=== PATIENT | male | born 1940 | race African-American/Black ===

== ENCOUNTER 2017-09-04 01:43 | Emergency (ER) | payer MEDICARE, MEDICAID ==
[~2017-09-04] VITALS: Ht 180.3 cm; Wt 72.6 kg
[2017-09-04] MEDS ORDERED: LEVETIRACETAM500 MG ORAL (01:53)
[2017-09-04] MEDS ORDERED: MULTIVITAMINS1 EAC8 ORAL (01:54)
[2017-09-04] MEDS ORDERED: NORVASC5 MG ORAL (01:54)
[2017-09-04] MEDS ORDERED: VITAMIN B-12500 MCG ORAL (01:55)
[2017-09-04] MEDS ORDERED: COUMADIN10 MG ORAL (01:55)
[2017-09-04] MEDS ORDERED: LOVENOX10 M1 SUBQ (01:56)
[2017-09-04] MEDS ORDERED: ACIDOPHILUS1 EAC6 PO (01:56)
[2017-09-04] MEDS ORDERED: HYDRALAZINE HCL50 MG ORAL (01:57)
[2017-09-04] MEDS ORDERED: DUONEB 0.5-3(2.53 ML HHN (01:58)
[2017-09-04] MEDS ORDERED: Surgicel 4in x 8in TOPIC ONE (02:02)
--- NOTE | 2017-09-04 02:12 | Emergency Room Report ---
History of Present Illness General Chief Complaint: Lower Extremity Injury Source: Patient, Medical Record, EMS Present Illness HPI Patient presents for complaints of bleeding from recent surgery It appears the patient had a toenail removal Unclear exactly the time frame for this patient however does appear to be on Coumadin And paramedics reported that the nursing facility mention the bleeding has continued since the procedure Patient himself denies any pain denies any chest pain shortness of breath denies any weakness Allergies: Coded Allergies: No Known Allergies (Unverified , 09/04/17) Patient History Past Medical History: see triage record Pertinent Family History: none Reviewed Nursing Documentation: PMH: Agreed, PSxH: Agreed Nursing Documentation-PMH Past Medical History: No History, Except For Hx Cardiac Problems: Yes Hx Hypertension: Yes Hx COPD: Yes History Of Psychiatric Problem: Yes Hx Neurological Problems: Yes Hx Seizures: Yes Review of Systems All Other Systems: negative except mentioned in HPI Physical Exam Vital Signs Date Time Temp Pulse Resp B/P (MAP) Pulse Ox O2 Delivery O2 Flow Rate FiO2 09/04/17 01:47 98.2 80 16 110/78 99 Room Air Sp02 EP Interpretation: reviewed, normal General Appearance: well appearing, no apparent distress Head: normocephalic, atraumatic Eyes: bilateral eye PERRL, bilateral eye EOMI ENT: hearing grossly normal, normal pharynx, TMs + canals normal, uvula midline Neck: full range of motion, supple, no meningismus, no bony tend Respiratory: lungs clear, normal breath sounds, no rhonchi, no respiratory distress, no retraction, no accessory muscle use Cardiovascular #1: normal peripheral pulses, regular rate, rhythm, no edema, no gallop, no JVD, no murmur Gastrointestinal: normal bowel sounds, non tender, soft, no mass, no organomegaly, non-distended, no guarding, no hernia, no pulsatile mass, no rebound Genitourinary: no CVA tenderness Musculoskeletal: normal inspection Neurologic: oriented x3, responsive, coding manager III-XII nml as tested, motor strength/ tone normal, sensory intact Psychiatric: mood/affect normal Skin: palpation normal, other - Appearance of left large toe toenail removal, oozing of blood is noted after removal of the dressing Lymphatic: normal inspection, no adenopathy Medical Decision Making Diagnostic Impression: Primary Impression: Post-op bleeding ER Course Given the patient's presentation the initial dressing was removed patient appears to have had a nail removal and there is continued oozing from the area After placing Steri-Strip Both the dressing with pressure was applied to the dorsal toe patient had the procedure well Patient's INR is appropriate At this time given the resolution patient is stable for close followup Labs Test 09/04/17 02:12 White Blood Count 4.7 K/UL (4.8-10.8) Red Blood Count 3.85 M/UL (4.70-6.10) Hemoglobin 11.7 G/DL (14.2-18.0) Hematocrit 34.4 % (42.0-52.0) Mean Corpuscular Volume 89 FL (80-99) Mean Corpuscular Hemoglobin 30.5 PG (27.0-31.0) Mean Corpuscular Hemoglobin Concent 34.1 G/DL (32.0-36.0) Red Cell Distribution Width 10.9 % (11.6-14.8) Platelet Count 269 K/UL (150-450) Mean Platelet Volume 6.3 FL (6.5-10.1) Neutrophils (%) (Auto) 44.4 % (45.0-75.0) Lymphocytes (%) (Auto) 37.8 % (20.0-45.0) Monocytes (%) (Auto) 12.7 % (1.0-10.0) Eosinophils (%) (Auto) 4.1 % (0.0-3.0) Basophils (%) (Auto) 1.1 % (0.0-2.0) Prothrombin Time 10.3 SEC (9.30-11.50) Prothromb Time International Ratio 1.0 (0.9-1.1) Activated Partial Thromboplast Time 35 SEC (23-33) Sodium Level 139 MMOL/L (136-145) Potassium Level 4.2 MMOL/L (3.5-5.1) Chloride Level 104 MMOL/L (98-107) Carbon Dioxide Level 29 MMOL/L (21-32) Anion Gap 6 mmol/L (5-15) Blood Urea Nitrogen 19 mg/dL (7-18) Creatinine 1.5 MG/DL (0.55-1.30) Estimat Glomerular Filtration Rate mL/min (>60) Glucose Level 96 MG/DL (74-106) Calcium Level 8.9 MG/DL (8.5-10.1) Last Vital Signs Date Time Temp Pulse Resp B/P (MAP) Pulse Ox O2 Delivery O2 Flow Rate FiO2 09/04/17 01:47 98.2 80 16 110/78 99 Room Air Status: improved Disposition: XFER [facility] Condition: Improved Additional Instructions: Patient is provided with the discharge instructions notified to follow up with primary doctor in the next 2-3 days otherwise return to the er with any worsening symptoms. Please note that this report is being documented using [employer]press technology. This can lead to erroneous entry secondary to incorrect interpretation by the dictating instrument. RIK BURGER D.O. Sep 04, 2017 02:12
[2017-09-04 02:26] LABS: BASOPHILS % (AUTO) 1.1 % (0.0-2.0); EOSINOPHILS % (AUTO) 4.1 % (0.0-3.0); LYMPHOCYTES % (AUTO) 37.8 % (20.0-45.0); MEAN CORPUSCULAR HEMOGLOBIN 30.5 PG (27.0-31.0); MEAN CORPUSCULAR HGB CONC 34.1 G/DL (32.0-36.0); MEAN CORPUSCULAR VOLUME 89 FL (80-99); MEAN PLATELET VOLUME 6.3 FL (6.5-10.1); MONOCYTES % (AUTO) 12.7 % (1.0-10.0); NEUTROPHILS % (AUTO) 44.4 % (45.0-75.0); PLATELET COUNT 269 K/UL (150-450); RED BLOOD COUNT 3.85 M/UL (4.70-6.10); RED CELL DISTRIBUTION WIDTH 10.9 % (11.6-14.8); WHITE BLOOD COUNT 4.7 K/UL (4.8-10.8)
[2017-09-04 02:32] VITALS: BP 117/71
[2017-09-04 02:47] LABS: ANION GAP 6 mmol/L (5-15); CALCIUM 8.9 MG/DL (8.5-10.1); CARBON DIOXIDE 29 MMOL/L (21-32); CHLORIDE 104 MMOL/L (98-107); CREATININE 1.5 MG/DL (0.55-1.30); POTASSIUM 4.2 MMOL/L (3.5-5.1); SODIUM 139 MMOL/L (136-145)
[2017-09-04 02:53] LABS: PROTHROMBIN TIME 10.3 SEC (9.30-11.50)
[2017-09-04 05:21] VITALS: BP 140/71
== END 2017-09-04 05:23 ==
LOC: EDBD 01:43 → EMR 02:02
DX: L76.22 Postprocedural hemorrhage of skin and subcutaneous tissue following other procedure (principal); Y83.9 Surgical procedure, unspecified as the cause of abnormal reaction of the patient, or of later complication, without mention of misadventure at the time of the procedure; I10 Essential (primary) hypertension; J44.9 Chronic obstructive pulmonary disease, unspecified
CPT/HCPCS: 36415; 80048; 85025; 85610; 85730; 99283

== ENCOUNTER 2018-06-14 12:53 | Inpatient (IN) | payer MEDICARE, MEDICAID ==
[~2018-06-14] VITALS: Ht 165.1 cm; Wt 59.0 kg
[~2018-06-14 12:53] MED LIST: ACIDOPHILUS1 EAC6 PO; COUMADIN10 MG ORAL; DUONEB 0.5-3(2.53 ML HHN; HYDRALAZINE HCL50 MG ORAL; LEVETIRACETAM500 MG ORAL; LOVENOX10 M1 SUBQ; MULTIVITAMINS1 EAC8 ORAL; NORVASC5 MG ORAL; VITAMIN B-12500 MCG ORAL
[2018-06-14] MEDS ORDERED: Miralax 17gm pkt ORAL PRN (13:15)
[2018-06-14] MEDS ORDERED: Promethazine/Codeine 5ml UD ORAL PRN (13:15)
[2018-06-14] MEDS ORDERED: Mylanta II UD 30ml ORAL PRN (13:15)
[2018-06-14] MEDS ORDERED: Nitroglycerin Subl 0.4mg tab SL PRN (13:15)
[2018-06-14] MEDS ORDERED: Albuterol/Ipratropium 3ml neb HHN PRN (13:15)
[2018-06-14 13:25] VITALS: BP 125/83
--- NOTE | 2018-06-14 13:28 | Emergency Room Report ---
History of Present Illness General Chief Complaint: Generalized Weakness Source: Patient, Medical Record, EMS Present Illness HPI Patient is a 78-year-old male brought in by EMS after from long term increased productive cough and the difficulty tolerating oral fluids. Patient recently been noted to have increased difficulty breathing.Patient had been not taking his medication for several days. Patient was noted to be previously on medications for psychosis. I reportedly patient had been refusing medications as well as food for several days.The patient had been noted to have developed a productive cough. Allergies: Coded Allergies: No Known Allergies (Unverified , 09/04/17) Patient History Past Medical History: see triage record Reviewed Nursing Documentation: PMH: Agreed; PSxH: Agreed Nursing Documentation-PMH Past Medical History: No History, Except For Hx Cardiac Problems: Yes - anemia, CHF Hx Hypertension: Yes Hx COPD: Yes Hx Cerebrovascular Accident: Yes Review of Systems All Other Systems: limited - by mental status Physical Exam Vital Signs Date Time Temp Pulse Resp B/P (MAP) Pulse Ox O2 Delivery O2 Flow Rate FiO2 06/14/18 12:48 97.8 105 32 112/78 94 Nasal Cannula 3.0 97.9 Sp02 EP Interpretation: reviewed, normal General Appearance: alert, cachetic, Chronically Ill Head: atraumatic ENT: normal voice, dry mucus membranes Neck: normal inspection, supple, no bony tend, limited range of motion Respiratory: no respiratory distress, no retraction, no wheezing, crackles Cardiovascular #1: regular rate, rhythm, no edema Gastrointestinal: normal inspection, normal bowel sounds, non tender, soft, no guarding, no hernia Genitourinary: no CVA tenderness Musculoskeletal: normal inspection, back normal, normal range of motion Neurologic: normal inspection, alert, oriented x3, responsive, demo event specialist III-XII nml as tested, speech normal Psychiatric: normal inspection, judgement/insight normal, mood/affect normal Skin: normal inspection, normal color, no rash Medical Decision Making Diagnostic Impression: Primary Impression: Acute hypernatremia Additional Impressions: Pneumonia Dehydration Failure to thrive ER Course Patient presented for shortness of breath and generalized weakness.. Differential included but was not limited to anemia, pneumonia, pneumothorax, myocardial infarction, pericardial effusion, congestive heart failure, acidosis. Because of complexity of patient's case laboratory testing and imaging studies were ordered. The patient presented grossly dehydrated. Chest x-ray one view interpreted by me showed normal cardiac size with right lower lobe infiltrate. There is no evident effusion. The patient was started on IV fluids as well as IV antibiotics. Lactic acid level was noted to be markedly elevated the patient's sodium was also noted to be elevated consistent with dehydration. Dr. Jacques Heaton was contacted for inpatient management. Labs Test 06/14/18 13:20 06/14/18 14:00 White Blood Count 8.4 K/UL (4.8-10.8) Red Blood Count 4.65 M/UL (4.70-6.10) Hemoglobin 12.9 G/DL (14.2-18.0) Hematocrit 41.9 % (42.0-52.0) Mean Corpuscular Volume 90 FL (80-99) Mean Corpuscular Hemoglobin 27.7 PG (27.0-31.0) Mean Corpuscular Hemoglobin Concent 30.7 G/DL (32.0-36.0) Red Cell Distribution Width 13.6 % (11.6-14.8) Platelet Count 309 K/UL (150-450) Mean Platelet Volume 7.5 FL (6.5-10.1) Neutrophils (%) (Auto) 75.1 % (45.0-75.0) Lymphocytes (%) (Auto) 18.9 % (20.0-45.0) Monocytes (%) (Auto) 5.5 % (1.0-10.0) Eosinophils (%) (Auto) 0.2 % (0.0-3.0) Basophils (%) (Auto) 0.3 % (0.0-2.0) Sodium Level 163 MMOL/L (136-145) Potassium Level 4.5 MMOL/L (3.5-5.1) Chloride Level 127 MMOL/L (98-107) Carbon Dioxide Level 24 MMOL/L (21-32) Anion Gap 12 mmol/L (5-15) Blood Urea Nitrogen 46 mg/dL (7-18) Creatinine 1.7 MG/DL (0.55-1.30) Estimat Glomerular Filtration Rate mL/min (>60) Glucose Level 89 MG/DL (74-106) Lactic Acid Level 3.80 mmol/L (0.4-2.0) Calcium Level 8.9 MG/DL (8.5-10.1) Total Bilirubin 0.8 MG/DL (0.2-1.0) Aspartate Amino Transf (AST/SGOT) 111 U/L (15-37) Alanine Aminotransferase (ALT/SGPT) 84 U/L (12-78) Alkaline Phosphatase 588 U/L (46-116) Total Creatine Kinase 101 U/L (26-308) Creatine Kinase MB 1.8 NG/ML (0.0-3.6) Creatine Kinase MB Relative Index 1.7 Troponin I 0.196 ng/mL (0.000-0.056) Pro-B-Type Natriuretic Peptide 616 pg/mL (0-125) Total Protein 8.1 G/DL (6.4-8.2) Albumin 2.6 G/DL (3.4-5.0) Globulin 5.5 g/dL Albumin/Globulin Ratio 0.5 (1.0-2.7) Last Vital Signs Date Time Temp Pulse Resp B/P (MAP) Pulse Ox O2 Delivery O2 Flow Rate FiO2 06/14/18 13:25 110 22 125/83 93 Nasal Cannula 3.0 06/14/18 12:48 97.8 97.9 Status: unchanged Disposition: ADMITTED INPATIENT Condition: Serious Referrals: Jacques Heaton DO (PCP) Anmol Solomon MD Jun 14, 2018 13:28
[2018-06-14 13:44] LABS: BASOPHILS % (AUTO) 0.3 % (0.0-2.0); EOSINOPHILS % (AUTO) 0.2 % (0.0-3.0); HEMATOCRIT 41.9 % (42.0-52.0); HEMOGLOBIN 12.9 G/DL (14.2-18.0); LYMPHOCYTES % (AUTO) 18.9 % (20.0-45.0); MEAN CORPUSCULAR VOLUME 90 FL (80-99); MONOCYTES % (AUTO) 5.5 % (1.0-10.0); NEUTROPHILS % (AUTO) 75.1 % (45.0-75.0); PLATELET COUNT 309 K/UL (150-450); RED BLOOD COUNT 4.65 M/UL (4.70-6.10); RED CELL DISTRIBUTION WIDTH 13.6 % (11.6-14.8); WHITE BLOOD COUNT 8.4 K/UL (4.8-10.8)
[2018-06-14] MEDS ORDERED: HydrALAZINE 50mg tab ORAL SCH (14:00)
[2018-06-14 14:08] LABS: ALANINE AMINOTRANSFERASE 84 U/L (12-78); ALBUMIN 2.6 G/DL (3.4-5.0); ALBUMIN/GLOBULIN RATIO 0.5 (1.0-2.7); ALKALINE PHOSPHATASE 588 U/L (46-116); ANION GAP 12 mmol/L (5-15); ASPARTATE AMINO TRANSFERASE 111 U/L (15-37); BILIRUBIN,TOTAL 0.8 MG/DL (0.2-1.0); BLOOD UREA NITROGEN 46 mg/dL (7-18); CALCIUM 8.9 MG/DL (8.5-10.1); CARBON DIOXIDE 24 MMOL/L (21-32); CHLORIDE 127 MMOL/L (98-107); CKMB 1.8 NG/ML (0.0-3.6); CREATINE KINASE 101 U/L (26-308); CREATININE 1.7 MG/DL (0.55-1.30); POTASSIUM 4.5 MMOL/L (3.5-5.1)
[2018-06-14] MEDS ORDERED: Ampicillin/Sulbactam Sod 3 GM in NS 110 ML IVPB ONE (14:15)
[2018-06-14 14:20] LABS: SODIUM 163 MMOL/L (136-145)
[2018-06-14 14:33] VITALS: BP 125/78
[2018-06-14 15:00] LABS: APPEARANCE,URINE SLIGHTLY CLOUDY; BILIRUBIN, URINE 2+ (NEGATIVE); COLOR,URINE BROWN; GLUCOSE, URINE (UA) NEGATIVE (NEGATIVE); KETONES,URINE 2+ (NEGATIVE); LEUKOCYTE ESTERASE ,URINE 2+ (NEGATIVE); NITRITE,URINE NEGATIVE (NEGATIVE); PH,URINE 5 (4.5-8.0); PROTEIN,URINE 2+ (NEGATIVE); UROBILINOGEN,URINE 12 MG/DL (0.0-1.0)
[2018-06-14] MEDS ORDERED: Acetaminophen 650 MG SUPP RECTAL ONE (15:00)
--- NOTE | 2018-06-14 15:33 | GI Initial Consult Note ---
History of Present Illness General Date patient seen: Jun 14, 2018 Time patient seen: 15:29 Reason for Hospitalization: Generalized Weakness Referring physician: MARK ALVAREZ Reason for Consultation: FTT Present Illness HPI Patient is a 78-year-old male brought in by EMS [facility] increased productive cough and the difficulty tolerating oral fluids. Patient recently been noted to have increased difficulty breathing.Patient had been not taking his medication for several days. Patient was noted to be previously on medications for psychosis. I reportedly patient had been refusing medications as well as food for several days.The patient had been noted to have developed a productive cough. GI consulted for FTT. [facility] limited, pt seen awake NAD with no active s/sx of N/V /D. Has constant mumble. No other history can be obtained from patient. Labs reviewed show mild anemia, hypernatremia, renal insufficiency, elevated lactic acid and elevated troponin levels and abnormal LFTs. Unknown history of endoscopy / colonoscopy. Home Meds Reported Medications Ipratropium/Albuterol Sulfate (DuoNeb 0.5-3(2.5)mg/3ml) 3 Ml Ampul.neb, 3 ML HHN , EA 09/04/17 Hydralazine Hcl* (HYDRALAZINE HCL*) 50 Mg Tablet, 50 MG ORAL EVERY 8 HOURS, TAB 09/04/17 Enoxaparin* (LOVENOX*) 60 Mg/0.6 Ml Inj, 60 MG SUBQ EVERY 12 HOURS, #60 EA 0 Refills 09/04/17 Lactobacillus Acidophilus (ACIDOPHILUS) 1 Each Capsule, 1 EACH PO, CAP 09/04/17 Cyanocobalamin (Vitamin B-12)* (VITAMIN B-12*) 500 Mcg Tablet, 500 MCG ORAL DAILY, #30 TAB 0 Refills 09/04/17 Warfarin Sod* (COUMADIN*) 10 Mg Tablet, 12 MG ORAL DAILY, TAB 09/04/17 Amlodipine Besylate (Norvasc) 5 Mg Tablet, 5 MG ORAL DAILY, TAB 09/04/17 Multivitamin With Minerals (MULTIVITAMINS WITH MINERALS*) 1 Each Tablet, 1 TAB ORAL DAILY, TAB 09/04/17 Levetiracetam* (LEVETIRACETAM*) 500 Mg Tablet, 500 MG ORAL TWICE A DAY, #60 TAB 0 Refills 09/04/17 Med list reviewed/reconciled: Yes Allergies: Coded Allergies: No Known Allergies (Unverified , 09/04/17) Patient History Limited by: medical condition History Provided By: Medical Record PMH Narrative Past Medical History: see triage record Reviewed Nursing Documentation: PMH: Agreed; PSxH: Agreed Nursing Documentation-PM Past Medical History: No History, Except For Hx Cardiac Problems: Yes - anemia, CHF Hx Hypertension: Yes Hx COPD: Yes Hx Cerebrovascular Accident: Yes Review of Systems All Other Systems: limited Physical Exam Vital Signs Date Time Temp Pulse Resp B/P (MAP) Pulse Ox O2 Delivery O2 Flow Rate FiO2 06/14/18 12:48 97.8 105 32 112/78 94 Nasal Cannula 3.0 97.9 Sp02 EP Interpretation: reviewed, normal Labs Laboratory Tests Test 06/14/18 13:20 06/14/18 14:00 06/14/18 14:30 White Blood Count 8.4 K/UL (4.8-10.8) Red Blood Count 4.65 M/UL (4.70-6.10) L Hemoglobin 12.9 G/DL (14.2-18.0) L Hematocrit 41.9 % (42.0-52.0) L Mean Corpuscular Volume 90 FL (80-99) Mean Corpuscular Hemoglobin 27.7 PG (27.0-31.0) Mean Corpuscular Hemoglobin Concent 30.7 G/DL (32.0-36.0) L Red Cell Distribution Width 13.6 % (11.6-14.8) Platelet Count 309 K/UL (150-450) Mean Platelet Volume 7.5 FL (6.5-10.1) Neutrophils (%) (Auto) 75.1 % (45.0-75.0) H Lymphocytes (%) (Auto) 18.9 % (20.0-45.0) L Monocytes (%) (Auto) 5.5 % (1.0-10.0) Eosinophils (%) (Auto) 0.2 % (0.0-3.0) Basophils (%) (Auto) 0.3 % (0.0-2.0) Sodium Level 163 MMOL/L (136-145) *H Potassium Level 4.5 MMOL/L (3.5-5.1) Chloride Level 127 MMOL/L (98-107) H Carbon Dioxide Level 24 MMOL/L (21-32) Anion Gap 12 mmol/L (5-15) Blood Urea Nitrogen 46 mg/dL (7-18) H Creatinine 1.7 MG/DL (0.55-1.30) H Estimat Glomerular Filtration Rate mL/min (>60) Glucose Level 89 MG/DL (74-106) Lactic Acid Level 3.80 mmol/L (0.4-2.0) H 4.40 mmol/L (0.66-2.22) H Calcium Level 8.9 MG/DL (8.5-10.1) Total Bilirubin 0.8 MG/DL (0.2-1.0) Aspartate Amino Transf (AST/SGOT) 111 U/L (15-37) H Alanine Aminotransferase (ALT/SGPT) 84 U/L (12-78) H Alkaline Phosphatase 588 U/L (46-116) H Total Creatine Kinase 101 U/L (26-308) Creatine Kinase MB 1.8 NG/ML (0.0-3.6) Creatine Kinase MB Relative Index 1.7 Troponin I 0.196 ng/mL (0.000-0.056) Pro-B-Type Natriuretic Peptide 616 pg/mL (0-125) H Total Protein 8.1 G/DL (6.4-8.2) Albumin 2.6 G/DL (3.4-5.0) L Globulin 5.5 g/dL Albumin/Globulin Ratio 0.5 (1.0-2.7) L Arterial Blood pH 7.508 (7.350-7.450) Arterial Blood Partial Pressure CO2 22.2 mmHg (35.0-45.0) *L Arterial Blood Partial Pressure O2 53.5 mmHg (75.0-100.0) L Arterial Blood HCO3 17.2 mmol/L (22.0-26.0) L Arterial Blood Oxygen Saturation 87.5 % (92.0-98.0) L Arterial Blood Base Excess -3.9 Amado Test Positive Urine Color Brown Urine Appearance Slightly cloudy Urine pH 5 (4.5-8.0) Urine Specific [place] 1.020 (1.005-1.035) Urine Protein 2+ (NEGATIVE) H Urine Glucose (UA) Negative (NEGATIVE) Urine Ketones 2+ (NEGATIVE) H Urine Blood 1+ (NEGATIVE) H Urine Nitrite Negative (NEGATIVE) Urine Bilirubin 2+ (NEGATIVE) H Urine Ictotest Negative (NEGATIVE) Urine Urobilinogen 12 MG/DL (0.0-1.0) H Urine Leukocyte Esterase 2+ (NEGATIVE) H Urine RBC 2-4 /HPF (0 - 0) H Urine WBC 2-4 /HPF (0 - 0) Urine Squamous Epithelial Cells Occasional /LPF Urine Amorphous Sediment Moderate /LPF (NONE) H Urine Bacteria Few /HPF (NONE) Urine Mucus Few /LPF (NONE/OCC) H General Appearance: well appearing, no apparent distress, alert Head: normocephalic EENT: PERRL/EOMI, normal ENT inspection Neck: supple Respiratory: normal breath sounds, no respiratory distress Cardiovascular: normal rate Gastrointestinal: normal inspection, non tender, soft, normal bowel sounds, non -distended Rectal: deferred Genitourinary: deferred Musculoskeletal: normal inspection, back normal Neurologic: alert Skin: normal inspection, normal color, no rash, warm/dry, palpation normal, well hydrated Lymphatic: normal inspection, no adenopathy Current Medications Current Medications Medications (Trade) Dose Ordered Sig/Manav Route PRN Reason Start Time Stop Time Status Last Admin Dose Admin Acetaminophen (Tylenol) 650 mg Q4H PRN ORAL fever (temp>100.5F) 06/14/18 13:15 07/14/18 13:14 Al Hydroxide/Mg Hydroxide (Mylanta II) 30 ml Q6H PRN ORAL dyspepsia 06/14/18 13:15 07/14/18 13:14 Albuterol/ Ipratropium (Albuterol/ Ipratropium) 3 ml Q4H PRN HHN Shortness of Breath 06/14/18 13:15 06/19/18 13:14 Amlodipine Besylate (Norvasc) 5 mg DAILY ORAL 06/15/18 09:00 07/15/18 08:59 Cefepime HCl 1 gm/ Dextrose 55 ml @ 110 mls/hr EVERY 12 HOURS IV 06/14/18 21:00 06/21/18 20:59 UNV Heparin Sodium (Porcine) (Heparin 5000 units/ml) 5,000 units EVERY 12 HOURS SUBQ 06/14/18 21:00 07/14/18 20:59 Hydralazine HCl (Apresoline) 50 mg EVERY 8 HOURS ORAL 06/14/18 14:00 07/14/18 13:59 Levetiracetam (Keppra) 500 mg Q12HR ORAL 06/14/18 21:00 07/14/18 20:59 Nitroglycerin (Ntg) 0.4 mg Q5M PRN SL Prn Chest Pain 06/14/18 13:15 07/14/18 13:14 Ondansetron HCl (Zofran) 4 mg Q6H PRN IVP Nausea & Vomiting 06/14/18 13:15 07/14/18 13:14 Polyethylene Glycol (Miralax) 17 gm DAILYPRN PRN ORAL Constipation 06/14/18 13:15 07/14/18 13:14 Promethazine HCl/ Codeine (Phenergan with Codeine) 5 ml Q4H PRN ORAL For Cough 06/14/18 13:15 07/14/18 13:14 Sodium Chloride 1,000 ml @ 999 mls/hr Q1H1M ONCE IV 06/14/18 14:30 06/14/18 15:30 06/14/18 15:03 Temazepam (Restoril) 15 mg HSPRN PRN ORAL Insomnia 06/14/18 13:15 06/21/18 13:14 Vancomycin HCl (Vanco rx to dose) 1 ea DAILY PRN MISC Per rx protocol 06/14/18 13:15 07/14/18 13:14 UNV GI: Plan Problems: (1) Electrolyte imbalance (2) Severe malnutrition (3) Renal insufficiency (4) Acute hypernatremia (5) Dehydration (6) Pneumonia (7) Generalized weakness (8) Failure to thrive Plan hold GI procedures at this time given elevated troponin levels, needs cardiac work up PEG if necessary maintain NPO + IVFs electrolyte correction ST evaluation calorie count anemia work up OB stool r/o GI bleed monitor H&H, prn transfusions bowel regime ppi trend LFTs fu labs, hepatitis panel Discussed with Dr. Pineda. Thank you for this patient referral, we will follow. The patient was seen and examined at bedside and all new and available data was reviewed in the patients chart. I agree with the above findings, impression and plan. (Patient seen earlier today. Signature stamp does not reflect patient encounter time.). - MD Inez FallHonorhealth John C. Lincoln Medical CenterEtelvina DIAGNOSTIC TECHNICIAN Jun 14, 2018 15:33
[2018-06-14 16:00] VITALS: BP 129/87
--- NOTE | 2018-06-14 16:38 | Diagnostic Imaging Report ---
Indication: Shortness of breath Technique: XRAY Chest 1v Comparison: None Findings: Heart size and mediastinal contours within normal limits for AP technique. There are atherosclerotic calcifications in the aortic arch. There is asymmetric hazy opacification in the right lung base concerning for pneumonia. Additionally there are multiple bilateral nodular opacities. Malignancy not excluded. There is degenerative change of the spine. No acute osseous abnormality identified. IMPRESSION: * Asymmetric hazy opacity in the right lower lung concerning for pneumonia. Correlate clinically. * Multiple bilateral nodular densities. Malignancy is not excluded. Recommend further evaluation with CT of the chest. Study obtained via the emergency department however patient admitted to the hospital at time of dictation of the final report. . Findings of the final report and imaging follow-up recommendations discussed with the treating nurse on 2E. via telephone conversation. RN to convey imaging recommendations to the treating MD.
[2018-06-14] MEDS ORDERED: MILK OF MA400 MG/51 ORAL (16:45)
[2018-06-14] MEDS ORDERED: ACETAMINOPHEN325 M1 ORAL (16:45)
[2018-06-14] MEDS ORDERED: PROZAC10 MG ORAL (16:45)
[2018-06-14] MEDS ORDERED: TYLENOL EXTRA500 MG ORAL (16:45)
[2018-06-14] MEDS ORDERED: COLACE100 MG ORAL (16:45)
--- NOTE | 2018-06-14 16:45 | History and Physical Report ---
DATE OF ADMISSION: 06/14/2018 APPROXIMATE TIME: 1 p.m. CONSULTANTS: 1. Malia Saba M.D. 2. Shey Gutierrez M.D. 3. Vin Pineda M.D. 4. Ousmane Denis M.D. CHIEF COMPLAINT: Failure to thrive, confusion, and shortness of breath. BRIEF HISTORY: This is a 78-year-old male from [facility], he presented with the above-mentioned diagnosis. Currently, calm, O2 NC, slight short of breath, in the ER gurney, refusing to answer questions. REVIEW OF SYSTEMS: Unavailable. PAST MEDICAL HISTORY: Include high blood pressure, confusion, and weakness. PAST SURGICAL HISTORY: Unknown. MEDICATIONS: Include amlodipine, hydralazine, Tylenol, , nitroglycerin, albuterol, Zofran, temazepam, and vancomycin. ALLERGIES: Denies. SOCIAL HISTORY: Unable to obtain secondary to the patient's condition. PHYSICAL EXAMINATION: GENERAL: Calm in bed, O2 NC in place, slight short of breath, refusing to answer questions. VITAL SIGNS: Temperature is 98, pulse 105, respirations 32, and blood pressure 112/78. CARDIOVASCULAR: No murmurs. LUNGS: Poor air exchange. ABDOMEN: Bowel sounds distant. EXTREMITIES: No cyanosis, clubbing, or edema. NEUROLOGIC: The patient moves all extremities, but slightly weak. LABORATORY DATA: Laboratories are pending. ASSESSMENT: 1. Failure to thrive. 2. Confusion. 3. Short of breath. 4. Weakness. 5. Hypertension. PLAN: 1. Continue premeds. 2. O2 and pulmonary treatment. 3. OT, PT, and dietary evaluation. 4. CBC and BMP in the morning. 5. Antibiotics per Infectious Disease. 6. Dr. Saba, Dr. Gutierrez, Dr. Pineda, and Dr. Denis to consult. 7. We will continue to follow the patient. We will check laboratories if become available. Jacques Heaton D.O. DR: SARAH JOB#: [id number] CC:
[2018-06-14] MEDS: Cefepime HCl 1 GM in D5W 55 ML IV SCH (17:58)
[2018-06-14] MEDS ORDERED: Vancomycin 1gm/D5W 275ml IVPB ONE ×2 (18:30)
[2018-06-14 20:00] VITALS: BP 118/85
--- NOTE | 2018-06-14 20:43 | Consultation ---
History of Present Illness General Date patient seen: Jun 14, 2018 Chief Complaint: Generalized Weakness Referring physician: MARK ALVAREZ Reason for Consultation: lung nodules Present Illness HPI 78-year-old male with hx of seizures, CVA, dementia brought in by EMS with cc of productive cough and the difficulty tolerating oral fluids. Patient had been refusing medications as well as food for several days.The patient had been noted to have developed a productive cough. He was diagnosed to have RLL infiltrate and multiple masses. He is admitted to telemetry for further work up. Allergies: Coded Allergies: No Known Allergies (Unverified , 09/04/17) Medication History Scheduled Amlodipine Besylate (Norvasc), 5 MG ORAL DAILY, (Reported) Cyanocobalamin (Vitamin B-12)* (Vitamin B-12*), 500 MCG ORAL DAILY, (Reported) Docusate Sodium* (Colace*), 100 MG ORAL DAILY, (Reported) Enoxaparin* (Lovenox*), 60 MG SUBQ EVERY 12 HOURS, (Reported) Fluoxetine Hcl* (Prozac*), 10 MG ORAL DAILY, (Reported) Hydralazine Hcl* (Hydralazine Hcl*), 50 MG ORAL EVERY 8 HOURS, (Reported) Levetiracetam* (Levetiracetam*), 500 MG ORAL TWICE A DAY, (Reported) Magnesium Hydroxide* (Milk Of Magnesia*), 30 ML ORAL DAILY, (Reported) Multivitamin With Minerals (Multivitamins With Minerals*), 1 TAB ORAL DAILY, ( Reported) Warfarin Sod* (Coumadin*), 12 MG ORAL DAILY, (Reported) Scheduled PRN Acetaminophen* (Tylenol Extra Strength*), 500 MG ORAL Q6H PRN for Mild Pain/ Temp > 100.5, (Reported) Acetaminophen* (Acetaminophen 325MG Tablet*), 325 MG ORAL Q6H PRN for Pain Scale (6-10), (Reported) Miscellaneous Medications Ipratropium/Albuterol Sulfate (DuoNeb 0.5-3(2.5)mg/3ml), 3 ML HHN, (Reported) Lactobacillus Acidophilus (Acidophilus), 1 EACH PO, (Reported) Patient History Healthcare decision maker Resuscitation status Advanced Directive on File Past Medical/Surgical History Past Medical/Surgical History: (1) Cerebrovascular accident (CVA) (2) Seizure disorder (3) Advanced dementia (4) Severe malnutrition (5) Failure to thrive Review of Systems All Other Systems: negative except mentioned in HPI Physical Exam General Appearance: cachetic Lines, tubes and drains: peripheral HEENT: normocephalic, atraumatic Neck: non-tender, normal alignment Respiratory/Chest: chest wall non-tender, rhonchi - left Cardiovascular/Chest: normal peripheral pulses, normal rate Abdomen: normal bowel sounds, non tender Genitourinary/Rectal: normal genital exam Extremities: normal range of motion 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 grossly normal Last 24 Hour Vital Signs Date Time Temp Pulse Resp B/P (MAP) Pulse Ox O2 Delivery O2 Flow Rate FiO2 06/14/18 20:08 Nasal Cannula 1.0 24 06/14/18 20:07 99 Nasal Cannula 1.0 24 06/14/18 20:00 97.3 99 20 118/85 (96) 94 97.3 06/14/18 19:03 96 06/14/18 16:52 Nasal Cannula 3.0 06/14/18 16:00 98.6 101 20 129/87 (101) 98 98.6 06/14/18 15:30 100.6 116 22 125/78 96 Nasal Cannula 3.0 213.1 06/14/18 15:03 100.6 06/14/18 14:33 100.6 116 22 125/78 96 Nasal Cannula 3.0 100.6 06/14/18 13:25 110 22 125/83 93 Nasal Cannula 3.0 06/14/18 12:48 97.8 105 32 112/78 94 Nasal Cannula 3.0 97.9 Laboratory Tests Test 06/14/18 13:20 06/14/18 14:00 06/14/18 14:30 06/14/18 18:20 White Blood Count 8.4 K/UL (4.8-10.8) Red Blood Count 4.65 M/UL (4.70-6.10) L Hemoglobin 12.9 G/DL (14.2-18.0) L Hematocrit 41.9 % (42.0-52.0) L Mean Corpuscular Volume 90 FL (80-99) Mean Corpuscular Hemoglobin 27.7 PG (27.0-31.0) Mean Corpuscular Hemoglobin Concent 30.7 G/DL (32.0-36.0) L Red Cell Distribution Width 13.6 % (11.6-14.8) Platelet Count 309 K/UL (150-450) Mean Platelet Volume 7.5 FL (6.5-10.1) Neutrophils (%) (Auto) 75.1 % (45.0-75.0) H Lymphocytes (%) (Auto) 18.9 % (20.0-45.0) L Monocytes (%) (Auto) 5.5 % (1.0-10.0) Eosinophils (%) (Auto) 0.2 % (0.0-3.0) Basophils (%) (Auto) 0.3 % (0.0-2.0) Sodium Level 163 MMOL/L (136-145) *H Potassium Level 4.5 MMOL/L (3.5-5.1) Chloride Level 127 MMOL/L (98-107) H Carbon Dioxide Level 24 MMOL/L (21-32) Anion Gap 12 mmol/L (5-15) Blood Urea Nitrogen 46 mg/dL (7-18) H Creatinine 1.7 MG/DL (0.55-1.30) H Estimat Glomerular Filtration Rate mL/min (>60) Glucose Level 89 MG/DL (74-106) Lactic Acid Level 3.80 mmol/L (0.4-2.0) H 4.40 mmol/L (0.66-2.22) H Calcium Level 8.9 MG/DL (8.5-10.1) Total Bilirubin 0.8 MG/DL (0.2-1.0) Aspartate Amino Transf (AST/SGOT) 111 U/L (15-37) H Alanine Aminotransferase (ALT/SGPT) 84 U/L (12-78) H Alkaline Phosphatase 588 U/L (46-116) H Total Creatine Kinase 101 U/L (26-308) Creatine Kinase MB 1.8 NG/ML (0.0-3.6) Creatine Kinase MB Relative Index 1.7 Troponin I 0.196 ng/mL (0.000-0.056) Pro-B-Type Natriuretic Peptide 616 pg/mL (0-125) H Total Protein 8.1 G/DL (6.4-8.2) Albumin 2.6 G/DL (3.4-5.0) L Globulin 5.5 g/dL Albumin/Globulin Ratio 0.5 (1.0-2.7) L Arterial Blood pH 7.508 (7.350-7.450) Arterial Blood Partial Pressure CO2 22.2 mmHg (35.0-45.0) *L Arterial Blood Partial Pressure O2 53.5 mmHg (75.0-100.0) L Arterial Blood HCO3 17.2 mmol/L (22.0-26.0) L Arterial Blood Oxygen Saturation 87.5 % (92.0-98.0) L Arterial Blood Base Excess -3.9 Amado Test Positive Urine Color Brown Urine Appearance Slightly cloudy Urine pH 5 (4.5-8.0) Urine Specific Stanley 1.020 (1.005-1.035) Urine Protein 2+ (NEGATIVE) H Urine Glucose (UA) Negative (NEGATIVE) Urine Ketones 2+ (NEGATIVE) H Urine Blood 1+ (NEGATIVE) H Urine Nitrite Negative (NEGATIVE) Urine Bilirubin 2+ (NEGATIVE) H Urine Ictotest Negative (NEGATIVE) Urine Urobilinogen 12 MG/DL (0.0-1.0) H Urine Leukocyte Esterase 2+ (NEGATIVE) H Urine RBC 2-4 /HPF (0 - 0) H Urine WBC 2-4 /HPF (0 - 0) Urine Squamous Epithelial Cells Occasional /LPF Urine Amorphous Sediment Moderate /LPF (NONE) H Urine Bacteria Few /HPF (NONE) Urine Mucus Few /LPF (NONE/OCC) H Stool Occult Blood Pending Height (Feet): 5 Height (Inches): 7.00 Weight (Pounds): 119 Medications Current Medications Medications (Trade) Dose Ordered Sig/Manav Route PRN Reason Start Time Stop Time Status Last Admin Dose Admin Acetaminophen (Tylenol) 650 mg Q4H PRN ORAL fever (temp>100.5F) 06/14/18 13:15 07/14/18 13:14 Al Hydroxide/Mg Hydroxide (Mylanta II) 30 ml Q6H PRN ORAL dyspepsia 06/14/18 13:15 07/14/18 13:14 Albuterol/ Ipratropium (Albuterol/ Ipratropium) 3 ml Q4H PRN HHN Shortness of Breath 06/14/18 13:15 06/19/18 13:14 Amlodipine Besylate (Norvasc) 5 mg DAILY ORAL 06/15/18 09:00 07/15/18 08:59 Cefepime HCl 1 gm/ Dextrose 55 ml @ 110 mls/hr DAILY IV 06/14/18 18:00 06/21/18 17:59 06/14/18 17:58 Dextrose 1,000 ml @ 150 mls/hr Q6H40M IV 06/14/18 17:30 07/14/18 17:29 06/14/18 17:55 Heparin Sodium (Porcine) (Heparin 5000 units/ml) 5,000 units EVERY 12 HOURS SUBQ 06/14/18 21:00 07/14/18 20:59 Hydralazine HCl (Apresoline) 50 mg EVERY 8 HOURS ORAL 06/14/18 14:00 07/14/18 13:59 Levetiracetam (Keppra) 500 mg Q12HR ORAL 06/14/18 21:00 07/14/18 20:59 Nitroglycerin (Ntg) 0.4 mg Q5M PRN SL Prn Chest Pain 06/14/18 13:15 07/14/18 13:14 Ondansetron HCl (Zofran) 4 mg Q6H PRN IVP Nausea & Vomiting 06/14/18 13:15 07/14/18 13:14 Pantoprazole (Protonix) 40 mg DAILY IVP 06/15/18 09:00 07/15/18 08:59 Polyethylene Glycol (Miralax) 17 gm DAILYPRN PRN ORAL Constipation 06/14/18 13:15 07/14/18 13:14 Promethazine HCl/ Codeine (Phenergan with Codeine) 5 ml Q4H PRN ORAL For Cough 06/14/18 13:15 07/14/18 13:14 Temazepam (Restoril) 15 mg HSPRN PRN ORAL Insomnia 06/14/18 13:15 06/21/18 13:14 Vancomycin HCl (Vanco rx to dose) 1 ea DAILY PRN MISC Per rx protocol 06/14/18 13:15 07/14/18 13:14 Assessment/Plan Problem List: (1) Aspiration pneumonia ICD Codes: J69.0 - Pneumonitis due to inhalation of food and vomit SNOMED: 248052473 (2) ATN (acute tubular necrosis) ICD Codes: N17.0 - Acute kidney failure with tubular necrosis SNOMED: 47201129 (3) Lung nodule, multiple ICD Codes: R91.8 - Other nonspecific abnormal finding of lung field SNOMED: 579307849 (4) Seizure disorder ICD Codes: G40.909 - Epilepsy, unspecified, not intractable, without status epilepticus SNOMED: 433720169 (5) Severe malnutrition ICD Codes: E43 - Unspecified severe protein-calorie malnutrition SNOMED: 14028173 (6) Cerebrovascular accident (CVA) ICD Codes: I63.9 - Cerebral infarction, unspecified SNOMED: 262268372 (7) Advanced dementia ICD Codes: F03.90 - Unspecified dementia without behavioral disturbance SNOMED: 77891458 Assessment/Plan NPO iv fluids iv abx CT of chest check sputum check electrolytes swallow evaluation Malia Saba MD Jun 14, 2018 20:43
[2018-06-14] MEDS: Heparin 5000 units/ml inj SUBQ SCH (21:19)
--- NOTE | 2018-06-14 23:32 | Consultation ---
History of Present Illness General Date patient seen: Jun 15, 2018 Chief Complaint: Generalized Weakness Referring physician: MARK ALVAREZ Reason for Consultation: FTT Present Illness HPI 78-year-old male from [facility], he presented with the above- mentioned diagnosis. The pt pw waxing and waning of consciousness, memory impairment. the pt is confused and has not been eating . he lacks capacity Allergies: Coded Allergies: No Known Allergies (Unverified , 09/04/17) Medication History Scheduled Amlodipine Besylate (Norvasc), 5 MG ORAL DAILY, (Reported) Cyanocobalamin (Vitamin B-12)* (Vitamin B-12*), 500 MCG ORAL DAILY, (Reported) Docusate Sodium* (Colace*), 100 MG ORAL DAILY, (Reported) Enoxaparin* (Lovenox*), 60 MG SUBQ EVERY 12 HOURS, (Reported) Fluoxetine Hcl* (Prozac*), 10 MG ORAL DAILY, (Reported) Hydralazine Hcl* (Hydralazine Hcl*), 50 MG ORAL EVERY 8 HOURS, (Reported) Levetiracetam* (Levetiracetam*), 500 MG ORAL TWICE A DAY, (Reported) Magnesium Hydroxide* (Milk Of Magnesia*), 30 ML ORAL DAILY, (Reported) Multivitamin With Minerals (Multivitamins With Minerals*), 1 TAB ORAL DAILY, ( Reported) Warfarin Sod* (Coumadin*), 12 MG ORAL DAILY, (Reported) Scheduled PRN Acetaminophen* (Tylenol Extra Strength*), 500 MG ORAL Q6H PRN for Mild Pain/ Temp > 100.5, (Reported) Acetaminophen* (Acetaminophen 325MG Tablet*), 325 MG ORAL Q6H PRN for Pain Scale (6-10), (Reported) Miscellaneous Medications Ipratropium/Albuterol Sulfate (DuoNeb 0.5-3(2.5)mg/3ml), 3 ML HHN, (Reported) Lactobacillus Acidophilus (Acidophilus), 1 EACH PO, (Reported) Patient History Healthcare decision maker Resuscitation status Advanced Directive on File Past Medical/Surgical History Past Medical/Surgical History: (1) Acute hypernatremia (2) Dehydration (3) Pneumonia (4) Generalized weakness (5) Failure to thrive (6) Renal insufficiency (7) Electrolyte imbalance (8) Severe malnutrition (9) Seizure disorder (10) Advanced dementia (11) Cerebrovascular accident (CVA) (12) Aspiration pneumonia (13) ATN (acute tubular necrosis) (14) Lung nodule, multiple (15) Post-op bleeding (16) Metastatic cancer Review of Systems Psychiatric: Reports: prior hx, anxiety, depressed feelings, emotional problems Physical Exam General Appearance: no apparent distress, alert, confused Last 24 Hour Vital Signs Date Time Temp Pulse Resp B/P (MAP) Pulse Ox O2 Delivery O2 Flow Rate FiO2 06/14/18 20:08 Nasal Cannula 1.0 24 06/14/18 20:07 99 Nasal Cannula 1.0 24 06/14/18 20:00 97.3 99 20 118/85 (96) 94 97.3 06/14/18 19:03 96 06/14/18 16:52 Nasal Cannula 3.0 06/14/18 16:00 98.6 101 20 129/87 (101) 98 98.6 06/14/18 15:30 100.6 116 22 125/78 96 Nasal Cannula 3.0 213.1 06/14/18 15:03 100.6 06/14/18 14:33 100.6 116 22 125/78 96 Nasal Cannula 3.0 100.6 06/14/18 13:25 110 22 125/83 93 Nasal Cannula 3.0 06/14/18 12:48 97.8 105 32 112/78 94 Nasal Cannula 3.0 97.9 Laboratory Tests Test 06/14/18 13:20 06/14/18 14:00 06/14/18 14:30 06/14/18 18:20 White Blood Count 8.4 K/UL (4.8-10.8) Red Blood Count 4.65 M/UL (4.70-6.10) L Hemoglobin 12.9 G/DL (14.2-18.0) L Hematocrit 41.9 % (42.0-52.0) L Mean Corpuscular Volume 90 FL (80-99) Mean Corpuscular Hemoglobin 27.7 PG (27.0-31.0) Mean Corpuscular Hemoglobin Concent 30.7 G/DL (32.0-36.0) L Red Cell Distribution Width 13.6 % (11.6-14.8) Platelet Count 309 K/UL (150-450) Mean Platelet Volume 7.5 FL (6.5-10.1) Neutrophils (%) (Auto) 75.1 % (45.0-75.0) H Lymphocytes (%) (Auto) 18.9 % (20.0-45.0) L Monocytes (%) (Auto) 5.5 % (1.0-10.0) Eosinophils (%) (Auto) 0.2 % (0.0-3.0) Basophils (%) (Auto) 0.3 % (0.0-2.0) Sodium Level 163 MMOL/L (136-145) *H Potassium Level 4.5 MMOL/L (3.5-5.1) Chloride Level 127 MMOL/L (98-107) H Carbon Dioxide Level 24 MMOL/L (21-32) Anion Gap 12 mmol/L (5-15) Blood Urea Nitrogen 46 mg/dL (7-18) H Creatinine 1.7 MG/DL (0.55-1.30) H Estimat Glomerular Filtration Rate mL/min (>60) Glucose Level 89 MG/DL (74-106) Lactic Acid Level 3.80 mmol/L (0.4-2.0) H 4.40 mmol/L (0.66-2.22) H Calcium Level 8.9 MG/DL (8.5-10.1) Total Bilirubin 0.8 MG/DL (0.2-1.0) Aspartate Amino Transf (AST/SGOT) 111 U/L (15-37) H Alanine Aminotransferase (ALT/SGPT) 84 U/L (12-78) H Alkaline Phosphatase 588 U/L (46-116) H Total Creatine Kinase 101 U/L (26-308) Creatine Kinase MB 1.8 NG/ML (0.0-3.6) Creatine Kinase MB Relative Index 1.7 Troponin I 0.196 ng/mL (0.000-0.056) Pro-B-Type Natriuretic Peptide 616 pg/mL (0-125) H Total Protein 8.1 G/DL (6.4-8.2) Albumin 2.6 G/DL (3.4-5.0) L Globulin 5.5 g/dL Albumin/Globulin Ratio 0.5 (1.0-2.7) L Arterial Blood pH 7.508 (7.350-7.450) Arterial Blood Partial Pressure CO2 22.2 mmHg (35.0-45.0) *L Arterial Blood Partial Pressure O2 53.5 mmHg (75.0-100.0) L Arterial Blood HCO3 17.2 mmol/L (22.0-26.0) L Arterial Blood Oxygen Saturation 87.5 % (92.0-98.0) L Arterial Blood Base Excess -3.9 Amado Test Positive Urine Color Brown Urine Appearance Slightly cloudy Urine pH 5 (4.5-8.0) Urine Specific Howell 1.020 (1.005-1.035) Urine Protein 2+ (NEGATIVE) H Urine Glucose (UA) Negative (NEGATIVE) Urine Ketones 2+ (NEGATIVE) H Urine Blood 1+ (NEGATIVE) H Urine Nitrite Negative (NEGATIVE) Urine Bilirubin 2+ (NEGATIVE) H Urine Ictotest Negative (NEGATIVE) Urine Urobilinogen 12 MG/DL (0.0-1.0) H Urine Leukocyte Esterase 2+ (NEGATIVE) H Urine RBC 2-4 /HPF (0 - 0) H Urine WBC 2-4 /HPF (0 - 0) Urine Squamous Epithelial Cells Occasional /LPF Urine Amorphous Sediment Moderate /LPF (NONE) H Urine Bacteria Few /HPF (NONE) Urine Mucus Few /LPF (NONE/OCC) H Stool Occult Blood Pending Height (Feet): 5 Height (Inches): 7.00 Weight (Pounds): 119 Medications Current Medications Medications (Trade) Dose Ordered Sig/Manav Route PRN Reason Start Time Stop Time Status Last Admin Dose Admin Acetaminophen (Tylenol) 650 mg Q4H PRN ORAL fever (temp>100.5F) 06/14/18 13:15 07/14/18 13:14 Al Hydroxide/Mg Hydroxide (Mylanta II) 30 ml Q6H PRN ORAL dyspepsia 06/14/18 13:15 07/14/18 13:14 Albuterol/ Ipratropium (Albuterol/ Ipratropium) 3 ml Q4H PRN HHN Shortness of Breath 06/14/18 13:15 06/19/18 13:14 Amlodipine Besylate (Norvasc) 5 mg DAILY ORAL 06/15/18 09:00 07/15/18 08:59 Cefepime HCl 1 gm/ Dextrose 55 ml @ 110 mls/hr DAILY IV 06/14/18 18:00 06/21/18 17:59 06/14/18 17:58 Dextrose 1,000 ml @ 150 mls/hr Q6H40M IV 06/14/18 17:30 07/14/18 17:29 06/14/18 17:55 Heparin Sodium (Porcine) (Heparin 5000 units/ml) 5,000 units EVERY 12 HOURS SUBQ 06/14/18 21:00 07/14/18 20:59 06/14/18 21:19 Hydralazine HCl (Apresoline) 50 mg EVERY 8 HOURS ORAL 06/14/18 14:00 07/14/18 13:59 Levetiracetam (Keppra) 500 mg Q12HR ORAL 06/14/18 21:00 07/14/18 20:59 Nitroglycerin (Ntg) 0.4 mg Q5M PRN SL Prn Chest Pain 06/14/18 13:15 07/14/18 13:14 Ondansetron HCl (Zofran) 4 mg Q6H PRN IVP Nausea & Vomiting 06/14/18 13:15 07/14/18 13:14 Pantoprazole (Protonix) 40 mg DAILY IVP 06/15/18 09:00 07/15/18 08:59 Polyethylene Glycol (Miralax) 17 gm DAILYPRN PRN ORAL Constipation 06/14/18 13:15 07/14/18 13:14 Promethazine HCl/ Codeine (Phenergan with Codeine) 5 ml Q4H PRN ORAL For Cough 06/14/18 13:15 07/14/18 13:14 Temazepam (Restoril) 15 mg HSPRN PRN ORAL Insomnia 06/14/18 13:15 06/21/18 13:14 Vancomycin HCl (Vanco rx to dose) 1 ea DAILY PRN MISC Per rx protocol 06/14/18 13:15 07/14/18 13:14 Assessment/Plan Problem List: (1) Encephalopathy due to metabolic factor or toxin SNOMED: 785004708 (2) Advanced dementia ICD Codes: F03.90 - Unspecified dementia without behavioral disturbance SNOMED: 84984288 Assessment/Plan the pt lacks capacity to make decisions prozac 20mg Shey Carbajal MD Jun 14, 2018 23:32
[2018-06-15] VITALS (7 sets, daily range): BP systolic 115–130; BP diastolic 74–126
[2018-06-15] MEDS: HydrALAZINE 50mg tab ORAL SCH ×2 (05:54)
[2018-06-15 07:14] LABS: HEMATOCRIT 34.2 % (42.0-52.0); HEMOGLOBIN 10.8 G/DL (14.2-18.0); MEAN CORPUSCULAR VOLUME 88 FL (80-99); PLATELET COUNT 238 K/UL (150-450); RED BLOOD COUNT 3.89 M/UL (4.70-6.10); RED CELL DISTRIBUTION WIDTH 12.9 % (11.6-14.8); WHITE BLOOD COUNT 12.8 K/UL (4.8-10.8)
[2018-06-15 07:43] LABS: CHLORIDE 121 MMOL/L (98-107); POTASSIUM 3.5 MMOL/L (3.5-5.1); SODIUM 156 MMOL/L (136-145)
[2018-06-15 07:45] LABS: INR 2.1 (0.9-1.1)
--- NOTE | 2018-06-15 08:12 | Consultation ---
History of Present Illness General Date patient seen: Jun 15, 2018 Chief Complaint: Generalized Weakness Referring physician: MARK ALVAREZ Reason for Consultation: PNA Present Illness HPI Mr. Fernández is a 78 yo male [facility] after refusing med and food for a week per report. He was not alert or oriented at the time. He seemed generally comfortable but had some sob and cough. His is unable to give a history. Per the notes he has a history of HTN. In the ED his Temp was 100.6. He had elevated Tropeonins, LFTS, Anemia and hypernatremia. His UA was negative and his CXR showed possible RLL PNA and multiple B/L nodular densities. ID was consulted for PNA Currently he only mumbling but responds to his name PMHx HTN COPD Epilepsy Depression Schizophrenia Dementia CVA VT Anema PSHx Unable to obtain due to AMS SocHx Unable to obtain due to AMS FamHx Unable to obtain due to AMS Allergies: Coded Allergies: No Known Allergies (Unverified , 09/04/17) Medication History Scheduled Amlodipine Besylate (Norvasc), 5 MG ORAL DAILY, (Reported) Cyanocobalamin (Vitamin B-12)* (Vitamin B-12*), 500 MCG ORAL DAILY, (Reported) Docusate Sodium* (Colace*), 100 MG ORAL DAILY, (Reported) Enoxaparin* (Lovenox*), 60 MG SUBQ EVERY 12 HOURS, (Reported) Fluoxetine Hcl* (Prozac*), 10 MG ORAL DAILY, (Reported) Hydralazine Hcl* (Hydralazine Hcl*), 50 MG ORAL EVERY 8 HOURS, (Reported) Levetiracetam* (Levetiracetam*), 500 MG ORAL TWICE A DAY, (Reported) Magnesium Hydroxide* (Milk Of Magnesia*), 30 ML ORAL DAILY, (Reported) Multivitamin With Minerals (Multivitamins With Minerals*), 1 TAB ORAL DAILY, ( Reported) Warfarin Sod* (Coumadin*), 12 MG ORAL DAILY, (Reported) Scheduled PRN Acetaminophen* (Tylenol Extra Strength*), 500 MG ORAL Q6H PRN for Mild Pain/ Temp > 100.5, (Reported) Acetaminophen* (Acetaminophen 325MG Tablet*), 325 MG ORAL Q6H PRN for Pain Scale (6-10), (Reported) Miscellaneous Medications Ipratropium/Albuterol Sulfate (DuoNeb 0.5-3(2.5)mg/3ml), 3 ML HHN, (Reported) Lactobacillus Acidophilus (Acidophilus), 1 EACH PO, (Reported) Patient History Healthcare decision maker Resuscitation status Advanced Directive on File Review of Systems ROS Narrative Unable to obtain due to AMS Physical Exam Last 24 Hour Vital Signs Date Time Temp Pulse Resp B/P (MAP) Pulse Ox O2 Delivery O2 Flow Rate FiO2 06/15/18 05:54 123/84 06/15/18 04:09 84 06/15/18 04:00 97.5 95 20 123/84 (97) 97 97.5 06/15/18 00:13 87 06/15/18 00:00 126/81 06/15/18 00:00 97.6 92 20 126/81 (96) 98 97.6 06/14/18 21:00 Nasal Cannula 1.0 06/14/18 20:08 Nasal Cannula 1.0 24 06/14/18 20:07 99 Nasal Cannula 1.0 24 06/14/18 20:00 97.3 99 20 118/85 (96) 94 97.3 06/14/18 19:03 96 06/14/18 16:52 Nasal Cannula 3.0 06/14/18 16:00 98.6 101 20 129/87 (101) 98 98.6 06/14/18 15:30 100.6 116 22 125/78 96 Nasal Cannula 3.0 213.1 06/14/18 15:03 100.6 06/14/18 14:33 100.6 116 22 125/78 96 Nasal Cannula 3.0 100.6 06/14/18 13:25 110 22 125/83 93 Nasal Cannula 3.0 06/14/18 12:48 97.8 105 32 112/78 94 Nasal Cannula 3.0 97.9 Intake and Output 06/14/18 06/15/18 19:00 07:00 Intake Total 150 ml 1315 ml Output Total 300 ml Balance 150 ml 1015 ml Intake Oral 0 ml IV Total 150 ml 1315 ml Output Urine Total 300 ml # Voids 2 # Bowel Movements 2 Laboratory Tests Test 06/14/18 13:20 06/14/18 14:00 06/14/18 14:30 06/14/18 18:20 White Blood Count 8.4 K/UL (4.8-10.8) Red Blood Count 4.65 M/UL (4.70-6.10) L Hemoglobin 12.9 G/DL (14.2-18.0) L Hematocrit 41.9 % (42.0-52.0) L Mean Corpuscular Volume 90 FL (80-99) Mean Corpuscular Hemoglobin 27.7 PG (27.0-31.0) Mean Corpuscular Hemoglobin Concent 30.7 G/DL (32.0-36.0) L Red Cell Distribution Width 13.6 % (11.6-14.8) Platelet Count 309 K/UL (150-450) Mean Platelet Volume 7.5 FL (6.5-10.1) Neutrophils (%) (Auto) 75.1 % (45.0-75.0) H Lymphocytes (%) (Auto) 18.9 % (20.0-45.0) L Monocytes (%) (Auto) 5.5 % (1.0-10.0) Eosinophils (%) (Auto) 0.2 % (0.0-3.0) Basophils (%) (Auto) 0.3 % (0.0-2.0) Sodium Level 163 MMOL/L (136-145) *H Potassium Level 4.5 MMOL/L (3.5-5.1) Chloride Level 127 MMOL/L (98-107) H Carbon Dioxide Level 24 MMOL/L (21-32) Anion Gap 12 mmol/L (5-15) Blood Urea Nitrogen 46 mg/dL (7-18) H Creatinine 1.7 MG/DL (0.55-1.30) H Estimat Glomerular Filtration Rate mL/min (>60) Glucose Level 89 MG/DL (74-106) Lactic Acid Level 3.80 mmol/L (0.4-2.0) H 4.40 mmol/L (0.66-2.22) H Calcium Level 8.9 MG/DL (8.5-10.1) Total Bilirubin 0.8 MG/DL (0.2-1.0) Aspartate Amino Transf (AST/SGOT) 111 U/L (15-37) H Alanine Aminotransferase (ALT/SGPT) 84 U/L (12-78) H Alkaline Phosphatase 588 U/L (46-116) H Total Creatine Kinase 101 U/L (26-308) Creatine Kinase MB 1.8 NG/ML (0.0-3.6) Creatine Kinase MB Relative Index 1.7 Troponin I 0.196 ng/mL (0.000-0.056) Pro-B-Type Natriuretic Peptide 616 pg/mL (0-125) H Total Protein 8.1 G/DL (6.4-8.2) Albumin 2.6 G/DL (3.4-5.0) L Globulin 5.5 g/dL Albumin/Globulin Ratio 0.5 (1.0-2.7) L Arterial Blood pH 7.508 (7.350-7.450) Arterial Blood Partial Pressure CO2 22.2 mmHg (35.0-45.0) *L Arterial Blood Partial Pressure O2 53.5 mmHg (75.0-100.0) L Arterial Blood HCO3 17.2 mmol/L (22.0-26.0) L Arterial Blood Oxygen Saturation 87.5 % (92.0-98.0) L Arterial Blood Base Excess -3.9 Amado Test Positive Urine Color Brown Urine Appearance Slightly cloudy Urine pH 5 (4.5-8.0) Urine Specific [place] 1.020 (1.005-1.035) Urine Protein 2+ (NEGATIVE) H Urine Glucose (UA) Negative (NEGATIVE) Urine Ketones 2+ (NEGATIVE) H Urine Blood 1+ (NEGATIVE) H Urine Nitrite Negative (NEGATIVE) Urine Bilirubin 2+ (NEGATIVE) H Urine Ictotest Negative (NEGATIVE) Urine Urobilinogen 12 MG/DL (0.0-1.0) H Urine Leukocyte Esterase 2+ (NEGATIVE) H Urine RBC 2-4 /HPF (0 - 0) H Urine WBC 2-4 /HPF (0 - 0) Urine Squamous Epithelial Cells Occasional /LPF Urine Amorphous Sediment Moderate /LPF (NONE) H Urine Bacteria Few /HPF (NONE) Urine Mucus Few /LPF (NONE/OCC) H Stool Occult Blood Pending Test 06/15/18 05:40 White Blood Count 12.8 K/UL (4.8-10.8) #H Red Blood Count 3.89 M/UL (4.70-6.10) L Hemoglobin 10.8 G/DL (14.2-18.0) L Hematocrit 34.2 % (42.0-52.0) L Mean Corpuscular Volume 88 FL (80-99) Mean Corpuscular Hemoglobin 27.7 PG (27.0-31.0) Mean Corpuscular Hemoglobin Concent 31.5 G/DL (32.0-36.0) L Red Cell Distribution Width 12.9 % (11.6-14.8) Platelet Count 238 K/UL (150-450) Mean Platelet Volume 7.8 FL (6.5-10.1) Neutrophils (%) (Auto) % (45.0-75.0) Lymphocytes (%) (Auto) % (20.0-45.0) Monocytes (%) (Auto) % (1.0-10.0) Eosinophils (%) (Auto) % (0.0-3.0) Basophils (%) (Auto) % (0.0-2.0) Neutrophils % (Manual) Pending Lymphocytes % (Manual) Pending Platelet Estimate Pending Platelet Morphology Pending Reticulocyte Count Pending Prothrombin Time 21.7 SEC (9.30-11.50) H Prothromb Time International Ratio 2.1 (0.9-1.1) H Activated Partial Thromboplast Time 42 SEC (23-33) H Sodium Level Pending Potassium Level Pending Chloride Level Pending Carbon Dioxide Level Pending Blood Urea Nitrogen Pending Creatinine Pending Estimat Glomerular Filtration Rate Pending Glucose Level Pending Calcium Level Pending Phosphorus Level Pending Iron Level Pending Unsaturated Iron Binding Pending Ferritin Pending Total Bilirubin Pending Aspartate Amino Transf (AST/SGOT) Pending Alanine Aminotransferase (ALT/SGPT) Pending Alkaline Phosphatase Pending Total Protein Pending Albumin Pending Globulin Pending Carcinoembryonic Antigen Pending Vitamin B12 Level Pending Folate Pending Thyroid Stimulating Hormone (TSH) Pending Free Thyroxine Pending Hepatitis A IgM Antibody Pending Hepatitis B Surface Antigen Pending Hepatitis B Core IgM Antibody Pending Hepatitis C Antibody Pending Microbiology Date/Time Source Procedure Growth Status 06/14/18 13:20 Blood Blood Culture - Preliminary Resulted Height (Feet): 5 Height (Inches): 7.00 Weight (Pounds): 119 Medications Current Medications Medications (Trade) Dose Ordered Sig/Manav Route PRN Reason Start Time Stop Time Status Last Admin Dose Admin Acetaminophen (Tylenol) 650 mg Q4H PRN ORAL fever (temp>100.5F) 06/14/18 13:15 07/14/18 13:14 Al Hydroxide/Mg Hydroxide (Mylanta II) 30 ml Q6H PRN ORAL dyspepsia 06/14/18 13:15 07/14/18 13:14 Albuterol/ Ipratropium (Albuterol/ Ipratropium) 3 ml Q4H PRN HHN Shortness of Breath 06/14/18 13:15 06/19/18 13:14 Amlodipine Besylate (Norvasc) 5 mg DAILY ORAL 06/15/18 09:00 07/15/18 08:59 Cefepime HCl 1 gm/ Dextrose 55 ml @ 110 mls/hr DAILY IV 06/14/18 18:00 06/21/18 17:59 06/14/18 17:58 Dextrose 1,000 ml @ 150 mls/hr Q6H40M IV 06/14/18 17:30 07/14/18 17:29 06/15/18 05:56 Heparin Sodium (Porcine) (Heparin 5000 units/ml) 5,000 units EVERY 12 HOURS SUBQ 06/14/18 21:00 07/14/18 20:59 06/14/18 21:19 Hydralazine HCl (Apresoline) 50 mg EVERY 8 HOURS ORAL 06/15/18 00:00 07/15/18 00:00 Levetiracetam (Keppra) 500 mg Q12HR ORAL 06/14/18 21:00 07/14/18 20:59 Nitroglycerin (Ntg) 0.4 mg Q5M PRN SL Prn Chest Pain 06/14/18 13:15 07/14/18 13:14 Ondansetron HCl (Zofran) 4 mg Q6H PRN IVP Nausea & Vomiting 06/14/18 13:15 07/14/18 13:14 Pantoprazole (Protonix) 40 mg DAILY IVP 06/15/18 09:00 07/15/18 08:59 Polyethylene Glycol (Miralax) 17 gm DAILYPRN PRN ORAL Constipation 06/14/18 13:15 07/14/18 13:14 Promethazine HCl/ Codeine (Phenergan with Codeine) 5 ml Q4H PRN ORAL For Cough 06/14/18 13:15 10/24/18 13:14 Temazepam (Restoril) 15 mg HSPRN PRN ORAL Insomnia 06/14/18 13:15 06/21/18 13:14 Vancomycin HCl (Vanco rx to dose) 1 ea DAILY PRN MISC Per rx protocol 06/14/18 13:15 07/14/18 13:14 Objective Narrative Gen: NAD, Thin male on 1L NC HEENT: NCAT, MMM, EOMI, PERRL, No Oral lesion, no scleral icterus NECK: full range of motion, supple, no meningismus, No LAD, No JVD LUNGS: CTAB, No W/C, No Accessory muscle use CARDS: RRR, S1, S2, No M/R/G ABD: Soft, NT, ND, No R/G, + BS, No HSM, No Masses : Deferred Ext: C/C/E, Pulses 2+ B/L (DP, Rad) NEURO: A/O x 4, Strength and Sensation Grossly intact PSYCH: mood/affect normal SKIN: warm/dry, No rashes, Assessment/Plan Assessment/Plan 78 yo male sent [facility] ED [facility] his [facility] after refusing med and food for a week per report. PNA - Possible aspiration vs CAP Lung Nodules - Reactive LN? Needs CT once cr improves Fever resolved Leukocytosis Dysphagia HTN COPD Epilepsy Depression Schizophrenia Dementia CVA VT Anemia PLAN: Continue Cefepime #2.7 Start Flagyl D/C Vancomycin - Blood Cx likely contaminant CT scan if Cr improves f/u cultures Influenza screen Monitor CBC and Temps Nutrition Supportive care Thank you for this consult. We will continue to follow this patient though out his hospitalization. Andre Wang MD Jun 15, 2018 08:12
[2018-06-15 08:21] LABS: ALBUMIN 2.1 G/DL (3.4-5.0); ALBUMIN/GLOBULIN RATIO 0.4 (1.0-2.7); ALKALINE PHOSPHATASE 459 U/L (46-116); ANION GAP 12 mmol/L (5-15); ASPARTATE AMINO TRANSFERASE 95 U/L (15-37); BILIRUBIN,TOTAL 0.8 MG/DL (0.2-1.0); BLOOD UREA NITROGEN 37 mg/dL (7-18); CALCIUM 7.6 MG/DL (8.5-10.1); CARBON DIOXIDE 23 MMOL/L (21-32); CREATININE 1.5 MG/DL (0.55-1.30); FERRITIN 296 NG/ML (8-388); PHOSPHORUS 2.9 MG/DL (2.5-4.9)
[2018-06-15 08:23] LABS: % IRON SATURATION 9 % (15-50); IRON 16 ug/dL (50-175); TOTAL IRON BINDING CAPACITY 172 ug/dL (250-450)
[2018-06-15] MEDS: Pantoprazole Inj IVP SCH (09:49)
[2018-06-15] MEDS: Cefepime HCl 1 GM in D5W 55 ML IV SCH (09:50)
[2018-06-15] MEDS: Heparin 5000 units/ml inj SUBQ SCH ×2 (09:51→20:32)
[2018-06-15] MEDS ORDERED: Isovue-300 100ml vial INJ PRN ×2 (10:15→20:15)
[2018-06-15] MEDS ORDERED: D5 1/2NS 1,000 ML IV ONE (10:30)
--- NOTE | 2018-06-15 10:38 | Pulmonology Progress Note ---
Assessment/Plan Problems: (1) Aspiration pneumonia (2) ATN (acute tubular necrosis) (3) Lung nodule, multiple (4) Seizure disorder (5) Severe malnutrition (6) Cerebrovascular accident (CVA) (7) Advanced dementia Assessment/Plan all noted afebrile cultures pending on Abx CT scan after IV hydration dvt prophylaxis Subjective ROS Limited/Unobtainable: Yes Interval Events: looks comfortable Allergies: Coded Allergies: No Known Allergies (Unverified , 09/04/17) Objective Last 24 Hour Vital Signs Date Time Temp Pulse Resp B/P (MAP) Pulse Ox O2 Delivery O2 Flow Rate FiO2 06/15/18 09:49 84 119/76 06/15/18 08:18 Nasal Cannula 1.0 06/15/18 08:18 99 Nasal Cannula 1.0 06/15/18 08:00 98.1 84 20 119/76 (90) 97 98.1 06/15/18 05:54 123/84 06/15/18 04:09 84 06/15/18 04:00 97.5 95 20 123/84 (97) 97 97.5 06/15/18 00:13 87 06/15/18 00:00 126/81 06/15/18 00:00 97.6 92 20 126/81 (96) 98 97.6 06/14/18 21:00 Nasal Cannula 1.0 06/14/18 20:08 Nasal Cannula 1.0 06/14/18 20:07 99 Nasal Cannula 1.0 24 06/14/18 20:00 97.3 99 20 118/85 (96) 94 97.3 06/14/18 19:03 96 06/14/18 16:52 Nasal Cannula 3.0 06/14/18 16:00 98.6 101 20 129/87 (101) 98 98.6 06/14/18 15:30 100.6 116 22 125/78 96 Nasal Cannula 3.0 213.1 06/14/18 15:03 100.6 06/14/18 14:33 100.6 116 22 125/78 96 Nasal Cannula 3.0 100.6 06/14/18 13:25 110 22 125/83 93 Nasal Cannula 3.0 06/14/18 12:48 97.8 105 32 112/78 94 Nasal Cannula 3.0 97.9 Intake and Output 06/14/18 06/15/18 19:00 07:00 Intake Total 150 ml 1315 ml Output Total 300 ml Balance 150 ml 1015 ml Intake Oral 0 ml IV Total 150 ml 1315 ml Output Urine Total 300 ml # Voids 2 # Bowel Movements 2 General Appearance: cachetic HEENT: normocephalic, atraumatic Respiratory/Chest: chest wall non-tender, crackles/rales Cardiovascular: normal peripheral pulses, normal rate Abdomen: normal bowel sounds, soft, non tender Genitourinary: normal external genitalia Extremities: no clubbing Neurologic/Psychiatric: scaleman II-XII grossly normal Microbiology Date/Time Source Procedure Growth Status 06/14/18 13:20 Blood Blood Culture - Preliminary Resulted Laboratory Tests 06/14/18 13:20: White Blood Count 8.4, Red Blood Count 4.65L, Hemoglobin 12.9L, Hematocrit 41.9L , Mean Corpuscular Volume 90, Mean Corpuscular Hemoglobin 27.7, Mean Corpuscular Hemoglobin Concent 30.7L, Red Cell Distribution Width 13.6, Platelet Count 309, Mean Platelet Volume 7.5, Neutrophils (%) (Auto) 75.1H, Lymphocytes (%) (Auto) 18.9L, Monocytes (%) (Auto) 5.5, Eosinophils (%) (Auto) 0.2, Basophils (%) (Auto) 0.3, Sodium Level 163*H, Potassium Level 4.5, Chloride Level 127H, Carbon Dioxide Level 24, Anion Gap 12, Blood Urea Nitrogen 46H, Creatinine 1.7H, Estimat Glomerular Filtration Rate , Glucose Level 89, Lactic Acid Level 3.80H, Calcium Level 8.9, Total Bilirubin 0.8, Aspartate Amino Transf (AST/SGOT) 111H, Alanine Aminotransferase (ALT/SGPT) 84H, Alkaline Phosphatase 588H, Total Creatine Kinase 101, Creatine Kinase MB 1.8, Creatine Kinase MB Relative Index 1.7, Troponin I 0.196H, Pro-B-Type Natriuretic Peptide 616H, Total Protein 8.1, Albumin 2.6L, Globulin 5.5, Albumin/Globulin Ratio 0.5L 06/14/18 14:00: Arterial Blood pH 7.508H, Arterial Blood Partial Pressure CO2 22.2*L, Arterial Blood Partial Pressure O2 53.5L, Arterial Blood HCO3 17.2L, Arterial Blood Oxygen Saturation 87.5L, Arterial Blood Base Excess -3.9, Amado Test Positive 06/14/18 14:30: Lactic Acid Level 4.40H, Urine Color Brown, Urine Appearance Slightly cloudy, Urine pH 5, Urine Specific [place] 1.020, Urine Protein 2+H, Urine Glucose (UA) Negative, Urine Ketones 2+H, Urine Blood 1+H, Urine Nitrite Negative, Urine Bilirubin 2+H, Urine Ictotest Negative, Urine Urobilinogen 12H, Urine Leukocyte Esterase 2+H, Urine RBC 2-4H, Urine WBC 2-4, Urine Squamous Epithelial Cells Occasional, Urine Amorphous Sediment ModerateH, Urine Bacteria Few, Urine Mucus FewH 06/14/18 18:20: Stool Occult Blood [Pending] 06/15/18 05:40: White Blood Count 12.8#H, Red Blood Count 3.89L, Hemoglobin 10.8L, Hematocrit 34.2L, Mean Corpuscular Volume 88, Mean Corpuscular Hemoglobin 27.7, Mean Corpuscular Hemoglobin Concent 31.5L, Red Cell Distribution Width 12.9, Platelet Count 238, Mean Platelet Volume 7.8, Neutrophils (%) (Auto) , Lymphocytes (%) (Auto) , Monocytes (%) (Auto) , Eosinophils (%) (Auto) , Basophils (%) (Auto) , Differential Total Cells Counted 100, Neutrophils % ( Manual) 80H, Lymphocytes % (Manual) 12L, Monocytes % (Manual) 8, Eosinophils % ( Manual) 0, Basophils % (Manual) 0, Band Neutrophils 0, Platelet Estimate Adequate, Platelet Morphology Normal, Hypochromasia 1+, Anisocytosis 1+, Reticulocyte Count 1.6, Prothrombin Time 21.7H, Prothromb Time International Ratio 2.1H, Activated Partial Thromboplast Time 42H, Sodium Level 156H, Potassium Level 3.5, Chloride Level 121H, Carbon Dioxide Level 23, Anion Gap 12 , Blood Urea Nitrogen 37H, Creatinine 1.5H, Estimat Glomerular Filtration Rate , Glucose Level 140H, Calcium Level 7.6L, Phosphorus Level 2.9, Iron Level 16L, Total Iron Binding Capacity 172L, Percent Iron Saturation 9L, Unsaturated Iron Binding 156, Ferritin 296, Total Bilirubin 0.8, Aspartate Amino Transf (AST/SGOT ) 95H, Alanine Aminotransferase (ALT/SGPT) [Pending], Alkaline Phosphatase 459H , Total Protein 6.9, Albumin 2.1L, Globulin 4.8, Albumin/Globulin Ratio 0.4L, Carcinoembryonic Antigen [Pending], Vitamin B12 Level 1519H, Folate 3.6L, Thyroid Stimulating Hormone (TSH) 0.618, Free Thyroxine 1.33, Hepatitis A IgM Antibody [Pending], Hepatitis B Surface Antigen [Pending], Hepatitis B Core IgM Antibody [Pending], Hepatitis C Antibody [Pending] Current Medications Medications (Trade) Dose Ordered Sig/Manav Route PRN Reason Start Time Stop Time Status Last Admin Dose Admin Acetaminophen (Tylenol) 650 mg Q4H PRN ORAL fever (temp>100.5F) 06/14/18 13:15 07/14/18 13:14 Al Hydroxide/Mg Hydroxide (Mylanta II) 30 ml Q6H PRN ORAL dyspepsia 06/14/18 13:15 07/14/18 13:14 Albuterol/ Ipratropium (Albuterol/ Ipratropium) 3 ml Q4H PRN HHN Shortness of Breath 06/14/18 13:15 06/19/18 13:14 Amlodipine Besylate (Norvasc) 5 mg DAILY ORAL 06/15/18 09:00 07/15/18 08:59 06/15/18 09:49 Cefepime HCl 1 gm/ Dextrose 55 ml @ 110 mls/hr DAILY IV 06/14/18 18:00 06/21/18 17:59 06/15/18 09:50 Dextrose 1,000 ml @ 150 mls/hr Q6H40M IV 06/14/18 17:30 07/14/18 17:29 06/15/18 05:56 Dextrose/Sodium Chloride 1,000 ml @ 500 mls/hr Q2H ONCE IV 06/15/18 10:30 06/15/18 12:29 Folic Acid (Folate) 1 mg DAILY ORAL 06/15/18 09:00 07/15/18 08:59 06/15/18 09:51 Heparin Sodium (Porcine) (Heparin 5000 units/ml) 5,000 units EVERY 12 HOURS SUBQ 06/14/18 21:00 07/14/18 20:59 06/15/18 09:51 Hydralazine HCl (Apresoline) 50 mg EVERY 8 HOURS ORAL 06/15/18 00:00 07/15/18 00:00 Iopamidol (Isovue-300 100ml) 100 ml NOW PRN INJ Radiology Procedure 06/15/18 10:15 06/17/18 10:07 Iron Sucrose 100 mg/Sodium Chloride 60 ml @ 240 mls/hr ONCE IV 06/15/18 11:00 06/15/18 12:00 Levetiracetam (Keppra) 500 mg Q12HR ORAL 06/14/18 21:00 07/14/18 20:59 06/15/18 09:49 Metronidazole 100 ml @ 100 mls/hr Q8HR IVPB 06/15/18 14:00 06/22/18 13:59 Nitroglycerin (Ntg) 0.4 mg Q5M PRN SL Prn Chest Pain 06/14/18 13:15 07/14/18 13:14 Ondansetron HCl (Zofran) 4 mg Q6H PRN IVP Nausea & Vomiting 06/14/18 13:15 07/14/18 13:14 Pantoprazole (Protonix) 40 mg DAILY IVP 06/15/18 09:00 07/15/18 08:59 06/15/18 09:49 Polyethylene Glycol (Miralax) 17 gm DAILYPRN PRN ORAL Constipation 06/14/18 13:15 07/14/18 13:14 Promethazine HCl/ Codeine (Phenergan with Codeine) 5 ml Q4H PRN ORAL For Cough 06/14/18 13:15 07/14/18 13:14 Temazepam (Restoril) 15 mg HSPRN PRN ORAL Insomnia 06/14/18 13:15 06/21/18 13:14 Malia Saba MD Jun 15, 2018 10:38
[2018-06-15 10:44] LABS: ALANINE AMINOTRANSFERASE 73 U/L (12-78)
[2018-06-15] MEDS ORDERED: Iron Sucrose 100 MG in NS 55 ML IV SCH (11:00)
--- NOTE | 2018-06-15 12:17 | Consultation ---
Consult Note Consult Note asked to eval for renal failure Patient is a 78-year-old male brought in by EMS after from [facility] increased productive cough and the difficulty tolerating oral fluids. Patient recently been noted to have increased difficulty breathing.Patient had been not taking his medication for several days. Patient was noted to be previously on medications for psychosis. I reportedly patient had been refusing medications as well as food for several days.The patient had been noted to have developed a productive cough. No Known Allergies (Unverified , 09/04/17) Past Medical History: No History, Except For Hx Cardiac Problems: Yes - anemia, CHF Hx Hypertension: Yes Hx COPD: Yes Hx Cerebrovascular Accident: Yes Assessment/Plan Renal Failure- Dehydration, Hypernatremia Malnutrition / Hypoalbuminemia Pneumonia / Aspiration / Multi lung nodules Seizure disorder Cerebrovascular accident (CVA) Advanced dementia [id number] Antibiotics monitor lytes and renal parameters pulm support PO Folate Anthony Stockton MD Jun 15, 2018 12:17
--- NOTE | 2018-06-15 12:51 | General Progress Note ---
Assessment/Plan Problem List: (1) Dehydration ICD Codes: E86.0 - Dehydration SNOMED: 22743156 (2) Pneumonia ICD Codes: J18.9 - Pneumonia, unspecified organism SNOMED: 374822263 (3) Generalized weakness ICD Codes: R53.1 - Weakness SNOMED: 73108945 (4) Failure to thrive SNOMED: 45625752 (5) Renal insufficiency ICD Codes: N28.9 - Disorder of kidney and ureter, unspecified SNOMED: 088661018, 794927020 (6) ATN (acute tubular necrosis) ICD Codes: N17.0 - Acute kidney failure with tubular necrosis SNOMED: 11089752 Status: unchanged Assessment/Plan o2 pulm tx abx ot pt diet cbc bmp am Subjective Constitutional: Reports: weakness Allergies: Coded Allergies: No Known Allergies (Unverified , 09/04/17) All Systems: reviewed and negative except above Subjective o2nc sleep Objective Last 24 Hour Vital Signs Date Time Temp Pulse Resp B/P (MAP) Pulse Ox O2 Delivery O2 Flow Rate FiO2 06/15/18 09:49 84 119/76 06/15/18 08:20 Nasal Cannula 1.0 06/15/18 08:18 Nasal Cannula 1.0 24 06/15/18 08:18 99 Nasal Cannula 1.0 24 06/15/18 08:00 98.1 84 20 119/76 (90) 97 98.1 06/15/18 05:54 123/84 06/15/18 04:09 84 06/15/18 04:00 97.5 95 20 123/84 (97) 97 97.5 06/15/18 00:13 87 06/15/18 00:00 126/81 06/15/18 00:00 97.6 92 20 126/81 (96) 98 97.6 06/14/18 21:00 Nasal Cannula 1.0 06/14/18 20:08 Nasal Cannula 1.0 24 06/14/18 20:07 99 Nasal Cannula 1.0 24 06/14/18 20:00 97.3 99 20 118/85 (96) 94 97.3 06/14/18 19:03 96 06/14/18 16:52 Nasal Cannula 3.0 06/14/18 16:00 98.6 101 20 129/87 (101) 98 98.6 06/14/18 15:30 100.6 116 22 125/78 96 Nasal Cannula 3.0 213.1 06/14/18 15:03 100.6 06/14/18 14:33 100.6 116 22 125/78 96 Nasal Cannula 3.0 100.6 06/14/18 13:25 110 22 125/83 93 Nasal Cannula 3.0 Intake and Output 06/14/18 06/15/18 19:00 07:00 Intake Total 150 ml 1315 ml Output Total 300 ml Balance 150 ml 1015 ml Intake Oral 0 ml IV Total 150 ml 1315 ml Output Urine Total 300 ml # Voids 2 # Bowel Movements 2 Laboratory Tests 06/14/18 13:20: White Blood Count 8.4, Red Blood Count 4.65L, Hemoglobin 12.9L, Hematocrit 41.9L , Mean Corpuscular Volume 90, Mean Corpuscular Hemoglobin 27.7, Mean Corpuscular Hemoglobin Concent 30.7L, Red Cell Distribution Width 13.6, Platelet Count 309, Mean Platelet Volume 7.5, Neutrophils (%) (Auto) 75.1H, Lymphocytes (%) (Auto) 18.9L, Monocytes (%) (Auto) 5.5, Eosinophils (%) (Auto) 0.2, Basophils (%) (Auto) 0.3, Sodium Level 163*H, Potassium Level 4.5, Chloride Level 127H, Carbon Dioxide Level 24, Anion Gap 12, Blood Urea Nitrogen 46H, Creatinine 1.7H, Estimat Glomerular Filtration Rate , Glucose Level 89, Lactic Acid Level 3.80H, Calcium Level 8.9, Total Bilirubin 0.8, Aspartate Amino Transf (AST/SGOT) 111H, Alanine Aminotransferase (ALT/SGPT) 84H, Alkaline Phosphatase 588H, Total Creatine Kinase 101, Creatine Kinase MB 1.8, Creatine Kinase MB Relative Index 1.7, Troponin I 0.196H, Pro-B-Type Natriuretic Peptide 616H, Total Protein 8.1, Albumin 2.6L, Globulin 5.5, Albumin/Globulin Ratio 0.5L 06/14/18 14:00: Arterial Blood pH 7.508H, Arterial Blood Partial Pressure CO2 22.2*L, Arterial Blood Partial Pressure O2 53.5L, Arterial Blood HCO3 17.2L, Arterial Blood Oxygen Saturation 87.5L, Arterial Blood Base Excess -3.9, Amado Test Positive 06/14/18 14:30: Lactic Acid Level 4.40H, Urine Color Brown, Urine Appearance Slightly cloudy, Urine pH 5, Urine Specific [place] 1.020, Urine Protein 2+H, Urine Glucose (UA) Negative, Urine Ketones 2+H, Urine Blood 1+H, Urine Nitrite Negative, Urine Bilirubin 2+H, Urine Ictotest Negative, Urine Urobilinogen 12H, Urine Leukocyte Esterase 2+H, Urine RBC 2-4H, Urine WBC 2-4, Urine Squamous Epithelial Cells Occasional, Urine Amorphous Sediment ModerateH, Urine Bacteria Few, Urine Mucus FewH 06/14/18 18:20: Stool Occult Blood Positive 06/15/18 05:40: White Blood Count 12.8#H, Red Blood Count 3.89L, Hemoglobin 10.8L, Hematocrit 34.2L, Mean Corpuscular Volume 88, Mean Corpuscular Hemoglobin 27.7, Mean Corpuscular Hemoglobin Concent 31.5L, Red Cell Distribution Width 12.9, Platelet Count 238, Mean Platelet Volume 7.8, Neutrophils (%) (Auto) , Lymphocytes (%) (Auto) , Monocytes (%) (Auto) , Eosinophils (%) (Auto) , Basophils (%) (Auto) , Differential Total Cells Counted 100, Neutrophils % ( Manual) 80H, Lymphocytes % (Manual) 12L, Monocytes % (Manual) 8, Eosinophils % ( Manual) 0, Basophils % (Manual) 0, Band Neutrophils 0, Platelet Estimate Adequate, Platelet Morphology Normal, Hypochromasia 1+, Anisocytosis 1+, Reticulocyte Count 1.6, Prothrombin Time 21.7H, Prothromb Time International Ratio 2.1H, Activated Partial Thromboplast Time 42H, Sodium Level 156H, Potassium Level 3.5, Chloride Level 121H, Carbon Dioxide Level 23, Anion Gap 12 , Blood Urea Nitrogen 37H, Creatinine 1.5H, Estimat Glomerular Filtration Rate , Glucose Level 140H, Calcium Level 7.6L, Phosphorus Level 2.9, Iron Level 16L, Total Iron Binding Capacity 172L, Percent Iron Saturation 9L, Unsaturated Iron Binding 156, Ferritin 296, Total Bilirubin 0.8, Aspartate Amino Transf (AST/SGOT ) 95H, Alanine Aminotransferase (ALT/SGPT) 73, Alkaline Phosphatase 459H, C- Reactive Protein, Quantitative 20.0H, Total Protein 6.9, Albumin 2.1L, Globulin 4.8, Albumin/Globulin Ratio 0.4L, Carcinoembryonic Antigen [Pending], Vitamin B12 Level 1519H, Folate 3.6L, Thyroid Stimulating Hormone (TSH) 0.618, Free Thyroxine 1.33, Hepatitis A IgM Antibody [Pending], Hepatitis B Surface Antigen [Pending], Hepatitis B Core IgM Antibody [Pending], Hepatitis C Antibody [ Pending] Height (Feet): 5 Height (Inches): 7.00 Weight (Pounds): 119 General Appearance: lethargic EENT: normal ENT inspection Neck: normal alignment Cardiovascular: normal peripheral pulses, normal rate, regular rhythm Respiratory/Chest: chest wall non-tender, lungs clear, normal breath sounds Abdomen: normal bowel sounds, non tender, soft Extremities: normal inspection Edema: no edema noted Arm (L), no edema noted Arm (R), no edema noted Leg (L), no edema noted Leg (R), no edema noted Pedal (L), no edema noted Pedal (R), no edema noted Generalized Neurologic: motor weakness Skin: normal pigmentation, warm/dry Jacques Heaton DO Jun 15, 2018 12:51
--- NOTE | 2018-06-15 13:00 | GI Progress Note ---
Assessment/Plan Problems: (1) Cerebrovascular accident (CVA) ICD Codes: I63.9 - Cerebral infarction, unspecified SNOMED: 167908070 (2) Advanced dementia ICD Codes: F03.90 - Unspecified dementia without behavioral disturbance SNOMED: 16715152 (3) Seizure disorder ICD Codes: G40.909 - Epilepsy, unspecified, not intractable, without status epilepticus SNOMED: 722650026 (4) Severe malnutrition ICD Codes: E43 - Unspecified severe protein-calorie malnutrition SNOMED: 26379612 (5) Dehydration ICD Codes: E86.0 - Dehydration SNOMED: 17963292 (6) Failure to thrive SNOMED: 35579474 (7) Generalized weakness ICD Codes: R53.1 - Weakness SNOMED: 67437764 Status: stable Status Narrative Discussed with Dr. Pineda. Assessment/Plan OB stool positive, send additional iron deficient folate deficiency hold GI procedures at this time given elevated troponin levels, needs cardiac work up PEG if necessary maintain NPO + IVFs electrolyte correction ST evaluation >> pending video swallow calorie count anemia work up monitor H&H, prn transfusions bowel regime ppi trend LFTs fu labs, hepatitis panel Subjective Subjective limited Objective Last 24 Hour Vital Signs Date Time Temp Pulse Resp B/P (MAP) Pulse Ox O2 Delivery O2 Flow Rate FiO2 06/15/18 09:49 84 119/76 06/15/18 08:20 Nasal Cannula 1.0 06/15/18 08:18 Nasal Cannula 1.0 24 06/15/18 08:18 99 Nasal Cannula 1.0 24 06/15/18 08:00 98.1 84 20 119/76 (90) 97 98.1 06/15/18 05:54 123/84 06/15/18 04:09 84 06/15/18 04:00 97.5 95 20 123/84 (97) 97 97.5 06/15/18 00:13 87 06/15/18 00:00 126/81 06/15/18 00:00 97.6 92 20 126/81 (96) 98 97.6 06/14/18 21:00 Nasal Cannula 1.0 06/14/18 20:08 Nasal Cannula 1.0 24 06/14/18 20:07 99 Nasal Cannula 1.0 24 06/14/18 20:00 97.3 99 20 118/85 (96) 94 97.3 06/14/18 19:03 96 06/14/18 16:52 Nasal Cannula 3.0 06/14/18 16:00 98.6 101 20 129/87 (101) 98 98.6 06/14/18 15:30 100.6 116 22 125/78 96 Nasal Cannula 3.0 213.1 06/14/18 15:03 100.6 06/14/18 14:33 100.6 116 22 125/78 96 Nasal Cannula 3.0 100.6 06/14/18 13:25 110 22 125/83 93 Nasal Cannula 3.0 Intake and Output 06/14/18 06/15/18 19:00 07:00 Intake Total 150 ml 1315 ml Output Total 300 ml Balance 150 ml 1015 ml Intake Oral 0 ml IV Total 150 ml 1315 ml Output Urine Total 300 ml # Voids 2 # Bowel Movements 2 Laboratory Tests Test 06/14/18 13:20 06/14/18 14:00 06/14/18 14:30 06/14/18 18:20 White Blood Count 8.4 K/UL (4.8-10.8) Red Blood Count 4.65 M/UL (4.70-6.10) L Hemoglobin 12.9 G/DL (14.2-18.0) L Hematocrit 41.9 % (42.0-52.0) L Mean Corpuscular Volume 90 FL (80-99) Mean Corpuscular Hemoglobin 27.7 PG (27.0-31.0) Mean Corpuscular Hemoglobin Concent 30.7 G/DL (32.0-36.0) L Red Cell Distribution Width 13.6 % (11.6-14.8) Platelet Count 309 K/UL (150-450) Mean Platelet Volume 7.5 FL (6.5-10.1) Neutrophils (%) (Auto) 75.1 % (45.0-75.0) H Lymphocytes (%) (Auto) 18.9 % (20.0-45.0) L Monocytes (%) (Auto) 5.5 % (1.0-10.0) Eosinophils (%) (Auto) 0.2 % (0.0-3.0) Basophils (%) (Auto) 0.3 % (0.0-2.0) Sodium Level 163 MMOL/L (136-145) *H Potassium Level 4.5 MMOL/L (3.5-5.1) Chloride Level 127 MMOL/L (98-107) H Carbon Dioxide Level 24 MMOL/L (21-32) Anion Gap 12 mmol/L (5-15) Blood Urea Nitrogen 46 mg/dL (7-18) H Creatinine 1.7 MG/DL (0.55-1.30) H Estimat Glomerular Filtration Rate mL/min (>60) Glucose Level 89 MG/DL (74-106) Lactic Acid Level 3.80 mmol/L (0.4-2.0) H 4.40 mmol/L (0.66-2.22) H Calcium Level 8.9 MG/DL (8.5-10.1) Total Bilirubin 0.8 MG/DL (0.2-1.0) Aspartate Amino Transf (AST/SGOT) 111 U/L (15-37) H Alanine Aminotransferase (ALT/SGPT) 84 U/L (12-78) H Alkaline Phosphatase 588 U/L (46-116) H Total Creatine Kinase 101 U/L (26-308) Creatine Kinase MB 1.8 NG/ML (0.0-3.6) Creatine Kinase MB Relative Index 1.7 Troponin I 0.196 ng/mL (0.000-0.056) Pro-B-Type Natriuretic Peptide 616 pg/mL (0-125) H Total Protein 8.1 G/DL (6.4-8.2) Albumin 2.6 G/DL (3.4-5.0) L Globulin 5.5 g/dL Albumin/Globulin Ratio 0.5 (1.0-2.7) L Arterial Blood pH 7.508 (7.350-7.450) Arterial Blood Partial Pressure CO2 22.2 mmHg (35.0-45.0) *L Arterial Blood Partial Pressure O2 53.5 mmHg (75.0-100.0) L Arterial Blood HCO3 17.2 mmol/L (22.0-26.0) L Arterial Blood Oxygen Saturation 87.5 % (92.0-98.0) L Arterial Blood Base Excess -3.9 Amado Test Positive Urine Color Brown Urine Appearance Slightly cloudy Urine pH 5 (4.5-8.0) Urine Specific [place] 1.020 (1.005-1.035) Urine Protein 2+ (NEGATIVE) H Urine Glucose (UA) Negative (NEGATIVE) Urine Ketones 2+ (NEGATIVE) H Urine Blood 1+ (NEGATIVE) H Urine Nitrite Negative (NEGATIVE) Urine Bilirubin 2+ (NEGATIVE) H Urine Ictotest Negative (NEGATIVE) Urine Urobilinogen 12 MG/DL (0.0-1.0) H Urine Leukocyte Esterase 2+ (NEGATIVE) H Urine RBC 2-4 /HPF (0 - 0) H Urine WBC 2-4 /HPF (0 - 0) Urine Squamous Epithelial Cells Occasional /LPF Urine Amorphous Sediment Moderate /LPF (NONE) H Urine Bacteria Few /HPF (NONE) Urine Mucus Few /LPF (NONE/OCC) H Stool Occult Blood Positive (NEGATIVE) Test 06/15/18 05:40 White Blood Count 12.8 K/UL (4.8-10.8) #H Red Blood Count 3.89 M/UL (4.70-6.10) L Hemoglobin 10.8 G/DL (14.2-18.0) L Hematocrit 34.2 % (42.0-52.0) L Mean Corpuscular Volume 88 FL (80-99) Mean Corpuscular Hemoglobin 27.7 PG (27.0-31.0) Mean Corpuscular Hemoglobin Concent 31.5 G/DL (32.0-36.0) L Red Cell Distribution Width 12.9 % (11.6-14.8) Platelet Count 238 K/UL (150-450) Mean Platelet Volume 7.8 FL (6.5-10.1) Neutrophils (%) (Auto) % (45.0-75.0) Lymphocytes (%) (Auto) % (20.0-45.0) Monocytes (%) (Auto) % (1.0-10.0) Eosinophils (%) (Auto) % (0.0-3.0) Basophils (%) (Auto) % (0.0-2.0) Differential Total Cells Counted 100 Neutrophils % (Manual) 80 % (45-75) H Lymphocytes % (Manual) 12 % (20-45) L Monocytes % (Manual) 8 % (1-10) Eosinophils % (Manual) 0 % (0-3) Basophils % (Manual) 0 % (0-2) Band Neutrophils 0 % (0-8) Platelet Estimate Adequate Platelet Morphology Normal Hypochromasia 1+ Anisocytosis 1+ Reticulocyte Count 1.6 % (0.0-2.0) Prothrombin Time 21.7 SEC (9.30-11.50) H Prothromb Time International Ratio 2.1 (0.9-1.1) H Activated Partial Thromboplast Time 42 SEC (23-33) H Sodium Level 156 MMOL/L (136-145) H Potassium Level 3.5 MMOL/L (3.5-5.1) Chloride Level 121 MMOL/L (98-107) H Carbon Dioxide Level 23 MMOL/L (21-32) Anion Gap 12 mmol/L (5-15) Blood Urea Nitrogen 37 mg/dL (7-18) H Creatinine 1.5 MG/DL (0.55-1.30) H Estimat Glomerular Filtration Rate mL/min (>60) Glucose Level 140 MG/DL (74-106) H Calcium Level 7.6 MG/DL (8.5-10.1) L Phosphorus Level 2.9 MG/DL (2.5-4.9) Iron Level 16 ug/dL (50-175) L Total Iron Binding Capacity 172 ug/dL (250-450) L Percent Iron Saturation 9 % (15-50) L Unsaturated Iron Binding 156 ug/dL (112-346) Ferritin 296 NG/ML (8-388) Total Bilirubin 0.8 MG/DL (0.2-1.0) Aspartate Amino Transf (AST/SGOT) 95 U/L (15-37) H Alanine Aminotransferase (ALT/SGPT) 73 U/L (12-78) Alkaline Phosphatase 459 U/L (46-116) H C-Reactive Protein, Quantitative 20.0 mg/dL (0.00-0.90) H Total Protein 6.9 G/DL (6.4-8.2) Albumin 2.1 G/DL (3.4-5.0) L Globulin 4.8 g/dL Albumin/Globulin Ratio 0.4 (1.0-2.7) L Carcinoembryonic Antigen Pending Vitamin B12 Level 1519 PG/ML (193-986) H Folate 3.6 NG/ML (8.6-58.9) L Thyroid Stimulating Hormone (TSH) 0.618 uiU/mL (0.358-3.740) Free Thyroxine 1.33 NG/DL (0.76-1.46) Hepatitis A IgM Antibody Pending Hepatitis B Surface Antigen Pending Hepatitis B Core IgM Antibody Pending Hepatitis C Antibody Pending Microbiology Date/Time Source Procedure Growth Status 06/14/18 13:20 Blood Blood Culture - Preliminary Resulted 06/14/18 13:20 Blood Blood Culture - Preliminary Resulted Height (Feet): 5 Height (Inches): 7.00 Weight (Pounds): 119 General Appearance: WD/WN, no apparent distress, alert, thin Cardiovascular: normal rate Respiratory/Chest: normal breath sounds, no respiratory distress Abdominal Exam: normal bowel sounds, non tender, soft Extremities: non-tender Abhijit Wiley NP Jun 15, 2018 13:00
[2018-06-15] MEDS: HydrALAZINE 25mg tab ORAL SCH ×2 (14:17→21:54)
[2018-06-15 15:18] LABS: ANION GAP 8 mmol/L (5-15); BLOOD UREA NITROGEN 31 mg/dL (7-18); CALCIUM 7.6 MG/DL (8.5-10.1); CARBON DIOXIDE 25 MMOL/L (21-32); CHLORIDE 117 MMOL/L (98-107); CREATININE 1.4 MG/DL (0.55-1.30); POTASSIUM 3.7 MMOL/L (3.5-5.1); SODIUM 150 MMOL/L (136-145)
[2018-06-15 15:23] LABS: ALANINE AMINOTRANSFERASE 70 U/L (12-78); ALBUMIN 2.1 G/DL (3.4-5.0); ALBUMIN/GLOBULIN RATIO 0.5 (1.0-2.7); ALKALINE PHOSPHATASE 449 U/L (46-116); ASPARTATE AMINO TRANSFERASE 87 U/L (15-37); BILIRUBIN,TOTAL 0.7 MG/DL (0.2-1.0)
--- NOTE | 2018-06-15 15:54 | Cardiology Report ---
APPROVED REPORT EKG Measurement Heart [id number] Sinus tachycardia with occasional premature ventricular complexes Incomplete right bundle branch block Left anterior fascicular block Nonspecific ST and T wave abnormality Abnormal ECG motion artifact may affect interpretation
--- NOTE | 2018-06-15 16:07 | Consultation ---
History of Present Illness General Date patient seen: Jun 15, 2018 Chief Complaint: Generalized Weakness Referring physician: MARK ALVAREZ Reason for Consultation: lung nodules Present Illness HPI 78 year old male with multiple medical comorbidities recently admitted for pneumonia and productive cough. Upon admission noted to have leukocytosis, elevated lft's, abnormal labs, and CXR with multiple nodules. +stool occult blood. Unfortunately troponin's elevated and GI procedures on hold. Surgery called to evaluate and assist with management of pulmonary nodules and abnormal LFT's. patient seen, chart reviewed, orders placed. Allergies: Coded Allergies: No Known Allergies (Unverified , 09/04/17) Medication History Scheduled Amlodipine Besylate (Norvasc), 5 MG ORAL DAILY, (Reported) Cyanocobalamin (Vitamin B-12)* (Vitamin B-12*), 500 MCG ORAL DAILY, (Reported) Docusate Sodium* (Colace*), 100 MG ORAL DAILY, (Reported) Enoxaparin* (Lovenox*), 60 MG SUBQ EVERY 12 HOURS, (Reported) Fluoxetine Hcl* (Prozac*), 10 MG ORAL DAILY, (Reported) Hydralazine Hcl* (Hydralazine Hcl*), 50 MG ORAL EVERY 8 HOURS, (Reported) Levetiracetam* (Levetiracetam*), 500 MG ORAL TWICE A DAY, (Reported) Magnesium Hydroxide* (Milk Of Magnesia*), 30 ML ORAL DAILY, (Reported) Multivitamin With Minerals (Multivitamins With Minerals*), 1 TAB ORAL DAILY, ( Reported) Warfarin Sod* (Coumadin*), 12 MG ORAL DAILY, (Reported) Scheduled PRN Acetaminophen* (Tylenol Extra Strength*), 500 MG ORAL Q6H PRN for Mild Pain/ Temp > 100.5, (Reported) Acetaminophen* (Acetaminophen 325MG Tablet*), 325 MG ORAL Q6H PRN for Pain Scale (6-10), (Reported) Miscellaneous Medications Ipratropium/Albuterol Sulfate (DuoNeb 0.5-3(2.5)mg/3ml), 3 ML HHN, (Reported) Lactobacillus Acidophilus (Acidophilus), 1 EACH PO, (Reported) Patient History Limited by: medical condition History Provided By: Patient, Medical Record, PMD Healthcare decision maker Resuscitation status Advanced Directive on File Past Medical/Surgical History Past Medical/Surgical History: (1) Post-op bleeding (2) Acute hypernatremia (3) Dehydration (4) Pneumonia (5) Generalized weakness (6) Failure to thrive (7) Renal insufficiency (8) Electrolyte imbalance (9) Severe malnutrition (10) Seizure disorder (11) Advanced dementia (12) Cerebrovascular accident (CVA) (13) Aspiration pneumonia (14) ATN (acute tubular necrosis) (15) Lung nodule, multiple Review of Systems All Other Systems: negative except mentioned in HPI Physical Exam General Appearance: no apparent distress Lines, tubes and drains: peripheral HEENT: mucous membranes moist Neck: normal inspection Respiratory/Chest: no respiratory distress, no accessory muscle use Cardiovascular/Chest: normal rate Abdomen: soft, no organomegaly, no mass Extremities: non-tender, normal inspection Skin Exam: warm/dry Last 24 Hour Vital Signs Date Time Temp Pulse Resp B/P (MAP) Pulse Ox O2 Delivery O2 Flow Rate FiO2 06/15/18 14:17 126/80 06/15/18 12:00 98.0 82 20 126/126 (126) 97 98.0 06/15/18 11:40 82 06/15/18 09:49 84 119/76 06/15/18 08:20 Nasal Cannula 1.0 06/15/18 08:18 Nasal Cannula 1.0 24 06/15/18 08:18 99 Nasal Cannula 1.0 24 06/15/18 08:00 98.1 84 20 119/76 (90) 97 98.1 06/15/18 07:26 83 06/15/18 05:54 123/84 06/15/18 04:09 84 06/15/18 04:00 97.5 95 20 123/84 (97) 97 97.5 06/15/18 00:13 87 06/15/18 00:00 126/81 06/15/18 00:00 97.6 92 20 126/81 (96) 98 97.6 06/14/18 21:00 Nasal Cannula 1.0 06/14/18 20:08 Nasal Cannula 1.0 24 06/14/18 20:07 99 Nasal Cannula 1.0 24 06/14/18 20:00 97.3 99 20 118/85 (96) 94 97.3 06/14/18 19:03 96 06/14/18 16:52 Nasal Cannula 3.0 Intake and Output 06/14/18 06/15/18 19:00 07:00 Intake Total 150 ml 1315 ml Output Total 300 ml Balance 150 ml 1015 ml Intake Oral 0 ml IV Total 150 ml 1315 ml Output Urine Total 300 ml # Voids 2 # Bowel Movements 2 Laboratory Tests Test 06/14/18 18:20 06/15/18 05:40 06/15/18 14:40 Stool Occult Blood Positive (NEGATIVE) White Blood Count 12.8 K/UL (4.8-10.8) #H Red Blood Count 3.89 M/UL (4.70-6.10) L Hemoglobin 10.8 G/DL (14.2-18.0) L Hematocrit 34.2 % (42.0-52.0) L Mean Corpuscular Volume 88 FL (80-99) Mean Corpuscular Hemoglobin 27.7 PG (27.0-31.0) Mean Corpuscular Hemoglobin Concent 31.5 G/DL (32.0-36.0) L Red Cell Distribution Width 12.9 % (11.6-14.8) Platelet Count 238 K/UL (150-450) Mean Platelet Volume 7.8 FL (6.5-10.1) Neutrophils (%) (Auto) % (45.0-75.0) Lymphocytes (%) (Auto) % (20.0-45.0) Monocytes (%) (Auto) % (1.0-10.0) Eosinophils (%) (Auto) % (0.0-3.0) Basophils (%) (Auto) % (0.0-2.0) Differential Total Cells Counted 100 Neutrophils % (Manual) 80 % (45-75) H Lymphocytes % (Manual) 12 % (20-45) L Monocytes % (Manual) 8 % (1-10) Eosinophils % (Manual) 0 % (0-3) Basophils % (Manual) 0 % (0-2) Band Neutrophils 0 % (0-8) Platelet Estimate Adequate Platelet Morphology Normal Hypochromasia 1+ Anisocytosis 1+ Reticulocyte Count 1.6 % (0.0-2.0) Prothrombin Time 21.7 SEC (9.30-11.50) H Prothromb Time International Ratio 2.1 (0.9-1.1) H Activated Partial Thromboplast Time 42 SEC (23-33) H Sodium Level 156 MMOL/L (136-145) H 150 MMOL/L (136-145) H Potassium Level 3.5 MMOL/L (3.5-5.1) 3.7 MMOL/L (3.5-5.1) Chloride Level 121 MMOL/L (98-107) H 117 MMOL/L (98-107) H Carbon Dioxide Level 23 MMOL/L (21-32) 25 MMOL/L (21-32) Anion Gap 12 mmol/L (5-15) 8 mmol/L (5-15) Blood Urea Nitrogen 37 mg/dL (7-18) H 31 mg/dL (7-18) H Creatinine 1.5 MG/DL (0.55-1.30) H 1.4 MG/DL (0.55-1.30) H Estimat Glomerular Filtration Rate mL/min (>60) mL/min (>60) Glucose Level 140 MG/DL (74-106) H 134 MG/DL (74-106) H Calcium Level 7.6 MG/DL (8.5-10.1) L 7.6 MG/DL (8.5-10.1) L Phosphorus Level 2.9 MG/DL (2.5-4.9) Iron Level 16 ug/dL (50-175) L Total Iron Binding Capacity 172 ug/dL (250-450) L Percent Iron Saturation 9 % (15-50) L Unsaturated Iron Binding 156 ug/dL (112-346) Ferritin 296 NG/ML (8-388) Total Bilirubin 0.8 MG/DL (0.2-1.0) 0.7 MG/DL (0.2-1.0) Aspartate Amino Transf (AST/SGOT) 95 U/L (15-37) H 87 U/L (15-37) H Alanine Aminotransferase (ALT/SGPT) 73 U/L (12-78) 70 U/L (12-78) Alkaline Phosphatase 459 U/L (46-116) H 449 U/L (46-116) H C-Reactive Protein, Quantitative 20.0 mg/dL (0.00-0.90) H Total Protein 6.9 G/DL (6.4-8.2) 6.3 G/DL (6.4-8.2) L Albumin 2.1 G/DL (3.4-5.0) L 2.1 G/DL (3.4-5.0) L Globulin 4.8 g/dL 4.2 g/dL Albumin/Globulin Ratio 0.4 (1.0-2.7) L 0.5 (1.0-2.7) L Carcinoembryonic Antigen Pending Vitamin B12 Level 1519 PG/ML (193-986) H Folate 3.6 NG/ML (8.6-58.9) L Thyroid Stimulating Hormone (TSH) 0.618 uiU/mL (0.358-3.740) Free Thyroxine 1.33 NG/DL (0.76-1.46) Hepatitis A IgM Antibody Pending Hepatitis B Surface Antigen Pending Hepatitis B Core IgM Antibody Pending Hepatitis C Antibody Pending Height (Feet): 5 Height (Inches): 7.00 Weight (Pounds): 119 Medications Current Medications Medications (Trade) Dose Ordered Sig/Manav Route PRN Reason Start Time Stop Time Status Last Admin Dose Admin Acetaminophen (Tylenol) 650 mg Q4H PRN ORAL fever (temp>100.5F) 06/14/18 13:15 07/14/18 13:14 Albuterol/ Ipratropium (Albuterol/ Ipratropium) 3 ml Q4H PRN HHN Shortness of Breath 06/14/18 13:15 06/19/18 13:14 Amlodipine Besylate (Norvasc) 2.5 mg DAILY ORAL 06/16/18 09:00 07/15/18 08:59 Cefepime HCl 1 gm/ Dextrose 55 ml @ 110 mls/hr DAILY IV 06/14/18 18:00 06/21/18 17:59 06/15/18 09:50 Dextrose 1,000 ml @ 150 mls/hr Q6H40M IV 06/14/18 17:30 07/14/18 17:29 06/15/18 05:56 Folic Acid (Folate) 2 mg DAILY ORAL 06/16/18 09:00 07/15/18 08:59 Heparin Sodium (Porcine) (Heparin 5000 units/ml) 5,000 units EVERY 12 HOURS SUBQ 06/14/18 21:00 07/14/18 20:59 06/15/18 09:51 Hydralazine HCl (Apresoline) 25 mg EVERY 8 HOURS ORAL 06/15/18 14:00 07/15/18 00:00 06/15/18 14:17 Iopamidol (Isovue-300 100ml) 100 ml NOW PRN INJ Radiology Procedure 06/15/18 10:15 06/17/18 10:07 Levetiracetam (Keppra) 500 mg Q12HR ORAL 06/14/18 21:00 07/14/18 20:59 06/15/18 09:49 Metronidazole 100 ml @ 100 mls/hr Q8HR IVPB 06/15/18 14:00 06/22/18 13:59 06/15/18 15:15 Nitroglycerin (Ntg) 0.4 mg Q5M PRN SL Prn Chest Pain 06/14/18 13:15 07/14/18 13:14 Ondansetron HCl (Zofran) 4 mg Q6H PRN IVP Nausea & Vomiting 06/14/18 13:15 07/14/18 13:14 Pantoprazole (Protonix) 40 mg DAILY IVP 06/15/18 09:00 07/15/18 08:59 06/15/18 09:49 Polyethylene Glycol (Miralax) 17 gm DAILYPRN PRN ORAL Constipation 06/14/18 13:15 07/14/18 13:14 Promethazine HCl/ Codeine (Phenergan with Codeine) 5 ml Q4H PRN ORAL For Cough 06/14/18 13:15 07/14/18 13:14 Temazepam (Restoril) 15 mg HSPRN PRN ORAL Insomnia 06/14/18 13:15 06/21/18 13:14 Assessment/Plan Problem List: (1) Lung nodule, multiple Assessment & Plan: abnormal lft's, leukocytosis. GI procedures on hold because of cardiac clearance Hepatitis panel pending -Ultrasound Abd ordered Multiple lung nodules. etiology unknown. Will first await CT chest to better evaluate nodules once stable from cardiac standpoint thank you. will follow with recs. ICD Codes: R91.8 - Other nonspecific abnormal finding of lung field SNOMED: [id number] [place]udolph Jun 15, 2018 16:07
--- NOTE | 2018-06-15 17:02 | Diagnostic Imaging Report ---
Indication: Abnormal liver function tests and renal function tests Technique: Cho-scale and duplex images of the upper abdomen were obtained Comparison: none Findings: Fluid-filled structure is seen in the expected region of the gallbladder, not well visualized, may represent a contracted gallbladder, however. Note the patient is not nothing by mouth. Nonshadowing material seen within the gallbladder. There is also a large area of shadowing in this structure which may reflect a gallstone.. Common bile duct measures for mm in diameter. There is some focal left lobe intrahepatic biliary ductal dilatation noted. Liver demonstrates innumerable soft tissue masses of various sizes, measuring up to 5.2 cm long axis dimension. Portal vein and hepatic veins are patent. Pancreas is unremarkable. The spleen likewise demonstrates multiple masses measuring up to 2.8 cm in diameter, appearing similar to the sonographic abnormality Left kidney measures 8.1 cm in length. Right kidney measures 9.3 cm length. Both kidneys demonstrate normal echogenicity. There is no hydronephrosis. There is a 5.1 cm cyst in the left kidney upper pole . Abdominal aorta is partially obscured by bowel gas, visualized portions are non-aneurysmal . Impression: Multiple hepatic and splenic masses, as described. 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 However, in view of the splenic involvement, the possibility that this represents multiple abscesses should also be considered Fluid structure in the gallbladder fossa probably but not definitively represents a nondistended gallbladder. This possibly contains gallstones. Soft tissue echogenicity area within the apparent lumen could represent tumefactive sludge, polyp, or, given the above findings, neoplasm Focal left lobe intrahepatic ductal dilatation, presumably due to compression by one of the above masses. Left renal cyst incidentally noted Dr. Heaton notified at the time of interpretation
[2018-06-15] MEDS ORDERED: Lidocaine 1% Plain 30 ml INJ PRN (18:00)
--- NOTE | 2018-06-15 20:14 | Consultation ---
Consult Note Consult Note Oncology Consult DOS: 06/15/18 Referring physician: MARK ALVAREZ Reason for Consultation: FTT, Malignnancy eval Present Illness HPI Patient is a 78-year-old male brought in by EMS after from retirement increased productive cough and the difficulty tolerating oral fluids. Patient recently been noted to have increased difficulty breathing.Patient had been not taking his medication for several days. Patient was noted to be previously on medications for psychosis. I reportedly patient had been refusing medications as well as food for several days.The patient had been noted to have developed a productive cough. GI consulted for FTT. ROS limited, pt seen awake NAD with no active s/sx of N/V/D. Has constant mumble. No other history can be obtained from patient. Labs reviewed show mild anemia, hypernatremia, renal insufficiency, elevated lactic acid and elevated troponin levels and abnormal LFTs. Unknown history of endoscopy / colonoscopy. Imaging with US showed Impression: Multiple hepatic and splenic masses, as described. 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 However, in view of the splenic involvement, the possibility that this represents multiple abscesses should also be considered Fluid structure in the gallbladder fossa probably but not definitively represents a nondistended gallbladder. This possibly contains gallstones. Soft tissue echogenicity area within the apparent lumen could represent tumefactive sludge, polyp, or, given the above findings, neoplasm Focal left lobe intrahepatic ductal dilatation, presumably due to compression by one of the above masses. Reported Medications Ipratropium/Albuterol Sulfate (DuoNeb 0.5-3(2.5)mg/3ml) 3 Ml Ampul.neb, 3 ML HHN , EA 09/04/17 Hydralazine Hcl* (HYDRALAZINE HCL*) 50 Mg Tablet, 50 MG ORAL EVERY 8 HOURS, TAB 09/04/17 Enoxaparin* (LOVENOX*) 60 Mg/0.6 Ml Inj, 60 MG SUBQ EVERY 12 HOURS, #60 EA 0 Refills 09/04/17 Lactobacillus Acidophilus (ACIDOPHILUS) 1 Each Capsule, 1 EACH PO, CAP 09/04/17 Cyanocobalamin (Vitamin B-12)* (VITAMIN B-12*) 500 Mcg Tablet, 500 MCG ORAL DAILY, #30 TAB 0 Refills 09/04/17 Warfarin Sod* (COUMADIN*) 10 Mg Tablet, 12 MG ORAL DAILY, TAB 09/04/17 Amlodipine Besylate (Norvasc) 5 Mg Tablet, 5 MG ORAL DAILY, TAB 09/04/17 Multivitamin With Minerals (MULTIVITAMINS WITH MINERALS*) 1 Each Tablet, 1 TAB ORAL DAILY, TAB 09/04/17 Levetiracetam* (LEVETIRACETAM*) 500 Mg Tablet, 500 MG ORAL TWICE A DAY, #60 TAB 0 Refills 09/04/17 Med list reviewed/reconciled: Yes Allergies: Coded Allergies: No Known Allergies (Unverified , 09/04/17) Patient History Limited by: medical condition History Provided By: Medical Record PMH Narrative Past Medical History: see triage record Reviewed Nursing Documentation: PMH: Agreed; PSxH: Agreed Nursing Documentation-PMH Past Medical History: No History, Except For Hx Cardiac Problems: Yes - anemia, CHF Hx Hypertension: Yes Hx COPD: Yes Hx Cerebrovascular Accident: Yes Review of Systems All Other Systems: limited Physical Exam Last 24 Hour Vital Signs Date Time Temp Pulse Resp B/P (MAP) Pulse Ox O2 Delivery O2 Flow Rate FiO2 06/15/18 16:00 97.7 85 18 130/81 (97) 97.7 06/15/18 15:56 87 06/15/18 14:17 126/80 06/15/18 12:00 98.0 82 20 126/126 (126) 97 98.0 06/15/18 11:40 82 06/15/18 09:49 84 119/76 06/15/18 08:20 Nasal Cannula 1.0 06/15/18 08:18 Nasal Cannula 1.0 24 06/15/18 08:18 99 Nasal Cannula 1.0 24 06/15/18 08:00 98.1 84 20 119/76 (90) 97 98.1 06/15/18 07:26 83 06/15/18 05:54 123/84 06/15/18 04:09 84 06/15/18 04:00 97.5 95 20 123/84 (97) 97 97.5 06/15/18 00:13 87 06/15/18 00:00 126/81 06/15/18 00:00 97.6 92 20 126/81 (96) 98 97.6 06/14/18 21:00 Nasal Cannula 1.0 Test 06/14/18 13:20 06/14/18 14:00 06/14/18 14:30 White Blood Count 8.4 K/UL (4.8-10.8) Red Blood Count 4.65 M/UL (4.70-6.10) L Hemoglobin 12.9 G/DL (14.2-18.0) L Hematocrit 41.9 % (42.0-52.0) L Mean Corpuscular Volume 90 FL (80-99) Mean Corpuscular Hemoglobin 27.7 PG (27.0-31.0) Mean Corpuscular Hemoglobin Concent 30.7 G/DL (32.0-36.0) L Red Cell Distribution Width 13.6 % (11.6-14.8) Platelet Count 309 K/UL (150-450) Mean Platelet Volume 7.5 FL (6.5-10.1) Neutrophils (%) (Auto) 75.1 % (45.0-75.0) H Lymphocytes (%) (Auto) 18.9 % (20.0-45.0) L Monocytes (%) (Auto) 5.5 % (1.0-10.0) Eosinophils (%) (Auto) 0.2 % (0.0-3.0) Basophils (%) (Auto) 0.3 % (0.0-2.0) Sodium Level 163 MMOL/L (136-145) *H Potassium Level 4.5 MMOL/L (3.5-5.1) Chloride Level 127 MMOL/L (98-107) H Carbon Dioxide Level 24 MMOL/L (21-32) Anion Gap 12 mmol/L (5-15) Blood Urea Nitrogen 46 mg/dL (7-18) H Creatinine 1.7 MG/DL (0.55-1.30) H Estimat Glomerular Filtration Rate mL/min (>60) Glucose Level 89 MG/DL (74-106) Lactic Acid Level 3.80 mmol/L (0.4-2.0) H 4.40 mmol/L (0.66-2.22) H Calcium Level 8.9 MG/DL (8.5-10.1) Total Bilirubin 0.8 MG/DL (0.2-1.0) Aspartate Amino Transf (AST/SGOT) 111 U/L (15-37) H Alanine Aminotransferase (ALT/SGPT) 84 U/L (12-78) H Alkaline Phosphatase 588 U/L (46-116) H Total Creatine Kinase 101 U/L (26-308) Creatine Kinase MB 1.8 NG/ML (0.0-3.6) Creatine Kinase MB Relative Index 1.7 Troponin I 0.196 ng/mL (0.000-0.056) Pro-B-Type Natriuretic Peptide 616 pg/mL (0-125) H Total Protein 8.1 G/DL (6.4-8.2) Albumin 2.6 G/DL (3.4-5.0) L Globulin 5.5 g/dL Albumin/Globulin Ratio 0.5 (1.0-2.7) L Arterial Blood pH 7.508 (7.350-7.450) Arterial Blood Partial Pressure CO2 22.2 mmHg (35.0-45.0) *L Arterial Blood Partial Pressure O2 53.5 mmHg (75.0-100.0) L Arterial Blood HCO3 17.2 mmol/L (22.0-26.0) L Arterial Blood Oxygen Saturation 87.5 % (92.0-98.0) L Arterial Blood Base Excess -3.9 Amado Test Positive Urine Color Brown Urine Appearance Slightly cloudy Urine pH 5 (4.5-8.0) Urine Specific [place] 1.020 (1.005-1.035) Urine Protein 2+ (NEGATIVE) H Urine Glucose (UA) Negative (NEGATIVE) Urine Ketones 2+ (NEGATIVE) H Urine Blood 1+ (NEGATIVE) H Urine Nitrite Negative (NEGATIVE) Urine Bilirubin 2+ (NEGATIVE) H Urine Ictotest Negative (NEGATIVE) Urine Urobilinogen 12 MG/DL (0.0-1.0) H Urine Leukocyte Esterase 2+ (NEGATIVE) H Urine RBC 2-4 /HPF (0 - 0) H Urine WBC 2-4 /HPF (0 - 0) Urine Squamous Epithelial Cells Occasional /LPF Urine Amorphous Sediment Moderate /LPF (NONE) H Urine Bacteria Few /HPF (NONE) Urine Mucus Few /LPF (NONE/OCC) H General Appearance: well appearing Head: normocephalic EENT: PERRL/EOMI, normal ENT inspection Neck: supple Respiratory: normal breath sounds, no respiratory distress Cardiovascular: normal rate Abd: soft nt nd Rectal: deferred Genitourinary: deferred Musculoskeletal: normal inspection Neurologic: alert Skin: normal inspection, normal color Lymphatic: normal inspection, no adenopathy Current Medications Current Medications Medications (Trade) Dose Ordered Sig/Manav Route PRN Reason Start Time Stop Time Status Last Admin Dose Admin Acetaminophen (Tylenol) 650 mg Q4H PRN ORAL fever (temp>100.5F) 06/14/18 13:15 07/14/18 13:14 Al Hydroxide/Mg Hydroxide (Mylanta II) 30 ml Q6H PRN ORAL dyspepsia 06/14/18 13:15 07/14/18 13:14 Albuterol/ Ipratropium (Albuterol/ Ipratropium) 3 ml Q4H PRN HHN Shortness of Breath 06/14/18 13:15 06/19/18 13:14 Amlodipine Besylate (Norvasc) 5 mg DAILY ORAL 06/15/18 09:00 07/15/18 08:59 Cefepime HCl 1 gm/ Dextrose 55 ml @ 110 mls/hr EVERY 12 HOURS IV 06/14/18 21:00 06/21/18 20:59 UNV Heparin Sodium (Porcine) (Heparin 5000 units/ml) 5,000 units EVERY 12 HOURS SUBQ 06/14/18 21:00 07/14/18 20:59 Hydralazine HCl (Apresoline) 50 mg EVERY 8 HOURS ORAL 06/14/18 14:00 07/14/18 13:59 Levetiracetam (Keppra) 500 mg Q12HR ORAL 06/14/18 21:00 07/14/18 20:59 Nitroglycerin (Ntg) 0.4 mg Q5M PRN SL Prn Chest Pain 06/14/18 13:15 07/14/18 13:14 Ondansetron HCl (Zofran) 4 mg Q6H PRN IVP Nausea & Vomiting 06/14/18 13:15 07/14/18 13:14 Polyethylene Glycol (Miralax) 17 gm DAILYPRN PRN ORAL Constipation 06/14/18 13:15 07/14/18 13:14 Promethazine HCl/ Codeine (Phenergan with Codeine) 5 ml Q4H PRN ORAL For Cough 06/14/18 13:15 07/14/18 13:14 Sodium Chloride 1,000 ml @ 999 mls/hr Q1H1M ONCE IV 06/14/18 14:30 06/14/18 15:30 06/14/18 15:03 Temazepam (Restoril) 15 mg HSPRN PRN ORAL Insomnia 06/14/18 13:15 06/21/18 13:14 Vancomycin HCl (Vanco rx to dose) 1 ea DAILY PRN MISC Per rx protocol 06/14/18 13:15 07/14/18 13:14 UNV Assessment and Recs: (1) 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 Jalen Webster MD Jun 15, 2018 20:14
[2018-06-16] VITALS: BP 110/68
--- NOTE | 2018-06-16 00:06 | General Progress Note ---
Subjective Date patient seen: Jun 15, 2018 Allergies: Coded Allergies: No Known Allergies (Unverified , 09/04/17) Objective Last 24 Hour Vital Signs Date Time Temp Pulse Resp B/P (MAP) Pulse Ox O2 Delivery O2 Flow Rate FiO2 06/15/18 21:54 115/74 06/15/18 21:43 86 115/74 (88) 06/15/18 21:00 Nasal Cannula 1.0 06/15/18 20:35 Nasal Cannula 1.0 06/15/18 20:35 94 Nasal Cannula 1.0 24 06/15/18 20:00 97.9 89 20 125/76 (92) 99 97.9 06/15/18 19:34 88 06/15/18 16:00 97.7 85 18 130/81 (97) 97.7 06/15/18 15:56 87 06/15/18 14:17 126/80 06/15/18 12:00 98.0 82 20 126/126 (126) 97 98.0 06/15/18 11:40 82 06/15/18 09:49 84 119/76 06/15/18 08:20 Nasal Cannula 1.0 06/15/18 08:18 Nasal Cannula 1.0 24 06/15/18 08:18 99 Nasal Cannula 1.0 24 06/15/18 08:00 98.1 84 20 119/76 (90) 97 98.1 06/15/18 07:26 83 06/15/18 05:54 123/84 06/15/18 04:09 84 06/15/18 04:00 97.5 95 20 123/84 (97) 97 97.5 06/15/18 00:13 87 Intake and Output 06/15/18 06/16/18 19:00 07:00 Output Total 300 ml Balance -300 ml Output Urine Total 300 ml # Voids 2 # Bowel Movements 1 1 Laboratory Tests 06/15/18 05:40: White Blood Count 12.8#H, Red Blood Count 3.89L, Hemoglobin 10.8L, Hematocrit 34.2L, Mean Corpuscular Volume 88, Mean Corpuscular Hemoglobin 27.7, Mean Corpuscular Hemoglobin Concent 31.5L, Red Cell Distribution Width 12.9, Platelet Count 238, Mean Platelet Volume 7.8, Neutrophils (%) (Auto) , Lymphocytes (%) (Auto) , Monocytes (%) (Auto) , Eosinophils (%) (Auto) , Basophils (%) (Auto) , Differential Total Cells Counted 100, Neutrophils % ( Manual) 80H, Lymphocytes % (Manual) 12L, Monocytes % (Manual) 8, Eosinophils % ( Manual) 0, Basophils % (Manual) 0, Band Neutrophils 0, Platelet Estimate Adequate, Platelet Morphology Normal, Hypochromasia 1+, Anisocytosis 1+, Reticulocyte Count 1.6, Prothrombin Time 21.7H, Prothromb Time International Ratio 2.1H, Activated Partial Thromboplast Time 42H, Sodium Level 156H, Potassium Level 3.5, Chloride Level 121H, Carbon Dioxide Level 23, Anion Gap 12 , Blood Urea Nitrogen 37H, Creatinine 1.5H, Estimat Glomerular Filtration Rate , Glucose Level 140H, Calcium Level 7.6L, Phosphorus Level 2.9, Iron Level 16L, Total Iron Binding Capacity 172L, Percent Iron Saturation 9L, Unsaturated Iron Binding 156, Ferritin 296, Total Bilirubin 0.8, Aspartate Amino Transf (AST/SGOT ) 95H, Alanine Aminotransferase (ALT/SGPT) 73, Alkaline Phosphatase 459H, C- Reactive Protein, Quantitative 20.0H, Total Protein 6.9, Albumin 2.1L, Globulin 4.8, Albumin/Globulin Ratio 0.4L, Carcinoembryonic Antigen [Pending], Vitamin B12 Level 1519H, Folate 3.6L, Thyroid Stimulating Hormone (TSH) 0.618, Free Thyroxine 1.33, Hepatitis A IgM Antibody [Pending], Hepatitis B Surface Antigen [Pending], Hepatitis B Core IgM Antibody [Pending], Hepatitis C Antibody [ Pending], HIV (1&2) Antibody Rapid Negative 06/15/18 14:40: Sodium Level 150H, Potassium Level 3.7, Chloride Level 117H, Carbon Dioxide Level 25, Anion Gap 8, Blood Urea Nitrogen 31H, Creatinine 1.4H, Estimat Glomerular Filtration Rate , Glucose Level 134H, Calcium Level 7.6L, Total Bilirubin 0.7, Aspartate Amino Transf (AST/SGOT) 87H, Alanine Aminotransferase ( ALT/SGPT) 70, Alkaline Phosphatase 449H, Total Protein 6.3L, Albumin 2.1L, Globulin 4.2, Albumin/Globulin Ratio 0.5L, Alpha Fetoprotein [Pending], CA 15-3 Antigen [Pending], CA 19-9 Antigen [Pending] Height (Feet): 5 Height (Inches): 7.00 Weight (Pounds): 119 Shey Gutierrez MD Jun 16, 2018 00:06
[2018-06-16 04:00] VITALS: BP 132/80
[2018-06-16] MEDS: HydrALAZINE 25mg tab ORAL SCH ×2 (05:44→14:26)
[2018-06-16 07:29] LABS: BASOPHILS % (AUTO) 0.3 % (0.0-2.0); EOSINOPHILS % (AUTO) 0.9 % (0.0-3.0); HEMATOCRIT 33.2 % (42.0-52.0); HEMOGLOBIN 10.5 G/DL (14.2-18.0); LYMPHOCYTES % (AUTO) 9.8 % (20.0-45.0); MEAN CORPUSCULAR VOLUME 88 FL (80-99); MONOCYTES % (AUTO) 6.8 % (1.0-10.0); NEUTROPHILS % (AUTO) 82.2 % (45.0-75.0); PLATELET COUNT 222 K/UL (150-450); RED BLOOD COUNT 3.78 M/UL (4.70-6.10); RED CELL DISTRIBUTION WIDTH 12.5 % (11.6-14.8); WHITE BLOOD COUNT 11.6 K/UL (4.8-10.8)
--- NOTE | 2018-06-16 07:45 | General Progress Note ---
Assessment/Plan Assessment/Plan (1) Stage IV malignancy --> as shown on multiple liver and spleen mets on us and pending CT scan --> CT C/A/P with IV contrast, has been ordered --> obtain Pet scan as an outpatient once discharged if insurance approves --> obtain Ct guided biopsy and followup on results --> dw pcp and with patient plan in after results are obtained (2) Severe malnutrition --> consider apetitte stimulant (3) Anemia of iron deficiency --> continue patient on Iv iton --> total of 4 doses of iv iron (4) Acute hypernatremia (5) Dehydration--> IVF prn (6) Pneumonia (7) Generalized weakness (8) Failure to thrive DW Attending and RN Greatly appreciate consultation. Subjective Constitutional: Denies: no symptoms, chills, diaphoresis, fever, malaise, weakness, other HEENT: Denies: no symptoms, eye pain, blurred vision, tearing, double vision, ear pain, ear discharge, nose pain, nose congestion, throat pain, throat swelling, mouth pain, mouth swelling, other Cardiovascular: Denies: no symptoms, chest pain, edema, irregular heart rate, lightheadedness, palpitations, syncope, other Respiratory: Denies: no symptoms, cough, orthopnea, shortness of breath, SOB with excertion, SOB at rest, sputum, stridor, wheezing, other Gastrointestinal/Abdominal: Denies: no symptoms, abdomen distended, abdominal pain, black stools, tarry stools, blood in stool, constipated, diarrhea, difficulty swallowing, nausea, poor appetite, poor fluid intake, rectal bleeding , vomiting, other Genitourinary: Denies: no symptoms, burning, discharge, frequency, flank pain, hematuria, incontinence, pain, urgency, other Neurologic/Psychiatric: Denies: no symptoms, anxiety, depressed, emotional problems, headache, numbness, paresthesia, pre-existing deficit, seizure, tingling, tremors, weakness, other Endocrine: Denies: no symptoms, excessive sweating, flushing, intolerance to cold, intolerance to heat, increased hunger, increased thirst, increased urine, unexplained weight gain, unexplained weight loss, other Allergies: Coded Allergies: No Known Allergies (Unverified , 09/04/17) Subjective no fevers chills or night sweats, no events Objective Last 24 Hour Vital Signs Date Time Temp Pulse Resp B/P (MAP) Pulse Ox O2 Delivery O2 Flow Rate FiO2 06/16/18 05:44 132/80 06/16/18 04:00 97.5 81 20 132/80 (97) 99 97.5 06/16/18 04:00 81 06/16/18 00:00 98.1 86 20 110/68 (82) 99 98.1 06/15/18 23:32 98 06/15/18 21:54 115/74 06/15/18 21:43 86 115/74 (88) 06/15/18 21:00 Nasal Cannula 1.0 06/15/18 20:35 Nasal Cannula 1.0 24 06/15/18 20:35 94 Nasal Cannula 1.0 24 06/15/18 20:00 97.9 89 20 125/76 (92) 99 97.9 06/15/18 19:34 88 06/15/18 16:00 97.7 85 18 130/81 (97) 97.7 06/15/18 15:56 87 06/15/18 14:17 126/80 06/15/18 12:00 98.0 82 20 126/126 (126) 97 98.0 06/15/18 11:40 82 06/15/18 09:49 84 119/76 06/15/18 08:20 Nasal Cannula 1.0 06/15/18 08:18 Nasal Cannula 1.0 24 06/15/18 08:18 99 Nasal Cannula 1.0 24 06/15/18 08:00 98.1 84 20 119/76 (90) 97 98.1 Intake and Output 06/15/18 06/16/18 19:00 07:00 Output Total 300 ml 500 ml Balance -300 ml -500 ml Output Urine Total 300 ml 500 ml # Voids 2 # Bowel Movements 1 1 Laboratory Tests 06/15/18 14:40: Sodium Level 150H, Potassium Level 3.7, Chloride Level 117H, Carbon Dioxide Level 25, Anion Gap 8, Blood Urea Nitrogen 31H, Creatinine 1.4H, Estimat Glomerular Filtration Rate , Glucose Level 134H, Calcium Level 7.6L, Total Bilirubin 0.7, Aspartate Amino Transf (AST/SGOT) 87H, Alanine Aminotransferase ( ALT/SGPT) 70, Alkaline Phosphatase 449H, Total Protein 6.3L, Albumin 2.1L, Globulin 4.2, Albumin/Globulin Ratio 0.5L, Alpha Fetoprotein [Pending], CA 15-3 Antigen [Pending], CA 19-9 Antigen [Pending] 06/16/18 06:10: Sodium Level [Pending], Potassium Level [Pending], Chloride Level [Pending], Carbon Dioxide Level [Pending], Blood Urea Nitrogen [Pending], Creatinine [ Pending], Estimat Glomerular Filtration Rate [Pending], Glucose Level [Pending] , Calcium Level [Pending], Total Bilirubin [Pending], Aspartate Amino Transf ( AST/SGOT) [Pending], Alanine Aminotransferase (ALT/SGPT) [Pending], Alkaline Phosphatase [Pending], Total Protein [Pending], Albumin [Pending], Globulin [ Pending], White Blood Count 11.6H, Red Blood Count 3.78L, Hemoglobin 10.5L, Hematocrit 33.2L, Mean Corpuscular Volume 88, Mean Corpuscular Hemoglobin 27.9, Mean Corpuscular Hemoglobin Concent 31.8L, Red Cell Distribution Width 12.5, Platelet Count 222, Mean Platelet Volume 7.9, Neutrophils (%) (Auto) 82.2H, Lymphocytes (%) (Auto) 9.8L, Monocytes (%) (Auto) 6.8, Eosinophils (%) (Auto) 0.9, Basophils (%) (Auto) 0.3, Hemoglobin A1c [Pending], Uric Acid [Pending], Phosphorus Level [Pending], Magnesium Level [Pending], Gamma Glutamyl Transpeptidase [Pending], Total Creatine Kinase [Pending], Troponin I [Pending] , Pro-B-Type Natriuretic Peptide [Pending], Triglycerides Level [Pending], Cholesterol Level [Pending], LDL Cholesterol [Pending], HDL Cholesterol [Pending ], Cholesterol/HDL Ratio [Pending] Height (Feet): 5 Height (Inches): 7.00 Weight (Pounds): 123 General Appearance: no apparent distress EENT: TMs normal Neck: normal inspection Cardiovascular: regular rhythm Respiratory/Chest: normal breath sounds Abdomen: abnormal bowel sounds Extremities: non-tender Edema: 1+ Leg (L), 1+ Leg (R) Neurologic: alert Skin: warm/dry Kleynberg,Jalen L. MD Jun 16, 2018 07:45
[2018-06-16 07:59] LABS: ALANINE AMINOTRANSFERASE 68 U/L (12-78); ALBUMIN/GLOBULIN RATIO 0.4 (1.0-2.7); ALKALINE PHOSPHATASE 425 U/L (46-116); ANION GAP 12 mmol/L (5-15); ASPARTATE AMINO TRANSFERASE 93 U/L (15-37); BILIRUBIN,TOTAL 0.9 MG/DL (0.2-1.0); BLOOD UREA NITROGEN 23 mg/dL (7-18); CALCIUM 7.6 MG/DL (8.5-10.1); CARBON DIOXIDE 22 MMOL/L (21-32); CHLORIDE 109 MMOL/L (98-107); CHOLESTEROL 110 MG/DL (< 200); CREATINE KINASE 103 U/L (26-308); CREATININE 1.2 MG/DL (0.55-1.30); GAMMA GLUTAMYL TRANSPEPTIDASE 486 U/L (5-85); HDL CHOLESTEROL 47 MG/DL (40-60); PHOSPHORUS 2.3 MG/DL (2.5-4.9); POTASSIUM 2.9 MMOL/L (3.5-5.1); SODIUM 143 MMOL/L (136-145); TRIGLYCERIDES 47 MG/DL (30-150)
[2018-06-16 08:00] VITALS: BP 112/69
--- NOTE | 2018-06-16 08:14 | Infectious Diseases Prog Note ---
Assessment/Plan Assessment/Plan 78 yo male sent to the ED from his detention after refusing med and food for a week per report. PNA - Possible aspiration vs CAP Lung Nodules - Likely CA given US Fever resolved Leukocytosis - resolving Dysphagia HTN COPD Epilepsy Depression Schizophrenia Dementia CVA [place] Anemia PLAN: Continue Cefepime #3/ Continue Flagyl #2/7 - 06/15 - SP Vancomycin - Blood Cx likely contaminant Consider Bx of liver lesions Repeat blood Cx Monitor CBC and Temps Nutrition Supportive care We will continue to follow this patient though out his hospitalization. Subjective Allergies: Coded Allergies: No Known Allergies (Unverified , 09/04/17) Subjective Afebrile Leukocytosis improved Objective Vital Signs Last 24 Hour Vital Signs Date Time Temp Pulse Resp B/P (MAP) Pulse Ox O2 Delivery O2 Flow Rate FiO2 06/16/18 05:44 132/80 06/16/18 04:00 97.5 81 20 132/80 (97) 99 97.5 06/16/18 04:00 81 06/16/18 00:00 98.1 86 20 110/68 (82) 99 98.1 06/15/18 23:32 98 06/15/18 21:54 115/74 06/15/18 21:43 86 115/74 (88) 06/15/18 21:00 Nasal Cannula 1.0 06/15/18 20:35 Nasal Cannula 1.0 24 06/15/18 20:35 94 Nasal Cannula 1.0 24 06/15/18 20:00 97.9 89 20 125/76 (92) 99 97.9 06/15/18 19:34 88 06/15/18 16:00 97.7 85 18 130/81 (97) 97.7 06/15/18 15:56 87 06/15/18 14:17 126/80 06/15/18 12:00 98.0 82 20 126/126 (126) 97 98.0 06/15/18 11:40 82 06/15/18 09:49 84 119/76 06/15/18 08:20 Nasal Cannula 1.0 06/15/18 08:18 Nasal Cannula 1.0 24 06/15/18 08:18 99 Nasal Cannula 1.0 24 Height (Feet): 5 Height (Inches): 7.00 Weight (Pounds): 123 Objective Gen: NAD, Thin male on 1L NC HEENT: NCAT, MMM, EOMI LUNGS: CTAB, No W/C, No Accessory muscle use CARDS: RRR, S1, S2, No M/R/G ABD: Soft, NT, ND, No R/G, + BS Ext: C/C/E, Pulses 2+ B/L (DP, Rad) Microbiology Date/Time Source Procedure Growth Status 06/14/18 13:20 Blood Blood Culture - Preliminary Staphylococcus Sp Coag Neg Resulted 06/14/18 13:20 Blood Blood Culture - Preliminary Staphylococcus Sp Coag Neg Resulted 06/15/18 19:00 Nasal Nares Influenza Types A,B Antigen (HERMES) - Final Complete Laboratory Tests Test 06/15/18 14:40 06/16/18 06:10 Sodium Level 150 MMOL/L (136-145) H 143 MMOL/L (136-145) Potassium Level 3.7 MMOL/L (3.5-5.1) 2.9 MMOL/L (3.5-5.1) L Chloride Level 117 MMOL/L (98-107) H 109 MMOL/L (98-107) H Carbon Dioxide Level 25 MMOL/L (21-32) 22 MMOL/L (21-32) Anion Gap 8 mmol/L (5-15) 12 mmol/L (5-15) Blood Urea Nitrogen 31 mg/dL (7-18) H 23 mg/dL (7-18) H Creatinine 1.4 MG/DL (0.55-1.30) H 1.2 MG/DL (0.55-1.30) Estimat Glomerular Filtration Rate mL/min (>60) mL/min (>60) Glucose Level 134 MG/DL (74-106) H 94 MG/DL (74-106) Calcium Level 7.6 MG/DL (8.5-10.1) L 7.6 MG/DL (8.5-10.1) L Total Bilirubin 0.7 MG/DL (0.2-1.0) 0.9 MG/DL (0.2-1.0) Aspartate Amino Transf (AST/SGOT) 87 U/L (15-37) H 93 U/L (15-37) H Alanine Aminotransferase (ALT/SGPT) 70 U/L (12-78) 68 U/L (12-78) Alkaline Phosphatase 449 U/L (46-116) H 425 U/L (46-116) H Total Protein 6.3 G/DL (6.4-8.2) L 6.8 G/DL (6.4-8.2) Albumin 2.1 G/DL (3.4-5.0) L 2.0 G/DL (3.4-5.0) L Globulin 4.2 g/dL 4.8 g/dL Albumin/Globulin Ratio 0.5 (1.0-2.7) L 0.4 (1.0-2.7) L Alpha Fetoprotein Pending CA 15-3 Antigen Pending CA 19-9 Antigen Pending White Blood Count 11.6 K/UL (4.8-10.8) H Red Blood Count 3.78 M/UL (4.70-6.10) L Hemoglobin 10.5 G/DL (14.2-18.0) L Hematocrit 33.2 % (42.0-52.0) L Mean Corpuscular Volume 88 FL (80-99) Mean Corpuscular Hemoglobin 27.9 PG (27.0-31.0) Mean Corpuscular Hemoglobin Concent 31.8 G/DL (32.0-36.0) L Red Cell Distribution Width 12.5 % (11.6-14.8) Platelet Count 222 K/UL (150-450) Mean Platelet Volume 7.9 FL (6.5-10.1) Neutrophils (%) (Auto) 82.2 % (45.0-75.0) H Lymphocytes (%) (Auto) 9.8 % (20.0-45.0) L Monocytes (%) (Auto) 6.8 % (1.0-10.0) Eosinophils (%) (Auto) 0.9 % (0.0-3.0) Basophils (%) (Auto) 0.3 % (0.0-2.0) Hemoglobin A1c Pending Uric Acid 6.5 MG/DL (2.6-7.2) Phosphorus Level 2.3 MG/DL (2.5-4.9) L Magnesium Level 1.9 MG/DL (1.8-2.4) Gamma Glutamyl Transpeptidase 486 U/L (5-85) H Total Creatine Kinase 103 U/L (26-308) Troponin I 0.156 ng/mL (0.000-0.056) Pro-B-Type Natriuretic Peptide 427 pg/mL (0-125) H Triglycerides Level 47 MG/DL (30-150) Cholesterol Level 110 MG/DL (< 200) LDL Cholesterol 49 mg/dL (<100) HDL Cholesterol 47 MG/DL (40-60) Cholesterol/HDL Ratio 2.3 (3.3-4.4) L Current Medications Medications (Trade) Dose Ordered Sig/Manav Route PRN Reason Start Time Stop Time Status Last Admin Dose Admin Acetaminophen (Tylenol) 650 mg Q4H PRN ORAL fever (temp>100.5F) 06/14/18 13:15 07/14/18 13:14 Albuterol/ Ipratropium (Albuterol/ Ipratropium) 3 ml Q4H PRN HHN Shortness of Breath 06/14/18 13:15 06/19/18 13:14 Amlodipine Besylate (Norvasc) 2.5 mg DAILY ORAL 06/16/18 09:00 07/15/18 08:59 Barium Sulfate (Readi-Cat 2) 450 ml NOW PRN ORAL Radiology Procedure 06/15/18 20:15 06/17/18 20:07 Cefepime HCl 1 gm/ Dextrose 55 ml @ 110 mls/hr DAILY IV 06/14/18 18:00 06/21/18 17:59 06/15/18 09:50 Dextrose 1,000 ml @ 150 mls/hr Q6H40M IV 06/14/18 17:30 07/14/18 17:29 06/15/18 20:29 Folic Acid (Folate) 2 mg DAILY ORAL 06/16/18 09:00 07/15/18 08:59 Heparin Sodium (Porcine) (Heparin 5000 units/ml) 5,000 units EVERY 12 HOURS SUBQ 06/14/18 21:00 07/14/18 20:59 06/15/18 20:32 Hydralazine HCl (Apresoline) 25 mg EVERY 8 HOURS ORAL 06/15/18 14:00 07/15/18 00:00 06/16/18 05:44 Iopamidol (Isovue-300 100ml) 100 ml NOW PRN INJ Radiology Procedure 06/15/18 10:15 06/17/18 10:07 Iopamidol (Isovue-300 100ml) 100 ml NOW PRN INJ Radiology Procedure 06/15/18 20:15 06/16/18 23:59 Levetiracetam (Keppra) 500 mg Q12HR ORAL 06/14/18 21:00 07/14/18 20:59 06/15/18 20:29 Lidocaine HCl (Xylocaine 1% 30ml) 30 ml NOW PRN INJ Radiology Procedure 06/15/18 18:00 06/17/18 17:59 Metronidazole 100 ml @ 100 mls/hr Q8HR IVPB 06/15/18 14:00 06/22/18 13:59 06/16/18 05:44 Nitroglycerin (Ntg) 0.4 mg Q5M PRN SL Prn Chest Pain 06/14/18 13:15 07/14/18 13:14 Ondansetron HCl (Zofran) 4 mg Q6H PRN IVP Nausea & Vomiting 06/14/18 13:15 07/14/18 13:14 Pantoprazole (Protonix) 40 mg DAILY IVP 06/15/18 09:00 07/15/18 08:59 06/15/18 09:49 Polyethylene Glycol (Miralax) 17 gm DAILYPRN PRN ORAL Constipation 06/14/18 13:15 07/14/18 13:14 Promethazine HCl/ Codeine (Phenergan with Codeine) 5 ml Q4H PRN ORAL For Cough 06/14/18 13:15 07/14/18 13:14 Temazepam (Restoril) 15 mg HSPRN PRN ORAL Insomnia 06/14/18 13:15 06/21/18 13:14 Andre Wang MD Jun 16, 2018 08:14
[2018-06-16 08:36] LABS: INR 2.5 (0.9-1.1)
[2018-06-16] MEDS: Heparin 5000 units/ml inj SUBQ SCH ×2 (09:00→21:10)
[2018-06-16] MEDS: Cefepime HCl 1 GM in D5W 55 ML IV SCH (09:26)
[2018-06-16] MEDS: Pantoprazole Inj IVP SCH (09:28)
[2018-06-16] MEDS ORDERED: Potassium Phosphate 30 MM in NS 275 ML IV SCH (10:30)
--- NOTE | 2018-06-16 11:00 | GI Progress Note ---
Assessment/Plan Problems: (1) Cerebrovascular accident (CVA) ICD Codes: I63.9 - Cerebral infarction, unspecified SNOMED: 725941327 (2) Advanced dementia ICD Codes: F03.90 - Unspecified dementia without behavioral disturbance SNOMED: 88354833 (3) Seizure disorder ICD Codes: G40.909 - Epilepsy, unspecified, not intractable, without status epilepticus SNOMED: 616166643 (4) Severe malnutrition ICD Codes: E43 - Unspecified severe protein-calorie malnutrition SNOMED: 37620337 (5) Dehydration ICD Codes: E86.0 - Dehydration SNOMED: 34527384 (6) Failure to thrive SNOMED: 35864542 (7) Generalized weakness ICD Codes: R53.1 - Weakness SNOMED: 30452715 Status: unchanged Status Narrative Discussed with Dr. Pineda. Assessment/Plan OB stool positive, send additional iron deficient folate deficiency abdominal US reviewed >> multiple hepatic and splenic nodules, fu oncology ST evaluation reviewed >> recommend PEG hep panel negative hold GI procedures at this time given elevated troponin levels, fu cardiology PEG when cleared/if family agrees insert NGT, start feeds electrolyte correction calorie count anemia work up monitor H&H, prn transfusions bowel regime ppi trend LFTs fu labs The patient was seen and examined at bedside and all new and available data was reviewed in the patients chart. I agree with the above findings, impression and plan. (Patient seen earlier today. Signature stamp does not reflect patient encounter time.). - Vin Pineda MD Subjective Subjective limited Objective Last 24 Hour Vital Signs Date Time Temp Pulse Resp B/P (MAP) Pulse Ox O2 Delivery O2 Flow Rate FiO2 06/16/18 09:28 93 112/69 06/16/18 08:00 95 Nasal Cannula 1.0 24 06/16/18 08:00 98.1 93 26 112/69 (83) 95 98.1 06/16/18 08:00 Nasal Cannula 1.0 24 06/16/18 05:44 132/80 06/16/18 04:00 97.5 81 20 132/80 (97) 99 97.5 06/16/18 04:00 81 06/16/18 00:00 98.1 86 20 110/68 (82) 99 98.1 06/15/18 23:32 98 06/15/18 21:54 115/74 06/15/18 21:43 86 115/74 (88) 06/15/18 21:00 Nasal Cannula 1.0 06/15/18 20:35 Nasal Cannula 1.0 24 06/15/18 20:35 94 Nasal Cannula 1.0 24 06/15/18 20:00 97.9 89 20 125/76 (92) 99 97.9 06/15/18 19:34 88 06/15/18 16:00 97.7 85 18 130/81 (97) 97.7 06/15/18 15:56 87 06/15/18 14:17 126/80 06/15/18 12:00 98.0 82 20 126/126 (126) 97 98.0 06/15/18 11:40 82 Intake and Output 06/15/18 06/16/18 19:00 07:00 Output Total 300 ml 500 ml Balance -300 ml -500 ml Output Urine Total 300 ml 500 ml # Voids 2 # Bowel Movements 1 1 Laboratory Tests Test 06/15/18 14:40 06/16/18 06:10 06/16/18 08:20 06/16/18 10:00 Sodium Level 150 MMOL/L (136-145) H 143 MMOL/L (136-145) Potassium Level 3.7 MMOL/L (3.5-5.1) 2.9 MMOL/L (3.5-5.1) L Chloride Level 117 MMOL/L (98-107) H 109 MMOL/L (98-107) H Carbon Dioxide Level 25 MMOL/L (21-32) 22 MMOL/L (21-32) Anion Gap 8 mmol/L (5-15) 12 mmol/L (5-15) Blood Urea Nitrogen 31 mg/dL (7-18) H 23 mg/dL (7-18) H Creatinine 1.4 MG/DL (0.55-1.30) H 1.2 MG/DL (0.55-1.30) Estimat Glomerular Filtration Rate mL/min (>60) mL/min (>60) Glucose Level 134 MG/DL (74-106) H 94 MG/DL (74-106) Calcium Level 7.6 MG/DL (8.5-10.1) L 7.6 MG/DL (8.5-10.1) L Total Bilirubin 0.7 MG/DL (0.2-1.0) 0.9 MG/DL (0.2-1.0) Aspartate Amino Transf (AST/SGOT) 87 U/L (15-37) H 93 U/L (15-37) H Alanine Aminotransferase (ALT/SGPT) 70 U/L (12-78) 68 U/L (12-78) Alkaline Phosphatase 449 U/L (46-116) H 425 U/L (46-116) H Total Protein 6.3 G/DL (6.4-8.2) L 6.8 G/DL (6.4-8.2) Albumin 2.1 G/DL (3.4-5.0) L 2.0 G/DL (3.4-5.0) L Globulin 4.2 g/dL 4.8 g/dL Albumin/Globulin Ratio 0.5 (1.0-2.7) L 0.4 (1.0-2.7) L Alpha Fetoprotein Pending CA 15-3 Antigen Pending CA 19-9 Antigen Pending White Blood Count 11.6 K/UL (4.8-10.8) H Red Blood Count 3.78 M/UL (4.70-6.10) L Hemoglobin 10.5 G/DL (14.2-18.0) L Hematocrit 33.2 % (42.0-52.0) L Mean Corpuscular Volume 88 FL (80-99) Mean Corpuscular Hemoglobin 27.9 PG (27.0-31.0) Mean Corpuscular Hemoglobin Concent 31.8 G/DL (32.0-36.0) L Red Cell Distribution Width 12.5 % (11.6-14.8) Platelet Count 222 K/UL (150-450) Mean Platelet Volume 7.9 FL (6.5-10.1) Neutrophils (%) (Auto) 82.2 % (45.0-75.0) H Lymphocytes (%) (Auto) 9.8 % (20.0-45.0) L Monocytes (%) (Auto) 6.8 % (1.0-10.0) Eosinophils (%) (Auto) 0.9 % (0.0-3.0) Basophils (%) (Auto) 0.3 % (0.0-2.0) Hemoglobin A1c 6.1 % (4.3-6.0) H Uric Acid 6.5 MG/DL (2.6-7.2) Phosphorus Level 2.3 MG/DL (2.5-4.9) L Magnesium Level 1.9 MG/DL (1.8-2.4) Gamma Glutamyl Transpeptidase 486 U/L (5-85) H Total Creatine Kinase 103 U/L (26-308) Troponin I 0.156 ng/mL (0.000-0.056) Pro-B-Type Natriuretic Peptide 427 pg/mL (0-125) H Triglycerides Level 47 MG/DL (30-150) Cholesterol Level 110 MG/DL (< 200) LDL Cholesterol 49 mg/dL (<100) HDL Cholesterol 47 MG/DL (40-60) Cholesterol/HDL Ratio 2.3 (3.3-4.4) L Prothrombin Time 25.4 SEC (9.30-11.50) H Prothromb Time International Ratio 2.5 (0.9-1.1) H Activated Partial Thromboplast Time 55 SEC (23-33) H Stool Occult Blood Pending Microbiology Date/Time Source Procedure Growth Status 06/15/18 19:00 Nasal Nares Influenza Types A,B Antigen (HERMES) - Final Complete Height (Feet): 5 Height (Inches): 7.00 Weight (Pounds): 123 General Appearance: WD/WN, no apparent distress, alert Cardiovascular: normal rate Respiratory/Chest: normal breath sounds, no respiratory distress Abdominal Exam: normal bowel sounds, non tender, soft Extremities: normal range of motion, non-tender Abhijit Wiley ENVIRONMENTAL SPECIALIST Jun 16, 2018 11:00
--- NOTE | 2018-06-16 11:02 | Pulmonology Progress Note ---
Assessment/Plan Problems: (1) Metastatic cancer (2) Aspiration pneumonia (3) ATN (acute tubular necrosis) (4) Lung nodule, multiple (5) Seizure disorder (6) Severe malnutrition (7) Cerebrovascular accident (CVA) (8) Advanced dementia Assessment/Plan all noted afebrile cultures pending on Abx CT scan after IV hydration pending renal function improving dvt prophylaxis Subjective ROS Limited/Unobtainable: Yes Interval Events: somnolent Allergies: Coded Allergies: No Known Allergies (Unverified , 09/04/17) Objective Last 24 Hour Vital Signs Date Time Temp Pulse Resp B/P (MAP) Pulse Ox O2 Delivery O2 Flow Rate FiO2 06/16/18 09:28 93 112/69 06/16/18 08:00 95 Nasal Cannula 1.0 24 06/16/18 08:00 98.1 93 26 112/69 (83) 95 98.1 06/16/18 08:00 Nasal Cannula 1.0 24 06/16/18 05:44 132/80 06/16/18 04:00 97.5 81 20 132/80 (97) 99 97.5 06/16/18 04:00 81 06/16/18 00:00 98.1 86 20 110/68 (82) 99 98.1 06/15/18 23:32 98 06/15/18 21:54 115/74 06/15/18 21:43 86 115/74 (88) 06/15/18 21:00 Nasal Cannula 1.0 06/15/18 20:35 Nasal Cannula 1.0 24 06/15/18 20:35 94 Nasal Cannula 1.0 24 06/15/18 20:00 97.9 89 20 125/76 (92) 99 97.9 06/15/18 19:34 88 06/15/18 16:00 97.7 85 18 130/81 (97) 97.7 06/15/18 15:56 87 06/15/18 14:17 126/80 06/15/18 12:00 98.0 82 20 126/126 (126) 97 98.0 06/15/18 11:40 82 Intake and Output 06/15/18 06/16/18 19:00 07:00 Output Total 300 ml 500 ml Balance -300 ml -500 ml Output Urine Total 300 ml 500 ml # Voids 2 # Bowel Movements 1 1 General Appearance: WD/WN, cachetic HEENT: normocephalic Respiratory/Chest: chest wall non-tender Cardiovascular: normal peripheral pulses, normal rate Abdomen: normal bowel sounds, soft, non tender Genitourinary: normal external genitalia Extremities: no cyanosis Skin: no rash 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 Complete 06/14/18 14:30 Rectum VRE Culture - Final NO VANCOMYCIN RESISTANT ENTEROCOCCUS ... Complete 06/14/18 14:30 Rectum - Final NO CARBAPENEM-RESISTANT ENTEROBACTERI... Complete Laboratory Tests 06/15/18 14:40: Sodium Level 150H, Potassium Level 3.7, Chloride Level 117H, Carbon Dioxide Level 25, Anion Gap 8, Blood Urea Nitrogen 31H, Creatinine 1.4H, Estimat Glomerular Filtration Rate , Glucose Level 134H, Calcium Level 7.6L, Total Bilirubin 0.7, Aspartate Amino Transf (AST/SGOT) 87H, Alanine Aminotransferase ( ALT/SGPT) 70, Alkaline Phosphatase 449H, Total Protein 6.3L, Albumin 2.1L, Globulin 4.2, Albumin/Globulin Ratio 0.5L, Alpha Fetoprotein [Pending], CA 15-3 Antigen [Pending], CA 19-9 Antigen [Pending] 06/16/18 06:10: Sodium Level 143, Potassium Level 2.9L, Chloride Level 109H, Carbon Dioxide Level 22, Anion Gap 12, Blood Urea Nitrogen 23H, Creatinine 1.2, Estimat Glomerular Filtration Rate , Glucose Level 94, Calcium Level 7.6L, Total Bilirubin 0.9, Aspartate Amino Transf (AST/SGOT) 93H, Alanine Aminotransferase ( ALT/SGPT) 68, Alkaline Phosphatase 425H, Total Protein 6.8, Albumin 2.0L, Globulin 4.8, Albumin/Globulin Ratio 0.4L, White Blood Count 11.6H, Red Blood Count 3.78L, Hemoglobin 10.5L, Hematocrit 33.2L, Mean Corpuscular Volume 88, Mean Corpuscular Hemoglobin 27.9, Mean Corpuscular Hemoglobin Concent 31.8L, Red Cell Distribution Width 12.5, Platelet Count 222, Mean Platelet Volume 7.9, Neutrophils (%) (Auto) 82.2H, Lymphocytes (%) (Auto) 9.8L, Monocytes (%) (Auto) 6.8, Eosinophils (%) (Auto) 0.9, Basophils (%) (Auto) 0.3, Hemoglobin A1c 6.1H, Uric Acid 6.5, Phosphorus Level 2.3L, Magnesium Level 1.9, Gamma Glutamyl Transpeptidase 486H, Total Creatine Kinase 103, Troponin I 0.156H, Pro-B-Type Natriuretic Peptide 427H, Triglycerides Level 47, Cholesterol Level 110, LDL Cholesterol 49, HDL Cholesterol 47, Cholesterol/HDL Ratio 2.3L 06/16/18 08:20: Prothrombin Time 25.4H, Prothromb Time International Ratio 2.5H, Activated Partial Thromboplast Time 55H 06/16/18 10:00: Stool Occult Blood [Pending] Current Medications Medications (Trade) Dose Ordered Sig/Manav Route PRN Reason Start Time Stop Time Status Last Admin Dose Admin Acetaminophen (Tylenol) 650 mg Q4H PRN ORAL fever (temp>100.5F) 06/14/18 13:15 07/14/18 13:14 Albuterol/ Ipratropium (Albuterol/ Ipratropium) 3 ml Q4H PRN HHN Shortness of Breath 06/14/18 13:15 06/19/18 13:14 Amlodipine Besylate (Norvasc) 2.5 mg DAILY ORAL 06/16/18 09:00 07/15/18 08:59 06/16/18 09:28 Barium Sulfate (Readi-Cat 2) 450 ml NOW PRN ORAL Radiology Procedure 06/15/18 20:15 06/17/18 20:07 Cefepime HCl 1 gm/ Dextrose 55 ml @ 110 mls/hr DAILY IV 06/14/18 18:00 06/21/18 17:59 06/16/18 09:26 Dextrose 1,000 ml @ 75 mls/hr [id number] IV 06/16/18 10:00 07/14/18 09:59 06/16/18 10:11 Folic Acid (Folate) 2 mg DAILY ORAL 06/16/18 09:00 07/15/18 08:59 06/16/18 09:28 Heparin Sodium (Porcine) (Heparin 5000 units/ml) 5,000 units EVERY 12 HOURS SUBQ 06/14/18 21:00 07/14/18 20:59 06/15/18 20:32 Hydralazine HCl (Apresoline) 25 mg EVERY 8 HOURS ORAL 06/15/18 14:00 07/15/18 00:00 06/16/18 05:44 Iopamidol (Isovue-300 100ml) 100 ml NOW PRN INJ Radiology Procedure 06/15/18 10:15 06/17/18 10:07 Iopamidol (Isovue-300 100ml) 100 ml NOW PRN INJ Radiology Procedure 06/15/18 20:15 06/16/18 23:59 Levetiracetam (Keppra) 500 mg Q12HR ORAL 06/14/18 21:00 07/14/18 20:59 06/16/18 09:27 Lidocaine HCl (Xylocaine 1% 30ml) 30 ml NOW PRN INJ Radiology Procedure 06/15/18 18:00 06/17/18 17:59 Metronidazole 100 ml @ 100 mls/hr Q8HR IVPB 06/15/18 14:00 06/22/18 13:59 06/16/18 05:44 Nitroglycerin (Ntg) 0.4 mg Q5M PRN SL Prn Chest Pain 06/14/18 13:15 07/14/18 13:14 Ondansetron HCl (Zofran) 4 mg Q6H PRN IVP Nausea & Vomiting 06/14/18 13:15 07/14/18 13:14 Pantoprazole (Protonix) 40 mg DAILY IVP 06/15/18 09:00 07/15/18 08:59 06/16/18 09:28 Polyethylene Glycol (Miralax) 17 gm DAILYPRN PRN ORAL Constipation 06/14/18 13:15 07/14/18 13:14 Potassium Phosphate 30 mm/ Sodium Chloride 285 ml @ 47.5 mls/hr ONCE IV 06/16/18 10:30 06/16/18 11:30 06/16/18 10:10 Promethazine HCl/ Codeine (Phenergan with Codeine) 5 ml Q4H PRN ORAL For Cough 06/14/18 13:15 07/14/18 13:14 Temazepam (Restoril) 15 mg HSPRN PRN ORAL Insomnia 06/14/18 13:15 06/21/18 13:14 Malia Saba MD Jun 16, 2018 11:02
[2018-06-16 12:00] VITALS: BP 125/81
--- NOTE | 2018-06-16 13:01 | General Progress Note ---
Assessment/Plan Problem List: (1) Encephalopathy due to metabolic factor or toxin SNOMED: 021756922 (2) Advanced dementia ICD Codes: F03.90 - Unspecified dementia without behavioral disturbance SNOMED: 19514992 Assessment/Plan the pt lacks capacity to make decisions prozac 20mg qam Subjective Date patient seen: Jun 16, 2018 Neurologic/Psychiatric: Reports: anxiety, depressed, emotional problems Allergies: Coded Allergies: No Known Allergies (Unverified , 09/04/17) Objective Last 24 Hour Vital Signs Date Time Temp Pulse Resp B/P (MAP) Pulse Ox O2 Delivery O2 Flow Rate FiO2 06/16/18 12:00 98.8 90 28 125/81 (96) 95 98.8 06/16/18 09:28 93 112/69 06/16/18 08:20 Nasal Cannula 1.0 06/16/18 08:00 95 Nasal Cannula 1.0 24 06/16/18 08:00 98.1 93 26 112/69 (83) 95 98.1 06/16/18 08:00 Nasal Cannula 1.0 24 06/16/18 07:45 90 06/16/18 05:44 132/80 06/16/18 04:00 97.5 81 20 132/80 (97) 99 97.5 06/16/18 04:00 81 06/16/18 00:00 98.1 86 20 110/68 (82) 99 98.1 06/15/18 23:32 98 06/15/18 21:54 115/74 06/15/18 21:43 86 115/74 (88) 06/15/18 21:00 Nasal Cannula 1.0 06/15/18 20:35 Nasal Cannula 1.0 24 06/15/18 20:35 94 Nasal Cannula 1.0 24 06/15/18 20:00 97.9 89 20 125/76 (92) 99 97.9 06/15/18 19:34 88 06/15/18 16:00 97.7 85 18 130/81 (97) 97.7 06/15/18 15:56 87 06/15/18 14:17 126/80 Intake and Output 06/15/18 06/16/18 19:00 07:00 Output Total 300 ml 500 ml Balance -300 ml -500 ml Output Urine Total 300 ml 500 ml # Voids 2 # Bowel Movements 1 1 Laboratory Tests 06/15/18 14:40: Sodium Level 150H, Potassium Level 3.7, Chloride Level 117H, Carbon Dioxide Level 25, Anion Gap 8, Blood Urea Nitrogen 31H, Creatinine 1.4H, Estimat Glomerular Filtration Rate , Glucose Level 134H, Calcium Level 7.6L, Total Bilirubin 0.7, Aspartate Amino Transf (AST/SGOT) 87H, Alanine Aminotransferase ( ALT/SGPT) 70, Alkaline Phosphatase 449H, Total Protein 6.3L, Albumin 2.1L, Globulin 4.2, Albumin/Globulin Ratio 0.5L, Alpha Fetoprotein 3.4, CA 15-3 Antigen 19.0, CA 19-9 Antigen 73H 06/16/18 06:10: Sodium Level 143, Potassium Level 2.9L, Chloride Level 109H, Carbon Dioxide Level 22, Anion Gap 12, Blood Urea Nitrogen 23H, Creatinine 1.2, Estimat Glomerular Filtration Rate , Glucose Level 94, Calcium Level 7.6L, Total Bilirubin 0.9, Aspartate Amino Transf (AST/SGOT) 93H, Alanine Aminotransferase ( ALT/SGPT) 68, Alkaline Phosphatase 425H, Total Protein 6.8, Albumin 2.0L, Globulin 4.8, Albumin/Globulin Ratio 0.4L, White Blood Count 11.6H, Red Blood Count 3.78L, Hemoglobin 10.5L, Hematocrit 33.2L, Mean Corpuscular Volume 88, Mean Corpuscular Hemoglobin 27.9, Mean Corpuscular Hemoglobin Concent 31.8L, Red Cell Distribution Width 12.5, Platelet Count 222, Mean Platelet Volume 7.9, Neutrophils (%) (Auto) 82.2H, Lymphocytes (%) (Auto) 9.8L, Monocytes (%) (Auto) 6.8, Eosinophils (%) (Auto) 0.9, Basophils (%) (Auto) 0.3, Hemoglobin A1c 6.1H, Uric Acid 6.5, Phosphorus Level 2.3L, Magnesium Level 1.9, Gamma Glutamyl Transpeptidase 486H, Total Creatine Kinase 103, Troponin I 0.156H, Pro-B-Type Natriuretic Peptide 427H, Triglycerides Level 47, Cholesterol Level 110, LDL Cholesterol 49, HDL Cholesterol 47, Cholesterol/HDL Ratio 2.3L 06/16/18 08:20: Prothrombin Time 25.4H, Prothromb Time International Ratio 2.5H, Activated Partial Thromboplast Time 55H 06/16/18 10:00: Stool Occult Blood [Pending] Height (Feet): 5 Height (Inches): 7.00 Weight (Pounds): 123 General Appearance: no apparent distress, alert, confused Shey Gutierrez MD Jun 16, 2018 13:01
--- NOTE | 2018-06-16 13:09 | General Surgery Progress Note ---
General Surgery-Progress Note Subjective Additional Comments no acute events. pending CT results Objective Last 24 Hour Vital Signs Date Time Temp Pulse Resp B/P (MAP) Pulse Ox O2 Delivery O2 Flow Rate FiO2 06/16/18 12:00 98.8 90 28 125/81 (96) 95 98.8 06/16/18 09:28 93 112/69 06/16/18 08:20 Nasal Cannula 1.0 06/16/18 08:00 95 Nasal Cannula 1.0 24 06/16/18 08:00 98.1 93 26 112/69 (83) 95 98.1 06/16/18 08:00 Nasal Cannula 1.0 24 06/16/18 07:45 90 06/16/18 05:44 132/80 06/16/18 04:00 97.5 81 20 132/80 (97) 99 97.5 06/16/18 04:00 81 06/16/18 00:00 98.1 86 20 110/68 (82) 99 98.1 06/15/18 23:32 98 06/15/18 21:54 115/74 06/15/18 21:43 86 115/74 (88) 06/15/18 21:00 Nasal Cannula 1.0 06/15/18 20:35 Nasal Cannula 1.0 24 06/15/18 20:35 94 Nasal Cannula 1.0 24 06/15/18 20:00 97.9 89 20 125/76 (92) 99 97.9 06/15/18 19:34 88 06/15/18 16:00 97.7 85 18 130/81 (97) 97.7 06/15/18 15:56 87 06/15/18 14:17 126/80 I&O Intake and Output 06/15/18 06/16/18 19:00 07:00 Output Total 300 ml 500 ml Balance -300 ml -500 ml Output Urine Total 300 ml 500 ml # Voids 2 # Bowel Movements 1 1 Dressing: other Wound: other Drains: other Cardiovascular: RSR Respiratory: clear Abdomen: soft, flat, present bowel sounds Extremities: other Laboratory Tests Test 06/15/18 14:40 06/16/18 06:10 06/16/18 08:20 06/16/18 10:00 Sodium Level 150 MMOL/L (136-145) H 143 MMOL/L (136-145) Potassium Level 3.7 MMOL/L (3.5-5.1) 2.9 MMOL/L (3.5-5.1) L Chloride Level 117 MMOL/L (98-107) H 109 MMOL/L (98-107) H Carbon Dioxide Level 25 MMOL/L (21-32) 22 MMOL/L (21-32) Anion Gap 8 mmol/L (5-15) 12 mmol/L (5-15) Blood Urea Nitrogen 31 mg/dL (7-18) H 23 mg/dL (7-18) H Creatinine 1.4 MG/DL (0.55-1.30) H 1.2 MG/DL (0.55-1.30) Estimat Glomerular Filtration Rate mL/min (>60) mL/min (>60) Glucose Level 134 MG/DL (74-106) H 94 MG/DL (74-106) Calcium Level 7.6 MG/DL (8.5-10.1) L 7.6 MG/DL (8.5-10.1) L Total Bilirubin 0.7 MG/DL (0.2-1.0) 0.9 MG/DL (0.2-1.0) Aspartate Amino Transf (AST/SGOT) 87 U/L (15-37) H 93 U/L (15-37) H Alanine Aminotransferase (ALT/SGPT) 70 U/L (12-78) 68 U/L (12-78) Alkaline Phosphatase 449 U/L (46-116) H 425 U/L (46-116) H Total Protein 6.3 G/DL (6.4-8.2) L 6.8 G/DL (6.4-8.2) Albumin 2.1 G/DL (3.4-5.0) L 2.0 G/DL (3.4-5.0) L Globulin 4.2 g/dL 4.8 g/dL Albumin/Globulin Ratio 0.5 (1.0-2.7) L 0.4 (1.0-2.7) L Alpha Fetoprotein 3.4 ng/mL (0.0-8.3) CA 15-3 Antigen 19.0 U/mL (0.0-25.0) CA 19-9 Antigen 73 U/mL (0-35) H White Blood Count 11.6 K/UL (4.8-10.8) H Red Blood Count 3.78 M/UL (4.70-6.10) L Hemoglobin 10.5 G/DL (14.2-18.0) L Hematocrit 33.2 % (42.0-52.0) L Mean Corpuscular Volume 88 FL (80-99) Mean Corpuscular Hemoglobin 27.9 PG (27.0-31.0) Mean Corpuscular Hemoglobin Concent 31.8 G/DL (32.0-36.0) L Red Cell Distribution Width 12.5 % (11.6-14.8) Platelet Count 222 K/UL (150-450) Mean Platelet Volume 7.9 FL (6.5-10.1) Neutrophils (%) (Auto) 82.2 % (45.0-75.0) H Lymphocytes (%) (Auto) 9.8 % (20.0-45.0) L Monocytes (%) (Auto) 6.8 % (1.0-10.0) Eosinophils (%) (Auto) 0.9 % (0.0-3.0) Basophils (%) (Auto) 0.3 % (0.0-2.0) Hemoglobin A1c 6.1 % (4.3-6.0) H Uric Acid 6.5 MG/DL (2.6-7.2) Phosphorus Level 2.3 MG/DL (2.5-4.9) L Magnesium Level 1.9 MG/DL (1.8-2.4) Gamma Glutamyl Transpeptidase 486 U/L (5-85) H Total Creatine Kinase 103 U/L (26-308) Troponin I 0.156 ng/mL (0.000-0.056) Pro-B-Type Natriuretic Peptide 427 pg/mL (0-125) H Triglycerides Level 47 MG/DL (30-150) Cholesterol Level 110 MG/DL (< 200) LDL Cholesterol 49 mg/dL (<100) HDL Cholesterol 47 MG/DL (40-60) Cholesterol/HDL Ratio 2.3 (3.3-4.4) L Prothrombin Time 25.4 SEC (9.30-11.50) H Prothromb Time International Ratio 2.5 (0.9-1.1) H Activated Partial Thromboplast Time 55 SEC (23-33) H Stool Occult Blood Pending Plan Problems: (1) Lung nodule, multiple Assessment & Plan: abnormal lft's, leukocytosis. GI procedures on hold because of cardiac clearance Hepatitis panel pending US Abdomen: Multiple hepatic and splenic masses, as described. 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 However, in view of the splenic involvement, the possibility that this represents multiple abscesses should also be considered Fluid structure in the gallbladder fossa probably but not definitively represents a nondistended gallbladder. This possibly contains gallstones. Soft tissue echogenicity area within the apparent lumen could represent tumefactive sludge, polyp, or, given the above findings, neoplasm Multiple lung nodules. etiology unknown. Will first await CT chest to better evaluate nodules via CT guided biopsy once stable from cardiac standpoint thank you. will follow with recs. Rudolph Solis Jun 16, 2018 13:09
--- NOTE | 2018-06-16 13:57 | General Progress Note ---
Assessment/Plan Problem List: (1) Dehydration ICD Codes: E86.0 - Dehydration SNOMED: 79348142 (2) Pneumonia ICD Codes: J18.9 - Pneumonia, unspecified organism SNOMED: 114963850 (3) Generalized weakness ICD Codes: R53.1 - Weakness SNOMED: 58666351 (4) Failure to thrive SNOMED: 54443176 (5) Renal insufficiency ICD Codes: N28.9 - Disorder of kidney and ureter, unspecified SNOMED: 627632687, 815296516 (6) ATN (acute tubular necrosis) ICD Codes: N17.0 - Acute kidney failure with tubular necrosis SNOMED: 99281999 Status: unchanged Assessment/Plan o2 pulm tx abx ot pt diet cbc bmp am possible peg Subjective Constitutional: Reports: weakness Allergies: Coded Allergies: No Known Allergies (Unverified , 09/04/17) All Systems: reviewed and negative except above Subjective o2nc sleep Objective Last 24 Hour Vital Signs Date Time Temp Pulse Resp B/P (MAP) Pulse Ox O2 Delivery O2 Flow Rate FiO2 06/16/18 12:00 98.8 90 28 125/81 (96) 95 98.8 06/16/18 09:28 93 112/69 06/16/18 08:20 Nasal Cannula 1.0 06/16/18 08:00 95 Nasal Cannula 1.0 24 06/16/18 08:00 98.1 93 26 112/69 (83) 95 98.1 06/16/18 08:00 Nasal Cannula 1.0 24 06/16/18 07:45 90 06/16/18 05:44 132/80 06/16/18 04:00 97.5 81 20 132/80 (97) 99 97.5 06/16/18 04:00 81 06/16/18 00:00 98.1 86 20 110/68 (82) 99 98.1 06/15/18 23:32 98 06/15/18 21:54 115/74 06/15/18 21:43 86 115/74 (88) 06/15/18 21:00 Nasal Cannula 1.0 06/15/18 20:35 Nasal Cannula 1.0 24 06/15/18 20:35 94 Nasal Cannula 1.0 24 06/15/18 20:00 97.9 89 20 125/76 (92) 99 97.9 06/15/18 19:34 88 06/15/18 16:00 97.7 85 18 130/81 (97) 97.7 06/15/18 15:56 87 06/15/18 14:17 126/80 Intake and Output 06/15/18 06/16/18 19:00 07:00 Output Total 300 ml 500 ml Balance -300 ml -500 ml Output Urine Total 300 ml 500 ml # Voids 2 # Bowel Movements 1 1 Laboratory Tests 06/15/18 14:40: Sodium Level 150H, Potassium Level 3.7, Chloride Level 117H, Carbon Dioxide Level 25, Anion Gap 8, Blood Urea Nitrogen 31H, Creatinine 1.4H, Estimat Glomerular Filtration Rate , Glucose Level 134H, Calcium Level 7.6L, Total Bilirubin 0.7, Aspartate Amino Transf (AST/SGOT) 87H, Alanine Aminotransferase ( ALT/SGPT) 70, Alkaline Phosphatase 449H, Total Protein 6.3L, Albumin 2.1L, Globulin 4.2, Albumin/Globulin Ratio 0.5L, Alpha Fetoprotein 3.4, CA 15-3 Antigen 19.0, CA 19-9 Antigen 73H 06/16/18 06:10: Sodium Level 143, Potassium Level 2.9L, Chloride Level 109H, Carbon Dioxide Level 22, Anion Gap 12, Blood Urea Nitrogen 23H, Creatinine 1.2, Estimat Glomerular Filtration Rate , Glucose Level 94, Calcium Level 7.6L, Total Bilirubin 0.9, Aspartate Amino Transf (AST/SGOT) 93H, Alanine Aminotransferase ( ALT/SGPT) 68, Alkaline Phosphatase 425H, Total Protein 6.8, Albumin 2.0L, Globulin 4.8, Albumin/Globulin Ratio 0.4L, White Blood Count 11.6H, Red Blood Count 3.78L, Hemoglobin 10.5L, Hematocrit 33.2L, Mean Corpuscular Volume 88, Mean Corpuscular Hemoglobin 27.9, Mean Corpuscular Hemoglobin Concent 31.8L, Red Cell Distribution Width 12.5, Platelet Count 222, Mean Platelet Volume 7.9, Neutrophils (%) (Auto) 82.2H, Lymphocytes (%) (Auto) 9.8L, Monocytes (%) (Auto) 6.8, Eosinophils (%) (Auto) 0.9, Basophils (%) (Auto) 0.3, Hemoglobin A1c 6.1H, Uric Acid 6.5, Phosphorus Level 2.3L, Magnesium Level 1.9, Gamma Glutamyl Transpeptidase 486H, Total Creatine Kinase 103, Troponin I 0.156H, Pro-B-Type Natriuretic Peptide 427H, Triglycerides Level 47, Cholesterol Level 110, LDL Cholesterol 49, HDL Cholesterol 47, Cholesterol/HDL Ratio 2.3L 06/16/18 08:20: Prothrombin Time 25.4H, Prothromb Time International Ratio 2.5H, Activated Partial Thromboplast Time 55H 06/16/18 10:00: Stool Occult Blood [Pending] Height (Feet): 5 Height (Inches): 7.00 Weight (Pounds): 123 General Appearance: lethargic EENT: normal ENT inspection Neck: normal alignment Cardiovascular: normal peripheral pulses, normal rate, regular rhythm Respiratory/Chest: chest wall non-tender, lungs clear, normal breath sounds Abdomen: normal bowel sounds, non tender, soft Extremities: normal inspection Edema: no edema noted Arm (L), no edema noted Arm (R), no edema noted Leg (L), no edema noted Leg (R), no edema noted Pedal (L), no edema noted Pedal (R), no edema noted Generalized Neurologic: motor weakness Skin: normal pigmentation, warm/dry Jacques Heaton DO Jun 16, 2018 13:57
--- NOTE | 2018-06-16 14:34 | Nephrology Progress Note ---
Assessment/Plan Problem List: (1) Dehydration (2) Acute hypernatremia (3) Renal insufficiency (4) Severe malnutrition Assessment Renal Failure- Dehydration, Hypernatremia Malnutrition / Hypoalbuminemia Pneumonia / Aspiration / Multi lung nodules Seizure disorder Cerebrovascular accident (CVA) Advanced dementia Plan K and Phos replaced- D5W Antibiotics monitor lytes and renal parameters pulm support PO Folate Subjective ROS Limited/Unobtainable: No Objective Objective Last 24 Hour Vital Signs Date Time Temp Pulse Resp B/P (MAP) Pulse Ox O2 Delivery O2 Flow Rate FiO2 06/16/18 14:26 125/81 06/16/18 12:00 98.8 90 28 125/81 (96) 95 98.8 06/16/18 09:28 93 112/69 06/16/18 08:20 Nasal Cannula 1.0 06/16/18 08:00 95 Nasal Cannula 1.0 24 06/16/18 08:00 98.1 93 26 112/69 (83) 95 98.1 06/16/18 08:00 Nasal Cannula 1.0 24 06/16/18 07:45 90 06/16/18 05:44 132/80 06/16/18 04:00 97.5 81 20 132/80 (97) 99 97.5 06/16/18 04:00 81 06/16/18 00:00 98.1 86 20 110/68 (82) 99 98.1 06/15/18 23:32 98 06/15/18 21:54 115/74 06/15/18 21:43 86 115/74 (88) 06/15/18 21:00 Nasal Cannula 1.0 06/15/18 20:35 Nasal Cannula 1.0 24 06/15/18 20:35 94 Nasal Cannula 1.0 24 06/15/18 20:00 97.9 89 20 125/76 (92) 99 97.9 06/15/18 19:34 88 06/15/18 16:00 97.7 85 18 130/81 (97) 97.7 06/15/18 15:56 87 Intake and Output 06/15/18 06/16/18 19:00 07:00 Output Total 300 ml 500 ml Balance -300 ml -500 ml Output Urine Total 300 ml 500 ml # Voids 2 # Bowel Movements 1 1 Laboratory Tests 06/15/18 14:40: Sodium Level 150H, Potassium Level 3.7, Chloride Level 117H, Carbon Dioxide Level 25, Anion Gap 8, Blood Urea Nitrogen 31H, Creatinine 1.4H, Estimat Glomerular Filtration Rate , Glucose Level 134H, Calcium Level 7.6L, Total Bilirubin 0.7, Aspartate Amino Transf (AST/SGOT) 87H, Alanine Aminotransferase ( ALT/SGPT) 70, Alkaline Phosphatase 449H, Total Protein 6.3L, Albumin 2.1L, Globulin 4.2, Albumin/Globulin Ratio 0.5L, Alpha Fetoprotein 3.4, CA 15-3 Antigen 19.0, CA 19-9 Antigen 73H 06/16/18 06:10: Sodium Level 143, Potassium Level 2.9L, Chloride Level 109H, Carbon Dioxide Level 22, Anion Gap 12, Blood Urea Nitrogen 23H, Creatinine 1.2, Estimat Glomerular Filtration Rate , Glucose Level 94, Calcium Level 7.6L, Total Bilirubin 0.9, Aspartate Amino Transf (AST/SGOT) 93H, Alanine Aminotransferase ( ALT/SGPT) 68, Alkaline Phosphatase 425H, Total Protein 6.8, Albumin 2.0L, Globulin 4.8, Albumin/Globulin Ratio 0.4L, White Blood Count 11.6H, Red Blood Count 3.78L, Hemoglobin 10.5L, Hematocrit 33.2L, Mean Corpuscular Volume 88, Mean Corpuscular Hemoglobin 27.9, Mean Corpuscular Hemoglobin Concent 31.8L, Red Cell Distribution Width 12.5, Platelet Count 222, Mean Platelet Volume 7.9, Neutrophils (%) (Auto) 82.2H, Lymphocytes (%) (Auto) 9.8L, Monocytes (%) (Auto) 6.8, Eosinophils (%) (Auto) 0.9, Basophils (%) (Auto) 0.3, Hemoglobin A1c 6.1H, Uric Acid 6.5, Phosphorus Level 2.3L, Magnesium Level 1.9, Gamma Glutamyl Transpeptidase 486H, Total Creatine Kinase 103, Troponin I 0.156H, Pro-B-Type Natriuretic Peptide 427H, Triglycerides Level 47, Cholesterol Level 110, LDL Cholesterol 49, HDL Cholesterol 47, Cholesterol/HDL Ratio 2.3L 06/16/18 08:20: Prothrombin Time 25.4H, Prothromb Time International Ratio 2.5H, Activated Partial Thromboplast Time 55H 06/16/18 10:00: Stool Occult Blood [Pending] Height (Feet): 5 Height (Inches): 7.00 Weight (Pounds): 123 General Appearance: no apparent distress Anthony Stockton MD Jun 16, 2018 14:34
--- NOTE | 2018-06-16 15:50 | Diagnostic Imaging Report ---
INDICATION: Chest pain and abdominal pain, history of stage IV malignancy TECHNIQUE: Patient ingested enteric contrast. Spiral acquisitions obtained through the chest, abdomen, and pelvis Multiplanar reconstructions were generated. Total dose length product 2014.53 mGycm. CTDIvol(s) 11.42,14.36,14.36 mGy. Radiation dose was minimized using automated exposure control COMPARISON: Ultrasound abdomen 06/15/2018 FINDINGS: Chest: Lungs are somewhat hyperinflated. Numerous nodules are seen scattered throughout both lungs, measuring up to 15 cm long axis dimension. There is posterior dependent atelectasis and consolidation involving much of the right lower lobe. Scattered reticular opacities are seen in the right upper lobe, minimal. No effusions. Larger masses are seen adjacent to and inseparable from the right heart border. These measure approximately 4.3 x 2 cm. Uncertain as to whether these are pleural or parenchymal. There is hilar lymphadenopathy, with necrotic appearing nodes measuring up to 2 cm in diameter on the right. No definite mediastinal lymphadenopathy. The right thyroid lower pole demonstrates a 13 mm hypoattenuating nodule. No axillary or chest wall mass or adenopathy. A subcutaneous nodule is seen in the anterolateral right chest wall, image #32 series 5. No axillary or chest wall mass or adenopathy otherwise. The bones demonstrate degenerative spondylosis changes. Abdomen pelvis: Multiple hypoattenuating masses are seen throughout the liver, measuring up to 6.3 cm long axis dimension. The gallbladder is normal; abnormalities of described on recent sonography are not evident. No biliary ductal dilatation; focal left lobe liver ductal dilatation described on prior ultrasound is not evident on this exam. A calcification is seen within the fissure for the ligamentum teres, and another immediately adjacent to the posterior right lobe. The pancreas is unremarkable. Multiple masses are seen within the spleen, appearing similar to the liver lesions. The adrenals are unremarkable. The left kidney demonstrates multiple hilar calcifications, uncertain as to whether calyceal or arterial. It demonstrates a large upper pole cyst. The right kidney demonstrates perihilar calcification. No evidence of hydronephrosis or hydroureter. No retroperitoneal or mesenteric mass or adenopathy. No pelvic mass or adenopathy. Normal for age prostate. Contrast is seen throughout the entirety of the small bowel, reaches the colon. In the left upper quadrant, there is a focal intussusception of small bowel into small bowel this appears to extend for a length of about 7 cm. This does not appear to be resulting in any significant obstruction, as contrast is seen well distal to it and there is no proximal dilatation. The appendix is not definitely demonstrated, but no findings to suggest acute appendicitis are evident. No free or loculated intraperitoneal gas or fluid is evident. The stomach and duodenum are unremarkable. The bones demonstrate fairly extensive degenerative proliferative spondylosis changes. IMPRESSION: Evidence of disseminated malignancy, with numerous bilateral lung masses, possible right-sided pleural masses, hilar lymphadenopathy, subcutaneous nodules, splenic masses and multiple liver masses Left upper quadrant small bowel to small bowel intussusception. This does not appear to be resulting in any obstruction or strangulation 13 mm right lower pole thyroid nodule, of doubtful significance given other findings Incidental findings as noted, including hepatic/perihepatic calcifications, multiple left renal hilar calcifications, left upper pole renal cyst, right renal perihilar calcification, degenerative spondylosis Findings discussed by phone with Dr. Jacques Heaton at the time of interpretation The CT scanner at [facility] is accredited by the [employer] and the scans are performed using protocols designed to limit radiation exposure to as low as reasonably achievable to attain images of sufficient resolution adequate for diagnostic evaluation.
[2018-06-16 16:00] VITALS: BP 107/71
[2018-06-16] MEDS ORDERED: Isovue-300 100ml vial INJ SCH (16:15)
[2018-06-16] MEDS ORDERED: Nitroglycerin Subl 0.4mg tab SL PRN ×2 (16:20→16:30)
[2018-06-16] MEDS ORDERED: Isovue-300 100ml vial INJ PRN ×3 (17:00→20:15)
--- NOTE | 2018-06-16 17:06 | Diagnostic Imaging Report ---
Indication: Post nasogastric tube placement Technique: Supine view of the upper abdomen Comparison: none Findings: There is a nasogastric tube in place, tip projected level gastric fundus/body junction, proximal port at or just beyond the gastroesophageal junction. Bowel gas pattern is unremarkable. Contrast from recent video swallowing study is seen in the colon. Contrast from recent CT is seen within the renal collecting systems and bladder. There are degenerative changes of the lumbar spine. Pulmonary parenchymal disease is noted Impression: Equivocally slightly high position of nasogastric tube. Slight advancement recommended. This was discussed with patient's nurse at the time of interpretation Other findings as noted
[2018-06-16] MEDS ORDERED: Albuterol/Ipratropium 3ml neb HHN PRN ×2 (17:15)
[2018-06-16] MEDS ORDERED: Promethazine/Codeine 5ml UD ORAL PRN ×2 (17:15)
[2018-06-16] MEDS ORDERED: Lidocaine 1% Plain 30 ml INJ PRN ×2 (18:00)
[2018-06-16 20:00] VITALS: BP 105/78
--- NOTE | 2018-06-16 20:02 | Cardiology Progress Note ---
Assessment/Plan Assessment/Plan The patient is seen and examined, full consult note will be dictated shortly. Objective Last 24 Hour Vital Signs Date Time Temp Pulse Resp B/P (MAP) Pulse Ox O2 Delivery O2 Flow Rate FiO2 06/16/18 16:00 98.1 89 22 107/71 (83) 99 98.1 06/16/18 14:26 125/81 06/16/18 12:00 98.8 90 28 125/81 (96) 95 98.8 06/16/18 11:42 86 06/16/18 09:28 93 112/69 06/16/18 08:20 Nasal Cannula 1.0 06/16/18 08:00 95 Nasal Cannula 1.0 24 06/16/18 08:00 98.1 93 26 112/69 (83) 95 98.1 06/16/18 08:00 Nasal Cannula 1.0 24 06/16/18 07:45 90 06/16/18 05:44 132/80 06/16/18 04:00 97.5 81 20 132/80 (97) 99 97.5 06/16/18 04:00 81 06/16/18 00:00 98.1 86 20 110/68 (82) 99 98.1 06/15/18 23:32 98 06/15/18 21:54 115/74 06/15/18 21:43 86 115/74 (88) 06/15/18 21:00 Nasal Cannula 1.0 06/15/18 20:35 Nasal Cannula 1.0 24 06/15/18 20:35 94 Nasal Cannula 1.0 24 Intake and Output 06/15/18 06/16/18 19:00 07:00 Output Total 300 ml 500 ml Balance -300 ml -500 ml Output Urine Total 300 ml 500 ml # Voids 2 # Bowel Movements 1 1 Laboratory Tests Test 06/16/18 06:10 06/16/18 08:20 06/16/18 10:00 White Blood Count 11.6 K/UL (4.8-10.8) H Red Blood Count 3.78 M/UL (4.70-6.10) L Hemoglobin 10.5 G/DL (14.2-18.0) L Hematocrit 33.2 % (42.0-52.0) L Mean Corpuscular Volume 88 FL (80-99) Mean Corpuscular Hemoglobin 27.9 PG (27.0-31.0) Mean Corpuscular Hemoglobin Concent 31.8 G/DL (32.0-36.0) L Red Cell Distribution Width 12.5 % (11.6-14.8) Platelet Count 222 K/UL (150-450) Mean Platelet Volume 7.9 FL (6.5-10.1) Neutrophils (%) (Auto) 82.2 % (45.0-75.0) H Lymphocytes (%) (Auto) 9.8 % (20.0-45.0) L Monocytes (%) (Auto) 6.8 % (1.0-10.0) Eosinophils (%) (Auto) 0.9 % (0.0-3.0) Basophils (%) (Auto) 0.3 % (0.0-2.0) Sodium Level 143 MMOL/L (136-145) Potassium Level 2.9 MMOL/L (3.5-5.1) L Chloride Level 109 MMOL/L (98-107) H Carbon Dioxide Level 22 MMOL/L (21-32) Anion Gap 12 mmol/L (5-15) Blood Urea Nitrogen 23 mg/dL (7-18) H Creatinine 1.2 MG/DL (0.55-1.30) Estimat Glomerular Filtration Rate mL/min (>60) Glucose Level 94 MG/DL (74-106) Hemoglobin A1c 6.1 % (4.3-6.0) H Uric Acid 6.5 MG/DL (2.6-7.2) Calcium Level 7.6 MG/DL (8.5-10.1) L Phosphorus Level 2.3 MG/DL (2.5-4.9) L Magnesium Level 1.9 MG/DL (1.8-2.4) Total Bilirubin 0.9 MG/DL (0.2-1.0) Gamma Glutamyl Transpeptidase 486 U/L (5-85) H Aspartate Amino Transf (AST/SGOT) 93 U/L (15-37) H Alanine Aminotransferase (ALT/SGPT) 68 U/L (12-78) Alkaline Phosphatase 425 U/L (46-116) H Total Creatine Kinase 103 U/L (26-308) Troponin I 0.156 ng/mL (0.000-0.056) Pro-B-Type Natriuretic Peptide 427 pg/mL (0-125) H Total Protein 6.8 G/DL (6.4-8.2) Albumin 2.0 G/DL (3.4-5.0) L Globulin 4.8 g/dL Albumin/Globulin Ratio 0.4 (1.0-2.7) L Triglycerides Level 47 MG/DL (30-150) Cholesterol Level 110 MG/DL (< 200) LDL Cholesterol 49 mg/dL (<100) HDL Cholesterol 47 MG/DL (40-60) Cholesterol/HDL Ratio 2.3 (3.3-4.4) L Prothrombin Time 25.4 SEC (9.30-11.50) H Prothromb Time International Ratio 2.5 (0.9-1.1) H Activated Partial Thromboplast Time 55 SEC (23-33) H Stool Occult Blood Pending Microbiology Date/Time Source Procedure Growth Status 06/14/18 13:20 Blood Blood Culture - Preliminary Staphylococcus Sp Coag Neg Resulted 06/14/18 13:20 Blood Blood Culture - Preliminary Staphylococcus Sp Coag Neg Resulted 06/15/18 19:00 Nasal Nares Influenza Types A,B Antigen (HERMES) - Final Complete 06/14/18 14:30 Nasal Nares MRSA Culture - Final NO METHICILLIN RESISTANT STAPH AUREUS... Complete 06/14/18 14:30 Rectum VRE Culture - Final NO VANCOMYCIN RESISTANT ENTEROCOCCUS ... Complete 06/14/18 14:30 Rectum - Final NO CARBAPENEM-RESISTANT ENTEROBACTERI... Complete Michael Powell MD Jun 16, 2018 20:02
[2018-06-16] MEDS ORDERED: Heparin 5000 units/ml inj SUBQ SCH (21:00)
[2018-06-16] MEDS: Metoprolol 25mg tab ORAL SCH (21:07)
[2018-06-16] MEDS ORDERED: HydrALAZINE 25mg tab ORAL SCH ×2 (22:00)
[2018-06-17] VITALS: BP 117/70
[2018-06-17 04:00] VITALS: BP 110/63
[2018-06-17 05:58] LABS: BASOPHILS % (AUTO) 0.4 % (0.0-2.0); EOSINOPHILS % (AUTO) 1.2 % (0.0-3.0); HEMOGLOBIN 10.4 G/DL (14.2-18.0); LYMPHOCYTES % (AUTO) 10.2 % (20.0-45.0); MEAN CORPUSCULAR VOLUME 87 FL (80-99); MONOCYTES % (AUTO) 8.6 % (1.0-10.0); NEUTROPHILS % (AUTO) 79.7 % (45.0-75.0); PLATELET COUNT 230 K/UL (150-450); RED BLOOD COUNT 3.68 M/UL (4.70-6.10); RED CELL DISTRIBUTION WIDTH 12.6 % (11.6-14.8); WHITE BLOOD COUNT 8.9 K/UL (4.8-10.8)
[2018-06-17 06:28] LABS: ANION GAP 8 mmol/L (5-15); BLOOD UREA NITROGEN 18 mg/dL (7-18); CALCIUM 7.5 MG/DL (8.5-10.1); CARBON DIOXIDE 23 MMOL/L (21-32); CHLORIDE 109 MMOL/L (98-107); CREATININE 1.3 MG/DL (0.55-1.30); POTASSIUM 3.4 MMOL/L (3.5-5.1); SODIUM 140 MMOL/L (136-145)
[2018-06-17 07:23] LABS: ALANINE AMINOTRANSFERASE 57 U/L (12-78); ALKALINE PHOSPHATASE 375 U/L (46-116); ASPARTATE AMINO TRANSFERASE 73 U/L (15-37); BILIRUBIN,DIRECT 0.2 MG/DL (0.0-0.3); BILIRUBIN,TOTAL 0.6 MG/DL (0.2-1.0); PHOSPHORUS 3.2 MG/DL (2.5-4.9)
--- NOTE | 2018-06-17 07:26 | General Progress Note ---
Assessment/Plan Assessment/Plan (1) Disseminated malignancy, with numerous bilateral lung masses, possible right -sided pleural masses, hilar lymphadenopathy, subcutaneous nodules, splenic masses and multiple liver masses on CT C/A/P has been reviewed --> obtain Ct guided biopsy and followup on results, has been ordered and d/w radiologist --> dw pcp and with patient plan in after results are obtained --> tumor markers have been ordered. CA 19.9 is 73 (2) Severe malnutrition --> consider apetitte stimulant (3) Anemia of iron deficiency --> continue patient on Iv iton --> total of 4 doses of iv iron (4) Acute hypernatremia (5) Dehydration--> IVF prn (6) Pneumonia (7) Generalized weakness (8) Failure to thrive DW Attending and RN Greatly appreciate consultation. Subjective HEENT: Denies: no symptoms, eye pain, blurred vision, tearing, double vision, ear pain, ear discharge, nose pain, nose congestion, throat pain, throat swelling, mouth pain, mouth swelling, other Cardiovascular: Denies: no symptoms, chest pain, edema, irregular heart rate, lightheadedness, palpitations, syncope, other Respiratory: Denies: no symptoms, cough, orthopnea, shortness of breath, SOB with excertion, SOB at rest, sputum, stridor, wheezing, other Gastrointestinal/Abdominal: Denies: no symptoms, abdomen distended, abdominal pain, black stools, tarry stools, blood in stool, constipated, diarrhea, difficulty swallowing, nausea, poor appetite, poor fluid intake, rectal bleeding , vomiting, other Genitourinary: Denies: no symptoms, burning, discharge, frequency, flank pain, hematuria, incontinence, pain, urgency, other Neurologic/Psychiatric: Denies: no symptoms, anxiety, depressed, emotional problems, headache, numbness, paresthesia, pre-existing deficit, seizure, tingling, tremors, weakness, other Endocrine: Denies: no symptoms, excessive sweating, flushing, intolerance to cold, intolerance to heat, increased hunger, increased thirst, increased urine, unexplained weight gain, unexplained weight loss, other Hematologic/Lymphatic: Denies: no symptoms, anemia, easy bleeding, easy bruising, other Allergies: Coded Allergies: No Known Allergies (Unverified , 09/04/17) Subjective no fevers chills or night sweats, no events, ct guided biopsy Objective Last 24 Hour Vital Signs Date Time Temp Pulse Resp B/P (MAP) Pulse Ox O2 Delivery O2 Flow Rate FiO2 06/17/18 04:00 97.7 70 18 110/63 (79) 100 97.7 06/17/18 00:00 98.5 64 20 117/70 (86) 100 98.5 06/16/18 21:07 87 105/78 06/16/18 21:00 Nasal Cannula 1.0 06/16/18 20:00 93 Nasal Cannula 2.0 28 06/16/18 20:00 90 18 Nasal Cannula 2.0 28 06/16/18 20:00 Nasal Cannula 2.0 28 06/16/18 20:00 98.6 87 20 105/78 (87) 100 98.6 06/16/18 16:00 98.1 89 22 107/71 (83) 99 98.1 06/16/18 14:26 125/81 06/16/18 12:00 98.8 90 28 125/81 (96) 95 98.8 06/16/18 11:42 86 06/16/18 09:28 93 112/69 06/16/18 08:20 Nasal Cannula 1.0 06/16/18 08:00 95 Nasal Cannula 1.0 24 06/16/18 08:00 98.1 93 26 112/69 (83) 95 98.1 06/16/18 08:00 Nasal Cannula 1.0 24 06/16/18 07:45 90 Intake and Output 06/16/18 06/17/18 19:00 07:00 Output Total 600 ml 350 ml Balance -600 ml -350 ml Output Urine Total 600 ml 350 ml # Voids 1 # Bowel Movements 4 1 Laboratory Tests 06/16/18 08:20: Prothrombin Time 25.4H, Prothromb Time International Ratio 2.5H, Activated Partial Thromboplast Time 55H 06/16/18 10:00: Stool Occult Blood [Pending] 06/17/18 05:10: White Blood Count 8.9, Red Blood Count 3.68L, Hemoglobin 10.4L, Hematocrit 32.0L , Mean Corpuscular Volume 87, Mean Corpuscular Hemoglobin 28.1, Mean Corpuscular Hemoglobin Concent 32.4, Red Cell Distribution Width 12.6, Platelet Count 230, Mean Platelet Volume 8.7, Neutrophils (%) (Auto) 79.7H, Lymphocytes ( %) (Auto) 10.2L, Monocytes (%) (Auto) 8.6, Eosinophils (%) (Auto) 1.2, Basophils (%) (Auto) 0.4, Sodium Level 140, Potassium Level 3.4L, Chloride Level 109H, Carbon Dioxide Level 23, Anion Gap 8, Blood Urea Nitrogen 18, Creatinine 1.3, Estimat Glomerular Filtration Rate , Glucose Level 98, Uric Acid [Pending], Calcium Level 7.5L, Phosphorus Level [Pending], Magnesium Level [Pending], Total Bilirubin [Pending], Direct Bilirubin [Pending], Aspartate Amino Transf (AST/SGOT) [Pending], Alanine Aminotransferase (ALT/SGPT) [Pending] , Alkaline Phosphatase [Pending], Total Protein [Pending], Albumin [Pending], Folate 6.6L Height (Feet): 5 Height (Inches): 7.00 Weight (Pounds): 135 General Appearance: lethargic EENT: normal ENT inspection Neck: supple Cardiovascular: regular rhythm Respiratory/Chest: normal breath sounds Abdomen: no mass Extremities: normal range of motion Edema: 1+ Leg (L), 1+ Leg (R) Jalen Webster MD Jun 17, 2018 07:26
[2018-06-17] MEDS ORDERED: Lidocaine 1% Plain 30 ml INJ PRN (07:30)
[2018-06-17 08:00] VITALS: BP 128/68
[2018-06-17] MEDS: Metoprolol 25mg tab ORAL SCH ×2 (08:57→20:46)
[2018-06-17] MEDS: Pantoprazole Inj IVP SCH (08:58)
[2018-06-17] MEDS: Cefepime HCl 1 GM in D5W 55 ML IV SCH ×2 (08:59→09:01)
[2018-06-17] MEDS ORDERED: Pantoprazole Inj IVP SCH (09:00)
[2018-06-17] MEDS ORDERED: Cefepime HCl 1 GM in D5W 55 ML IV SCH (09:00)
[2018-06-17] MEDS: Heparin 5000 units/ml inj SUBQ SCH ×2 (09:08→20:48)
--- NOTE | 2018-06-17 10:03 | GI Progress Note ---
Assessment/Plan Problems: (1) Cerebrovascular accident (CVA) ICD Codes: I63.9 - Cerebral infarction, unspecified SNOMED: 723461052 (2) Advanced dementia ICD Codes: F03.90 - Unspecified dementia without behavioral disturbance SNOMED: 08951259 (3) Seizure disorder ICD Codes: G40.909 - Epilepsy, unspecified, not intractable, without status epilepticus SNOMED: 155121920 (4) Severe malnutrition ICD Codes: E43 - Unspecified severe protein-calorie malnutrition SNOMED: 42552224 (5) Dehydration ICD Codes: E86.0 - Dehydration SNOMED: 63810164 (6) Failure to thrive SNOMED: 94134707 (7) Generalized weakness ICD Codes: R53.1 - Weakness SNOMED: 59606284 Status: stable Status Narrative Discussed with Dr. Pineda. Assessment/Plan OB stool positive, send additional iron deficient folate deficiency abdominal US reviewed >> multiple hepatic and splenic nodules, fu oncology ST evaluation reviewed >> recommend PEG hep panel negative POLST reviewed >> trial feedings only, will require consent from son for PEG hold GI procedures at this time given elevated troponin levels, fu cardiology NGTFs electrolyte correction calorie count anemia work up monitor H&H, prn transfusions bowel regime ppi trend LFTs fu labs The patient was seen and examined at bedside and all new and available data was reviewed in the patients chart. I agree with the above findings, impression and plan. (Patient seen earlier today. Signature stamp does not reflect patient encounter time.). - Vin Pineda MD Subjective Subjective limited Objective Last 24 Hour Vital Signs Date Time Temp Pulse Resp B/P (MAP) Pulse Ox O2 Delivery O2 Flow Rate FiO2 06/17/18 09:00 Nasal Cannula 1.0 06/17/18 08:57 79 128/68 06/17/18 08:20 Nasal Cannula 2.0 28 06/17/18 08:19 96 Nasal Cannula 2.0 28 06/17/18 08:14 87 20 Nasal Cannula 2.0 28 06/17/18 08:00 97.8 79 20 128/68 (88) 96 97.8 06/17/18 04:00 97.7 70 18 110/63 (79) 100 97.7 06/17/18 00:00 98.5 64 20 117/70 (86) 100 98.5 06/16/18 21:07 87 105/78 06/16/18 21:00 Nasal Cannula 1.0 06/16/18 20:00 93 Nasal Cannula 2.0 28 06/16/18 20:00 90 18 Nasal Cannula 2.0 28 06/16/18 20:00 Nasal Cannula 2.0 28 06/16/18 20:00 98.6 87 20 105/78 (87) 100 98.6 06/16/18 16:00 98.1 89 22 107/71 (83) 99 98.1 06/16/18 14:26 125/81 06/16/18 12:00 98.8 90 28 125/81 (96) 95 98.8 06/16/18 11:42 86 Intake and Output 06/16/18 06/17/18 19:00 07:00 Output Total 600 ml 350 ml Balance -600 ml -350 ml Output Urine Total 600 ml 350 ml # Voids 1 # Bowel Movements 4 1 Laboratory Tests Test 06/16/18 10:00 06/17/18 05:10 Stool Occult Blood Positive (NEGATIVE) White Blood Count 8.9 K/UL (4.8-10.8) Red Blood Count 3.68 M/UL (4.70-6.10) L Hemoglobin 10.4 G/DL (14.2-18.0) L Hematocrit 32.0 % (42.0-52.0) L Mean Corpuscular Volume 87 FL (80-99) Mean Corpuscular Hemoglobin 28.1 PG (27.0-31.0) Mean Corpuscular Hemoglobin Concent 32.4 G/DL (32.0-36.0) Red Cell Distribution Width 12.6 % (11.6-14.8) Platelet Count 230 K/UL (150-450) Mean Platelet Volume 8.7 FL (6.5-10.1) Neutrophils (%) (Auto) 79.7 % (45.0-75.0) H Lymphocytes (%) (Auto) 10.2 % (20.0-45.0) L Monocytes (%) (Auto) 8.6 % (1.0-10.0) Eosinophils (%) (Auto) 1.2 % (0.0-3.0) Basophils (%) (Auto) 0.4 % (0.0-2.0) Sodium Level 140 MMOL/L (136-145) Potassium Level 3.4 MMOL/L (3.5-5.1) L Chloride Level 109 MMOL/L (98-107) H Carbon Dioxide Level 23 MMOL/L (21-32) Anion Gap 8 mmol/L (5-15) Blood Urea Nitrogen 18 mg/dL (7-18) Creatinine 1.3 MG/DL (0.55-1.30) Estimat Glomerular Filtration Rate mL/min (>60) Glucose Level 98 MG/DL (74-106) Uric Acid 5.7 MG/DL (2.6-7.2) Calcium Level 7.5 MG/DL (8.5-10.1) L Phosphorus Level 3.2 MG/DL (2.5-4.9) Magnesium Level 2.0 MG/DL (1.8-2.4) Total Bilirubin 0.6 MG/DL (0.2-1.0) Direct Bilirubin 0.2 MG/DL (0.0-0.3) Aspartate Amino Transf (AST/SGOT) 73 U/L (15-37) H Alanine Aminotransferase (ALT/SGPT) 57 U/L (12-78) Alkaline Phosphatase 375 U/L (46-116) H Total Protein 6.7 G/DL (6.4-8.2) Albumin 2.0 G/DL (3.4-5.0) L Folate 6.6 NG/ML (8.6-58.9) L Height (Feet): 5 Height (Inches): 7.00 Weight (Pounds): 135 General Appearance: alert, confused Cardiovascular: normal rate Respiratory/Chest: other - labored breathing Abdominal Exam: other - BRYANT Abhijit Wiley NP Jun 17, 2018 10:03
--- NOTE | 2018-06-17 10:35 | Infectious Diseases Prog Note ---
Assessment/Plan Assessment/Plan 78 yo male sent to the ED from his long term after refusing med and food for a week per report. PNA - Possible aspiration vs CAP Lung Nodules - Likely CA given US Fever resolved Leukocytosis - resolving Dysphagia HTN COPD Epilepsy Depression Schizophrenia Dementia CVA [place] Anemia PLAN: Continue Cefepime #3/7 (End Date 06/21/18) Continue Flagyl #3/7 (End Date 06/21/18) - 06/15 - SP Vancomycin - Blood Cx likely contaminant Monitor CBC and Temps Nutrition Supportive care We will continue to follow this patient though out his hospitalization. Subjective Allergies: Coded Allergies: No Known Allergies (Unverified , 09/04/17) Subjective Afebrile Leukocytosis resolved Objective Vital Signs Last 24 Hour Vital Signs Date Time Temp Pulse Resp B/P (MAP) Pulse Ox O2 Delivery O2 Flow Rate FiO2 06/17/18 09:00 Nasal Cannula 1.0 06/17/18 08:57 79 128/68 06/17/18 08:20 Nasal Cannula 2.0 28 06/17/18 08:19 96 Nasal Cannula 2.0 28 06/17/18 08:14 87 20 Nasal Cannula 2.0 28 06/17/18 08:00 97.8 79 20 128/68 (88) 96 97.8 06/17/18 04:00 97.7 70 18 110/63 (79) 100 97.7 06/17/18 00:00 98.5 64 20 117/70 (86) 100 98.5 06/16/18 21:07 87 105/78 06/16/18 21:00 Nasal Cannula 1.0 06/16/18 20:00 93 Nasal Cannula 2.0 28 06/16/18 20:00 90 18 Nasal Cannula 2.0 28 06/16/18 20:00 Nasal Cannula 2.0 28 06/16/18 20:00 98.6 87 20 105/78 (87) 100 98.6 06/16/18 16:00 98.1 89 22 107/71 (83) 99 98.1 06/16/18 14:26 125/81 06/16/18 12:00 98.8 90 28 125/81 (96) 95 98.8 06/16/18 11:42 86 Height (Feet): 5 Height (Inches): 7.00 Weight (Pounds): 135 Objective Gen: NAD, Thin male on 1L NC HEENT: NCAT, MMM, EOMI LUNGS: CTAB, No W CARDS: RRR, S1, S2, No M/R/G ABD: Soft, NT, ND, No R/G, + BS Ext: C/C/E, Pulses 2+ B/L (DP, Rad) Microbiology Date/Time Source Procedure Growth Status 06/14/18 13:20 Blood Blood Culture - Final Staphylococcus Capitis Complete 06/14/18 13:20 Blood Blood Culture - Final Staphylococcus Capitis Complete 06/15/18 19:00 Nasal Nares Influenza Types A,B Antigen (HERMES) - Final Complete 06/14/18 14:30 Nasal Nares MRSA Culture - Final NO METHICILLIN RESISTANT STAPH AUREUS... Complete 06/14/18 14:30 Rectum VRE Culture - Final NO VANCOMYCIN RESISTANT ENTEROCOCCUS ... Complete 06/14/18 14:30 Rectum - Final NO CARBAPENEM-RESISTANT ENTEROBACTERI... Complete Laboratory Tests Test 06/17/18 05:10 White Blood Count 8.9 K/UL (4.8-10.8) Red Blood Count 3.68 M/UL (4.70-6.10) L Hemoglobin 10.4 G/DL (14.2-18.0) L Hematocrit 32.0 % (42.0-52.0) L Mean Corpuscular Volume 87 FL (80-99) Mean Corpuscular Hemoglobin 28.1 PG (27.0-31.0) Mean Corpuscular Hemoglobin Concent 32.4 G/DL (32.0-36.0) Red Cell Distribution Width 12.6 % (11.6-14.8) Platelet Count 230 K/UL (150-450) Mean Platelet Volume 8.7 FL (6.5-10.1) Neutrophils (%) (Auto) 79.7 % (45.0-75.0) H Lymphocytes (%) (Auto) 10.2 % (20.0-45.0) L Monocytes (%) (Auto) 8.6 % (1.0-10.0) Eosinophils (%) (Auto) 1.2 % (0.0-3.0) Basophils (%) (Auto) 0.4 % (0.0-2.0) Sodium Level 140 MMOL/L (136-145) Potassium Level 3.4 MMOL/L (3.5-5.1) L Chloride Level 109 MMOL/L (98-107) H Carbon Dioxide Level 23 MMOL/L (21-32) Anion Gap 8 mmol/L (5-15) Blood Urea Nitrogen 18 mg/dL (7-18) Creatinine 1.3 MG/DL (0.55-1.30) Estimat Glomerular Filtration Rate mL/min (>60) Glucose Level 98 MG/DL (74-106) Uric Acid 5.7 MG/DL (2.6-7.2) Calcium Level 7.5 MG/DL (8.5-10.1) L Phosphorus Level 3.2 MG/DL (2.5-4.9) Magnesium Level 2.0 MG/DL (1.8-2.4) Total Bilirubin 0.6 MG/DL (0.2-1.0) Direct Bilirubin 0.2 MG/DL (0.0-0.3) Aspartate Amino Transf (AST/SGOT) 73 U/L (15-37) H Alanine Aminotransferase (ALT/SGPT) 57 U/L (12-78) Alkaline Phosphatase 375 U/L (46-116) H Total Protein 6.7 G/DL (6.4-8.2) Albumin 2.0 G/DL (3.4-5.0) L Folate 6.6 NG/ML (8.6-58.9) L Current Medications Medications (Trade) Dose Ordered Sig/Manav Route PRN Reason Start Time Stop Time Status Last Admin Dose Admin Acetaminophen (Tylenol) 650 mg Q4H PRN ORAL fever (temp>100.5F) 06/16/18 17:15 07/14/18 13:14 Albuterol/ Ipratropium (Albuterol/ Ipratropium) 3 ml Q4H PRN HHN Shortness of Breath 06/16/18 17:15 06/19/18 13:14 Barium Sulfate (Readi-Cat 2) 450 ml NOW PRN ORAL Radiology Procedure 06/16/18 20:15 06/17/18 20:07 Cefepime HCl 1 gm/ Dextrose 55 ml @ 110 mls/hr DAILY IV 06/17/18 09:00 06/21/18 17:59 06/17/18 09:01 Dextrose 1,000 ml @ 75 mls/hr [id number] IV 06/16/18 17:00 07/14/18 16:59 06/17/18 06:38 Fluoxetine HCl (PROzac) 20 mg DAILY ORAL 06/17/18 09:00 07/17/18 08:59 06/17/18 08:58 Folic Acid (Folate) 2 mg DAILY ORAL 06/17/18 09:00 07/15/18 08:59 06/17/18 08:58 Heparin Sodium (Porcine) (Heparin 5000 units/ml) 5,000 units EVERY 12 HOURS SUBQ 06/16/18 21:00 07/14/18 20:59 06/17/18 09:08 Iopamidol (Isovue-300 100ml) 100 ml NOW PRN INJ For radiology use only 06/16/18 17:00 06/17/18 23:59 Iopamidol (Isovue-300 100ml) 100 ml NOW PRN INJ Radiology Procedure 06/16/18 20:15 06/17/18 20:14 Levetiracetam (Keppra) 500 mg Q12HR ORAL 06/16/18 21:00 07/14/18 20:59 06/17/18 08:58 Lidocaine HCl (Xylocaine 1% 30ml) 30 ml NOW PRN INJ Radiology Procedure 06/17/18 07:30 06/19/18 07:22 Metoprolol Tartrate (Lopressor) 25 mg Q12HR ORAL 06/16/18 21:00 07/16/18 20:59 06/17/18 08:57 Metronidazole 100 ml @ 100 mls/hr Q8HR IVPB 06/16/18 22:00 06/22/18 13:59 06/17/18 06:39 Nitroglycerin (Ntg) 0.4 mg Q5M PRN SL Prn Chest Pain 06/16/18 16:30 07/14/18 13:14 Ondansetron HCl (Zofran) 4 mg Q6H PRN IVP Nausea & Vomiting 06/16/18 17:00 07/14/18 16:59 Pantoprazole (Protonix) 40 mg DAILY IVP 06/17/18 09:00 07/15/18 08:59 06/17/18 08:58 Polyethylene Glycol (Miralax) 17 gm DAILYPRN PRN ORAL Constipation 06/17/18 17:00 10/24/18 16:59 Promethazine HCl/ Codeine (Phenergan with Codeine) 5 ml Q4H PRN ORAL For Cough 06/16/18 17:15 07/14/18 13:14 Temazepam (Restoril) 15 mg HSPRN PRN ORAL Insomnia 06/16/18 21:00 06/23/18 20:59 Andre Wang MD Jun 17, 2018 10:35
--- NOTE | 2018-06-17 10:43 | Diagnostic Imaging Report ---
Indication: NG tube placement Comparison: None Single view of the abdomen obtained Findings: NG tube is projected over the stomach both the proximal port and tip. This is a good position. IMPRESSION: NG tube in good position
--- NOTE | 2018-06-17 11:11 | General Progress Note ---
Assessment/Plan Problem List: (1) Encephalopathy due to metabolic factor or toxin SNOMED: 313031857 (2) Advanced dementia ICD Codes: F03.90 - Unspecified dementia without behavioral disturbance SNOMED: 05080461 Status: stable Assessment/Plan the pt lacks capacity to make decisions prozac 20mg qam Subjective Date patient seen: Jun 17, 2018 Allergies: Coded Allergies: No Known Allergies (Unverified , 09/04/17) Subjective the pt is calm in mittens and not agitated. the pt s/p peg. Objective Last 24 Hour Vital Signs Date Time Temp Pulse Resp B/P (MAP) Pulse Ox O2 Delivery O2 Flow Rate FiO2 06/17/18 09:00 Nasal Cannula 1.0 06/17/18 08:57 79 128/68 06/17/18 08:20 Nasal Cannula 2.0 28 06/17/18 08:19 96 Nasal Cannula 2.0 28 06/17/18 08:14 87 20 Nasal Cannula 2.0 28 06/17/18 08:00 97.8 79 20 128/68 (88) 96 97.8 06/17/18 04:00 97.7 70 18 110/63 (79) 100 97.7 06/17/18 00:00 98.5 64 20 117/70 (86) 100 98.5 06/16/18 21:07 87 105/78 06/16/18 21:00 Nasal Cannula 1.0 06/16/18 20:00 93 Nasal Cannula 2.0 28 06/16/18 20:00 90 18 Nasal Cannula 2.0 28 06/16/18 20:00 Nasal Cannula 2.0 28 06/16/18 20:00 98.6 87 20 105/78 (87) 100 98.6 06/16/18 16:00 98.1 89 22 107/71 (83) 99 98.1 06/16/18 14:26 125/81 06/16/18 12:00 98.8 90 28 125/81 (96) 95 98.8 06/16/18 11:42 86 Intake and Output 06/16/18 06/17/18 19:00 07:00 Output Total 600 ml 350 ml Balance -600 ml -350 ml Output Urine Total 600 ml 350 ml # Voids 1 # Bowel Movements 4 1 Laboratory Tests 06/17/18 05:10: White Blood Count 8.9, Red Blood Count 3.68L, Hemoglobin 10.4L, Hematocrit 32.0L , Mean Corpuscular Volume 87, Mean Corpuscular Hemoglobin 28.1, Mean Corpuscular Hemoglobin Concent 32.4, Red Cell Distribution Width 12.6, Platelet Count 230, Mean Platelet Volume 8.7, Neutrophils (%) (Auto) 79.7H, Lymphocytes ( %) (Auto) 10.2L, Monocytes (%) (Auto) 8.6, Eosinophils (%) (Auto) 1.2, Basophils (%) (Auto) 0.4, Sodium Level 140, Potassium Level 3.4L, Chloride Level 109H, Carbon Dioxide Level 23, Anion Gap 8, Blood Urea Nitrogen 18, Creatinine 1.3, Estimat Glomerular Filtration Rate , Glucose Level 98, Uric Acid 5.7, Calcium Level 7.5L, Phosphorus Level 3.2, Magnesium Level 2.0, Total Bilirubin 0.6, Direct Bilirubin 0.2, Aspartate Amino Transf (AST/SGOT) 73H, Alanine Aminotransferase (ALT/SGPT) 57, Alkaline Phosphatase 375H, Total Protein 6.7, Albumin 2.0L, Folate 6.6L Height (Feet): 5 Height (Inches): 7.00 Weight (Pounds): 135 General Appearance: no apparent distress, alert, confused Shey Gutierrez MD Jun 17, 2018 11:11
[2018-06-17 12:00] VITALS: BP 126/72
--- NOTE | 2018-06-17 12:06 | General Progress Note ---
Assessment/Plan Problem List: (1) Dehydration ICD Codes: E86.0 - Dehydration SNOMED: 46355995 (2) Pneumonia ICD Codes: J18.9 - Pneumonia, unspecified organism SNOMED: 180862580 (3) Generalized weakness ICD Codes: R53.1 - Weakness SNOMED: 97474915 (4) Failure to thrive SNOMED: 96205386 (5) Renal insufficiency ICD Codes: N28.9 - Disorder of kidney and ureter, unspecified SNOMED: 956755458, 709901536 (6) ATN (acute tubular necrosis) ICD Codes: N17.0 - Acute kidney failure with tubular necrosis SNOMED: 25661494 Status: stable, progressing Assessment/Plan o2 pulm tx abx ot pt diet cbc bmp am possible peg Subjective Constitutional: Reports: weakness Allergies: Coded Allergies: No Known Allergies (Unverified , 09/04/17) All Systems: reviewed and negative except above Subjective o2nc sleep Objective Last 24 Hour Vital Signs Date Time Temp Pulse Resp B/P (MAP) Pulse Ox O2 Delivery O2 Flow Rate FiO2 06/17/18 09:00 Nasal Cannula 1.0 06/17/18 08:57 79 128/68 06/17/18 08:20 Nasal Cannula 2.0 28 06/17/18 08:19 96 Nasal Cannula 2.0 28 06/17/18 08:14 87 20 Nasal Cannula 2.0 28 06/17/18 08:00 97.8 79 20 128/68 (88) 96 97.8 06/17/18 04:00 97.7 70 18 110/63 (79) 100 97.7 06/17/18 00:00 98.5 64 20 117/70 (86) 100 98.5 06/16/18 21:07 87 105/78 06/16/18 21:00 Nasal Cannula 1.0 06/16/18 20:00 93 Nasal Cannula 2.0 28 06/16/18 20:00 90 18 Nasal Cannula 2.0 28 06/16/18 20:00 Nasal Cannula 2.0 28 06/16/18 20:00 98.6 87 20 105/78 (87) 100 98.6 06/16/18 16:00 98.1 89 22 107/71 (83) 99 98.1 06/16/18 14:26 125/81 Intake and Output 06/16/18 06/17/18 19:00 07:00 Output Total 600 ml 350 ml Balance -600 ml -350 ml Output Urine Total 600 ml 350 ml # Voids 1 # Bowel Movements 4 1 Laboratory Tests 06/17/18 05:10: White Blood Count 8.9, Red Blood Count 3.68L, Hemoglobin 10.4L, Hematocrit 32.0L , Mean Corpuscular Volume 87, Mean Corpuscular Hemoglobin 28.1, Mean Corpuscular Hemoglobin Concent 32.4, Red Cell Distribution Width 12.6, Platelet Count 230, Mean Platelet Volume 8.7, Neutrophils (%) (Auto) 79.7H, Lymphocytes ( %) (Auto) 10.2L, Monocytes (%) (Auto) 8.6, Eosinophils (%) (Auto) 1.2, Basophils (%) (Auto) 0.4, Sodium Level 140, Potassium Level 3.4L, Chloride Level 109H, Carbon Dioxide Level 23, Anion Gap 8, Blood Urea Nitrogen 18, Creatinine 1.3, Estimat Glomerular Filtration Rate , Glucose Level 98, Uric Acid 5.7, Calcium Level 7.5L, Phosphorus Level 3.2, Magnesium Level 2.0, Total Bilirubin 0.6, Direct Bilirubin 0.2, Aspartate Amino Transf (AST/SGOT) 73H, Alanine Aminotransferase (ALT/SGPT) 57, Alkaline Phosphatase 375H, Total Protein 6.7, Albumin 2.0L, Folate 6.6L Height (Feet): 5 Height (Inches): 7.00 Weight (Pounds): 135 General Appearance: lethargic EENT: normal ENT inspection Neck: normal alignment Cardiovascular: normal peripheral pulses, normal rate, regular rhythm Respiratory/Chest: chest wall non-tender, lungs clear, normal breath sounds Abdomen: normal bowel sounds, non tender, soft Extremities: normal inspection Edema: no edema noted Arm (L), no edema noted Arm (R), no edema noted Leg (L), no edema noted Leg (R), no edema noted Pedal (L), no edema noted Pedal (R), no edema noted Generalized Neurologic: motor weakness Skin: normal pigmentation, warm/dry Jacques Heaton DO Jun 17, 2018 12:06
[2018-06-17 12:42] LABS: INR 2.4 (0.9-1.1)
[2018-06-17] MEDS ORDERED: Miralax 17gm pkt ORAL PRN ×2 (13:15→17:00)
--- NOTE | 2018-06-17 13:44 | Pulmonology Progress Note ---
Assessment/Plan Problems: (1) Metastatic cancer (2) Aspiration pneumonia (3) ATN (acute tubular necrosis) (4) Lung nodule, multiple (5) Seizure disorder (6) Severe malnutrition (7) Cerebrovascular accident (CVA) (8) Advanced dementia Assessment/Plan all noted, one tumor marker is elevated afebrile cultures pending on Abx CT scan reviewed, multiple masses throughout the lungs and live, spleen renal function improving dvt prophylaxis Subjective ROS Limited/Unobtainable: Yes Interval Events: awake comfortable Allergies: Coded Allergies: No Known Allergies (Unverified , 09/04/17) Objective Last 24 Hour Vital Signs Date Time Temp Pulse Resp B/P (MAP) Pulse Ox O2 Delivery O2 Flow Rate FiO2 06/17/18 12:00 98.3 81 20 126/72 (90) 97 98.3 06/17/18 09:00 Nasal Cannula 1.0 06/17/18 08:57 79 128/68 06/17/18 08:20 Nasal Cannula 2.0 28 06/17/18 08:19 96 Nasal Cannula 2.0 28 06/17/18 08:14 87 20 Nasal Cannula 2.0 28 06/17/18 08:00 97.8 79 20 128/68 (88) 96 97.8 06/17/18 04:00 97.7 70 18 110/63 (79) 100 97.7 06/17/18 00:00 98.5 64 20 117/70 (86) 100 98.5 06/16/18 21:07 87 105/78 06/16/18 21:00 Nasal Cannula 1.0 06/16/18 20:00 93 Nasal Cannula 2.0 28 06/16/18 20:00 90 18 Nasal Cannula 2.0 28 06/16/18 20:00 Nasal Cannula 2.0 28 06/16/18 20:00 98.6 87 20 105/78 (87) 100 98.6 06/16/18 16:00 98.1 89 22 107/71 (83) 99 98.1 06/16/18 14:26 125/81 Intake and Output 06/16/18 06/17/18 19:00 07:00 Intake Total 30 ml Output Total 600 ml 350 ml Balance -600 ml -320 ml Tube Feeding 30 ml Output Urine Total 600 ml 350 ml # Voids 1 # Bowel Movements 4 1 General Appearance: cachetic HEENT: normocephalic, atraumatic Respiratory/Chest: chest wall non-tender, lungs clear Cardiovascular: normal peripheral pulses, normal rate Abdomen: normal bowel sounds, soft, non tender Genitourinary: normal external genitalia Extremities: no cyanosis Skin: no lesions 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 Complete 06/14/18 14:30 Rectum VRE Culture - Final NO VANCOMYCIN RESISTANT ENTEROCOCCUS ... Complete 06/14/18 14:30 Rectum - Final NO CARBAPENEM-RESISTANT ENTEROBACTERI... Complete Laboratory Tests 06/17/18 05:10: White Blood Count 8.9, Red Blood Count 3.68L, Hemoglobin 10.4L, Hematocrit 32.0L , Mean Corpuscular Volume 87, Mean Corpuscular Hemoglobin 28.1, Mean Corpuscular Hemoglobin Concent 32.4, Red Cell Distribution Width 12.6, Platelet Count 230, Mean Platelet Volume 8.7, Neutrophils (%) (Auto) 79.7H, Lymphocytes ( %) (Auto) 10.2L, Monocytes (%) (Auto) 8.6, Eosinophils (%) (Auto) 1.2, Basophils (%) (Auto) 0.4, Sodium Level 140, Potassium Level 3.4L, Chloride Level 109H, Carbon Dioxide Level 23, Anion Gap 8, Blood Urea Nitrogen 18, Creatinine 1.3, Estimat Glomerular Filtration Rate , Glucose Level 98, Uric Acid 5.7, Calcium Level 7.5L, Phosphorus Level 3.2, Magnesium Level 2.0, Total Bilirubin 0.6, Direct Bilirubin 0.2, Aspartate Amino Transf (AST/SGOT) 73H, Alanine Aminotransferase (ALT/SGPT) 57, Alkaline Phosphatase 375H, Total Protein 6.7, Albumin 2.0L, Folate 6.6L 06/17/18 12:15: Prothrombin Time 24.5H, Prothromb Time International Ratio 2.4H, Activated Partial Thromboplast Time 49H Current Medications Medications (Trade) Dose Ordered Sig/Manav Route PRN Reason Start Time Stop Time Status Last Admin Dose Admin Acetaminophen (Tylenol) 650 mg Q4H PRN ORAL fever (temp>100.5F) 06/16/18 17:15 07/14/18 13:14 Albuterol/ Ipratropium (Albuterol/ Ipratropium) 3 ml Q4H PRN HHN Shortness of Breath 06/16/18 17:15 06/19/18 13:14 Barium Sulfate (Readi-Cat 2) 450 ml NOW PRN ORAL Radiology Procedure 06/16/18 20:15 06/17/18 20:07 Cefepime HCl 1 gm/ Dextrose 55 ml @ 110 mls/hr DAILY IV 06/17/18 09:00 06/21/18 17:59 06/17/18 09:01 Dextrose 1,000 ml @ 75 mls/hr [id number] IV 06/16/18 17:00 07/14/18 16:59 06/17/18 06:38 Fluoxetine HCl (PROzac) 20 mg DAILY ORAL 06/17/18 09:00 07/17/18 08:59 06/17/18 08:58 Folic Acid (Folate) 2 mg DAILY ORAL 06/17/18 09:00 07/15/18 08:59 06/17/18 08:58 Heparin Sodium (Porcine) (Heparin 5000 units/ml) 5,000 units EVERY 12 HOURS SUBQ 06/16/18 21:00 07/14/18 20:59 06/17/18 09:08 Iopamidol (Isovue-300 100ml) 100 ml NOW PRN INJ For radiology use only 06/16/18 17:00 06/17/18 23:59 Iopamidol (Isovue-300 100ml) 100 ml NOW PRN INJ Radiology Procedure 06/16/18 20:15 06/17/18 20:14 Levetiracetam (Keppra) 500 mg Q12HR ORAL 06/16/18 21:00 07/14/18 20:59 06/17/18 08:58 Lidocaine HCl (Xylocaine 1% 30ml) 30 ml NOW PRN INJ Radiology Procedure 06/17/18 07:30 06/19/18 07:22 Metoprolol Tartrate (Lopressor) 25 mg Q12HR ORAL 06/16/18 21:00 07/16/18 20:59 06/17/18 08:57 Metronidazole 100 ml @ 100 mls/hr Q8HR IVPB 06/16/18 22:00 06/22/18 13:59 06/17/18 13:33 Nitroglycerin (Ntg) 0.4 mg Q5M PRN SL Prn Chest Pain 06/16/18 16:30 07/14/18 13:14 Ondansetron HCl (Zofran) 4 mg Q6H PRN IVP Nausea & Vomiting 06/16/18 17:00 07/14/18 16:59 Pantoprazole (Protonix) 40 mg DAILY IVP 06/17/18 09:00 07/15/18 08:59 06/17/18 08:58 Polyethylene Glycol (Miralax) 17 gm DAILYPRN PRN ORAL Constipation 06/17/18 17:00 07/14/18 16:59 Promethazine HCl/ Codeine (Phenergan with Codeine) 5 ml Q4H PRN ORAL For Cough 06/16/18 17:15 07/14/18 13:14 Temazepam (Restoril) 15 mg HSPRN PRN ORAL Insomnia 06/16/18 21:00 06/23/18 20:59 Malia Saba MD Jun 17, 2018 13:44
--- NOTE | 2018-06-17 14:56 | General Progress Note ---
Progress Note Progress Note I talked to pt's son Gennaro at the bed site while pt's sister was present. He doesn't want any heroic measures. He wants to the biopsy to be done but do doesn't want any chest compression or cardiac shock in the event of a cardiac arrest. Malia Saba MD Jun 17, 2018 14:56
--- NOTE | 2018-06-17 15:18 | Nephrology Progress Note ---
Assessment/Plan Problem List: (1) Dehydration (2) Acute hypernatremia (3) Renal insufficiency (4) Severe malnutrition (5) Metastatic cancer Assessment Renal Failure- Dehydration, Hypernatremia Malnutrition / Hypoalbuminemia Pneumonia / Aspiration / Multi lung nodules Seizure disorder Cerebrovascular accident (CVA) Advanced dementia Plan K and Phos replaced- D5W Antibiotics monitor lytes and renal parameters pulm support PO Folate DNr Subjective ROS Limited/Unobtainable: No Objective Objective Last 24 Hour Vital Signs Date Time Temp Pulse Resp B/P (MAP) Pulse Ox O2 Delivery O2 Flow Rate FiO2 06/17/18 12:00 98.3 81 20 126/72 (90) 97 98.3 06/17/18 09:00 Nasal Cannula 1.0 06/17/18 08:57 79 128/68 06/17/18 08:20 Nasal Cannula 2.0 28 06/17/18 08:19 96 Nasal Cannula 2.0 28 06/17/18 08:14 87 20 Nasal Cannula 2.0 28 06/17/18 08:00 97.8 79 20 128/68 (88) 96 97.8 06/17/18 04:00 97.7 70 18 110/63 (79) 100 97.7 06/17/18 00:00 98.5 64 20 117/70 (86) 100 98.5 06/16/18 21:07 87 105/78 06/16/18 21:00 Nasal Cannula 1.0 06/16/18 20:00 93 Nasal Cannula 2.0 28 06/16/18 20:00 90 18 Nasal Cannula 2.0 28 06/16/18 20:00 Nasal Cannula 2.0 28 06/16/18 20:00 98.6 87 20 105/78 (87) 100 98.6 06/16/18 16:00 98.1 89 22 107/71 (83) 99 98.1 Intake and Output 06/16/18 06/17/18 19:00 07:00 Intake Total 30 ml Output Total 600 ml 350 ml Balance -600 ml -320 ml Tube Feeding 30 ml Output Urine Total 600 ml 350 ml # Voids 1 # Bowel Movements 4 1 Laboratory Tests 06/17/18 05:10: White Blood Count 8.9, Red Blood Count 3.68L, Hemoglobin 10.4L, Hematocrit 32.0L , Mean Corpuscular Volume 87, Mean Corpuscular Hemoglobin 28.1, Mean Corpuscular Hemoglobin Concent 32.4, Red Cell Distribution Width 12.6, Platelet Count 230, Mean Platelet Volume 8.7, Neutrophils (%) (Auto) 79.7H, Lymphocytes ( %) (Auto) 10.2L, Monocytes (%) (Auto) 8.6, Eosinophils (%) (Auto) 1.2, Basophils (%) (Auto) 0.4, Sodium Level 140, Potassium Level 3.4L, Chloride Level 109H, Carbon Dioxide Level 23, Anion Gap 8, Blood Urea Nitrogen 18, Creatinine 1.3, Estimat Glomerular Filtration Rate , Glucose Level 98, Uric Acid 5.7, Calcium Level 7.5L, Phosphorus Level 3.2, Magnesium Level 2.0, Total Bilirubin 0.6, Direct Bilirubin 0.2, Aspartate Amino Transf (AST/SGOT) 73H, Alanine Aminotransferase (ALT/SGPT) 57, Alkaline Phosphatase 375H, Total Protein 6.7, Albumin 2.0L, Folate 6.6L 06/17/18 12:15: Prothrombin Time 24.5H, Prothromb Time International Ratio 2.4H, Activated Partial Thromboplast Time 49H Height (Feet): 5 Height (Inches): 7.00 Weight (Pounds): 135 General Appearance: mild distress Cardiovascular: normal rate Respiratory/Chest: decreased breath sounds, rhonchi - bilaterally Abdomen: distended Anthony Stockton MD Jun 17, 2018 15:18
[2018-06-17 16:00] VITALS: BP 122/69
--- NOTE | 2018-06-17 17:10 | General Surgery Progress Note ---
General Surgery-Progress Note Subjective Additional Comments no acute events. stable Objective Last 24 Hour Vital Signs Date Time Temp Pulse Resp B/P (MAP) Pulse Ox O2 Delivery O2 Flow Rate FiO2 06/17/18 16:00 98.0 79 18 122/69 (86) 96 98.0 06/17/18 12:00 98.3 81 20 126/72 (90) 97 98.3 06/17/18 09:00 Nasal Cannula 1.0 06/17/18 08:57 79 128/68 06/17/18 08:20 Nasal Cannula 2.0 28 06/17/18 08:19 96 Nasal Cannula 2.0 28 06/17/18 08:14 87 20 Nasal Cannula 2.0 28 06/17/18 08:00 97.8 79 20 128/68 (88) 96 97.8 06/17/18 04:00 97.7 70 18 110/63 (79) 100 97.7 06/17/18 00:00 98.5 64 20 117/70 (86) 100 98.5 06/16/18 21:07 87 105/78 06/16/18 21:00 Nasal Cannula 1.0 06/16/18 20:00 93 Nasal Cannula 2.0 28 06/16/18 20:00 90 18 Nasal Cannula 2.0 28 06/16/18 20:00 Nasal Cannula 2.0 28 06/16/18 20:00 98.6 87 20 105/78 (87) 100 98.6 I&O Intake and Output 06/16/18 06/17/18 19:00 07:00 Intake Total 30 ml Output Total 600 ml 350 ml Balance -600 ml -320 ml Tube Feeding 30 ml Output Urine Total 600 ml 350 ml # Voids 1 # Bowel Movements 4 1 Drains: none Cardiovascular: RSR Respiratory: clear Abdomen: soft, distended, present bowel sounds Extremities: other Laboratory Tests Test 06/17/18 05:10 06/17/18 12:15 White Blood Count 8.9 K/UL (4.8-10.8) Red Blood Count 3.68 M/UL (4.70-6.10) L Hemoglobin 10.4 G/DL (14.2-18.0) L Hematocrit 32.0 % (42.0-52.0) L Mean Corpuscular Volume 87 FL (80-99) Mean Corpuscular Hemoglobin 28.1 PG (27.0-31.0) Mean Corpuscular Hemoglobin Concent 32.4 G/DL (32.0-36.0) Red Cell Distribution Width 12.6 % (11.6-14.8) Platelet Count 230 K/UL (150-450) Mean Platelet Volume 8.7 FL (6.5-10.1) Neutrophils (%) (Auto) 79.7 % (45.0-75.0) H Lymphocytes (%) (Auto) 10.2 % (20.0-45.0) L Monocytes (%) (Auto) 8.6 % (1.0-10.0) Eosinophils (%) (Auto) 1.2 % (0.0-3.0) Basophils (%) (Auto) 0.4 % (0.0-2.0) Sodium Level 140 MMOL/L (136-145) Potassium Level 3.4 MMOL/L (3.5-5.1) L Chloride Level 109 MMOL/L (98-107) H Carbon Dioxide Level 23 MMOL/L (21-32) Anion Gap 8 mmol/L (5-15) Blood Urea Nitrogen 18 mg/dL (7-18) Creatinine 1.3 MG/DL (0.55-1.30) Estimat Glomerular Filtration Rate mL/min (>60) Glucose Level 98 MG/DL (74-106) Uric Acid 5.7 MG/DL (2.6-7.2) Calcium Level 7.5 MG/DL (8.5-10.1) L Phosphorus Level 3.2 MG/DL (2.5-4.9) Magnesium Level 2.0 MG/DL (1.8-2.4) Total Bilirubin 0.6 MG/DL (0.2-1.0) Direct Bilirubin 0.2 MG/DL (0.0-0.3) Aspartate Amino Transf (AST/SGOT) 73 U/L (15-37) H Alanine Aminotransferase (ALT/SGPT) 57 U/L (12-78) Alkaline Phosphatase 375 U/L (46-116) H Total Protein 6.7 G/DL (6.4-8.2) Albumin 2.0 G/DL (3.4-5.0) L Folate 6.6 NG/ML (8.6-58.9) L Prothrombin Time 24.5 SEC (9.30-11.50) H Prothromb Time International Ratio 2.4 (0.9-1.1) H Activated Partial Thromboplast Time 49 SEC (23-33) H Plan Problems: (1) Lung nodule, multiple Assessment & Plan: abnormal lft's, leukocytosis. GI procedures on hold because of cardiac clearance Hepatitis panel pending US Abdomen: Multiple hepatic and splenic masses, as described. 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 However, in view of the splenic involvement, the possibility that this represents multiple abscesses should also be considered Fluid structure in the gallbladder fossa probably but not definitively represents a nondistended gallbladder. This possibly contains gallstones. Soft tissue echogenicity area within the apparent lumen could represent tumefactive sludge, polyp, or, given the above findings, neoplasm Multiple lung nodules. etiology unknown. CT C/A/P reviewed. Metastatic disease everywhere. small right chest wall anterior lateral nodule noted. Consider IR biopsy if not possible can potentially biopsy superficial nodule thank you. will follow with recs. Rudolph Solis Jun 17, 2018 17:10
--- NOTE | 2018-06-17 19:03 | Cardiology Progress Note ---
Assessment/Plan Assessment/Plan 1. Non-sustained ventricular tachycardia, Mg sulfate given yesterday, Mg at 2.0 , on metoprolol. 2. Sinus tachycardia, resolved. 3. CVA, recommend ASA and statins. Subjective Subjective Transferred to the med-surg unit. Non-verbal. Objective Last 24 Hour Vital Signs Date Time Temp Pulse Resp B/P (MAP) Pulse Ox O2 Delivery O2 Flow Rate FiO2 06/17/18 16:00 98.0 79 18 122/69 (86) 96 98.0 06/17/18 12:00 98.3 81 20 126/72 (90) 97 98.3 06/17/18 09:00 Nasal Cannula 1.0 06/17/18 08:57 79 128/68 06/17/18 08:20 Nasal Cannula 2.0 28 06/17/18 08:19 96 Nasal Cannula 2.0 28 06/17/18 08:14 87 20 Nasal Cannula 2.0 28 06/17/18 08:00 97.8 79 20 128/68 (88) 96 97.8 06/17/18 04:00 97.7 70 18 110/63 (79) 100 97.7 06/17/18 00:00 98.5 64 20 117/70 (86) 100 98.5 06/16/18 21:07 87 105/78 06/16/18 21:00 Nasal Cannula 1.0 06/16/18 20:00 93 Nasal Cannula 2.0 28 06/16/18 20:00 90 18 Nasal Cannula 2.0 28 06/16/18 20:00 Nasal Cannula 2.0 28 06/16/18 20:00 98.6 87 20 105/78 (87) 100 98.6 Intake and Output 06/16/18 06/17/18 19:00 07:00 Intake Total 30 ml Output Total 600 ml 350 ml Balance -600 ml -320 ml Tube Feeding 30 ml Output Urine Total 600 ml 350 ml # Voids 1 # Bowel Movements 4 1 2D Echo: LVEF 65%, Grade I LVDD, RVSP 35 mmHg Laboratory Tests Test 06/17/18 05:10 06/17/18 12:15 White Blood Count 8.9 K/UL (4.8-10.8) Red Blood Count 3.68 M/UL (4.70-6.10) L Hemoglobin 10.4 G/DL (14.2-18.0) L Hematocrit 32.0 % (42.0-52.0) L Mean Corpuscular Volume 87 FL (80-99) Mean Corpuscular Hemoglobin 28.1 PG (27.0-31.0) Mean Corpuscular Hemoglobin Concent 32.4 G/DL (32.0-36.0) Red Cell Distribution Width 12.6 % (11.6-14.8) Platelet Count 230 K/UL (150-450) Mean Platelet Volume 8.7 FL (6.5-10.1) Neutrophils (%) (Auto) 79.7 % (45.0-75.0) H Lymphocytes (%) (Auto) 10.2 % (20.0-45.0) L Monocytes (%) (Auto) 8.6 % (1.0-10.0) Eosinophils (%) (Auto) 1.2 % (0.0-3.0) Basophils (%) (Auto) 0.4 % (0.0-2.0) Sodium Level 140 MMOL/L (136-145) Potassium Level 3.4 MMOL/L (3.5-5.1) L Chloride Level 109 MMOL/L (98-107) H Carbon Dioxide Level 23 MMOL/L (21-32) Anion Gap 8 mmol/L (5-15) Blood Urea Nitrogen 18 mg/dL (7-18) Creatinine 1.3 MG/DL (0.55-1.30) Estimat Glomerular Filtration Rate mL/min (>60) Glucose Level 98 MG/DL (74-106) Uric Acid 5.7 MG/DL (2.6-7.2) Calcium Level 7.5 MG/DL (8.5-10.1) L Phosphorus Level 3.2 MG/DL (2.5-4.9) Magnesium Level 2.0 MG/DL (1.8-2.4) Total Bilirubin 0.6 MG/DL (0.2-1.0) Direct Bilirubin 0.2 MG/DL (0.0-0.3) Aspartate Amino Transf (AST/SGOT) 73 U/L (15-37) H Alanine Aminotransferase (ALT/SGPT) 57 U/L (12-78) Alkaline Phosphatase 375 U/L (46-116) H Total Protein 6.7 G/DL (6.4-8.2) Albumin 2.0 G/DL (3.4-5.0) L Folate 6.6 NG/ML (8.6-58.9) L Prothrombin Time 24.5 SEC (9.30-11.50) H Prothromb Time International Ratio 2.4 (0.9-1.1) H Activated Partial Thromboplast Time 49 SEC (23-33) H Microbiology Date/Time Source Procedure Growth Status 06/15/18 19:00 Nasal Nares Influenza Types A,B Antigen (HERMES) - Final Complete Objective General Appearance: Cachetic, Chronically Ill, non-verbal. HEENT: Atraumatic, normocephalic, PERRLA, EOMI, dry mucus membranes Neck: No JVD, no carotid bruit. Lungs: Clear Cardiovascular : regular rate and rhythm, normal S1S2, no murmurs, gallops or rubs. Gastrointestinal: normal inspection, normal bowel sounds, non tender, soft, no guarding, no hernia Musculoskeletal: no edema, clubbing or cyanosis. Michael Poewll MD Jun 17, 2018 19:03
[2018-06-17] MEDS ORDERED: Tubing IV Secondary IV ONE (19:55)
[2018-06-17 20:00] VITALS: BP 123/82
--- NOTE | 2018-06-17 23:00 | Consultation ---
DATE OF CONSULTATION: 06/16/2018 CARDIOLOGY CONSULTATION CONSULTING PHYSICIAN: Michael Powell M.D. REFERRING PHYSICIAN: Jacques Heaton D.O. REASON FOR CONSULTATION: Management of supraventricular tachycardia. HISTORY OF PRESENT ILLNESS: The patient is a very unfortunate 78-year-old gentleman, who was brought in by EMS from nursing facility. He complains of increased difficulty breathing, productive cough, and inability to tolerate oral fluids. The patient apparently also had been refusing medication in the nursing facility for few days. At the time of arrival to [facility], blood pressure was 112/78 mmHg, heart rate was 105. A 12-lead electrocardiogram was significant for sinus tachycardia, but with no ST and T-wave abnormalities. The patient was admitted to telemetry for further evaluation and management. While in the telemetry unit, I received a call from the nurse that the patient had shown a bout of nonsustained ventricular tachycardia. PAST MEDICAL HISTORY: Anemia, congestive heart failure, COPD, hypertension, CVA. PAST SURGICAL HISTORY: None. ALLERGIES: No known drug allergies. FAMILY HISTORY: No premature coronary artery disease in the first-degree relatives. REVIEW OF SYSTEMS: Given the fact that the patient is nonverbal, 12-system review could not be obtained. MEDICATIONS: List of medication at nursing facility includes acetaminophen 500 mg q.6 h. for temperature above 100.5 degrees Fahrenheit, Norvasc 5 mg p.o. daily, vitamin B12 500 mcg p.o. daily, Colace 100 mg p.o. daily, Lovenox 60 mg subcutaneous q.12 h., Prozac 10 mg p.o. daily, hydralazine 50 mg q.8 h., DuoNeb 3 mL HHN, acidophilus 1 capsule p.o. daily, Keppra 500 mg twice daily, 30 mL daily, multivitamin one tablet daily, and warfarin mg p.o. daily. PHYSICAL EXAMINATION: VITAL SIGNS: Blood pressure was 112/78, pulse of 105, respirations 32, O2 saturation 94% on nasal cannula, and temperature 97.8 degrees Fahrenheit. GENERAL: The patient is a very unfortunate 78-year-old gentleman, in mild respiratory distress, nonverbal, chronically ill, cachectic. HEENT: Atraumatic, normocephalic. Anicteric. Pupils are equal, round, and reactive to light and accommodation. Extraocular muscles intact. NECK: JVP is less than 5 cm. No carotid bruits. Carotid upstrokes 2+ bilaterally. CARDIOVASCULAR SYSTEM: Normal S1, S2. Regular rate and rhythm. Tachycardic. No murmurs, gallops, or rubs. PMI is at fourth intercostal space at the midclavicular line. LUNGS: Diminished breath sounds in both bases. ABDOMEN: Soft, nontender, and nondistended. No hepatosplenomegaly. Positive bowel sounds. EXTREMITIES: No evidence of edema, clubbing, or cyanosis. IMAGING STUDY: Chest x-ray on 06/14/2018, showed asymmetric hazy opacity in the right lower lung concerning for pneumonia, multiple bilateral nodular densities, malignancy is not excluded. Recommend CT scan of chest. A 2D echocardiography showed normal LV systolic function with hyperdynamic LV, LVEF of about 60% to 65%, trace mitral regurgitation, grade 1 LV diastolic dysfunction, mild tricuspid regurgitation with right ventricular systolic pressure approximately 35 mmHg. ASSESSMENT AND PLAN: The patient is a very unfortunate 78-year-old gentleman, who is seen in cardiology consultation at the request of Dr. Heaton. 1. Nonsustained ventricular tachycardia. I would like to give 1 g of magnesium sulfate to keep the magnesium level above 2.5, we will continue checking potassium and magnesium throughout the stay. A 2D echocardiography has shown normal LV systolic function. Therefore, we will manage with beta-blockers. Metoprolol 25 mg twice daily has been initiated. 2. History of CVA, the patient requires to be on combination of aspirin and statins. 3. Sinus tachycardia, most likely secondary to poor oral intake and hypovolemia. Initial blood tests showed evidence of hypernatremia with serum sodium of 163 consistent with water deficit as well as prerenal azotemia that confirms severe hypovolemia. The treatment is hydration. 4. History of congestive heart failure. A 2D echocardiography does not show any evidence of LV systolic dysfunction. Clinically, the patient is severely hypovolemic. I do not believe that the patient had history of congestive heart failure in the past. 5. History of anemia. 6. History of COPD. 7. History of hypertension. I would like to thank, Dr. Heaton, for allowing me to participate in the care of this patient. Michael Powell M.D. DR: Jimy JOB#: [id number] CC:
[2018-06-18] VITALS: BP 117/64
[2018-06-18 04:00] VITALS: BP 108/67
--- NOTE | 2018-06-18 06:45 | General Progress Note ---
Assessment/Plan Assessment/Plan # Disseminated malignancy wide spread, with numerous bilateral lung masses, possible right-sided pleural masses, hilar lymphadenopathy, subcutaneous nodules , splenic masses and multiple liver masses on CT C/A/P has been reviewed --> obtain Ct guided biopsy and followup on results, has been ordered and d/w radiologist --> dw pcp and with patient plan in after results are obtained --> tumor markers have been ordered. CA 19.9 is 73 --> patient and son does not want heroic measures, is DNR # Severe malnutrition --> consider appetite stimulant --> monitor weight improvement prn # Anemia of iron deficiency --> continue patient on Iv iton --> total of 4 doses of iv iron # Acute hypernatremia # Dehydration--> IVF prn # Pneumonia # Generalized weakness # Failure to thrive DW Attending and RN Greatly appreciate consultation. Subjective Constitutional: Denies: no symptoms, chills, diaphoresis, fever, malaise, weakness, other HEENT: Denies: no symptoms, eye pain, blurred vision, tearing, double vision, ear pain, ear discharge, nose pain, nose congestion, throat pain, throat swelling, mouth pain, mouth swelling, other Cardiovascular: Denies: no symptoms, chest pain, edema, irregular heart rate, lightheadedness, palpitations, syncope, other Respiratory: Denies: no symptoms, cough, orthopnea, shortness of breath, SOB with excertion, SOB at rest, sputum, stridor, wheezing, other Gastrointestinal/Abdominal: Denies: no symptoms, abdomen distended, abdominal pain, black stools, tarry stools, blood in stool, constipated, diarrhea, difficulty swallowing, nausea, poor appetite, poor fluid intake, rectal bleeding , vomiting, other Genitourinary: Denies: no symptoms, burning, discharge, frequency, flank pain, hematuria, incontinence, pain, urgency, other Neurologic/Psychiatric: Denies: no symptoms, anxiety, depressed, emotional problems, headache, numbness, paresthesia, pre-existing deficit, seizure, tingling, tremors, weakness, other Endocrine: Denies: no symptoms, excessive sweating, flushing, intolerance to cold, intolerance to heat, increased hunger, increased thirst, increased urine, unexplained weight gain, unexplained weight loss, other Hematologic/Lymphatic: Denies: no symptoms, anemia, easy bleeding, easy bruising, other Allergies: Coded Allergies: No Known Allergies (Unverified , 09/04/17) Subjective no events, ct guided biopsy, remains DNR Objective Last 24 Hour Vital Signs Date Time Temp Pulse Resp B/P (MAP) Pulse Ox O2 Delivery O2 Flow Rate FiO2 06/18/18 04:00 97.3 67 20 108/67 (81) 97 97.3 06/18/18 00:12 66 24 98 Nasal Cannula 2.0 28 06/18/18 00:00 98.3 71 20 117/64 (81) 97 98.3 06/17/18 21:17 98.2 06/17/18 21:00 Nasal Cannula 1.0 06/17/18 20:47 100.2 06/17/18 20:46 81 123/82 06/17/18 20:26 79 18 Nasal Cannula 2.0 06/17/18 20:26 96 Nasal Cannula 2.0 06/17/18 20:26 Nasal Cannula 2.0 28 06/17/18 20:00 100.2 81 18 123/82 (96) 99 100.2 06/17/18 16:00 98.0 79 18 122/69 (86) 96 98.0 06/17/18 12:00 98.3 81 20 126/72 (90) 97 98.3 06/17/18 09:00 Nasal Cannula 1.0 06/17/18 08:57 79 128/68 06/17/18 08:20 Nasal Cannula 2.0 06/17/18 08:19 96 Nasal Cannula 2.0 06/17/18 08:14 87 20 Nasal Cannula 2.0 06/17/18 08:00 97.8 79 20 128/68 (88) 96 97.8 Intake and Output 06/17/18 06/18/18 19:00 07:00 Intake Total 430 ml 760 ml Output Total 1 ml Balance 430 ml 759 ml IV Total 40 ml 280 ml Tube Feeding 390 ml 480 ml Output Urine Total 1 ml # Voids 5 # Bowel Movements 1 1 Laboratory Tests 06/17/18 12:15: Prothrombin Time 24.5H, Prothromb Time International Ratio 2.4H, Activated Partial Thromboplast Time 49H Height (Feet): 5 Height (Inches): 7.00 Weight (Pounds): 135 General Appearance: no apparent distress EENT: TMs normal Neck: normal alignment Cardiovascular: regular rhythm, no JVD Respiratory/Chest: lungs clear Abdomen: normal bowel sounds Extremities: non-tender Edema: 1+ Leg (L), 1+ Leg (R) Edema: mild edema Neurologic: alert Jalen Webster MD Jun 18, 2018 06:45
[2018-06-18 07:31] LABS: BASOPHILS % (AUTO) 0.2 % (0.0-2.0); EOSINOPHILS % (AUTO) 1.4 % (0.0-3.0); HEMATOCRIT 30.9 % (42.0-52.0); HEMOGLOBIN 10.3 G/DL (14.2-18.0); LYMPHOCYTES % (AUTO) 6.6 % (20.0-45.0); MEAN CORPUSCULAR VOLUME 87 FL (80-99); MONOCYTES % (AUTO) 8.6 % (1.0-10.0); NEUTROPHILS % (AUTO) 83.3 % (45.0-75.0); PLATELET COUNT 233 K/UL (150-450); RED BLOOD COUNT 3.56 M/UL (4.70-6.10); RED CELL DISTRIBUTION WIDTH 12.5 % (11.6-14.8); WHITE BLOOD COUNT 8.4 K/UL (4.8-10.8)
[2018-06-18 07:37] LABS: ANION GAP 9 mmol/L (5-15); BLOOD UREA NITROGEN 15 mg/dL (7-18); CALCIUM 7.7 MG/DL (8.5-10.1); CARBON DIOXIDE 22 MMOL/L (21-32); CHLORIDE 111 MMOL/L (98-107); POTASSIUM 3.7 MMOL/L (3.5-5.1); SODIUM 142 MMOL/L (136-145)
[2018-06-18 08:00] VITALS: BP 110/68
--- NOTE | 2018-06-18 08:56 | Infectious Diseases Prog Note ---
Assessment/Plan Assessment/Plan 78 yo male sent to the ED from his [facility] after refusing med and food for a week per report. PNA - Possible aspiration vs CAP Lung Nodules and liver mass - Likely CA given US - Bx planned Fever resolved Leukocytosis - resolved Dysphagia HTN COPD Epilepsy Depression Schizophrenia Dementia CVA ND Anemia PLAN: Continue Cefepime #4/7 (End Date 06/21/18) Continue Flagyl #4/7 (End Date 06/21/18) - 06/15 - SP Vancomycin - Blood Cx likely contaminant Monitor CBC and Temps Nutrition Supportive care We will continue to follow this patient though out his hospitalization. Subjective Allergies: Coded Allergies: No Known Allergies (Unverified , 09/04/17) Subjective Low grade fever last night now resolved No Leukocytosis Objective Vital Signs Last 24 Hour Vital Signs Date Time Temp Pulse Resp B/P (MAP) Pulse Ox O2 Delivery O2 Flow Rate FiO2 06/18/18 08:00 97.7 69 19 110/68 (82) 98 97.7 06/18/18 04:00 97.3 67 20 108/67 (81) 97 97.3 06/18/18 00:12 66 24 98 Nasal Cannula 2.0 28 06/18/18 00:00 98.3 71 20 117/64 (81) 97 98.3 06/17/18 21:17 98.2 06/17/18 21:00 Nasal Cannula 1.0 06/17/18 20:47 100.2 06/17/18 20:46 81 123/82 06/17/18 20:26 79 18 Nasal Cannula 2.0 28 06/17/18 20:26 96 Nasal Cannula 2.0 28 06/17/18 20:26 Nasal Cannula 2.0 28 06/17/18 20:00 100.2 81 18 123/82 (96) 99 100.2 06/17/18 16:00 98.0 79 18 122/69 (86) 96 98.0 06/17/18 12:00 98.3 81 20 126/72 (90) 97 98.3 06/17/18 09:00 Nasal Cannula 1.0 06/17/18 08:57 79 128/68 Height (Feet): 5 Height (Inches): 7.00 Weight (Pounds): 135 Objective Gen: NAD, Thin male on 2L NC HEENT: NCAT, No scleral icterus LUNGS: CTAB, No W CARDS: RRR, S1, S2, No M/R/G ABD: Soft, NT, ND, No R/G, + BS Ext: C/C/E, Pulses 2+ B/L (DP, Rad) Microbiology Date/Time Source Procedure Growth Status 06/16/18 08:50 Blood Blood Culture - Preliminary NO GROWTH AFTER 24 HOURS Resulted 06/16/18 08:40 Blood Blood Culture - Preliminary NO GROWTH AFTER 24 HOURS Resulted 06/15/18 19:00 Nasal Nares Influenza Types A,B Antigen (HERMES) - Final Complete Laboratory Tests Test 06/17/18 12:15 06/18/18 06:20 Prothrombin Time 24.5 SEC (9.30-11.50) H Prothromb Time International Ratio 2.4 (0.9-1.1) H Activated Partial Thromboplast Time 49 SEC (23-33) H White Blood Count 8.4 K/UL (4.8-10.8) Red Blood Count 3.56 M/UL (4.70-6.10) L Hemoglobin 10.3 G/DL (14.2-18.0) L Hematocrit 30.9 % (42.0-52.0) L Mean Corpuscular Volume 87 FL (80-99) Mean Corpuscular Hemoglobin 28.8 PG (27.0-31.0) Mean Corpuscular Hemoglobin Concent 33.2 G/DL (32.0-36.0) Red Cell Distribution Width 12.5 % (11.6-14.8) Platelet Count 233 K/UL (150-450) Mean Platelet Volume 8.3 FL (6.5-10.1) Neutrophils (%) (Auto) 83.3 % (45.0-75.0) H Lymphocytes (%) (Auto) 6.6 % (20.0-45.0) L Monocytes (%) (Auto) 8.6 % (1.0-10.0) Eosinophils (%) (Auto) 1.4 % (0.0-3.0) Basophils (%) (Auto) 0.2 % (0.0-2.0) Sodium Level 142 MMOL/L (136-145) Potassium Level 3.7 MMOL/L (3.5-5.1) Chloride Level 111 MMOL/L (98-107) H Carbon Dioxide Level 22 MMOL/L (21-32) Anion Gap 9 mmol/L (5-15) Blood Urea Nitrogen 15 mg/dL (7-18) Creatinine 1.0 MG/DL (0.55-1.30) Estimat Glomerular Filtration Rate mL/min (>60) Glucose Level 101 MG/DL (74-106) Calcium Level 7.7 MG/DL (8.5-10.1) L Current Medications Medications (Trade) Dose Ordered Sig/Manav Route PRN Reason Start Time Stop Time Status Last Admin Dose Admin Acetaminophen (Tylenol) 650 mg Q4H PRN ORAL fever (temp>100.5F) 06/16/18 17:15 07/14/18 13:14 06/17/18 20:47 Albuterol/ Ipratropium (Albuterol/ Ipratropium) 3 ml Q4H PRN HHN Shortness of Breath 06/16/18 17:15 06/19/18 13:14 06/18/18 00:13 Cefepime HCl 1 gm/ Dextrose 55 ml @ 110 mls/hr DAILY IV 06/17/18 09:00 06/21/18 17:59 06/17/18 09:01 Dextrose 1,000 ml @ 20 mls/hr Q24H IV 06/17/18 16:00 07/14/18 15:59 06/17/18 15:58 Fluoxetine HCl (PROzac) 20 mg DAILY ORAL 06/17/18 09:00 07/17/18 08:59 06/17/18 08:58 Folic Acid (Folate) 2 mg DAILY ORAL 06/17/18 09:00 07/15/18 08:59 06/17/18 08:58 Heparin Sodium (Porcine) (Heparin 5000 units/ml) 5,000 units EVERY 12 HOURS SUBQ 06/16/18 21:00 07/14/18 20:59 06/17/18 20:48 Levetiracetam (Keppra) 500 mg Q12HR ORAL 06/16/18 21:00 07/14/18 20:59 06/17/18 20:46 Lidocaine HCl (Xylocaine 1% 30ml) 30 ml NOW PRN INJ Radiology Procedure 06/17/18 07:30 06/19/18 07:22 Metoprolol Tartrate (Lopressor) 25 mg Q12HR ORAL 06/16/18 21:00 07/16/18 20:59 06/17/18 20:46 Metronidazole 100 ml @ 100 mls/hr Q8HR IVPB 06/16/18 22:00 06/22/18 13:59 06/18/18 05:16 Nitroglycerin (Ntg) 0.4 mg Q5M PRN SL Prn Chest Pain 06/16/18 16:30 07/14/18 13:14 Ondansetron HCl (Zofran) 4 mg Q6H PRN IVP Nausea & Vomiting 06/16/18 17:00 07/14/18 16:59 Pantoprazole (Protonix) 40 mg DAILY IVP 06/17/18 09:00 07/15/18 08:59 06/17/18 08:58 Polyethylene Glycol (Miralax) 17 gm DAILYPRN PRN ORAL Constipation 06/17/18 17:00 07/14/18 16:59 Promethazine HCl/ Codeine (Phenergan with Codeine) 5 ml Q4H PRN ORAL For Cough 06/16/18 17:15 07/14/18 13:14 06/17/18 20:49 Temazepam (Restoril) 15 mg HSPRN PRN ORAL Insomnia 06/16/18 21:00 06/23/18 20:59 Andre Wang MD Jun 18, 2018 08:56
[2018-06-18] MEDS: Heparin 5000 units/ml inj SUBQ SCH ×2 (09:00→20:55)
[2018-06-18] MEDS: Metoprolol 25mg tab ORAL SCH ×2 (09:00→20:54)
[2018-06-18] MEDS: Cefepime HCl 1 GM in D5W 55 ML IV SCH (09:25)
[2018-06-18] MEDS: Pantoprazole Inj IVP SCH (09:27)
[2018-06-18 09:34] LABS: INR 1.4 (0.9-1.1)
--- NOTE | 2018-06-18 11:54 | Nephrology Progress Note ---
Assessment/Plan Problem List: (1) Dehydration (2) Acute hypernatremia (3) Renal insufficiency (4) Severe malnutrition (5) Metastatic cancer Assessment Renal Failure- Dehydration, Hypernatremia Malnutrition / Hypoalbuminemia Pneumonia / Aspiration / Multi lung nodules Seizure disorder Cerebrovascular accident (CVA) Advanced dementia Plan K and Phos replaced- D5W Antibiotics monitor lytes and renal parameters pulm support PO Folate DNR ? DC planning Subjective ROS Limited/Unobtainable: No Constitutional: Reports: malaise, weakness Objective Objective Last 24 Hour Vital Signs Date Time Temp Pulse Resp B/P (MAP) Pulse Ox O2 Delivery O2 Flow Rate FiO2 06/18/18 09:00 69 110/68 06/18/18 08:33 98 Nasal Cannula 2.0 06/18/18 08:32 Nasal Cannula 2.0 06/18/18 08:31 71 20 Nasal Cannula 2.0 06/18/18 08:00 97.7 69 19 110/68 (82) 98 97.7 06/18/18 04:00 97.3 67 20 108/67 (81) 97 97.3 06/18/18 00:12 66 24 98 Nasal Cannula 2.0 06/18/18 00:00 98.3 71 20 117/64 (81) 97 98.3 06/17/18 21:17 98.2 06/17/18 21:00 Nasal Cannula 1.0 06/17/18 20:47 100.2 06/17/18 20:46 81 123/82 06/17/18 20:26 79 18 Nasal Cannula 2.0 06/17/18 20:26 96 Nasal Cannula 2.0 06/17/18 20:26 Nasal Cannula 2.0 06/17/18 20:00 100.2 81 18 123/82 (96) 99 100.2 06/17/18 16:00 98.0 79 18 122/69 (86) 96 98.0 06/17/18 12:00 98.3 81 20 126/72 (90) 97 98.3 Intake and Output 06/17/18 06/18/18 19:00 07:00 Intake Total 430 ml 860 ml Output Total 1 ml Balance 430 ml 859 ml IV Total 40 ml 380 ml Tube Feeding 390 ml 480 ml Output Urine Total 1 ml # Voids 5 # Bowel Movements 1 3 Laboratory Tests 06/17/18 12:15: Prothrombin Time 24.5H, Prothromb Time International Ratio 2.4H, Activated Partial Thromboplast Time 49H 06/18/18 06:20: White Blood Count 8.4, Red Blood Count 3.56L, Hemoglobin 10.3L, Hematocrit 30.9L , Mean Corpuscular Volume 87, Mean Corpuscular Hemoglobin 28.8, Mean Corpuscular Hemoglobin Concent 33.2, Red Cell Distribution Width 12.5, Platelet Count 233, Mean Platelet Volume 8.3, Neutrophils (%) (Auto) 83.3H, Lymphocytes ( %) (Auto) 6.6L, Monocytes (%) (Auto) 8.6, Eosinophils (%) (Auto) 1.4, Basophils (%) (Auto) 0.2, Sodium Level 142, Potassium Level 3.7, Chloride Level 111H, Carbon Dioxide Level 22, Anion Gap 9, Blood Urea Nitrogen 15, Creatinine 1.0, Estimat Glomerular Filtration Rate , Glucose Level 101, Calcium Level 7.7L 06/18/18 09:00: Prothrombin Time 14.7H, Prothromb Time International Ratio 1.4H, Activated Partial Thromboplast Time 39H Height (Feet): 5 Height (Inches): 7.00 Weight (Pounds): 135 EENT: other - has NGT Cardiovascular: normal rate Respiratory/Chest: decreased breath sounds Abdomen: soft Anthony Stockton MD Jun 18, 2018 11:54
[2018-06-18 12:00] VITALS: BP 115/70
[2018-06-18] MEDS ORDERED: Lidocaine 1% Plain 30 ml INJ PRN (12:35)
--- NOTE | 2018-06-18 12:39 | Pulmonology Progress Note ---
Assessment/Plan Problems: (1) Metastatic cancer (2) Aspiration pneumonia (3) ATN (acute tubular necrosis) (4) Lung nodule, multiple (5) Seizure disorder (6) Severe malnutrition (7) Cerebrovascular accident (CVA) (8) Advanced dementia Assessment/Plan all noted, one tumor marker is elevated afebrile cultures pending on Abx CT scan reviewed, multiple masses throughout the lungs and live, spleen renal function improving dvt prophylaxis CT guided biopsy orderd pr is DNR as requested by pts son Subjective ROS Limited/Unobtainable: No Constitutional: Reports: no symptoms HEENT: Repors: no symptoms Respiratory: Reports: no symptoms Allergies: Coded Allergies: No Known Allergies (Unverified , 09/04/17) Objective Last 24 Hour Vital Signs Date Time Temp Pulse Resp B/P (MAP) Pulse Ox O2 Delivery O2 Flow Rate FiO2 06/18/18 09:00 69 110/68 06/18/18 08:33 98 Nasal Cannula 2.0 06/18/18 08:32 Nasal Cannula 2.0 06/18/18 08:31 71 20 Nasal Cannula 2.0 06/18/18 08:00 97.7 69 19 110/68 (82) 98 97.7 06/18/18 04:00 97.3 67 20 108/67 (81) 97 97.3 06/18/18 00:12 66 24 98 Nasal Cannula 2.0 06/18/18 00:00 98.3 71 20 117/64 (81) 97 98.3 06/17/18 21:17 98.2 06/17/18 21:00 Nasal Cannula 1.0 06/17/18 20:47 100.2 06/17/18 20:46 81 123/82 06/17/18 20:26 79 18 Nasal Cannula 2.0 28 06/17/18 20:26 96 Nasal Cannula 2.0 28 06/17/18 20:26 Nasal Cannula 2.0 28 06/17/18 20:00 100.2 81 18 123/82 (96) 99 100.2 06/17/18 16:00 98.0 79 18 122/69 (86) 96 98.0 Intake and Output 06/17/18 06/18/18 19:00 07:00 Intake Total 430 ml 860 ml Output Total 1 ml Balance 430 ml 859 ml IV Total 40 ml 380 ml Tube Feeding 390 ml 480 ml Output Urine Total 1 ml # Voids 5 # Bowel Movements 1 3 General Appearance: cachetic HEENT: normocephalic, atraumatic Respiratory/Chest: chest wall non-tender, lungs clear Cardiovascular: normal rate, regular rhythm Abdomen: normal bowel sounds, no organomegaly Genitourinary: normal external genitalia Extremities: no cyanosis Skin: no rash Microbiology Date/Time Source Procedure Growth Status 06/16/18 08:50 Blood Blood Culture - Preliminary NO GROWTH AFTER 24 HOURS Resulted 06/16/18 08:40 Blood Blood Culture - Preliminary NO GROWTH AFTER 24 HOURS Resulted 06/15/18 19:00 Nasal Nares Influenza Types A,B Antigen (HERMES) - Final Complete Laboratory Tests 06/18/18 06:20: White Blood Count 8.4, Red Blood Count 3.56L, Hemoglobin 10.3L, Hematocrit 30.9L , Mean Corpuscular Volume 87, Mean Corpuscular Hemoglobin 28.8, Mean Corpuscular Hemoglobin Concent 33.2, Red Cell Distribution Width 12.5, Platelet Count 233, Mean Platelet Volume 8.3, Neutrophils (%) (Auto) 83.3H, Lymphocytes ( %) (Auto) 6.6L, Monocytes (%) (Auto) 8.6, Eosinophils (%) (Auto) 1.4, Basophils (%) (Auto) 0.2, Sodium Level 142, Potassium Level 3.7, Chloride Level 111H, Carbon Dioxide Level 22, Anion Gap 9, Blood Urea Nitrogen 15, Creatinine 1.0, Estimat Glomerular Filtration Rate , Glucose Level 101, Calcium Level 7.7L 06/18/18 09:00: Prothrombin Time 14.7H, Prothromb Time International Ratio 1.4H, Activated Partial Thromboplast Time 39H Current Medications Medications (Trade) Dose Ordered Sig/Manav Route PRN Reason Start Time Stop Time Status Last Admin Dose Admin Acetaminophen (Tylenol) 650 mg Q4H PRN ORAL fever (temp>100.5F) 06/16/18 17:15 07/14/18 13:14 06/17/18 20:47 Albuterol/ Ipratropium (Albuterol/ Ipratropium) 3 ml Q4H PRN HHN Shortness of Breath 06/16/18 17:15 06/19/18 13:14 06/18/18 00:13 Cefepime HCl 1 gm/ Dextrose 55 ml @ 110 mls/hr DAILY IV 06/17/18 09:00 06/21/18 17:59 06/18/18 09:25 Dextrose 1,000 ml @ 20 mls/hr Q24H IV 06/17/18 16:00 07/14/18 15:59 06/17/18 15:58 Fluoxetine HCl (PROzac) 20 mg DAILY ORAL 06/17/18 09:00 07/17/18 08:59 06/18/18 09:26 Folic Acid (Folate) 2 mg DAILY ORAL 06/17/18 09:00 07/15/18 08:59 06/18/18 09:26 Heparin Sodium (Porcine) (Heparin 5000 units/ml) 5,000 units EVERY 12 HOURS SUBQ 06/16/18 21:00 07/14/18 20:59 06/17/18 20:48 Levetiracetam (Keppra) 500 mg Q12HR ORAL 06/16/18 21:00 07/14/18 20:59 06/18/18 09:26 Lidocaine HCl (Xylocaine 1% 30ml) 30 ml ONCE PRN INJ ULTRASOUND BIOPSY 06/18/18 12:35 06/19/18 23:59 Metoprolol Tartrate (Lopressor) 25 mg Q12HR ORAL 06/16/18 21:00 07/16/18 20:59 06/17/18 20:46 Metronidazole 100 ml @ 100 mls/hr Q8HR IVPB 06/16/18 22:00 06/22/18 13:59 06/18/18 05:16 Nitroglycerin (Ntg) 0.4 mg Q5M PRN SL Prn Chest Pain 06/16/18 16:30 07/14/18 13:14 Ondansetron HCl (Zofran) 4 mg Q6H PRN IVP Nausea & Vomiting 06/16/18 17:00 07/14/18 16:59 Pantoprazole (Protonix) 40 mg DAILY IVP 06/17/18 09:00 07/15/18 08:59 06/18/18 09:27 Polyethylene Glycol (Miralax) 17 gm DAILYPRN PRN ORAL Constipation 06/17/18 17:00 07/14/18 16:59 Promethazine HCl/ Codeine (Phenergan with Codeine) 5 ml Q4H PRN ORAL For Cough 06/16/18 17:15 07/14/18 13:14 06/17/18 20:49 Temazepam (Restoril) 15 mg HSPRN PRN ORAL Insomnia 06/16/18 21:00 06/23/18 20:59 Malia Saba MD Jun 18, 2018 12:39
--- NOTE | 2018-06-18 12:46 | GI Progress Note ---
Assessment/Plan Problems: (1) Cerebrovascular accident (CVA) ICD Codes: I63.9 - Cerebral infarction, unspecified SNOMED: 844228433 (2) Advanced dementia ICD Codes: F03.90 - Unspecified dementia without behavioral disturbance SNOMED: 26696507 (3) Seizure disorder ICD Codes: G40.909 - Epilepsy, unspecified, not intractable, without status epilepticus SNOMED: 625895782 (4) Severe malnutrition ICD Codes: E43 - Unspecified severe protein-calorie malnutrition SNOMED: 39558536 (5) Dehydration ICD Codes: E86.0 - Dehydration SNOMED: 77300141 (6) Failure to thrive SNOMED: 45422833 (7) Generalized weakness ICD Codes: R53.1 - Weakness SNOMED: 72689387 Status: unchanged Status Narrative Discussed with Dr. Pineda. Assessment/Plan OB stool positive, send additional iron deficient folate deficiency abdominal US reviewed >> multiple hepatic and splenic nodules, fu oncology ST evaluation reviewed >> recommend PEG hep panel negative POLST reviewed >> trial feedings only, will require consent from son for PEG spoke to the son today to introduce the idea of having GT placement, he wishes to think about it first. hold GI procedures at this time given elevated troponin levels, will need cardiac clearance NGTFs electrolyte correction calorie count anemia work up monitor H&H, prn transfusions bowel regime ppi trend LFTs fu labs The patient was seen and examined at bedside and all new and available data was reviewed in the patients chart. I agree with the above findings, impression and plan. (Patient seen earlier today. Signature stamp does not reflect patient encounter time.). - Vin Pineda MD Subjective Subjective limited Objective Last 24 Hour Vital Signs Date Time Temp Pulse Resp B/P (MAP) Pulse Ox O2 Delivery O2 Flow Rate FiO2 06/18/18 12:00 97.3 71 20 115/70 (85) 98 97.3 06/18/18 09:00 69 110/68 06/18/18 08:33 98 Nasal Cannula 2.0 28 06/18/18 08:32 Nasal Cannula 2.0 28 06/18/18 08:31 71 20 Nasal Cannula 2.0 28 06/18/18 08:00 97.7 69 19 110/68 (82) 98 97.7 06/18/18 04:00 97.3 67 20 108/67 (81) 97 97.3 06/18/18 00:12 66 24 98 Nasal Cannula 2.0 28 06/18/18 00:00 98.3 71 20 117/64 (81) 97 98.3 06/17/18 21:17 98.2 06/17/18 21:00 Nasal Cannula 1.0 06/17/18 20:47 100.2 06/17/18 20:46 81 123/82 06/17/18 20:26 79 18 Nasal Cannula 2.0 28 06/17/18 20:26 96 Nasal Cannula 2.0 28 06/17/18 20:26 Nasal Cannula 2.0 28 06/17/18 20:00 100.2 81 18 123/82 (96) 99 100.2 06/17/18 16:00 98.0 79 18 122/69 (86) 96 98.0 Intake and Output 06/17/18 06/18/18 19:00 07:00 Intake Total 430 ml 860 ml Output Total 1 ml Balance 430 ml 859 ml IV Total 40 ml 380 ml Tube Feeding 390 ml 480 ml Output Urine Total 1 ml # Voids 5 # Bowel Movements 1 3 Laboratory Tests Test 06/18/18 06:20 06/18/18 09:00 White Blood Count 8.4 K/UL (4.8-10.8) Red Blood Count 3.56 M/UL (4.70-6.10) L Hemoglobin 10.3 G/DL (14.2-18.0) L Hematocrit 30.9 % (42.0-52.0) L Mean Corpuscular Volume 87 FL (80-99) Mean Corpuscular Hemoglobin 28.8 PG (27.0-31.0) Mean Corpuscular Hemoglobin Concent 33.2 G/DL (32.0-36.0) Red Cell Distribution Width 12.5 % (11.6-14.8) Platelet Count 233 K/UL (150-450) Mean Platelet Volume 8.3 FL (6.5-10.1) Neutrophils (%) (Auto) 83.3 % (45.0-75.0) H Lymphocytes (%) (Auto) 6.6 % (20.0-45.0) L Monocytes (%) (Auto) 8.6 % (1.0-10.0) Eosinophils (%) (Auto) 1.4 % (0.0-3.0) Basophils (%) (Auto) 0.2 % (0.0-2.0) Sodium Level 142 MMOL/L (136-145) Potassium Level 3.7 MMOL/L (3.5-5.1) Chloride Level 111 MMOL/L (98-107) H Carbon Dioxide Level 22 MMOL/L (21-32) Anion Gap 9 mmol/L (5-15) Blood Urea Nitrogen 15 mg/dL (7-18) Creatinine 1.0 MG/DL (0.55-1.30) Estimat Glomerular Filtration Rate mL/min (>60) Glucose Level 101 MG/DL (74-106) Calcium Level 7.7 MG/DL (8.5-10.1) L Prothrombin Time 14.7 SEC (9.30-11.50) H Prothromb Time International Ratio 1.4 (0.9-1.1) H Activated Partial Thromboplast Time 39 SEC (23-33) H Height (Feet): 5 Height (Inches): 7.00 Weight (Pounds): 135 General Appearance: alert, confused Cardiovascular: normal rate Respiratory/Chest: normal breath sounds, no respiratory distress Abdominal Exam: soft, other - NGT Abhijit Wiley NP Jun 18, 2018 12:46
--- NOTE | 2018-06-18 13:26 | General Progress Note ---
Assessment/Plan Problem List: (1) Dehydration ICD Codes: E86.0 - Dehydration SNOMED: 08578340 (2) Pneumonia ICD Codes: J18.9 - Pneumonia, unspecified organism SNOMED: 264367071 (3) Generalized weakness ICD Codes: R53.1 - Weakness SNOMED: 92241848 (4) Failure to thrive SNOMED: 93693309 (5) Renal insufficiency ICD Codes: N28.9 - Disorder of kidney and ureter, unspecified SNOMED: 678201201, 388222062 (6) ATN (acute tubular necrosis) ICD Codes: N17.0 - Acute kidney failure with tubular necrosis SNOMED: 69673611 Status: unchanged Assessment/Plan o2 pulm tx abx ot pt diet cbc bmp am heme eval possible peg Subjective Constitutional: Reports: weakness Allergies: Coded Allergies: No Known Allergies (Unverified , 09/04/17) All Systems: reviewed and negative except above Subjective o2nc ng Objective Last 24 Hour Vital Signs Date Time Temp Pulse Resp B/P (MAP) Pulse Ox O2 Delivery O2 Flow Rate FiO2 06/18/18 12:00 97.3 71 20 115/70 (85) 98 97.3 06/18/18 09:00 69 110/68 06/18/18 08:33 98 Nasal Cannula 2.0 06/18/18 08:32 Nasal Cannula 2.0 06/18/18 08:31 71 20 Nasal Cannula 2.0 06/18/18 08:00 97.7 69 19 110/68 (82) 98 97.7 06/18/18 04:00 97.3 67 20 108/67 (81) 97 97.3 06/18/18 00:12 66 24 98 Nasal Cannula 2.0 28 06/18/18 00:00 98.3 71 20 117/64 (81) 97 98.3 06/17/18 21:17 98.2 06/17/18 21:00 Nasal Cannula 1.0 06/17/18 20:47 100.2 06/17/18 20:46 81 123/82 06/17/18 20:26 79 18 Nasal Cannula 2.0 28 06/17/18 20:26 96 Nasal Cannula 2.0 06/17/18 20:26 Nasal Cannula 2.0 06/17/18 20:00 100.2 81 18 123/82 (96) 99 100.2 06/17/18 16:00 98.0 79 18 122/69 (86) 96 98.0 Intake and Output 06/17/18 06/18/18 19:00 07:00 Intake Total 430 ml 860 ml Output Total 1 ml Balance 430 ml 859 ml IV Total 40 ml 380 ml Tube Feeding 390 ml 480 ml Output Urine Total 1 ml # Voids 5 # Bowel Movements 1 3 Laboratory Tests 06/18/18 06:20: White Blood Count 8.4, Red Blood Count 3.56L, Hemoglobin 10.3L, Hematocrit 30.9L , Mean Corpuscular Volume 87, Mean Corpuscular Hemoglobin 28.8, Mean Corpuscular Hemoglobin Concent 33.2, Red Cell Distribution Width 12.5, Platelet Count 233, Mean Platelet Volume 8.3, Neutrophils (%) (Auto) 83.3H, Lymphocytes ( %) (Auto) 6.6L, Monocytes (%) (Auto) 8.6, Eosinophils (%) (Auto) 1.4, Basophils (%) (Auto) 0.2, Sodium Level 142, Potassium Level 3.7, Chloride Level 111H, Carbon Dioxide Level 22, Anion Gap 9, Blood Urea Nitrogen 15, Creatinine 1.0, Estimat Glomerular Filtration Rate , Glucose Level 101, Calcium Level 7.7L 06/18/18 09:00: Prothrombin Time 14.7H, Prothromb Time International Ratio 1.4H, Activated Partial Thromboplast Time 39H Height (Feet): 5 Height (Inches): 7.00 Weight (Pounds): 135 General Appearance: lethargic EENT: normal ENT inspection Neck: normal alignment Cardiovascular: normal peripheral pulses, normal rate, regular rhythm Respiratory/Chest: chest wall non-tender, lungs clear, normal breath sounds Abdomen: normal bowel sounds, non tender, soft Extremities: normal inspection Edema: no edema noted Arm (L), no edema noted Arm (R), no edema noted Leg (L), no edema noted Leg (R), no edema noted Pedal (L), no edema noted Pedal (R), no edema noted Generalized Neurologic: motor weakness Skin: normal pigmentation, warm/dry Jacques Heaton DO Jun 18, 2018 13:26
--- NOTE | 2018-06-18 14:20 | Cardiology Report ---
APPROVED REPORT EXAM: Two-dimensional and M-mode echocardiogram with Doppler and color Doppler. INDICATION Peripheral Edema Arrhythmia M-Mode DIMENSIONS IVSd1.0 (0.7-1.1cm)Left Atrium (MM)2.0 (1.6-4.0cm) LVDd3.3 (3.5-5.6cm)Aortic Root1.5 (2.0-3.7cm) PWd1.5 (0.7-1.1cm)Aortic Cusp Exc.1.6 (1.5-2.0cm) IVSs1.5 cm LVDs1.9 (2.5-4.0cm) PWs1.6 cm Normal left ventricular chamber size, hyper dynamic systolic function and wall motion to extent visualized. Left ventricular ejection fraction estimated to be 60-65 %. No evidence of left ventricular hypertrophy . No evidence of pericardial effusion. All other cardiac chamber sizes are within normal limits. Focal aortic valve sclerosis with adequate cusp excursion. Thickened mitral valve leaflets with normal excursion. Mitral annulus and aortic root calcification. Pulmonic valve not well visualized. Normal tricuspid valve structure. IVC at normal size with physiologic collapse . A color flow and spectral Doppler study was performed and revealed: No aortic regurgitation. Trace mitral regurgitation. Mitral diastolic velocities suggest reduced left ventricular relaxation c/w mild LV diastolic dysfunction (Grade I ). Mild tricuspid regurgitation. Tricuspid systolic velocities suggests peak right ventricular systolic pressure of 35 mmHg. prominant papillary muscle.
--- NOTE | 2018-06-18 14:47 | General Surgery Progress Note ---
General Surgery-Progress Note Subjective Additional Comments no acute events. stable. CT reviewed. pending biopsy Objective Last 24 Hour Vital Signs Date Time Temp Pulse Resp B/P (MAP) Pulse Ox O2 Delivery O2 Flow Rate FiO2 06/18/18 12:00 97.3 71 20 115/70 (85) 98 97.3 06/18/18 09:00 Nasal Cannula 2.0 06/18/18 09:00 69 110/68 06/18/18 08:33 98 Nasal Cannula 2.0 06/18/18 08:32 Nasal Cannula 2.0 06/18/18 08:31 71 20 Nasal Cannula 2.0 06/18/18 08:00 97.7 69 19 110/68 (82) 98 97.7 06/18/18 04:00 97.3 67 20 108/67 (81) 97 97.3 06/18/18 00:12 66 24 98 Nasal Cannula 2.0 06/18/18 00:00 98.3 71 20 117/64 (81) 97 98.3 06/17/18 21:17 98.2 06/17/18 21:00 Nasal Cannula 1.0 06/17/18 20:47 100.2 06/17/18 20:46 81 123/82 06/17/18 20:26 79 18 Nasal Cannula 2.0 06/17/18 20:26 96 Nasal Cannula 2.0 06/17/18 20:26 Nasal Cannula 2.0 06/17/18 20:00 100.2 81 18 123/82 (96) 99 100.2 06/17/18 16:00 98.0 79 18 122/69 (86) 96 98.0 I&O Intake and Output 06/17/18 06/18/18 19:00 07:00 Intake Total 430 ml 860 ml Output Total 1 ml Balance 430 ml 859 ml IV Total 40 ml 380 ml Tube Feeding 390 ml 480 ml Output Urine Total 1 ml # Voids 5 # Bowel Movements 1 3 Drains: other Cardiovascular: RSR Respiratory: clear Abdomen: soft, flat, non-tender, present bowel sounds Extremities: other Laboratory Tests Test 06/18/18 06:20 06/18/18 09:00 White Blood Count 8.4 K/UL (4.8-10.8) Red Blood Count 3.56 M/UL (4.70-6.10) L Hemoglobin 10.3 G/DL (14.2-18.0) L Hematocrit 30.9 % (42.0-52.0) L Mean Corpuscular Volume 87 FL (80-99) Mean Corpuscular Hemoglobin 28.8 PG (27.0-31.0) Mean Corpuscular Hemoglobin Concent 33.2 G/DL (32.0-36.0) Red Cell Distribution Width 12.5 % (11.6-14.8) Platelet Count 233 K/UL (150-450) Mean Platelet Volume 8.3 FL (6.5-10.1) Neutrophils (%) (Auto) 83.3 % (45.0-75.0) H Lymphocytes (%) (Auto) 6.6 % (20.0-45.0) L Monocytes (%) (Auto) 8.6 % (1.0-10.0) Eosinophils (%) (Auto) 1.4 % (0.0-3.0) Basophils (%) (Auto) 0.2 % (0.0-2.0) Sodium Level 142 MMOL/L (136-145) Potassium Level 3.7 MMOL/L (3.5-5.1) Chloride Level 111 MMOL/L (98-107) H Carbon Dioxide Level 22 MMOL/L (21-32) Anion Gap 9 mmol/L (5-15) Blood Urea Nitrogen 15 mg/dL (7-18) Creatinine 1.0 MG/DL (0.55-1.30) Estimat Glomerular Filtration Rate mL/min (>60) Glucose Level 101 MG/DL (74-106) Calcium Level 7.7 MG/DL (8.5-10.1) L Prothrombin Time 14.7 SEC (9.30-11.50) H Prothromb Time International Ratio 1.4 (0.9-1.1) H Activated Partial Thromboplast Time 39 SEC (23-33) H Plan Problems: (1) Lung nodule, multiple Assessment & Plan: abnormal lft's, leukocytosis. GI procedures on hold because of cardiac clearance Hepatitis panel pending US Abdomen: Multiple hepatic and splenic masses, as described. 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 However, in view of the splenic involvement, the possibility that this represents multiple abscesses should also be considered Fluid structure in the gallbladder fossa probably but not definitively represents a nondistended gallbladder. This possibly contains gallstones. Soft tissue echogenicity area within the apparent lumen could represent tumefactive sludge, polyp, or, given the above findings, neoplasm Multiple lung nodules. etiology unknown. CT C/A/P reviewed. Metastatic disease everywhere. small right chest wall anterior lateral nodule noted. Consider IR biopsy if not possible can potentially biopsy superficial nodule thank you. will follow with recs. Rudolph Solis Jun 18, 2018 14:47
--- NOTE | 2018-06-18 15:50 | General Progress Note ---
Assessment/Plan Problem List: (1) Encephalopathy due to metabolic factor or toxin SNOMED: 845245163 (2) Advanced dementia ICD Codes: F03.90 - Unspecified dementia without behavioral disturbance SNOMED: 74359646 Assessment/Plan the pt lacks capacity to make decisions prozac 20mg qam Subjective Date patient seen: Jun 18, 2018 Neurologic/Psychiatric: Reports: anxiety, depressed Allergies: Coded Allergies: No Known Allergies (Unverified , 09/04/17) Subjective the pt is calm in mittens and not agitated Objective Last 24 Hour Vital Signs Date Time Temp Pulse Resp B/P (MAP) Pulse Ox O2 Delivery O2 Flow Rate FiO2 06/18/18 12:00 97.3 71 20 115/70 (85) 98 97.3 06/18/18 09:00 Nasal Cannula 2.0 06/18/18 09:00 69 110/68 06/18/18 08:33 98 Nasal Cannula 2.0 06/18/18 08:32 Nasal Cannula 2.0 06/18/18 08:31 71 20 Nasal Cannula 2.0 28 06/18/18 08:00 97.7 69 19 110/68 (82) 98 97.7 06/18/18 04:00 97.3 67 20 108/67 (81) 97 97.3 06/18/18 00:12 66 24 98 Nasal Cannula 2.0 28 06/18/18 00:00 98.3 71 20 117/64 (81) 97 98.3 06/17/18 21:17 98.2 06/17/18 21:00 Nasal Cannula 1.0 06/17/18 20:47 100.2 06/17/18 20:46 81 123/82 06/17/18 20:26 79 18 Nasal Cannula 2.0 28 06/17/18 20:26 96 Nasal Cannula 2.0 28 06/17/18 20:26 Nasal Cannula 2.0 28 06/17/18 20:00 100.2 81 18 123/82 (96) 99 100.2 06/17/18 16:00 98.0 79 18 122/69 (86) 96 98.0 Intake and Output 06/17/18 06/18/18 19:00 07:00 Intake Total 430 ml 860 ml Output Total 1 ml Balance 430 ml 859 ml IV Total 40 ml 380 ml Tube Feeding 390 ml 480 ml Output Urine Total 1 ml # Voids 5 # Bowel Movements 1 3 Laboratory Tests 06/18/18 06:20: White Blood Count 8.4, Red Blood Count 3.56L, Hemoglobin 10.3L, Hematocrit 30.9L , Mean Corpuscular Volume 87, Mean Corpuscular Hemoglobin 28.8, Mean Corpuscular Hemoglobin Concent 33.2, Red Cell Distribution Width 12.5, Platelet Count 233, Mean Platelet Volume 8.3, Neutrophils (%) (Auto) 83.3H, Lymphocytes ( %) (Auto) 6.6L, Monocytes (%) (Auto) 8.6, Eosinophils (%) (Auto) 1.4, Basophils (%) (Auto) 0.2, Sodium Level 142, Potassium Level 3.7, Chloride Level 111H, Carbon Dioxide Level 22, Anion Gap 9, Blood Urea Nitrogen 15, Creatinine 1.0, Estimat Glomerular Filtration Rate , Glucose Level 101, Calcium Level 7.7L 06/18/18 09:00: Prothrombin Time 14.7H, Prothromb Time International Ratio 1.4H, Activated Partial Thromboplast Time 39H Height (Feet): 5 Height (Inches): 7.00 Weight (Pounds): 135 General Appearance: no apparent distress, lethargic, confused Shey Gutierrez MD Jun 18, 2018 15:50
--- NOTE | 2018-06-18 15:53 | Pre-Procedure Note/Attestation ---
Pre-Procedure Note/Attestation Complete Prior to Procedure Planned Procedure: not applicable Procedure Narrative: US guided liver bx Indications for Procedure Pre-Operative Diagnosis: liver masses Attestation I attest that I discussed the nature of the procedure; its benefits; risks and complications; and alternatives (and the risks and benefits of such alternatives ), prior to the procedure, with the patient (or the patient's legal vendor representatives). I attest that, if there was a reasonable possibility of needing a blood transfusion, the patient (or the patient's legal vendor representatives) was given the [facility] standardized written summary, pursuant to the Madhu Kvng Blood Safety Act ([place] Health and Safety Code # 1645, as amended). I attest that I re-evaluated the patient just prior to the surgery and that there has been no change in the patient's H&P, except as documented below: Discussed with son by phone at approx 3 P.M. Dean Lisa MD Jun 18, 2018 15:53
[2018-06-18 16:00] VITALS: BP 112/62
--- NOTE | 2018-06-18 16:08 | Brief Operative Note ---
Immediate Post Operative Note Operative Note Pre-op Diagnosis: liver masses Procedure: US guided liver biopsy Post-op Diagnosis: same as pre-op Findings: consistent w/pre-op dx studies Surgeon: Naty LISA Specimen: yes - 4 18 guage cores Complications: none Condition: stable Fluids: none Implant(s) used?: No Dean Lisa MD Jun 18, 2018 16:08
[2018-06-18 20:00] VITALS: BP 105/68
[2018-06-19] VITALS: BP 118/74
[2018-06-19 04:00] VITALS: BP 126/71
[2018-06-19 07:48] LABS: BASOPHILS % (AUTO) 0.3 % (0.0-2.0); EOSINOPHILS % (AUTO) 0.2 % (0.0-3.0); HEMATOCRIT 33.3 % (42.0-52.0); HEMOGLOBIN 10.7 G/DL (14.2-18.0); LYMPHOCYTES % (AUTO) 9.3 % (20.0-45.0); MEAN CORPUSCULAR VOLUME 88 FL (80-99); MONOCYTES % (AUTO) 7.7 % (1.0-10.0); NEUTROPHILS % (AUTO) 82.5 % (45.0-75.0); PLATELET COUNT 274 K/UL (150-450); RED BLOOD COUNT 3.78 M/UL (4.70-6.10); RED CELL DISTRIBUTION WIDTH 13.1 % (11.6-14.8); WHITE BLOOD COUNT 9.6 K/UL (4.8-10.8)
[2018-06-19 08:00] VITALS: BP 126/71
[2018-06-19 08:01] LABS: ANION GAP 9 mmol/L (5-15); BLOOD UREA NITROGEN 20 mg/dL (7-18); CALCIUM 8.3 MG/DL (8.5-10.1); CARBON DIOXIDE 23 MMOL/L (21-32); CHLORIDE 109 MMOL/L (98-107); CREATININE 1.1 MG/DL (0.55-1.30); POTASSIUM 4.3 MMOL/L (3.5-5.1); SODIUM 141 MMOL/L (136-145)
--- NOTE | 2018-06-19 08:07 | General Progress Note ---
Assessment/Plan Problem List: (1) Metastatic cancer ICD Codes: C79.9 - Secondary malignant neoplasm of unspecified site SNOMED: 664419030 (2) Encephalopathy due to metabolic factor or toxin SNOMED: 752834856 (3) Lung nodule, multiple ICD Codes: R91.8 - Other nonspecific abnormal finding of lung field SNOMED: 330163036 (4) Aspiration pneumonia ICD Codes: J69.0 - Pneumonitis due to inhalation of food and vomit SNOMED: 083638185 (5) Seizure disorder ICD Codes: G40.909 - Epilepsy, unspecified, not intractable, without status epilepticus SNOMED: 431014155 Assessment/Plan OB stool positive, send additional iron deficient folate deficiency abdominal US reviewed >> multiple hepatic and splenic nodules, fu oncology ST evaluation reviewed >> recommend PEG hep panel negative POLST reviewed >> trial feedings only, will require consent from son for PEG s/p liver biopsy now patient is DNR pending PEG if family agrees NGTFs electrolyte correction monitor H&H, prn transfusions bowel regime ppi trend LFTs fu labs Subjective ROS Limited/Unobtainable: No Allergies: Coded Allergies: No Known Allergies (Unverified , 09/04/17) Objective Last 24 Hour Vital Signs Date Time Temp Pulse Resp B/P (MAP) Pulse Ox O2 Delivery O2 Flow Rate FiO2 06/19/18 04:00 98.3 86 20 126/71 (89) 99 98.3 06/19/18 00:00 98.9 83 20 118/74 (89) 98 98.9 06/18/18 21:00 Nasal Cannula 2.0 06/18/18 20:54 85 105/68 06/18/18 20:00 98.6 85 20 105/68 (80) 97 98.6 06/18/18 19:58 Nasal Cannula 2.0 28 06/18/18 19:58 97 Nasal Cannula 2.0 28 06/18/18 19:58 76 20 Nasal Cannula 2.0 28 06/18/18 18:28 98.6 06/18/18 17:58 99.1 06/18/18 16:00 99.1 89 20 112/62 (79) 99 99.1 06/18/18 12:00 97.3 71 20 115/70 (85) 98 97.3 06/18/18 09:00 Nasal Cannula 2.0 06/18/18 09:00 69 110/68 06/18/18 08:33 98 Nasal Cannula 2.0 28 06/18/18 08:32 Nasal Cannula 2.0 28 06/18/18 08:31 71 20 Nasal Cannula 2.0 28 Intake and Output 06/18/18 06/19/18 19:00 07:00 Intake Total 915 ml 1130 ml Output Total 650 ml 300 ml Balance 265 ml 830 ml Free Water 90 ml IV Total 395 ml 380 ml Tube Feeding 520 ml 660 ml Output Urine Total 650 ml 300 ml # Bowel Movements 2 Laboratory Tests 06/18/18 09:00: Prothrombin Time 14.7H, Prothromb Time International Ratio 1.4H, Activated Partial Thromboplast Time 39H 06/19/18 06:30: White Blood Count 9.6, Red Blood Count 3.78L, Hemoglobin 10.7L, Hematocrit 33.3L , Mean Corpuscular Volume 88, Mean Corpuscular Hemoglobin 28.3, Mean Corpuscular Hemoglobin Concent 32.2, Red Cell Distribution Width 13.1, Platelet Count 274, Mean Platelet Volume 7.8, Neutrophils (%) (Auto) 82.5H, Lymphocytes ( %) (Auto) 9.3L, Monocytes (%) (Auto) 7.7, Eosinophils (%) (Auto) 0.2, Basophils (%) (Auto) 0.3, Sodium Level 141, Potassium Level 4.3, Chloride Level 109H, Carbon Dioxide Level 23, Anion Gap 9, Blood Urea Nitrogen 20H, Creatinine 1.1, Estimat Glomerular Filtration Rate , Glucose Level 100, Calcium Level 8.3L Height (Feet): 5 Height (Inches): 7.00 Weight (Pounds): 134 General Appearance: no apparent distress EENT: normal ENT inspection Neck: supple Cardiovascular: normal rate Respiratory/Chest: decreased breath sounds Abdomen: non tender, soft Extremities: non-tender Vni Pineda MD Jun 19, 2018 08:07
--- NOTE | 2018-06-19 08:22 | Pulmonology Progress Note ---
Assessment/Plan Assessment/Plan PLAN OF CARE Metastatic cancer Aspiration pneumonia ARF/ possibly ATN - improving Dehydration Lung nodules, multiple Seizure disorder Severe malnutrition Hx of CVA Advanced dementia Iron deficiency anemia Folate deficiency anemia Acute hypernatremia-resolved PLAN OF CARE [place] floor IVF CT C/A/P with evidence of disseminated wide spread malignancy , with numerous bilateral lung masses, possible right-sided pleural masses, hilar lymphadenopathy, subcutaneous nodules, splenic masses and multiple liver masses o CA 19-9 elevated-73 s/p CT guided liver biopsy 06/18, f/ up with pathology report onco follows discussed with son, don't want heroic measures DNR/DNI status DVT prophylaxis pain management prn O2 HHN prn abx ID follows a/tussive prn strict aspiration precautions, NGT feeding swallow eval done and ST recommended G tube GI follows would not recommend G tube in patient with advanced dementia and metastatic Ca, DNR status - but per family final decision BP management with BB seizure precautions, continue Keppra ECHO with pEF 60-65% GI prophylaxis monitor HH with goal to keep Hgb above 7, anemia w/up c/w iron deficiency and folate deficiency on Folic acid supplements and IV Venofer nephro follows monitor renal parameters, lytes, correct lytes as needed, avoid nephrotoxic, ARF improving, likely due to dehydration bowel regimen dietary recommendations implemented in plan of care supportive care overall prognosis poor case discussed and evaluated by supervising physician Subjective Allergies: Coded Allergies: No Known Allergies (Unverified , 09/04/17) Subjective pulse ox stable on O2 via NC, no signs of resp distress creat down to normal s/p liver biopsy yesterday Objective Last 24 Hour Vital Signs Date Time Temp Pulse Resp B/P (MAP) Pulse Ox O2 Delivery O2 Flow Rate FiO2 06/19/18 08:00 97.8 87 18 126/71 (89) 95 97.8 06/19/18 04:00 98.3 86 20 126/71 (89) 99 98.3 06/19/18 00:00 98.9 83 20 118/74 (89) 98 98.9 06/18/18 21:00 Nasal Cannula 2.0 06/18/18 20:54 85 105/68 06/18/18 20:00 98.6 85 20 105/68 (80) 97 98.6 06/18/18 19:58 Nasal Cannula 2.0 28 06/18/18 19:58 97 Nasal Cannula 2.0 28 06/18/18 19:58 76 20 Nasal Cannula 2.0 28 06/18/18 18:28 98.6 06/18/18 17:58 99.1 06/18/18 16:00 99.1 89 20 112/62 (79) 99 99.1 06/18/18 12:00 97.3 71 20 115/70 (85) 98 97.3 06/18/18 09:00 Nasal Cannula 2.0 06/18/18 09:00 69 110/68 06/18/18 08:33 98 Nasal Cannula 2.0 28 06/18/18 08:32 Nasal Cannula 2.0 28 06/18/18 08:31 71 20 Nasal Cannula 2.0 28 Intake and Output 06/18/18 06/19/18 19:00 07:00 Intake Total 915 ml 1130 ml Output Total 650 ml 300 ml Balance 265 ml 830 ml Free Water 90 ml IV Total 395 ml 380 ml Tube Feeding 520 ml 660 ml Output Urine Total 650 ml 300 ml # Bowel Movements 2 General Appearance: no acute distress, cachetic - chronically ill looking, poorly responsive bedridden male HEENT: normocephalic, atraumatic, other - NGT Respiratory/Chest: decreased breath sounds Cardiovascular: normal rate Abdomen: normal bowel sounds, soft, non tender Extremities: no edema, pedal pulses normal Neurologic/Psychiatric: abnormal gait, other - poorly responsive, Musculoskeletal: atrophy - BLE Microbiology Date/Time Source Procedure Growth Status 06/16/18 08:50 Blood Blood Culture - Preliminary NO GROWTH AFTER 24 HOURS Resulted 06/16/18 08:40 Blood Blood Culture - Preliminary NO GROWTH AFTER 24 HOURS Resulted Laboratory Tests 06/18/18 09:00: Prothrombin Time 14.7H, Prothromb Time International Ratio 1.4H, Activated Partial Thromboplast Time 39H 06/19/18 06:30: White Blood Count 9.6, Red Blood Count 3.78L, Hemoglobin 10.7L, Hematocrit 33.3L , Mean Corpuscular Volume 88, Mean Corpuscular Hemoglobin 28.3, Mean Corpuscular Hemoglobin Concent 32.2, Red Cell Distribution Width 13.1, Platelet Count 274, Mean Platelet Volume 7.8, Neutrophils (%) (Auto) 82.5H, Lymphocytes ( %) (Auto) 9.3L, Monocytes (%) (Auto) 7.7, Eosinophils (%) (Auto) 0.2, Basophils (%) (Auto) 0.3, Sodium Level 141, Potassium Level 4.3, Chloride Level 109H, Carbon Dioxide Level 23, Anion Gap 9, Blood Urea Nitrogen 20H, Creatinine 1.1, Estimat Glomerular Filtration Rate , Glucose Level 100, Calcium Level 8.3L Current Medications Medications (Trade) Dose Ordered Sig/Manav Route PRN Reason Start Time Stop Time Status Last Admin Dose Admin Acetaminophen (Tylenol) 650 mg Q4H PRN ORAL fever (temp>100.5F) 06/16/18 17:15 07/14/18 13:14 06/18/18 17:58 Albuterol/ Ipratropium (Albuterol/ Ipratropium) 3 ml Q4H PRN HHN Shortness of Breath 06/16/18 17:15 06/19/18 13:14 06/18/18 00:13 Cefepime HCl 1 gm/ Dextrose 55 ml @ 110 mls/hr DAILY IV 06/17/18 09:00 06/21/18 17:59 06/18/18 09:25 Dextrose 1,000 ml @ 20 mls/hr Q24H IV 06/17/18 16:00 07/14/18 15:59 06/18/18 17:36 Fluoxetine HCl (PROzac) 20 mg DAILY ORAL 06/17/18 09:00 07/17/18 08:59 06/18/18 09:26 Folic Acid (Folate) 2 mg DAILY ORAL 06/17/18 09:00 07/15/18 08:59 06/18/18 09:26 Heparin Sodium (Porcine) (Heparin 5000 units/ml) 5,000 units EVERY 12 HOURS SUBQ 06/16/18 21:00 07/14/18 20:59 06/18/18 20:55 Levetiracetam (Keppra) 500 mg Q12HR ORAL 06/16/18 21:00 07/14/18 20:59 06/18/18 20:53 Lidocaine HCl (Xylocaine 1% 30ml) 30 ml ONCE PRN INJ ULTRASOUND BIOPSY 06/18/18 12:35 06/19/18 23:59 Metoprolol Tartrate (Lopressor) 25 mg Q12HR ORAL 06/16/18 21:00 07/16/18 20:59 06/18/18 20:54 Metronidazole 100 ml @ 100 mls/hr Q8HR IVPB 06/16/18 22:00 06/22/18 13:59 06/19/18 05:50 Nitroglycerin (Ntg) 0.4 mg Q5M PRN SL Prn Chest Pain 06/16/18 16:30 07/14/18 13:14 Ondansetron HCl (Zofran) 4 mg Q6H PRN IVP Nausea & Vomiting 06/16/18 17:00 07/14/18 16:59 Pantoprazole (Protonix) 40 mg DAILY IVP 06/17/18 09:00 07/15/18 08:59 06/18/18 09:27 Polyethylene Glycol (Miralax) 17 gm DAILYPRN PRN ORAL Constipation 06/17/18 17:00 07/14/18 16:59 Promethazine HCl/ Codeine (Phenergan with Codeine) 5 ml Q4H PRN ORAL For Cough 06/16/18 17:15 07/14/18 13:14 06/17/18 20:49 Temazepam (Restoril) 15 mg HSPRN PRN ORAL Insomnia 06/16/18 21:00 06/23/18 20:59 Merle Marinelli NP Jun 19, 2018 08:22
[2018-06-19] MEDS: Cefepime HCl 1 GM in D5W 55 ML IV SCH (08:27)
[2018-06-19] MEDS: Metoprolol 25mg tab ORAL SCH ×2 (08:28→20:38)
[2018-06-19] MEDS: Heparin 5000 units/ml inj SUBQ SCH ×2 (08:29→20:45)
[2018-06-19] MEDS: Pantoprazole Inj IVP SCH (08:30)
--- NOTE | 2018-06-19 08:57 | General Progress Note ---
Assessment/Plan Problem List: (1) Dehydration ICD Codes: E86.0 - Dehydration SNOMED: 14570505 (2) Pneumonia ICD Codes: J18.9 - Pneumonia, unspecified organism SNOMED: 427922522 (3) Generalized weakness ICD Codes: R53.1 - Weakness SNOMED: 41368131 (4) Failure to thrive SNOMED: 32162305 (5) Renal insufficiency ICD Codes: N28.9 - Disorder of kidney and ureter, unspecified SNOMED: 053122899, 612936153 (6) ATN (acute tubular necrosis) ICD Codes: N17.0 - Acute kidney failure with tubular necrosis SNOMED: 95430686 Status: unchanged Assessment/Plan o2 pulm tx abx ot pt diet cbc bmp am heme eval possible peg Subjective Constitutional: Reports: weakness Allergies: Coded Allergies: No Known Allergies (Unverified , 09/04/17) All Systems: reviewed and negative except above Subjective o2nc ng Objective Last 24 Hour Vital Signs Date Time Temp Pulse Resp B/P (MAP) Pulse Ox O2 Delivery O2 Flow Rate FiO2 06/19/18 08:28 87 126/71 06/19/18 08:00 97.8 87 18 126/71 (89) 95 97.8 06/19/18 04:00 98.3 86 20 126/71 (89) 99 98.3 06/19/18 00:00 98.9 83 20 118/74 (89) 98 98.9 06/18/18 21:00 Nasal Cannula 2.0 06/18/18 20:54 85 105/68 06/18/18 20:00 98.6 85 20 105/68 (80) 97 98.6 06/18/18 19:58 Nasal Cannula 2.0 28 06/18/18 19:58 97 Nasal Cannula 2.0 28 06/18/18 19:58 76 20 Nasal Cannula 2.0 28 06/18/18 18:28 98.6 06/18/18 17:58 99.1 06/18/18 16:00 99.1 89 20 112/62 (79) 99 99.1 06/18/18 12:00 97.3 71 20 115/70 (85) 98 97.3 06/18/18 09:00 Nasal Cannula 2.0 06/18/18 09:00 69 110/68 Intake and Output 06/18/18 06/19/18 19:00 07:00 Intake Total 915 ml 1130 ml Output Total 650 ml 300 ml Balance 265 ml 830 ml Free Water 90 ml IV Total 395 ml 380 ml Tube Feeding 520 ml 660 ml Output Urine Total 650 ml 300 ml # Bowel Movements 2 Laboratory Tests 06/18/18 09:00: Prothrombin Time 14.7H, Prothromb Time International Ratio 1.4H, Activated Partial Thromboplast Time 39H 06/19/18 06:30: White Blood Count 9.6, Red Blood Count 3.78L, Hemoglobin 10.7L, Hematocrit 33.3L , Mean Corpuscular Volume 88, Mean Corpuscular Hemoglobin 28.3, Mean Corpuscular Hemoglobin Concent 32.2, Red Cell Distribution Width 13.1, Platelet Count 274, Mean Platelet Volume 7.8, Neutrophils (%) (Auto) 82.5H, Lymphocytes ( %) (Auto) 9.3L, Monocytes (%) (Auto) 7.7, Eosinophils (%) (Auto) 0.2, Basophils (%) (Auto) 0.3, Sodium Level 141, Potassium Level 4.3, Chloride Level 109H, Carbon Dioxide Level 23, Anion Gap 9, Blood Urea Nitrogen 20H, Creatinine 1.1, Estimat Glomerular Filtration Rate , Glucose Level 100, Calcium Level 8.3L Height (Feet): 5 Height (Inches): 7.00 Weight (Pounds): 134 General Appearance: lethargic EENT: normal ENT inspection Neck: normal alignment Cardiovascular: normal peripheral pulses, normal rate, regular rhythm Respiratory/Chest: chest wall non-tender, lungs clear, normal breath sounds Abdomen: normal bowel sounds, non tender, soft Extremities: normal inspection Edema: no edema noted Arm (L), no edema noted Arm (R), no edema noted Leg (L), no edema noted Leg (R), no edema noted Pedal (L), no edema noted Pedal (R), no edema noted Generalized Neurologic: motor weakness Skin: normal pigmentation, warm/dry Jacques Heaton DO Jun 19, 2018 08:57
--- NOTE | 2018-06-19 09:45 | Nephrology Progress Note ---
Assessment/Plan Problem List: (1) Dehydration (2) Acute hypernatremia (3) Renal insufficiency (4) Severe malnutrition (5) Metastatic cancer Assessment Renal Failure- Dehydration, Hypernatremia Malnutrition / Hypoalbuminemia Pneumonia / Aspiration / Multi lung nodules Seizure disorder Cerebrovascular accident (CVA) Advanced dementia Plan K and Phos replaced- D5W Antibiotics monitor lytes and renal parameters pulm support PO Folate DNR ? DC planning Subjective ROS Limited/Unobtainable: Yes Objective Objective Last 24 Hour Vital Signs Date Time Temp Pulse Resp B/P (MAP) Pulse Ox O2 Delivery O2 Flow Rate FiO2 06/19/18 08:28 87 126/71 06/19/18 08:00 97.8 87 18 126/71 (89) 95 97.8 06/19/18 04:00 98.3 86 20 126/71 (89) 99 98.3 06/19/18 00:00 98.9 83 20 118/74 (89) 98 98.9 06/18/18 21:00 Nasal Cannula 2.0 06/18/18 20:54 85 105/68 06/18/18 20:00 98.6 85 20 105/68 (80) 97 98.6 06/18/18 19:58 Nasal Cannula 2.0 28 06/18/18 19:58 97 Nasal Cannula 2.0 28 06/18/18 19:58 76 20 Nasal Cannula 2.0 28 06/18/18 18:28 98.6 06/18/18 17:58 99.1 06/18/18 16:00 99.1 89 20 112/62 (79) 99 99.1 06/18/18 12:00 97.3 71 20 115/70 (85) 98 97.3 Intake and Output 06/18/18 06/19/18 19:00 07:00 Intake Total 915 ml 1130 ml Output Total 650 ml 300 ml Balance 265 ml 830 ml Free Water 90 ml IV Total 395 ml 380 ml Tube Feeding 520 ml 660 ml Output Urine Total 650 ml 300 ml # Bowel Movements 2 Laboratory Tests 06/19/18 06:30: White Blood Count 9.6, Red Blood Count 3.78L, Hemoglobin 10.7L, Hematocrit 33.3L , Mean Corpuscular Volume 88, Mean Corpuscular Hemoglobin 28.3, Mean Corpuscular Hemoglobin Concent 32.2, Red Cell Distribution Width 13.1, Platelet Count 274, Mean Platelet Volume 7.8, Neutrophils (%) (Auto) 82.5H, Lymphocytes ( %) (Auto) 9.3L, Monocytes (%) (Auto) 7.7, Eosinophils (%) (Auto) 0.2, Basophils (%) (Auto) 0.3, Sodium Level 141, Potassium Level 4.3, Chloride Level 109H, Carbon Dioxide Level 23, Anion Gap 9, Blood Urea Nitrogen 20H, Creatinine 1.1, Estimat Glomerular Filtration Rate , Glucose Level 100, Calcium Level 8.3L Height (Feet): 5 Height (Inches): 7.00 Weight (Pounds): 134 General Appearance: mild distress EENT: other - NGT Cardiovascular: normal rate Respiratory/Chest: decreased breath sounds Abdomen: soft Objective no change Anthony Stockton MD Jun 19, 2018 09:45
--- NOTE | 2018-06-19 11:51 | Infectious Diseases Prog Note ---
Assessment/Plan Assessment/Plan 78 yo male sent to the ED from his [facility] after refusing med and food for a week per report. PNA - Possible aspiration vs CAP +ve blood cx : CoNS contaminant 2D echo : no Veg Lung Nodules and liver mass CT: Evidence of disseminated malignancy, with numerous bilateral lung masses, possible right-sided pleural masses, hilar lymphadenopathy, subcutaneous nodules, splenic masses and multiple liver masses - Likely CA given US - 06/18 SP Bx : P Fever resolved Leukocytosis - resolved Dysphagia HTN COPD Epilepsy Depression Schizophrenia Dementia CVA SC Anemia PLAN: Continue Cefepime # 5/7 (End Date 06/21/18) Continue Flagyl # 5 /7 (End Date 06/21/18) - 06/15 - SP Vancomycin - Blood Cx likely contaminant Monitor repeat blood CX - Liver Bx result Subjective Allergies: Coded Allergies: No Known Allergies (Unverified , 09/04/17) Subjective comfortable Objective Vital Signs Last 24 Hour Vital Signs Date Time Temp Pulse Resp B/P (MAP) Pulse Ox O2 Delivery O2 Flow Rate FiO2 06/19/18 10:18 81 22 Nasal Cannula 2.0 06/19/18 10:18 96 Nasal Cannula 2.0 28 06/19/18 10:18 Nasal Cannula 2.0 28 06/19/18 09:00 Nasal Cannula 2.0 06/19/18 08:28 87 126/71 06/19/18 08:00 97.8 87 18 126/71 (89) 95 97.8 06/19/18 04:00 98.3 86 20 126/71 (89) 99 98.3 06/19/18 00:00 98.9 83 20 118/74 (89) 98 98.9 06/18/18 21:00 Nasal Cannula 2.0 06/18/18 20:54 85 105/68 06/18/18 20:00 98.6 85 20 105/68 (80) 97 98.6 06/18/18 19:58 Nasal Cannula 2.0 28 06/18/18 19:58 97 Nasal Cannula 2.0 28 06/18/18 19:58 76 20 Nasal Cannula 2.0 28 06/18/18 18:28 98.6 06/18/18 17:58 99.1 06/18/18 16:00 99.1 89 20 112/62 (79) 99 99.1 06/18/18 12:00 97.3 71 20 115/70 (85) 98 97.3 Height (Feet): 5 Height (Inches): 7.00 Weight (Pounds): 122 HEENT: anicteric Respiratory/Chest: no respiratory distress Cardiovascular: regularly irregular Abdomen: no organomegaly Laboratory Tests Test 06/19/18 06:30 White Blood Count 9.6 K/UL (4.8-10.8) Red Blood Count 3.78 M/UL (4.70-6.10) L Hemoglobin 10.7 G/DL (14.2-18.0) L Hematocrit 33.3 % (42.0-52.0) L Mean Corpuscular Volume 88 FL (80-99) Mean Corpuscular Hemoglobin 28.3 PG (27.0-31.0) Mean Corpuscular Hemoglobin Concent 32.2 G/DL (32.0-36.0) Red Cell Distribution Width 13.1 % (11.6-14.8) Platelet Count 274 K/UL (150-450) Mean Platelet Volume 7.8 FL (6.5-10.1) Neutrophils (%) (Auto) 82.5 % (45.0-75.0) H Lymphocytes (%) (Auto) 9.3 % (20.0-45.0) L Monocytes (%) (Auto) 7.7 % (1.0-10.0) Eosinophils (%) (Auto) 0.2 % (0.0-3.0) Basophils (%) (Auto) 0.3 % (0.0-2.0) Sodium Level 141 MMOL/L (136-145) Potassium Level 4.3 MMOL/L (3.5-5.1) Chloride Level 109 MMOL/L (98-107) H Carbon Dioxide Level 23 MMOL/L (21-32) Anion Gap 9 mmol/L (5-15) Blood Urea Nitrogen 20 mg/dL (7-18) H Creatinine 1.1 MG/DL (0.55-1.30) Estimat Glomerular Filtration Rate mL/min (>60) Glucose Level 100 MG/DL (74-106) Calcium Level 8.3 MG/DL (8.5-10.1) L Current Medications Medications (Trade) Dose Ordered Sig/Manav Route PRN Reason Start Time Stop Time Status Last Admin Dose Admin Acetaminophen (Tylenol) 650 mg Q4H PRN ORAL fever (temp>100.5F) 06/16/18 17:15 07/14/18 13:14 06/18/18 17:58 Albuterol/ Ipratropium (Albuterol/ Ipratropium) 3 ml Q4H PRN HHN Shortness of Breath 06/16/18 17:15 06/19/18 13:14 06/18/18 00:13 Cefepime HCl 1 gm/ Dextrose 55 ml @ 110 mls/hr DAILY IV 06/17/18 09:00 06/21/18 17:59 06/19/18 08:27 Dextrose 1,000 ml @ 20 mls/hr Q24H IV 06/17/18 16:00 07/14/18 15:59 06/18/18 17:36 Fluoxetine HCl (PROzac) 20 mg DAILY ORAL 06/17/18 09:00 07/17/18 08:59 06/19/18 08:28 Folic Acid (Folate) 2 mg DAILY ORAL 06/17/18 09:00 07/15/18 08:59 06/19/18 08:28 Heparin Sodium (Porcine) (Heparin 5000 units/ml) 5,000 units EVERY 12 HOURS SUBQ 06/16/18 21:00 07/14/18 20:59 06/19/18 08:29 Levetiracetam (Keppra) 500 mg Q12HR ORAL 06/16/18 21:00 07/14/18 20:59 06/19/18 08:27 Lidocaine HCl (Xylocaine 1% 30ml) 30 ml ONCE PRN INJ ULTRASOUND BIOPSY 06/18/18 12:35 06/19/18 23:59 Metoprolol Tartrate (Lopressor) 25 mg Q12HR ORAL 06/16/18 21:00 07/16/18 20:59 06/19/18 08:28 Metronidazole (Flagyl) 500 mg Q8H ORAL 06/19/18 14:00 06/26/18 13:59 Nitroglycerin (Ntg) 0.4 mg Q5M PRN SL Prn Chest Pain 06/16/18 16:30 07/14/18 13:14 Ondansetron HCl (Zofran) 4 mg Q6H PRN IVP Nausea & Vomiting 06/16/18 17:00 07/14/18 16:59 Pantoprazole (Protonix) 40 mg DAILY IVP 06/17/18 09:00 07/15/18 08:59 06/19/18 08:30 Polyethylene Glycol (Miralax) 17 gm DAILYPRN PRN ORAL Constipation 06/17/18 17:00 07/14/18 16:59 Promethazine HCl/ Codeine (Phenergan with Codeine) 5 ml Q4H PRN ORAL For Cough 06/16/18 17:15 07/14/18 13:14 06/17/18 20:49 Temazepam (Restoril) 15 mg HSPRN PRN ORAL Insomnia 06/16/18 21:00 06/23/18 20:59 Colten Key MD Jun 19, 2018 11:51
[2018-06-19 12:00] VITALS: BP 119/69
--- NOTE | 2018-06-19 14:21 | General Progress Note ---
Assessment/Plan Assessment/Plan # Disseminated malignancy wide spread, with numerous bilateral lung masses, possible right-sided pleural masses, hilar lymphadenopathy, subcutaneous nodules , splenic masses and multiple liver masses on CT C/A/P has been reviewed --> Final report of biopsy is pending, results to be uploaded shortly by pathologist ([facility]) --> dw pcp and with patient plan in after results are obtained --> tumor markers have been ordered. CA 19.9 is 73 --> patient and son does not want heroic measures, is DNR --> peg if needed per family # Severe malnutrition --> consider appetite stimulant --> monitor weight improvement prn --> gi recs appreciated # Anemia of iron deficiency --> continue patient on Iv iton --> total of 4 doses of iv iron # Acute hypernatremia # Dehydration--> IVF prn # Pneumonia # Generalized weakness # Failure to thrive DW Attending and RN Greatly appreciate consultation. Subjective Constitutional: Denies: no symptoms, chills, diaphoresis, fever, malaise, weakness, other Cardiovascular: Denies: no symptoms, chest pain, edema, irregular heart rate, lightheadedness, palpitations, syncope, other Gastrointestinal/Abdominal: Denies: no symptoms, abdomen distended, abdominal pain, black stools, tarry stools, blood in stool, constipated, diarrhea, difficulty swallowing, nausea, poor appetite, poor fluid intake, rectal bleeding , vomiting, other Genitourinary: Denies: no symptoms, burning, discharge, frequency, flank pain, hematuria, incontinence, pain, urgency, other Neurologic/Psychiatric: Denies: no symptoms, anxiety, depressed, emotional problems, headache, numbness, paresthesia, pre-existing deficit, seizure, tingling, tremors, weakness, other Endocrine: Denies: no symptoms, excessive sweating, flushing, intolerance to cold, intolerance to heat, increased hunger, increased thirst, increased urine, unexplained weight gain, unexplained weight loss, other Hematologic/Lymphatic: Denies: no symptoms, anemia, easy bleeding, easy bruising, other Allergies: Coded Allergies: No Known Allergies (Unverified , 09/04/17) Subjective no events, biopsy showed malignancy, final report pending, remains DNR Objective Last 24 Hour Vital Signs Date Time Temp Pulse Resp B/P (MAP) Pulse Ox O2 Delivery O2 Flow Rate FiO2 06/19/18 12:00 98.1 74 16 119/69 (86) 98 98.1 06/19/18 10:18 81 22 Nasal Cannula 2.0 06/19/18 10:18 96 Nasal Cannula 2.0 06/19/18 10:18 Nasal Cannula 2.0 06/19/18 09:00 Nasal Cannula 2.0 06/19/18 08:28 87 126/71 06/19/18 08:00 97.8 87 18 126/71 (89) 95 97.8 06/19/18 04:00 98.3 86 20 126/71 (89) 99 98.3 06/19/18 00:00 98.9 83 20 118/74 (89) 98 98.9 06/18/18 21:00 Nasal Cannula 2.0 06/18/18 20:54 85 105/68 06/18/18 20:00 98.6 85 20 105/68 (80) 97 98.6 06/18/18 19:58 Nasal Cannula 2.0 06/18/18 19:58 97 Nasal Cannula 2.0 06/18/18 19:58 76 20 Nasal Cannula 2.0 06/18/18 18:28 98.6 06/18/18 17:58 99.1 06/18/18 16:00 99.1 89 20 112/62 (79) 99 99.1 Intake and Output 06/18/18 06/19/18 19:00 07:00 Intake Total 915 ml 1130 ml Output Total 650 ml 300 ml Balance 265 ml 830 ml Free Water 90 ml IV Total 395 ml 380 ml Tube Feeding 520 ml 660 ml Output Urine Total 650 ml 300 ml # Bowel Movements 2 Laboratory Tests 06/19/18 06:30: White Blood Count 9.6, Red Blood Count 3.78L, Hemoglobin 10.7L, Hematocrit 33.3L , Mean Corpuscular Volume 88, Mean Corpuscular Hemoglobin 28.3, Mean Corpuscular Hemoglobin Concent 32.2, Red Cell Distribution Width 13.1, Platelet Count 274, Mean Platelet Volume 7.8, Neutrophils (%) (Auto) 82.5H, Lymphocytes ( %) (Auto) 9.3L, Monocytes (%) (Auto) 7.7, Eosinophils (%) (Auto) 0.2, Basophils (%) (Auto) 0.3, Sodium Level 141, Potassium Level 4.3, Chloride Level 109H, Carbon Dioxide Level 23, Anion Gap 9, Blood Urea Nitrogen 20H, Creatinine 1.1, Estimat Glomerular Filtration Rate , Glucose Level 100, Calcium Level 8.3L Height (Feet): 5 Height (Inches): 7.00 Weight (Pounds): 122 General Appearance: confused EENT: pharynx normal Neck: normal alignment Cardiovascular: regular rhythm Respiratory/Chest: lungs clear Abdomen: no mass Extremities: non-tender Edema: 1+ Leg (L), 1+ Leg (R) Neurologic: responsive Skin: warm/dry Jalen Webster MD Jun 19, 2018 14:21
--- NOTE | 2018-06-19 14:40 | General Surgery Progress Note ---
General Surgery-Progress Note Subjective Additional Comments no acute events Objective Last 24 Hour Vital Signs Date Time Temp Pulse Resp B/P (MAP) Pulse Ox O2 Delivery O2 Flow Rate FiO2 06/19/18 12:00 98.1 74 16 119/69 (86) 98 98.1 06/19/18 10:18 81 22 Nasal Cannula 2.0 28 06/19/18 10:18 96 Nasal Cannula 2.0 28 06/19/18 10:18 Nasal Cannula 2.0 06/19/18 09:00 Nasal Cannula 2.0 06/19/18 08:28 87 126/71 06/19/18 08:00 97.8 87 18 126/71 (89) 95 97.8 06/19/18 04:00 98.3 86 20 126/71 (89) 99 98.3 06/19/18 00:00 98.9 83 20 118/74 (89) 98 98.9 06/18/18 21:00 Nasal Cannula 2.0 06/18/18 20:54 85 105/68 06/18/18 20:00 98.6 85 20 105/68 (80) 97 98.6 06/18/18 19:58 Nasal Cannula 2.0 28 06/18/18 19:58 97 Nasal Cannula 2.0 28 06/18/18 19:58 76 20 Nasal Cannula 2.0 28 06/18/18 18:28 98.6 06/18/18 17:58 99.1 06/18/18 16:00 99.1 89 20 112/62 (79) 99 99.1 I&O Intake and Output 06/18/18 06/19/18 19:00 07:00 Intake Total 915 ml 1130 ml Output Total 650 ml 300 ml Balance 265 ml 830 ml Free Water 90 ml IV Total 395 ml 380 ml Tube Feeding 520 ml 660 ml Output Urine Total 650 ml 300 ml # Bowel Movements 2 Dressing: other Wound: other Drains: other Cardiovascular: RSR Respiratory: clear Abdomen: soft, flat, non-tender, present bowel sounds Extremities: other Laboratory Tests Test 06/19/18 06:30 White Blood Count 9.6 K/UL (4.8-10.8) Red Blood Count 3.78 M/UL (4.70-6.10) L Hemoglobin 10.7 G/DL (14.2-18.0) L Hematocrit 33.3 % (42.0-52.0) L Mean Corpuscular Volume 88 FL (80-99) Mean Corpuscular Hemoglobin 28.3 PG (27.0-31.0) Mean Corpuscular Hemoglobin Concent 32.2 G/DL (32.0-36.0) Red Cell Distribution Width 13.1 % (11.6-14.8) Platelet Count 274 K/UL (150-450) Mean Platelet Volume 7.8 FL (6.5-10.1) Neutrophils (%) (Auto) 82.5 % (45.0-75.0) H Lymphocytes (%) (Auto) 9.3 % (20.0-45.0) L Monocytes (%) (Auto) 7.7 % (1.0-10.0) Eosinophils (%) (Auto) 0.2 % (0.0-3.0) Basophils (%) (Auto) 0.3 % (0.0-2.0) Sodium Level 141 MMOL/L (136-145) Potassium Level 4.3 MMOL/L (3.5-5.1) Chloride Level 109 MMOL/L (98-107) H Carbon Dioxide Level 23 MMOL/L (21-32) Anion Gap 9 mmol/L (5-15) Blood Urea Nitrogen 20 mg/dL (7-18) H Creatinine 1.1 MG/DL (0.55-1.30) Estimat Glomerular Filtration Rate mL/min (>60) Glucose Level 100 MG/DL (74-106) Calcium Level 8.3 MG/DL (8.5-10.1) L Plan Problems: (1) Lung nodule, multiple Assessment & Plan: abnormal lft's, leukocytosis. GI procedures on hold because of cardiac clearance Hepatitis panel pending US Abdomen: Multiple hepatic and splenic masses, as described. 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 However, in view of the splenic involvement, the possibility that this represents multiple abscesses should also be considered Fluid structure in the gallbladder fossa probably but not definitively represents a nondistended gallbladder. This possibly contains gallstones. Soft tissue echogenicity area within the apparent lumen could represent tumefactive sludge, polyp, or, given the above findings, neoplasm Multiple lung nodules. etiology unknown. CT C/A/P reviewed. Metastatic disease everywhere. small right chest wall anterior lateral nodule noted. Pending pathology report from liver biopsy thank you. will follow with recs. Rudolph Solis Jun 19, 2018 14:40
[2018-06-19] MEDS: metroNIDAZOLE 500mg tab ORAL SCH ×2 (15:22→21:51)
[2018-06-19 16:00] VITALS: BP 127/79
[2018-06-19 20:21] VITALS: BP 125/77
[2018-06-20] VITALS: BP 110/66
[2018-06-20 04:00] VITALS: BP 110/70
[2018-06-20] MEDS: metroNIDAZOLE 500mg tab ORAL SCH ×3 (05:10→21:28)
--- NOTE | 2018-06-20 06:41 | General Progress Note ---
Assessment/Plan Problem List: (1) Metastatic cancer ICD Codes: C79.9 - Secondary malignant neoplasm of unspecified site SNOMED: 247394653 (2) Encephalopathy due to metabolic factor or toxin SNOMED: 464569981 (3) Lung nodule, multiple ICD Codes: R91.8 - Other nonspecific abnormal finding of lung field SNOMED: 690343849 (4) Aspiration pneumonia ICD Codes: J69.0 - Pneumonitis due to inhalation of food and vomit SNOMED: 400328126 (5) Seizure disorder ICD Codes: G40.909 - Epilepsy, unspecified, not intractable, without status epilepticus SNOMED: 568876636 Assessment/Plan OB stool positive, send additional iron deficient folate deficiency abdominal US reviewed >> multiple hepatic and splenic nodules, fu oncology ST evaluation reviewed >> recommend PEG hep panel negative POLST reviewed >> trial feedings only, will require consent from son for PEG s/p liver biopsy now patient is DNR pending PEG if family agrees NGTFs electrolyte correction monitor H&H, prn transfusions bowel regime ppi trend LFTs fu labs added reglan for elevated residuals plan PEG for tomorrow if family agrees Subjective ROS Limited/Unobtainable: No Allergies: Coded Allergies: No Known Allergies (Unverified , 09/04/17) Objective Last 24 Hour Vital Signs Date Time Temp Pulse Resp B/P (MAP) Pulse Ox O2 Delivery O2 Flow Rate FiO2 06/20/18 04:00 98.2 83 22 110/70 (83) 95 98.2 06/20/18 00:00 99.5 87 21 110/66 (81) 93 99.5 06/19/18 22:06 96 Nasal Cannula 2.0 28 06/19/18 22:06 Nasal Cannula 2.0 28 06/19/18 22:05 82 21 Nasal Cannula 2.0 28 06/19/18 21:08 99.0 06/19/18 20:53 Nasal Cannula 2.0 06/19/18 20:38 83 125/77 06/19/18 20:38 100.4 06/19/18 20:21 100.4 83 23 125/77 (93) 95 100.4 06/19/18 16:00 98.0 81 18 127/79 (95) 98 98.0 06/19/18 12:00 98.1 74 16 119/69 (86) 98 98.1 06/19/18 10:18 81 22 Nasal Cannula 2.0 06/19/18 10:18 96 Nasal Cannula 2.0 06/19/18 10:18 Nasal Cannula 2.0 06/19/18 09:00 Nasal Cannula 2.0 06/19/18 08:28 87 126/71 06/19/18 08:00 97.8 87 18 126/71 (89) 95 97.8 Intake and Output 06/19/18 06/20/18 19:00 07:00 Intake Total 555 ml 485 ml Balance 555 ml 485 ml Free Water 30 ml IV Total 225 ml 180 ml Tube Feeding 330 ml 275 ml # Bowel Movements 1 Height (Feet): 5 Height (Inches): 7.00 Weight (Pounds): 134 General Appearance: no apparent distress EENT: normal ENT inspection Neck: supple Cardiovascular: normal rate Respiratory/Chest: decreased breath sounds Abdomen: normal bowel sounds, non tender, soft Extremities: non-tender Vin Pienda MD Jun 20, 2018 06:41
--- NOTE | 2018-06-20 07:39 | Pulmonology Progress Note ---
Assessment/Plan Assessment/Plan PLAN OF CARE Metastatic cancer Aspiration pneumonia ARF/ possibly ATN - improving Dehydration Lung nodules, multiple Seizure disorder Severe malnutrition Hx of CVA Advanced dementia Iron deficiency anemia Folate deficiency anemia Acute hypernatremia-resolved PLAN OF CARE [facility] floor IVF CT C/A/P with evidence of disseminated wide spread malignancy , with numerous bilateral lung masses, possible right-sided pleural masses, hilar lymphadenopathy, subcutaneous nodules, splenic masses and multiple liver masses o CA 19-9 elevated-73 s/p CT guided liver biopsy 06/18, f/ up with pathology report onco follows discussed with son, don't want heroic measures DNR/DNI status DVT prophylaxis pain management prn O2 HHN prn abx ID follows a/tussive prn strict aspiration precautions, NGT feeding swallow eval done and ST recommended G tube GI follows would not recommend G tube in patient with advanced dementia and metastatic Ca, DNR status - but per family final decision BP management with BB seizure precautions, continue Keppra ECHO with pEF 60-65% GI prophylaxis monitor HH with goal to keep Hgb above 7, anemia w/up c/w iron deficiency and folate deficiency on folic acid supplements and IV Venofer nephro follows monitor renal parameters, lytes, correct lytes as needed, avoid nephrotoxic, ARF improving, likely due to dehydration bowel regimen dietary recommendations implemented in plan of care supportive care overall prognosis poor case discussed and evaluated by supervising physician Subjective Allergies: Coded Allergies: No Known Allergies (Unverified , 09/04/17) Subjective pulse ox stable on O2 via NC, no signs of resp distress DNR/DNI status Objective Last 24 Hour Vital Signs Date Time Temp Pulse Resp B/P (MAP) Pulse Ox O2 Delivery O2 Flow Rate FiO2 06/20/18 04:00 98.2 83 22 110/70 (83) 95 98.2 06/20/18 00:00 99.5 87 21 110/66 (81) 93 99.5 06/19/18 22:06 96 Nasal Cannula 2.0 06/19/18 22:06 Nasal Cannula 2.0 06/19/18 22:05 82 21 Nasal Cannula 2.0 06/19/18 21:08 99.0 06/19/18 20:53 Nasal Cannula 2.0 06/19/18 20:38 83 125/77 06/19/18 20:38 100.4 06/19/18 20:21 100.4 83 23 125/77 (93) 95 100.4 06/19/18 16:00 98.0 81 18 127/79 (95) 98 98.0 06/19/18 12:00 98.1 74 16 119/69 (86) 98 98.1 06/19/18 10:18 81 22 Nasal Cannula 2.0 28 06/19/18 10:18 96 Nasal Cannula 2.0 28 06/19/18 10:18 Nasal Cannula 2.0 28 06/19/18 09:00 Nasal Cannula 2.0 06/19/18 08:28 87 126/71 06/19/18 08:00 97.8 87 18 126/71 (89) 95 97.8 Intake and Output 06/19/18 06/20/18 19:00 07:00 Intake Total 555 ml 635 ml Balance 555 ml 635 ml Free Water 30 ml IV Total 225 ml 220 ml Tube Feeding 330 ml 385 ml # Voids 1 # Bowel Movements 1 Objective General Appearance: no acute distress, cachetic; chronically ill looking, poorly responsive bedridden male HEENT: normocephalic, atraumatic, other - NGT Respiratory/Chest: decreased breath sounds Cardiovascular: normal rate Abdomen: normal bowel sounds, soft, non tender Extremities: no edema, pedal pulses normal Neurologic/Psychiatric: abnormal gait, other - poorly responsive, Musculoskeletal: atrophy - BLE Current Medications Medications (Trade) Dose Ordered Sig/Manav Route PRN Reason Start Time Stop Time Status Last Admin Dose Admin Acetaminophen (Tylenol) 650 mg Q4H PRN ORAL fever (temp>100.5F) 06/16/18 17:15 07/14/18 13:14 06/19/18 20:38 Cefepime HCl 1 gm/ Dextrose 55 ml @ 110 mls/hr DAILY IV 06/17/18 09:00 06/21/18 17:59 06/19/18 08:27 Dextrose 1,000 ml @ 20 mls/hr Q24H IV 06/17/18 16:00 07/14/18 15:59 06/19/18 15:23 Fluoxetine HCl (PROzac) 20 mg DAILY ORAL 06/17/18 09:00 07/17/18 08:59 06/19/18 08:28 Folic Acid (Folate) 2 mg DAILY ORAL 06/17/18 09:00 07/15/18 08:59 06/19/18 08:28 Heparin Sodium (Porcine) (Heparin 5000 units/ml) 5,000 units EVERY 12 HOURS SUBQ 06/16/18 21:00 07/14/18 20:59 06/19/18 20:45 Levetiracetam (Keppra) 500 mg Q12HR ORAL 06/16/18 21:00 07/14/18 20:59 06/19/18 20:38 Metoclopramide HCl (Reglan) 10 mg EVERY 6 HOURS NG 06/20/18 12:00 07/20/18 11:59 Metoprolol Tartrate (Lopressor) 25 mg Q12HR ORAL 06/16/18 21:00 07/16/18 20:59 06/19/18 20:38 Metronidazole (Flagyl) 500 mg Q8H ORAL 06/19/18 14:00 06/26/18 13:59 06/20/18 05:10 Nitroglycerin (Ntg) 0.4 mg Q5M PRN SL Prn Chest Pain 06/16/18 16:30 07/14/18 13:14 Ondansetron HCl (Zofran) 4 mg Q6H PRN IVP Nausea & Vomiting 06/16/18 17:00 07/14/18 16:59 Pantoprazole (Protonix) 40 mg DAILY IVP 06/17/18 09:00 07/15/18 08:59 06/19/18 08:30 Polyethylene Glycol (Miralax) 17 gm DAILYPRN PRN ORAL Constipation 06/17/18 17:00 07/14/18 16:59 Temazepam (Restoril) 15 mg HSPRN PRN ORAL Insomnia 06/16/18 21:00 06/23/18 20:59 Merle Marinelli [employer]IST Jun 20, 2018 07:39
[2018-06-20] MEDS ORDERED: Albuterol/Ipratropium 3ml neb HHN PRN (07:45)
[2018-06-20 08:00] VITALS: BP 127/73
[2018-06-20 08:24] LABS: HEMATOCRIT 31.4 % (42.0-52.0); MEAN CORPUSCULAR VOLUME 88 FL (80-99); PLATELET COUNT 254 K/UL (150-450); RED BLOOD COUNT 3.59 M/UL (4.70-6.10); RED CELL DISTRIBUTION WIDTH 13.4 % (11.6-14.8)
[2018-06-20 08:41] LABS: ALANINE AMINOTRANSFERASE 35 U/L (12-78); ALBUMIN 1.8 G/DL (3.4-5.0); ALBUMIN/GLOBULIN RATIO 0.4 (1.0-2.7); ALKALINE PHOSPHATASE 414 U/L (46-116); ANION GAP 9 mmol/L (5-15); ASPARTATE AMINO TRANSFERASE 50 U/L (15-37); BILIRUBIN,TOTAL 0.9 MG/DL (0.2-1.0); BLOOD UREA NITROGEN 22 mg/dL (7-18); CALCIUM 8.1 MG/DL (8.5-10.1); CARBON DIOXIDE 24 MMOL/L (21-32); CHLORIDE 109 MMOL/L (98-107); CREATININE 1.2 MG/DL (0.55-1.30); SODIUM 142 MMOL/L (136-145)
--- NOTE | 2018-06-20 08:41 | General Progress Note ---
Assessment/Plan Problem List: (1) Dehydration ICD Codes: E86.0 - Dehydration SNOMED: 67367308 (2) Pneumonia ICD Codes: J18.9 - Pneumonia, unspecified organism SNOMED: 546176024 (3) Generalized weakness ICD Codes: R53.1 - Weakness SNOMED: 33354109 (4) Failure to thrive SNOMED: 05523783 (5) Renal insufficiency ICD Codes: N28.9 - Disorder of kidney and ureter, unspecified SNOMED: 459411497, 177905908 (6) ATN (acute tubular necrosis) ICD Codes: N17.0 - Acute kidney failure with tubular necrosis SNOMED: 72790328 Status: unchanged Assessment/Plan o2 pulm tx abx ot pt diet cbc bmp am heme eval possible peg Subjective Constitutional: Reports: weakness Allergies: Coded Allergies: No Known Allergies (Unverified , 09/04/17) All Systems: reviewed and negative except above Subjective o2nc ng Objective Last 24 Hour Vital Signs Date Time Temp Pulse Resp B/P (MAP) Pulse Ox O2 Delivery O2 Flow Rate FiO2 06/20/18 08:00 97.4 92 22 127/73 (91) 95 97.4 06/20/18 04:00 98.2 83 22 110/70 (83) 95 98.2 06/20/18 00:00 99.5 87 21 110/66 (81) 93 99.5 06/19/18 22:06 96 Nasal Cannula 2.0 28 06/19/18 22:06 Nasal Cannula 2.0 28 06/19/18 22:05 82 21 Nasal Cannula 2.0 06/19/18 21:08 99.0 06/19/18 20:53 Nasal Cannula 2.0 06/19/18 20:38 83 125/77 06/19/18 20:38 100.4 06/19/18 20:21 100.4 83 23 125/77 (93) 95 100.4 06/19/18 16:00 98.0 81 18 127/79 (95) 98 98.0 06/19/18 12:00 98.1 74 16 119/69 (86) 98 98.1 06/19/18 10:18 81 22 Nasal Cannula 2.0 28 06/19/18 10:18 96 Nasal Cannula 2.0 28 06/19/18 10:18 Nasal Cannula 2.0 28 06/19/18 09:00 Nasal Cannula 2.0 Intake and Output 06/19/18 06/20/18 19:00 07:00 Intake Total 555 ml 635 ml Balance 555 ml 635 ml Free Water 30 ml IV Total 225 ml 220 ml Tube Feeding 330 ml 385 ml # Voids 2 # Bowel Movements 1 Laboratory Tests 06/20/18 06:30: White Blood Count 12.0H, Red Blood Count 3.59L, Hemoglobin 10.0L, Hematocrit 31.4L, Mean Corpuscular Volume 88, Mean Corpuscular Hemoglobin 28.0, Mean Corpuscular Hemoglobin Concent 32.0, Red Cell Distribution Width 13.4, Platelet Count 254, Mean Platelet Volume 8.0, Neutrophils (%) (Auto) , Lymphocytes (%) ( Auto) , Monocytes (%) (Auto) , Eosinophils (%) (Auto) , Basophils (%) (Auto) , Neutrophils % (Manual) [Pending], Lymphocytes % (Manual) [Pending], Platelet Estimate [Pending], Platelet Morphology [Pending], Sodium Level [Pending], Potassium Level [Pending], Chloride Level [Pending], Carbon Dioxide Level [ Pending], Blood Urea Nitrogen [Pending], Creatinine [Pending], Estimat Glomerular Filtration Rate [Pending], Glucose Level [Pending], Calcium Level [ Pending], Total Bilirubin [Pending], Aspartate Amino Transf (AST/SGOT) [Pending] , Alanine Aminotransferase (ALT/SGPT) [Pending], Alkaline Phosphatase [Pending] , Total Protein [Pending], Albumin [Pending], Globulin [Pending] Height (Feet): 5 Height (Inches): 7.00 Weight (Pounds): 134 General Appearance: lethargic EENT: normal ENT inspection Neck: normal alignment Cardiovascular: normal peripheral pulses, normal rate, regular rhythm Respiratory/Chest: chest wall non-tender, lungs clear, normal breath sounds Abdomen: normal bowel sounds, non tender, soft Extremities: normal inspection Edema: no edema noted Arm (L), no edema noted Arm (R), no edema noted Leg (L), no edema noted Leg (R), no edema noted Pedal (L), no edema noted Pedal (R), no edema noted Generalized Neurologic: motor weakness Skin: normal pigmentation, warm/dry Jacques Heaton DO Jun 20, 2018 08:41
[2018-06-20] MEDS: Cefepime HCl 1 GM in D5W 55 ML IV SCH (08:47)
[2018-06-20] MEDS: Pantoprazole Inj IVP SCH (08:47)
[2018-06-20] MEDS: Heparin 5000 units/ml inj SUBQ SCH ×2 (08:48→20:31)
[2018-06-20] MEDS: Metoprolol 25mg tab ORAL SCH ×2 (08:48→20:36)
--- NOTE | 2018-06-20 10:57 | Nephrology Progress Note ---
Assessment/Plan Problem List: (1) Dehydration (2) Acute hypernatremia (3) Renal insufficiency (4) Severe malnutrition (5) Metastatic cancer Assessment Renal Failure- Dehydration, Hypernatremia Malnutrition / Hypoalbuminemia Pneumonia / Aspiration / Multi lung nodules Seizure disorder Cerebrovascular accident (CVA) Advanced dementia Plan K and Phos replaced- D5W Antibiotics monitor lytes and renal parameters pulm support PO Folate DNR ? DC planning Subjective ROS Limited/Unobtainable: No Constitutional: Reports: malaise Objective Objective Last 24 Hour Vital Signs Date Time Temp Pulse Resp B/P (MAP) Pulse Ox O2 Delivery O2 Flow Rate FiO2 06/20/18 09:00 Nasal Cannula 2.0 06/20/18 08:48 92 127/73 06/20/18 08:00 97.4 92 22 127/73 (91) 95 97.4 06/20/18 04:00 98.2 83 22 110/70 (83) 95 98.2 06/20/18 00:00 99.5 87 21 110/66 (81) 93 99.5 06/19/18 22:06 96 Nasal Cannula 2.0 28 06/19/18 22:06 Nasal Cannula 2.0 28 06/19/18 22:05 82 21 Nasal Cannula 2.0 28 06/19/18 21:08 99.0 06/19/18 20:53 Nasal Cannula 2.0 06/19/18 20:38 83 125/77 06/19/18 20:38 100.4 06/19/18 20:21 100.4 83 23 125/77 (93) 95 100.4 06/19/18 16:00 98.0 81 18 127/79 (95) 98 98.0 06/19/18 12:00 98.1 74 16 119/69 (86) 98 98.1 Intake and Output 06/19/18 06/20/18 19:00 07:00 Intake Total 555 ml 635 ml Balance 555 ml 635 ml Free Water 30 ml IV Total 225 ml 220 ml Tube Feeding 330 ml 385 ml # Voids 2 # Bowel Movements 1 Laboratory Tests 06/20/18 06:30: White Blood Count 12.0H, Red Blood Count 3.59L, Hemoglobin 10.0L, Hematocrit 31.4L, Mean Corpuscular Volume 88, Mean Corpuscular Hemoglobin 28.0, Mean Corpuscular Hemoglobin Concent 32.0, Red Cell Distribution Width 13.4, Platelet Count 254, Mean Platelet Volume 8.0, Neutrophils (%) (Auto) , Lymphocytes (%) ( Auto) , Monocytes (%) (Auto) , Eosinophils (%) (Auto) , Basophils (%) (Auto) , Differential Total Cells Counted 100, Neutrophils % (Manual) 82H, Lymphocytes % (Manual) 7L, Monocytes % (Manual) 4, Eosinophils % (Manual) 0, Basophils % ( Manual) 0, Band Neutrophils 7, Platelet Estimate Adequate, Platelet Morphology Normal, Hypochromasia 1+, Sodium Level 142, Potassium Level 4.0, Chloride Level 109H, Carbon Dioxide Level 24, Anion Gap 9, Blood Urea Nitrogen 22H, Creatinine 1.2, Estimat Glomerular Filtration Rate , Glucose Level 96, Calcium Level 8.1L, Total Bilirubin 0.9, Aspartate Amino Transf (AST/SGOT) 50H, Alanine Aminotransferase (ALT/SGPT) 35, Alkaline Phosphatase 414H, Total Protein 6.8, Albumin 1.8L, Globulin 5.0, Albumin/Globulin Ratio 0.4L Height (Feet): 5 Height (Inches): 7.00 Weight (Pounds): 135 General Appearance: no apparent distress, confused Respiratory/Chest: decreased breath sounds Abdomen: soft Objective no change Anthony Stockton MD Jun 20, 2018 10:57
[2018-06-20 11:49] VITALS: BP 112/64
--- NOTE | 2018-06-20 13:02 | General Surgery Progress Note ---
General Surgery-Progress Note Subjective Additional Comments leukocytosis. elevated lft's. Objective Last 24 Hour Vital Signs Date Time Temp Pulse Resp B/P (MAP) Pulse Ox O2 Delivery O2 Flow Rate FiO2 06/20/18 11:49 98.0 83 22 112/64 (80) 95 98.0 06/20/18 09:00 Nasal Cannula 2.0 06/20/18 08:48 92 127/73 06/20/18 08:00 97.4 92 22 127/73 (91) 95 97.4 06/20/18 04:00 98.2 83 22 110/70 (83) 95 98.2 06/20/18 00:00 99.5 87 21 110/66 (81) 93 99.5 06/19/18 22:06 96 Nasal Cannula 2.0 28 06/19/18 22:06 Nasal Cannula 2.0 28 06/19/18 22:05 82 21 Nasal Cannula 2.0 28 06/19/18 21:08 99.0 06/19/18 20:53 Nasal Cannula 2.0 06/19/18 20:38 83 125/77 06/19/18 20:38 100.4 06/19/18 20:21 100.4 83 23 125/77 (93) 95 100.4 06/19/18 16:00 98.0 81 18 127/79 (95) 98 98.0 I&O Intake and Output 06/19/18 06/20/18 19:00 07:00 Intake Total 555 ml 635 ml Balance 555 ml 635 ml Free Water 30 ml IV Total 225 ml 220 ml Tube Feeding 330 ml 385 ml # Voids 2 # Bowel Movements 1 Dressing: other Wound: other Drains: other Cardiovascular: RSR Respiratory: clear Abdomen: soft, distended, present bowel sounds Extremities: other Laboratory Tests Test 06/20/18 06:30 White Blood Count 12.0 K/UL (4.8-10.8) H Red Blood Count 3.59 M/UL (4.70-6.10) L Hemoglobin 10.0 G/DL (14.2-18.0) L Hematocrit 31.4 % (42.0-52.0) L Mean Corpuscular Volume 88 FL (80-99) Mean Corpuscular Hemoglobin 28.0 PG (27.0-31.0) Mean Corpuscular Hemoglobin Concent 32.0 G/DL (32.0-36.0) Red Cell Distribution Width 13.4 % (11.6-14.8) Platelet Count 254 K/UL (150-450) Mean Platelet Volume 8.0 FL (6.5-10.1) Neutrophils (%) (Auto) % (45.0-75.0) Lymphocytes (%) (Auto) % (20.0-45.0) Monocytes (%) (Auto) % (1.0-10.0) Eosinophils (%) (Auto) % (0.0-3.0) Basophils (%) (Auto) % (0.0-2.0) Differential Total Cells Counted 100 Neutrophils % (Manual) 82 % (45-75) H Lymphocytes % (Manual) 7 % (20-45) L Monocytes % (Manual) 4 % (1-10) Eosinophils % (Manual) 0 % (0-3) Basophils % (Manual) 0 % (0-2) Band Neutrophils 7 % (0-8) Platelet Estimate Adequate Platelet Morphology Normal Hypochromasia 1+ Sodium Level 142 MMOL/L (136-145) Potassium Level 4.0 MMOL/L (3.5-5.1) Chloride Level 109 MMOL/L (98-107) H Carbon Dioxide Level 24 MMOL/L (21-32) Anion Gap 9 mmol/L (5-15) Blood Urea Nitrogen 22 mg/dL (7-18) H Creatinine 1.2 MG/DL (0.55-1.30) Estimat Glomerular Filtration Rate mL/min (>60) Glucose Level 96 MG/DL (74-106) Calcium Level 8.1 MG/DL (8.5-10.1) L Total Bilirubin 0.9 MG/DL (0.2-1.0) Aspartate Amino Transf (AST/SGOT) 50 U/L (15-37) H Alanine Aminotransferase (ALT/SGPT) 35 U/L (12-78) Alkaline Phosphatase 414 U/L (46-116) H Total Protein 6.8 G/DL (6.4-8.2) Albumin 1.8 G/DL (3.4-5.0) L Globulin 5.0 g/dL Albumin/Globulin Ratio 0.4 (1.0-2.7) L Plan Problems: (1) Lung nodule, multiple Assessment & Plan: abnormal lft's, leukocytosis. GI procedures on hold because of cardiac clearance Hepatitis panel pending US Abdomen: Multiple hepatic and splenic masses, as described. 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 However, in view of the splenic involvement, the possibility that this represents multiple abscesses should also be considered Fluid structure in the gallbladder fossa probably but not definitively represents a nondistended gallbladder. This possibly contains gallstones. Soft tissue echogenicity area within the apparent lumen could represent tumefactive sludge, polyp, or, given the above findings, neoplasm Multiple lung nodules. etiology unknown. CT C/A/P reviewed. Metastatic disease everywhere. small right chest wall anterior lateral nodule noted. Pending pathology report from liver biopsy thank you. will follow with recs. Rudolph Solis Jun 20, 2018 13:02
[2018-06-20] MEDS: Metoclopramide 10mg/10ml Liq NG SCH ×2 (13:24→17:03)
--- NOTE | 2018-06-20 14:29 | General Progress Note ---
Assessment/Plan Assessment/Plan # Disseminated malignancy wide spread, with numerous bilateral lung masses, possible right-sided pleural masses, hilar lymphadenopathy, subcutaneous nodules , splenic masses and multiple liver masses on CT C/A/P has been reviewed --> Final report of biopsy is pending, results to be uploaded shortly by pathologist ([facility]) --> dw pcp and with patient plan in after results are obtained --> tumor markers have been ordered. CA 19.9 is 73 --> patient and son does not want heroic measures, is DNR --> peg if needed per family and others agree, though current condition is poor as is prognosis # Anemia of iron deficiency --> continue patient on Iv iton --> total of 4 doses of iv iron # Severe malnutrition --> consider appetite stimulant --> monitor weight improvement prn --> gi recs appreciated # Acute hypernatremia # Dehydration--> IVF prn # Pneumonia s/p abx # Generalized weakness # Failure to thrive DW Attending and RN Greatly appreciate consultation. Subjective Constitutional: Denies: no symptoms, chills, diaphoresis, fever, malaise, weakness, other HEENT: Denies: no symptoms, eye pain, blurred vision, tearing, double vision, ear pain, ear discharge, nose pain, nose congestion, throat pain, throat swelling, mouth pain, mouth swelling, other Cardiovascular: Denies: no symptoms, chest pain, edema, irregular heart rate, lightheadedness, palpitations, syncope, other Respiratory: Denies: no symptoms, cough, orthopnea, shortness of breath, SOB with excertion, SOB at rest, sputum, stridor, wheezing, other Gastrointestinal/Abdominal: Denies: no symptoms, abdomen distended, abdominal pain, black stools, tarry stools, blood in stool, constipated, diarrhea, difficulty swallowing, nausea, poor appetite, poor fluid intake, rectal bleeding , vomiting, other Genitourinary: Denies: no symptoms, burning, discharge, frequency, flank pain, hematuria, incontinence, pain, urgency, other Endocrine: Reports: no symptoms; Denies: excessive sweating, flushing, intolerance to cold, intolerance to heat, increased hunger, increased thirst, increased urine, unexplained weight gain, unexplained weight loss, other Hematologic/Lymphatic: Denies: no symptoms, anemia, easy bleeding, easy bruising, other Allergies: Coded Allergies: No Known Allergies (Unverified , 09/04/17) Subjective no events, biopsy showed malignancy, final report pending, remains DNR, with leukocytosis Objective Last 24 Hour Vital Signs Date Time Temp Pulse Resp B/P (MAP) Pulse Ox O2 Delivery O2 Flow Rate FiO2 06/20/18 11:49 98.0 83 22 112/64 (80) 95 98.0 06/20/18 09:00 Nasal Cannula 2.0 06/20/18 08:48 92 127/73 06/20/18 08:00 97.4 92 22 127/73 (91) 95 97.4 06/20/18 04:00 98.2 83 22 110/70 (83) 95 98.2 06/20/18 00:00 99.5 87 21 110/66 (81) 93 99.5 06/19/18 22:06 96 Nasal Cannula 2.0 28 06/19/18 22:06 Nasal Cannula 2.0 28 06/19/18 22:05 82 21 Nasal Cannula 2.0 28 06/19/18 21:08 99.0 06/19/18 20:53 Nasal Cannula 2.0 06/19/18 20:38 83 125/77 06/19/18 20:38 100.4 06/19/18 20:21 100.4 83 23 125/77 (93) 95 100.4 06/19/18 16:00 98.0 81 18 127/79 (95) 98 98.0 Intake and Output 06/19/18 06/20/18 19:00 07:00 Intake Total 555 ml 635 ml Balance 555 ml 635 ml Free Water 30 ml IV Total 225 ml 220 ml Tube Feeding 330 ml 385 ml # Voids 2 # Bowel Movements 1 Laboratory Tests 06/20/18 06:30: White Blood Count 12.0H, Red Blood Count 3.59L, Hemoglobin 10.0L, Hematocrit 31.4L, Mean Corpuscular Volume 88, Mean Corpuscular Hemoglobin 28.0, Mean Corpuscular Hemoglobin Concent 32.0, Red Cell Distribution Width 13.4, Platelet Count 254, Mean Platelet Volume 8.0, Neutrophils (%) (Auto) , Lymphocytes (%) ( Auto) , Monocytes (%) (Auto) , Eosinophils (%) (Auto) , Basophils (%) (Auto) , Differential Total Cells Counted 100, Neutrophils % (Manual) 82H, Lymphocytes % (Manual) 7L, Monocytes % (Manual) 4, Eosinophils % (Manual) 0, Basophils % ( Manual) 0, Band Neutrophils 7, Platelet Estimate Adequate, Platelet Morphology Normal, Hypochromasia 1+, Sodium Level 142, Potassium Level 4.0, Chloride Level 109H, Carbon Dioxide Level 24, Anion Gap 9, Blood Urea Nitrogen 22H, Creatinine 1.2, Estimat Glomerular Filtration Rate , Glucose Level 96, Calcium Level 8.1L, Total Bilirubin 0.9, Aspartate Amino Transf (AST/SGOT) 50H, Alanine Aminotransferase (ALT/SGPT) 35, Alkaline Phosphatase 414H, Total Protein 6.8, Albumin 1.8L, Globulin 5.0, Albumin/Globulin Ratio 0.4L Height (Feet): 5 Height (Inches): 7.00 Weight (Pounds): 135 General Appearance: no apparent distress EENT: TMs normal Neck: supple Cardiovascular: regular rhythm Respiratory/Chest: normal breath sounds Abdomen: no organomegaly Extremities: non-tender Edema: 1+ Leg (L), 1+ Leg (R) Edema: mild edema Neurologic: oriented x 3 Skin: warm/dry Jalen Webster MD Jun 20, 2018 14:28
[2018-06-20 16:00] VITALS: BP 121/64
[2018-06-20 20:29] VITALS: BP 118/72
--- NOTE | 2018-06-20 23:19 | Cardiology Progress Note ---
Assessment/Plan Assessment/Plan 1. Non-sustained ventricular tachycardia, keep Mg >2.5, K >4.0, continue metoprolol. 2. Sinus tachycardia, resolved. 3. CVA, recommend ASA and statins. Subjective Subjective No cardiac events. Non-verbal. Objective Last 24 Hour Vital Signs Date Time Temp Pulse Resp B/P (MAP) Pulse Ox O2 Delivery O2 Flow Rate FiO2 06/20/18 22:13 Nasal Cannula 2.0 06/20/18 20:36 94 118/72 06/20/18 20:29 97.6 94 23 118/72 (87) 97 97.6 06/20/18 20:26 93 20 Nasal Cannula 2.0 28 06/20/18 20:26 97 Nasal Cannula 2.0 28 06/20/18 20:26 Nasal Cannula 2.0 28 06/20/18 16:00 97.0 89 22 121/64 (83) 95 97.0 06/20/18 11:49 98.0 83 22 112/64 (80) 95 98.0 06/20/18 09:00 Nasal Cannula 2.0 06/20/18 08:48 92 127/73 06/20/18 08:00 97.4 92 22 127/73 (91) 95 97.4 06/20/18 04:00 98.2 83 22 110/70 (83) 95 98.2 06/20/18 00:00 99.5 87 21 110/66 (81) 93 99.5 Intake and Output 06/19/18 06/20/18 19:00 07:00 Intake Total 555 ml 635 ml Balance 555 ml 635 ml Free Water 30 ml IV Total 225 ml 220 ml Tube Feeding 330 ml 385 ml # Voids 2 # Bowel Movements 1 2D Echo: LVEF 65%, Grade I LVDD, RVSP 35 mmHg Laboratory Tests Test 06/20/18 06:30 White Blood Count 12.0 K/UL (4.8-10.8) H Red Blood Count 3.59 M/UL (4.70-6.10) L Hemoglobin 10.0 G/DL (14.2-18.0) L Hematocrit 31.4 % (42.0-52.0) L Mean Corpuscular Volume 88 FL (80-99) Mean Corpuscular Hemoglobin 28.0 PG (27.0-31.0) Mean Corpuscular Hemoglobin Concent 32.0 G/DL (32.0-36.0) Red Cell Distribution Width 13.4 % (11.6-14.8) Platelet Count 254 K/UL (150-450) Mean Platelet Volume 8.0 FL (6.5-10.1) Neutrophils (%) (Auto) % (45.0-75.0) Lymphocytes (%) (Auto) % (20.0-45.0) Monocytes (%) (Auto) % (1.0-10.0) Eosinophils (%) (Auto) % (0.0-3.0) Basophils (%) (Auto) % (0.0-2.0) Differential Total Cells Counted 100 Neutrophils % (Manual) 82 % (45-75) H Lymphocytes % (Manual) 7 % (20-45) L Monocytes % (Manual) 4 % (1-10) Eosinophils % (Manual) 0 % (0-3) Basophils % (Manual) 0 % (0-2) Band Neutrophils 7 % (0-8) Platelet Estimate Adequate Platelet Morphology Normal Hypochromasia 1+ Sodium Level 142 MMOL/L (136-145) Potassium Level 4.0 MMOL/L (3.5-5.1) Chloride Level 109 MMOL/L (98-107) H Carbon Dioxide Level 24 MMOL/L (21-32) Anion Gap 9 mmol/L (5-15) Blood Urea Nitrogen 22 mg/dL (7-18) H Creatinine 1.2 MG/DL (0.55-1.30) Estimat Glomerular Filtration Rate mL/min (>60) Glucose Level 96 MG/DL (74-106) Calcium Level 8.1 MG/DL (8.5-10.1) L Total Bilirubin 0.9 MG/DL (0.2-1.0) Aspartate Amino Transf (AST/SGOT) 50 U/L (15-37) H Alanine Aminotransferase (ALT/SGPT) 35 U/L (12-78) Alkaline Phosphatase 414 U/L (46-116) H Total Protein 6.8 G/DL (6.4-8.2) Albumin 1.8 G/DL (3.4-5.0) L Globulin 5.0 g/dL Albumin/Globulin Ratio 0.4 (1.0-2.7) L Objective General Appearance: Cachetic, Chronically Ill, non-verbal. HEENT: Atraumatic, normocephalic, PERRLA, EOMI, dry mucus membranes Neck: No JVD, no carotid bruit. Lungs: Clear Cardiovascular : regular rate and rhythm, normal S1S2, no murmurs, gallops or rubs. Gastrointestinal: normal inspection, normal bowel sounds, non tender, soft, no guarding, no hernia Musculoskeletal: no edema, clubbing or cyanosis. Michael Powell MD Jun 20, 2018 23:19
[2018-06-21] VITALS (14 sets, daily range): BP systolic 97–127; BP diastolic 58–76
[2018-06-21] MEDS: Metoclopramide 10mg/10ml Liq NG SCH ×4 (00:34→18:54)
[2018-06-21] MEDS: metroNIDAZOLE 500mg tab ORAL SCH (05:11)
[2018-06-21 06:39] LABS: ANION GAP 11 mmol/L (5-15); BLOOD UREA NITROGEN 24 mg/dL (7-18); CALCIUM 7.6 MG/DL (8.5-10.1); CARBON DIOXIDE 21 MMOL/L (21-32); CHLORIDE 110 MMOL/L (98-107); CREATININE 1.1 MG/DL (0.55-1.30); POTASSIUM 3.8 MMOL/L (3.5-5.1); SODIUM 142 MMOL/L (136-145)
[2018-06-21 06:47] LABS: HEMATOCRIT 26.7 % (42.0-52.0); HEMOGLOBIN 8.9 G/DL (14.2-18.0); MEAN CORPUSCULAR VOLUME 87 FL (80-99); PLATELET COUNT 278 K/UL (150-450); RED BLOOD COUNT 3.06 M/UL (4.70-6.10); RED CELL DISTRIBUTION WIDTH 13.9 % (11.6-14.8); WHITE BLOOD COUNT 12.4 K/UL (4.8-10.8)
--- NOTE | 2018-06-21 07:08 | General Progress Note ---
Assessment/Plan Assessment/Plan # Disseminated malignancy wide spread, with numerous bilateral lung masses, possible right-sided pleural masses, hilar lymphadenopathy, subcutaneous nodules , splenic masses and multiple liver masses on CT C/A/P has been reviewed --> Final report of biopsy is pending, results to be uploaded shortly by pathologist ([facility]) --> dw pcp and with patient plan in after results are obtained --> tumor markers ordered. CA 19.9 is 73 --> patient and son does not want heroic measures, is DNR --> peg if needed per family and others agree, though current condition is poor as is prognosis --> can discuss with family results of biopsy and poor prognosis as needed # Anemia of iron deficiency --> continue patient on Iv iton --> total of 4 doses of iv iron # Severe malnutrition --> consider appetite stimulant --> monitor weight improvement prn --> gi recs appreciated # Acute hypernatremia # Dehydration--> IVF prn # Pneumonia s/p abx # Generalized weakness # Failure to thrive DW Attending and RN Greatly appreciate consultation! Subjective Constitutional: Denies: no symptoms, chills, diaphoresis, fever, malaise, weakness, other HEENT: Denies: no symptoms, eye pain, blurred vision, tearing, double vision, ear pain, ear discharge, nose pain, nose congestion, throat pain, throat swelling, mouth pain, mouth swelling, other Cardiovascular: Denies: no symptoms, chest pain, edema, irregular heart rate, lightheadedness, palpitations, syncope, other Respiratory: Denies: no symptoms, cough, orthopnea, shortness of breath, SOB with excertion, SOB at rest, sputum, stridor, wheezing, other Gastrointestinal/Abdominal: Denies: no symptoms, abdomen distended, abdominal pain, black stools, tarry stools, blood in stool, constipated, diarrhea, difficulty swallowing, nausea, poor appetite, poor fluid intake, rectal bleeding , vomiting, other Genitourinary: Denies: no symptoms, burning, discharge, frequency, flank pain, hematuria, incontinence, pain, urgency, other Neurologic/Psychiatric: Denies: no symptoms, anxiety, depressed, emotional problems, headache, numbness, paresthesia, pre-existing deficit, seizure, tingling, tremors, weakness, other Endocrine: Denies: no symptoms, excessive sweating, flushing, intolerance to cold, intolerance to heat, increased hunger, increased thirst, increased urine, unexplained weight gain, unexplained weight loss, other Hematologic/Lymphatic: Denies: no symptoms, anemia, easy bleeding, easy bruising, other Allergies: Coded Allergies: No Known Allergies (Unverified , 09/04/17) Subjective no events, biopsy showed malignancy, final report pathology report pending, remains DNR Objective Last 24 Hour Vital Signs Date Time Temp Pulse Resp B/P (MAP) Pulse Ox O2 Delivery O2 Flow Rate FiO2 06/21/18 05:03 99.3 96 123/66 (85) 99.3 06/21/18 04:37 100.0 87 22 97/65 (76) 97 100.0 06/21/18 01:20 81 116/68 (84) 06/21/18 00:00 99.9 85 22 98/66 (77) 97 99.9 06/20/18 22:13 Nasal Cannula 2.0 06/20/18 20:36 94 118/72 06/20/18 20:29 97.6 94 23 118/72 (87) 97 97.6 06/20/18 20:26 93 20 Nasal Cannula 2.0 28 06/20/18 20:26 97 Nasal Cannula 2.0 28 06/20/18 20:26 Nasal Cannula 2.0 28 06/20/18 16:00 97.0 89 22 121/64 (83) 95 97.0 06/20/18 11:49 98.0 83 22 112/64 (80) 95 98.0 06/20/18 09:00 Nasal Cannula 2.0 06/20/18 08:48 92 127/73 06/20/18 08:00 97.4 92 22 127/73 (91) 95 97.4 Intake and Output 06/20/18 06/21/18 19:00 07:00 Intake Total 460 ml 440 ml Output Total 125 ml Balance 460 ml 315 ml IV Total 20 ml 220 ml Tube Feeding 440 ml 220 ml Output Urine Total 125 ml # Voids 1 # Bowel Movements 1 Laboratory Tests 06/21/18 06:00: White Blood Count 12.4H, Red Blood Count 3.06L, Hemoglobin 8.9L, Hematocrit 26.7L, Mean Corpuscular Volume 87, Mean Corpuscular Hemoglobin 29.0, Mean Corpuscular Hemoglobin Concent 33.3, Red Cell Distribution Width 13.9, Platelet Count 278, Mean Platelet Volume 8.4, Neutrophils (%) (Auto) , Lymphocytes (%) ( Auto) , Monocytes (%) (Auto) , Eosinophils (%) (Auto) , Basophils (%) (Auto) , Neutrophils % (Manual) [Pending], Lymphocytes % (Manual) [Pending], Platelet Estimate [Pending], Platelet Morphology [Pending], Sodium Level 142, Potassium Level 3.8, Chloride Level 110H, Carbon Dioxide Level 21, Anion Gap 11, Blood Urea Nitrogen 24H, Creatinine 1.1, Estimat Glomerular Filtration Rate , Glucose Level 109H, Calcium Level 7.6L Height (Feet): 5 Height (Inches): 7.00 Weight (Pounds): 135 General Appearance: no apparent distress EENT: PERRL/EOMI Neck: normal alignment Cardiovascular: normal rate Respiratory/Chest: chest wall non-tender Abdomen: non tender Extremities: non-tender Edema: 1+ Leg (L), 1+ Leg (R) Neurologic: alert Skin: warm/dry Jalen Webster MD Jun 21, 2018 07:08
[2018-06-21] MEDS: Heparin 5000 units/ml inj SUBQ SCH ×2 (09:00→21:29)
[2018-06-21] MEDS: Metoprolol 25mg tab ORAL SCH ×2 (09:00→21:29)
[2018-06-21] MEDS ORDERED: LR 1000ml 1,000 ML IVLG SCH (09:10)
--- NOTE | 2018-06-21 09:10 | Anethesia Preoperative Eval ---
Anesthesia Pre-op PMH/ROS General Date of Evaluation: Jun 21, 2018 Time of Evaluation: 09:06 Anesthesiologist: Naida ASA Score: ASA 4 Mallampati Score Class I : Soft palate, uvula, fauces, pillars visible Class II: Soft palate, uvula, fauces visible Class III: Soft palate, base of uvula visible Class IV: Only hard plate visible Mallampati Classification: Class III Surgeon: Miriam Diagnosis: Dysphagia Surgical Procedure: EGD PEG Anesthesia History: none Family History: no anesthesia problems Allergies: Coded Allergies: No Known Allergies (Unverified , 09/04/17) Medications: see eMAR Past Medical History Cardiovascular: Reports: HTN; Denies: CAD, [place], valve dz, arrhythmia, other Pulmonary: Reports: other - Lung CA?; Denies: asthma, COPD, NEFTALI Gastrointestinal/Genitourinary: Reports: GERD; Denies: CRI, ESRD, other Neurologic/Psychiatric: Reports: dementia; Denies: CVA, depression/anxiety, TIA, other Endocrine: Reports: hypothyroidism; Denies: DM, steroids, other HEENT: Denies: cataract (L), cataract (R), glaucoma, [place] (L), [place] (R), other Hematology/Immune: Reports: anemia - mild; Denies: DVT, bleeding disorder, other Musculoskeletal/Integumentary: Reports: DJD Other: other - malnourished PMH Narrative: as above PSxH Narrative: See H&P Anesthesia Pre-op Phys. Exam Physician Exam Last Vital Signs Date Time Temp Pulse Resp B/P (MAP) Pulse Ox O2 Delivery O2 Flow Rate FiO2 06/21/18 08:00 97.6 93 20 105/64 (78) 93 97.6 06/20/18 22:13 Nasal Cannula 2.0 06/20/18 20:26 28 Constitutional: NAD Neurologic: other - unable to obtaine Cardiovascular: RRR Respiratory: other - diminished bpeath sounds Gastrointestinal: S/NT/ND Airway Exam Mallampati Score: Class III MO: limited Neck: stiff ROM: limited Teeth: missing Dentures: no upper, no lower Anesthesia Pre-op A/P Labs Hematology Test 06/21/18 06:00 White Blood Count 12.4 K/UL (4.8-10.8) H Red Blood Count 3.06 M/UL (4.70-6.10) L Hemoglobin 8.9 G/DL (14.2-18.0) L Hematocrit 26.7 % (42.0-52.0) L Mean Corpuscular Volume 87 FL (80-99) Mean Corpuscular Hemoglobin 29.0 PG (27.0-31.0) Mean Corpuscular Hemoglobin Concent 33.3 G/DL (32.0-36.0) Red Cell Distribution Width 13.9 % (11.6-14.8) Platelet Count 278 K/UL (150-450) Mean Platelet Volume 8.4 FL (6.5-10.1) Neutrophils (%) (Auto) % (45.0-75.0) Lymphocytes (%) (Auto) % (20.0-45.0) Monocytes (%) (Auto) % (1.0-10.0) Eosinophils (%) (Auto) % (0.0-3.0) Basophils (%) (Auto) % (0.0-2.0) Differential Total Cells Counted 100 Neutrophils % (Manual) 88 % (45-75) H Lymphocytes % (Manual) 4 % (20-45) L Monocytes % (Manual) 8 % (1-10) Eosinophils % (Manual) 0 % (0-3) Basophils % (Manual) 0 % (0-2) Band Neutrophils 0 % (0-8) Platelet Estimate Adequate Platelet Morphology Normal Hypochromasia 1+ Chemistry Test 06/21/18 06:00 Sodium Level 142 MMOL/L (136-145) Potassium Level 3.8 MMOL/L (3.5-5.1) Chloride Level 110 MMOL/L (98-107) H Carbon Dioxide Level 21 MMOL/L (21-32) Anion Gap 11 mmol/L (5-15) Blood Urea Nitrogen 24 mg/dL (7-18) H Creatinine 1.1 MG/DL (0.55-1.30) Estimat Glomerular Filtration Rate mL/min (>60) Glucose Level 109 MG/DL (74-106) H Calcium Level 7.6 MG/DL (8.5-10.1) L Risk Assessment & Plan Assessment: ASA 4 Plan: MAC Pre-Antibiotics Drug: none Shailesh Pascal MD Jun 21, 2018 09:09
[2018-06-21] MEDS ORDERED: fentaNYL 100 mcg/2 mL IV PRN (09:15)
--- NOTE | 2018-06-21 09:16 | Pre-Procedure Note/Attestation ---
Pre-Procedure Note/Attestation Complete Prior to Procedure Planned Procedure: not applicable Procedure Narrative: egd/peg Indications for Procedure Pre-Operative Diagnosis: dysphagia Attestation I attest that I discussed the nature of the procedure; its benefits; risks and complications; and alternatives (and the risks and benefits of such alternatives ), prior to the procedure, with the patient (or the patient's legal food service sales representatives). I attest that, if there was a reasonable possibility of needing a blood transfusion, the patient (or the patient's legal food service sales representatives) was given the [facility] standardized written summary, pursuant to the Madhu Kvng Blood Safety Act ([place] Health and Safety Code # 1645, as amended). I attest that I re-evaluated the patient just prior to the surgery and that there has been no change in the patient's H&P, except as documented below: Vin Pineda MD Jun 21, 2018 09:16
--- NOTE | 2018-06-21 09:18 | General Progress Note ---
Assessment/Plan Problem List: (1) Metastatic cancer ICD Codes: C79.9 - Secondary malignant neoplasm of unspecified site SNOMED: 341173178 (2) Encephalopathy due to metabolic factor or toxin SNOMED: 266176851 (3) Lung nodule, multiple ICD Codes: R91.8 - Other nonspecific abnormal finding of lung field SNOMED: 121667952 (4) Aspiration pneumonia ICD Codes: J69.0 - Pneumonitis due to inhalation of food and vomit SNOMED: 489466643 (5) Seizure disorder ICD Codes: G40.909 - Epilepsy, unspecified, not intractable, without status epilepticus SNOMED: 642449181 Assessment/Plan OB stool positive, send additional iron deficient folate deficiency abdominal US reviewed >> multiple hepatic and splenic nodules, fu oncology ST evaluation reviewed >> recommend PEG hep panel negative POLST reviewed >> trial feedings only, will require consent from son for PEG s/p liver biopsy now patient is DNR pending PEG if family agrees NGTFs electrolyte correction monitor H&H, prn transfusions bowel regime ppi trend LFTs fu labs added reglan for elevated residuals plan PEG for today Subjective ROS Limited/Unobtainable: No Allergies: Coded Allergies: No Known Allergies (Unverified , 09/04/17) Objective Last 24 Hour Vital Signs Date Time Temp Pulse Resp B/P (MAP) Pulse Ox O2 Delivery O2 Flow Rate FiO2 06/21/18 08:00 97.6 93 20 105/64 (78) 93 97.6 06/21/18 05:03 99.3 96 123/66 (85) 99.3 06/21/18 04:37 100.0 87 22 97/65 (76) 97 100.0 06/21/18 01:20 81 116/68 (84) 06/21/18 00:00 99.9 85 22 98/66 (77) 97 99.9 06/20/18 22:13 Nasal Cannula 2.0 06/20/18 20:36 94 118/72 06/20/18 20:29 97.6 94 23 118/72 (87) 97 97.6 06/20/18 20:26 93 20 Nasal Cannula 2.0 28 06/20/18 20:26 97 Nasal Cannula 2.0 28 06/20/18 20:26 Nasal Cannula 2.0 28 06/20/18 16:00 97.0 89 22 121/64 (83) 95 97.0 06/20/18 11:49 98.0 83 22 112/64 (80) 95 98.0 Intake and Output 06/20/18 06/21/18 19:00 07:00 Intake Total 460 ml 440 ml Output Total 125 ml Balance 460 ml 315 ml IV Total 20 ml 220 ml Tube Feeding 440 ml 220 ml Output Urine Total 125 ml # Voids 1 # Bowel Movements 1 Laboratory Tests 06/21/18 06:00: White Blood Count 12.4H, Red Blood Count 3.06L, Hemoglobin 8.9L, Hematocrit 26.7L, Mean Corpuscular Volume 87, Mean Corpuscular Hemoglobin 29.0, Mean Corpuscular Hemoglobin Concent 33.3, Red Cell Distribution Width 13.9, Platelet Count 278, Mean Platelet Volume 8.4, Neutrophils (%) (Auto) , Lymphocytes (%) ( Auto) , Monocytes (%) (Auto) , Eosinophils (%) (Auto) , Basophils (%) (Auto) , Differential Total Cells Counted 100, Neutrophils % (Manual) 88H, Lymphocytes % (Manual) 4L, Monocytes % (Manual) 8, Eosinophils % (Manual) 0, Basophils % ( Manual) 0, Band Neutrophils 0, Platelet Estimate Adequate, Platelet Morphology Normal, Hypochromasia 1+, Sodium Level 142, Potassium Level 3.8, Chloride Level 110H, Carbon Dioxide Level 21, Anion Gap 11, Blood Urea Nitrogen 24H, Creatinine 1.1, Estimat Glomerular Filtration Rate , Glucose Level 109H, Calcium Level 7.6L Height (Feet): 5 Height (Inches): 5.00 Weight (Pounds): 135 General Appearance: lethargic EENT: normal ENT inspection Neck: supple Cardiovascular: normal rate Respiratory/Chest: decreased breath sounds Abdomen: normal bowel sounds, non tender, soft Extremities: non-tender Vin Pineda MD Jun 21, 2018 09:18
[2018-06-21] MEDS ORDERED: cefOXitin 1gm Inj IM ONE (09:23)
[2018-06-21] MEDS ORDERED: NS 500ML IVPB ONE ×2 (09:23→09:48)
[2018-06-21] MEDS ORDERED: Propofol 200mg/20ml IV ONE (10:00)
[2018-06-21] MEDS ORDERED: fentaNYL 100 mcg/2 mL IV ONE (10:00)
[2018-06-21] MEDS ORDERED: Midazolam 2mg/2ml Inj ONE (10:00)
--- NOTE | 2018-06-21 10:06 | Endoscopy Procedure Note ---
Endoscopy Procedure Note General Indication for Procedure: dysphagia Procedures Performed: EGD, PEG Operative Findings/Diagnosis: same Specimen: none Pt Tolerated Procedure Well: Yes Estimated Blood Loss: none Anesthesia Anesthesiologist: marshall Anesthesia: MAC Inserted Devices Implant(s) used?: No GI Core Measures 50 yrs or older w/o bx or poly: Not Applicable 10yrs. F/U not recommended: Not Applicable Vin Pineda MD Jun 21, 2018 10:06
--- NOTE | 2018-06-21 10:22 | Immediate Post-Op Evaluation ---
Immediate Post-Op Evalulation Immediate Post-Op Evalulation Procedure: EGD PEG tube placement Date of Evaluation: Jun 21, 2018 Time of Evaluation: 10:20 IV Fluids: 400 Blood Products: none Estimated Blood Loss: min Urinary Output: none Blood Pressure Systolic: 104 Blood Pressure Diastolic: 70 Pulse Rate: 92 Respiratory Rate: 22 O2 Sat by Pulse Oximetry: 99 Temperature (Fahrenheit): 97.6 Pain Score (1-10): 2 Nausea: No Vomiting: No Complications none Patient Status: reacts, patent, none Hydration Status: adequate Shailesh Pascal MD Jun 21, 2018 10:22
--- NOTE | 2018-06-21 10:45 | Procedure Note ---
DATE OF PROCEDURE: 06/21/2018 SURGEON: Vin Pineda M.D. ANESTHESIOLOGIST: Dr. Pascal. REFERRING PHYSICIAN: Jacques Heaton D.O. PROCEDURE: Upper endoscopy with PEG placement. ANESTHESIA: Per Dr. Pascal. INSTRUMENT: Olympus adult flexible upper endoscope. INDICATION: Dysphagia, failure to thrive. The procedure, risks, benefits, and possible consequences, including hemorrhage, aspiration, perforation and infection, and alternative treatments, were explained to the patient/legal guardian by Dr. Vin Pineda and the patient/legal guardian understood and accepted these risks. DESCRIPTION OF PROCEDURE: After informed consent was obtained and the patient was adequately sedated, Olympus upper endoscope was advanced from the mouth to the second portion of duodenum and retroflexion was performed in the stomach. The patient had evidence of diffuse atrophic gastritis. Then, under endoscopic guidance and under sterile condition, a 20-Jordanian pull type of G-tube was successfully placed in the epigastric area. The distance from the tip of the tube to the skin was about 2.5 cm in size. The patient tolerated procedure very well without any complication. SUMMARY OF FINDINGS: Status post successful PEG placement. RECOMMENDATIONS: Abdominal binder. Elevate the head of the bed at all times. G-tube flush. G-tube care. The patient currently on antibiotics, continue. I want to thank Dr. Jacques Heaton for this kind referral. Vin Pineda M.D. DR: Mat JOB#: [id number] CC: Jacques Heaton D.O.
--- NOTE | 2018-06-21 11:12 | 48 Hour Post Anesthesia Eval ---
Post Anesthesia Evaluation Procedure: EGD PEG tube placement Date of Evaluation: Jun 21, 2018 Time of Evaluation: 11:11 Blood Pressure Systolic: 134 0: 75 Pulse Rate: 68 Respiratory Rate: 22 Temperature (Fahrenheit): 97.4 O2 Sat by Pulse Oximetry: 98 Airway: patent Nausea: No Vomiting: No Pain Intensity: 1 Hydration Status: adequate Cardiopulmonary Status: stable Mental Status/LOC: patient returned to baseline Follow-up Care/Observations: n/a Post-Anesthesia Complications: none Follow-up care needed: N/A Shailesh Pascal MD Jun 21, 2018 11:12
--- NOTE | 2018-06-21 11:13 | General Progress Note ---
Assessment/Plan Problem List: (1) Dehydration ICD Codes: E86.0 - Dehydration SNOMED: 74192013 (2) Pneumonia ICD Codes: J18.9 - Pneumonia, unspecified organism SNOMED: 825259153 (3) Generalized weakness ICD Codes: R53.1 - Weakness SNOMED: 71148041 (4) Failure to thrive SNOMED: 55696123 (5) Renal insufficiency ICD Codes: N28.9 - Disorder of kidney and ureter, unspecified SNOMED: 878775835, 625454053 (6) ATN (acute tubular necrosis) ICD Codes: N17.0 - Acute kidney failure with tubular necrosis SNOMED: 22687963 Status: unchanged Assessment/Plan o2 pulm tx abx ot pt diet cbc bmp am heme eval possible peg promise ltach eval Subjective Constitutional: Reports: weakness Allergies: Coded Allergies: No Known Allergies (Unverified , 09/04/17) All Systems: reviewed and negative except above Subjective o2nc Objective Last 24 Hour Vital Signs Date Time Temp Pulse Resp B/P (MAP) Pulse Ox O2 Delivery O2 Flow Rate FiO2 06/21/18 10:40 98 91 26 109/60 100 Nasal Cannula 3 98.0 91 06/21/18 10:30 93 27 127/70 97 Nasal Cannula 3 93 06/21/18 10:25 94 26 116/73 99 Nasal Cannula 3 94 06/21/18 10:22 207.7 92 22 99 06/21/18 10:20 95 28 113/58 100 Nasal Cannula 3 95 06/21/18 10:13 98.9 93 20 106/63 99 Nasal Cannula 3 98.9 93 06/21/18 09:00 Nasal Cannula 2.0 06/21/18 08:00 97.6 93 20 105/64 (78) 93 97.6 06/21/18 05:03 99.3 96 123/66 (85) 99.3 06/21/18 04:37 100.0 87 22 97/65 (76) 97 100.0 06/21/18 01:20 81 116/68 (84) 06/21/18 00:00 99.9 85 22 98/66 (77) 97 99.9 06/20/18 22:13 Nasal Cannula 2.0 06/20/18 20:36 94 118/72 06/20/18 20:29 97.6 94 23 118/72 (87) 97 97.6 06/20/18 20:26 93 20 Nasal Cannula 2.0 28 06/20/18 20:26 97 Nasal Cannula 2.0 28 06/20/18 20:26 Nasal Cannula 2.0 28 06/20/18 16:00 97.0 89 22 121/64 (83) 95 97.0 06/20/18 11:49 98.0 83 22 112/64 (80) 95 98.0 Intake and Output 06/20/18 06/21/18 19:00 07:00 Intake Total 460 ml 440 ml Output Total 125 ml Balance 460 ml 315 ml IV Total 20 ml 220 ml Tube Feeding 440 ml 220 ml Output Urine Total 125 ml # Voids 1 # Bowel Movements 1 Laboratory Tests 06/21/18 06:00: White Blood Count 12.4H, Red Blood Count 3.06L, Hemoglobin 8.9L, Hematocrit 26.7L, Mean Corpuscular Volume 87, Mean Corpuscular Hemoglobin 29.0, Mean Corpuscular Hemoglobin Concent 33.3, Red Cell Distribution Width 13.9, Platelet Count 278, Mean Platelet Volume 8.4, Neutrophils (%) (Auto) , Lymphocytes (%) ( Auto) , Monocytes (%) (Auto) , Eosinophils (%) (Auto) , Basophils (%) (Auto) , Differential Total Cells Counted 100, Neutrophils % (Manual) 88H, Lymphocytes % (Manual) 4L, Monocytes % (Manual) 8, Eosinophils % (Manual) 0, Basophils % ( Manual) 0, Band Neutrophils 0, Platelet Estimate Adequate, Platelet Morphology Normal, Hypochromasia 1+, Sodium Level 142, Potassium Level 3.8, Chloride Level 110H, Carbon Dioxide Level 21, Anion Gap 11, Blood Urea Nitrogen 24H, Creatinine 1.1, Estimat Glomerular Filtration Rate , Glucose Level 109H, Calcium Level 7.6L Height (Feet): 5 Height (Inches): 5.00 Weight (Pounds): 135 General Appearance: lethargic EENT: normal ENT inspection Neck: normal alignment Cardiovascular: normal peripheral pulses, normal rate, regular rhythm Respiratory/Chest: chest wall non-tender, lungs clear, normal breath sounds Abdomen: normal bowel sounds, non tender, soft Extremities: normal inspection Edema: no edema noted Arm (L), no edema noted Arm (R), no edema noted Leg (L), no edema noted Leg (R), no edema noted Pedal (L), no edema noted Pedal (R), no edema noted Generalized Neurologic: motor weakness Skin: normal pigmentation, warm/dry Jacques Heaton DO Jun 21, 2018 11:13
--- NOTE | 2018-06-21 12:15 | Nephrology Progress Note ---
Assessment/Plan Problem List: (1) Dehydration (2) Acute hypernatremia (3) Renal insufficiency (4) Severe malnutrition (5) Metastatic cancer Assessment Renal Failure- Dehydration, Hypernatremia Malnutrition / Hypoalbuminemia Pneumonia / Aspiration / Multi lung nodules Seizure disorder Cerebrovascular accident (CVA) Advanced dementia Plan K and Phos replaced- D5W Antibiotics monitor lytes and renal parameters pulm support PO Folate DNR ? DC planning Subjective ROS Limited/Unobtainable: Yes Constitutional: Reports: malaise Objective Objective Last 24 Hour Vital Signs Date Time Temp Pulse Resp B/P (MAP) Pulse Ox O2 Delivery O2 Flow Rate FiO2 06/21/18 11:12 207.3 68 22 98 06/21/18 10:40 98 91 26 109/60 100 Nasal Cannula 3 98.0 91 06/21/18 10:30 93 27 127/70 97 Nasal Cannula 3 93 06/21/18 10:25 94 26 116/73 99 Nasal Cannula 3 94 06/21/18 10:22 207.7 92 22 99 06/21/18 10:20 95 28 113/58 100 Nasal Cannula 3 95 06/21/18 10:13 98.9 93 20 106/63 99 Nasal Cannula 3 98.9 93 06/21/18 09:00 Nasal Cannula 2.0 06/21/18 08:00 97.6 93 20 105/64 (78) 93 97.6 06/21/18 05:03 99.3 96 123/66 (85) 99.3 06/21/18 04:37 100.0 87 22 97/65 (76) 97 100.0 06/21/18 01:20 81 116/68 (84) 06/21/18 00:00 99.9 85 22 98/66 (77) 97 99.9 06/20/18 22:13 Nasal Cannula 2.0 06/20/18 20:36 94 118/72 06/20/18 20:29 97.6 94 23 118/72 (87) 97 97.6 06/20/18 20:26 93 20 Nasal Cannula 2.0 28 06/20/18 20:26 97 Nasal Cannula 2.0 28 06/20/18 20:26 Nasal Cannula 2.0 28 06/20/18 16:00 97.0 89 22 121/64 (83) 95 97.0 Intake and Output 06/20/18 06/21/18 19:00 07:00 Intake Total 460 ml 440 ml Output Total 125 ml Balance 460 ml 315 ml IV Total 20 ml 220 ml Tube Feeding 440 ml 220 ml Output Urine Total 125 ml # Voids 1 # Bowel Movements 1 Laboratory Tests 06/21/18 06:00: White Blood Count 12.4H, Red Blood Count 3.06L, Hemoglobin 8.9L, Hematocrit 26.7L, Mean Corpuscular Volume 87, Mean Corpuscular Hemoglobin 29.0, Mean Corpuscular Hemoglobin Concent 33.3, Red Cell Distribution Width 13.9, Platelet Count 278, Mean Platelet Volume 8.4, Neutrophils (%) (Auto) , Lymphocytes (%) ( Auto) , Monocytes (%) (Auto) , Eosinophils (%) (Auto) , Basophils (%) (Auto) , Differential Total Cells Counted 100, Neutrophils % (Manual) 88H, Lymphocytes % (Manual) 4L, Monocytes % (Manual) 8, Eosinophils % (Manual) 0, Basophils % ( Manual) 0, Band Neutrophils 0, Platelet Estimate Adequate, Platelet Morphology Normal, Hypochromasia 1+, Sodium Level 142, Potassium Level 3.8, Chloride Level 110H, Carbon Dioxide Level 21, Anion Gap 11, Blood Urea Nitrogen 24H, Creatinine 1.1, Estimat Glomerular Filtration Rate , Glucose Level 109H, Uric Acid [Pending], Calcium Level 7.6L, Phosphorus Level [Pending], Magnesium Level [Pending], Total Bilirubin [Pending], Direct Bilirubin [Pending], Aspartate Amino Transf (AST/SGOT) [Pending], Alanine Aminotransferase (ALT/SGPT) [Pending] , Alkaline Phosphatase [Pending], Total Protein [Pending], Albumin [Pending] Height (Feet): 5 Height (Inches): 5.00 Weight (Pounds): 135 General Appearance: lethargic, mild distress EENT: other - NGt Cardiovascular: other - variable Respiratory/Chest: decreased breath sounds Abdomen: distended Objective no change Anthony Stockton MD Jun 21, 2018 12:15
[2018-06-21 12:21] LABS: ALANINE AMINOTRANSFERASE 29 U/L (12-78); ALBUMIN 1.7 G/DL (3.4-5.0); ALKALINE PHOSPHATASE 397 U/L (46-116); ASPARTATE AMINO TRANSFERASE 44 U/L (15-37); BILIRUBIN,DIRECT 0.2 MG/DL (0.0-0.3); BILIRUBIN,TOTAL 0.6 MG/DL (0.2-1.0); PHOSPHORUS 2.4 MG/DL (2.5-4.9)
--- NOTE | 2018-06-21 12:25 | General Surgery Progress Note ---
General Surgery-Progress Note Subjective Additional Comments no acute events. leukocytosis. peg today Objective Last 24 Hour Vital Signs Date Time Temp Pulse Resp B/P (MAP) Pulse Ox O2 Delivery O2 Flow Rate FiO2 06/21/18 12:16 Nasal Cannula 2.0 28 06/21/18 12:16 97 Nasal Cannula 2.0 28 06/21/18 12:13 86 20 Nasal Cannula 2.0 28 06/21/18 11:12 207.3 68 22 98 06/21/18 10:40 98 91 26 109/60 100 Nasal Cannula 3 98.0 91 06/21/18 10:30 93 27 127/70 97 Nasal Cannula 3 93 06/21/18 10:25 94 26 116/73 99 Nasal Cannula 3 94 06/21/18 10:22 207.7 92 22 99 06/21/18 10:20 95 28 113/58 100 Nasal Cannula 3 95 06/21/18 10:13 98.9 93 20 106/63 99 Nasal Cannula 3 98.9 93 06/21/18 09:00 Nasal Cannula 2.0 06/21/18 08:00 97.6 93 20 105/64 (78) 93 97.6 06/21/18 05:03 99.3 96 123/66 (85) 99.3 06/21/18 04:37 100.0 87 22 97/65 (76) 97 100.0 06/21/18 01:20 81 116/68 (84) 06/21/18 00:00 99.9 85 22 98/66 (77) 97 99.9 06/20/18 22:13 Nasal Cannula 2.0 06/20/18 20:36 94 118/72 06/20/18 20:29 97.6 94 23 118/72 (87) 97 97.6 06/20/18 20:26 93 20 Nasal Cannula 2.0 28 06/20/18 20:26 97 Nasal Cannula 2.0 28 06/20/18 20:26 Nasal Cannula 2.0 28 06/20/18 16:00 97.0 89 22 121/64 (83) 95 97.0 I&O Intake and Output 06/20/18 06/21/18 19:00 07:00 Intake Total 460 ml 440 ml Output Total 125 ml Balance 460 ml 315 ml IV Total 20 ml 220 ml Tube Feeding 440 ml 220 ml Output Urine Total 125 ml # Voids 1 # Bowel Movements 1 Dressing: dry Wound: clean Drains: other Cardiovascular: RSR Respiratory: clear Abdomen: soft, distended, present bowel sounds Extremities: other Laboratory Tests Test 06/21/18 06:00 White Blood Count 12.4 K/UL (4.8-10.8) H Red Blood Count 3.06 M/UL (4.70-6.10) L Hemoglobin 8.9 G/DL (14.2-18.0) L Hematocrit 26.7 % (42.0-52.0) L Mean Corpuscular Volume 87 FL (80-99) Mean Corpuscular Hemoglobin 29.0 PG (27.0-31.0) Mean Corpuscular Hemoglobin Concent 33.3 G/DL (32.0-36.0) Red Cell Distribution Width 13.9 % (11.6-14.8) Platelet Count 278 K/UL (150-450) Mean Platelet Volume 8.4 FL (6.5-10.1) Neutrophils (%) (Auto) % (45.0-75.0) Lymphocytes (%) (Auto) % (20.0-45.0) Monocytes (%) (Auto) % (1.0-10.0) Eosinophils (%) (Auto) % (0.0-3.0) Basophils (%) (Auto) % (0.0-2.0) Differential Total Cells Counted 100 Neutrophils % (Manual) 88 % (45-75) H Lymphocytes % (Manual) 4 % (20-45) L Monocytes % (Manual) 8 % (1-10) Eosinophils % (Manual) 0 % (0-3) Basophils % (Manual) 0 % (0-2) Band Neutrophils 0 % (0-8) Platelet Estimate Adequate Platelet Morphology Normal Hypochromasia 1+ Sodium Level 142 MMOL/L (136-145) Potassium Level 3.8 MMOL/L (3.5-5.1) Chloride Level 110 MMOL/L (98-107) H Carbon Dioxide Level 21 MMOL/L (21-32) Anion Gap 11 mmol/L (5-15) Blood Urea Nitrogen 24 mg/dL (7-18) H Creatinine 1.1 MG/DL (0.55-1.30) Estimat Glomerular Filtration Rate mL/min (>60) Glucose Level 109 MG/DL (74-106) H Uric Acid 5.5 MG/DL (2.6-7.2) Calcium Level 7.6 MG/DL (8.5-10.1) L Phosphorus Level 2.4 MG/DL (2.5-4.9) L Magnesium Level 2.1 MG/DL (1.8-2.4) Total Bilirubin 0.6 MG/DL (0.2-1.0) Direct Bilirubin 0.2 MG/DL (0.0-0.3) Aspartate Amino Transf (AST/SGOT) 44 U/L (15-37) H Alanine Aminotransferase (ALT/SGPT) 29 U/L (12-78) Alkaline Phosphatase 397 U/L (46-116) H Total Protein 6.4 G/DL (6.4-8.2) Albumin 1.7 G/DL (3.4-5.0) L Plan Problems: (1) Lung nodule, multiple Assessment & Plan: abnormal lft's, leukocytosis. GI procedures on hold because of cardiac clearance Hepatitis panel pending US Abdomen: Multiple hepatic and splenic masses, as described. 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 However, in view of the splenic involvement, the possibility that this represents multiple abscesses should also be considered Fluid structure in the gallbladder fossa probably but not definitively represents a nondistended gallbladder. This possibly contains gallstones. Soft tissue echogenicity area within the apparent lumen could represent tumefactive sludge, polyp, or, given the above findings, neoplasm Multiple lung nodules. etiology unknown. CT C/A/P reviewed. Metastatic disease everywhere. small right chest wall anterior lateral nodule noted. Pending pathology report from liver biopsy PEG today thank you. will follow with recs. Rudolph Solis Jun 21, 2018 12:25
[2018-06-21] MEDS: Cefepime HCl 1 GM in D5W 55 ML IV SCH (12:51)
[2018-06-21] MEDS: Pantoprazole Inj IVP SCH (12:55)
--- NOTE | 2018-06-21 12:58 | Pulmonology Progress Note ---
Assessment/Plan Problems: (1) Metastatic cancer (2) Aspiration pneumonia (3) ATN (acute tubular necrosis) (4) Lung nodule, multiple (5) Seizure disorder (6) Severe malnutrition (7) Cerebrovascular accident (CVA) (8) Advanced dementia Assessment/Plan PEG was placed this morning all noted, afebrile cultures pending on Abx CT scan reviewed, multiple masses throughout the lungs and live, spleen renal function improving dvt prophylaxis f/u biopsy pr is DNR as requested by pts son Subjective ROS Limited/Unobtainable: No Constitutional: Reports: no symptoms HEENT: Repors: no symptoms Respiratory: Reports: no symptoms Allergies: Coded Allergies: No Known Allergies (Unverified , 09/04/17) Objective Last 24 Hour Vital Signs Date Time Temp Pulse Resp B/P (MAP) Pulse Ox O2 Delivery O2 Flow Rate FiO2 06/21/18 12:16 Nasal Cannula 2.0 28 06/21/18 12:16 97 Nasal Cannula 2.0 28 06/21/18 12:13 86 20 Nasal Cannula 2.0 28 06/21/18 12:00 97.3 90 18 109/66 (80) 95 97.3 06/21/18 11:12 207.3 68 22 98 06/21/18 10:40 98 91 26 109/60 100 Nasal Cannula 3 98.0 91 06/21/18 10:30 93 27 127/70 97 Nasal Cannula 3 93 06/21/18 10:25 94 26 116/73 99 Nasal Cannula 3 94 06/21/18 10:22 207.7 92 22 99 06/21/18 10:20 95 28 113/58 100 Nasal Cannula 3 95 06/21/18 10:13 98.9 93 20 106/63 99 Nasal Cannula 3 98.9 93 06/21/18 09:00 Nasal Cannula 2.0 06/21/18 08:00 97.6 93 20 105/64 (78) 93 97.6 06/21/18 05:03 99.3 96 123/66 (85) 99.3 06/21/18 04:37 100.0 87 22 97/65 (76) 97 100.0 06/21/18 01:20 81 116/68 (84) 06/21/18 00:00 99.9 85 22 98/66 (77) 97 99.9 06/20/18 22:13 Nasal Cannula 2.0 06/20/18 20:36 94 118/72 06/20/18 20:29 97.6 94 23 118/72 (87) 97 97.6 06/20/18 20:26 93 20 Nasal Cannula 2.0 28 06/20/18 20:26 97 Nasal Cannula 2.0 28 06/20/18 20:26 Nasal Cannula 2.0 28 06/20/18 16:00 97.0 89 22 121/64 (83) 95 97.0 Intake and Output 06/20/18 06/21/18 19:00 07:00 Intake Total 460 ml 440 ml Output Total 125 ml Balance 460 ml 315 ml IV Total 20 ml 220 ml Tube Feeding 440 ml 220 ml Output Urine Total 125 ml # Voids 1 # Bowel Movements 1 General Appearance: WD/WN, no acute distress HEENT: atraumatic Respiratory/Chest: chest wall non-tender, normal breath sounds Cardiovascular: normal peripheral pulses, normal rate Abdomen: soft, non tender Extremities: no cyanosis 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 Lymphatic: no neck adenopathy Musculoskeletal: normal muscle bulk Laboratory Tests 06/21/18 06:00: White Blood Count 12.4H, Red Blood Count 3.06L, Hemoglobin 8.9L, Hematocrit 26.7L, Mean Corpuscular Volume 87, Mean Corpuscular Hemoglobin 29.0, Mean Corpuscular Hemoglobin Concent 33.3, Red Cell Distribution Width 13.9, Platelet Count 278, Mean Platelet Volume 8.4, Neutrophils (%) (Auto) , Lymphocytes (%) ( Auto) , Monocytes (%) (Auto) , Eosinophils (%) (Auto) , Basophils (%) (Auto) , Differential Total Cells Counted 100, Neutrophils % (Manual) 88H, Lymphocytes % (Manual) 4L, Monocytes % (Manual) 8, Eosinophils % (Manual) 0, Basophils % ( Manual) 0, Band Neutrophils 0, Platelet Estimate Adequate, Platelet Morphology Normal, Hypochromasia 1+, Sodium Level 142, Potassium Level 3.8, Chloride Level 110H, Carbon Dioxide Level 21, Anion Gap 11, Blood Urea Nitrogen 24H, Creatinine 1.1, Estimat Glomerular Filtration Rate , Glucose Level 109H, Uric Acid 5.5, Calcium Level 7.6L, Phosphorus Level 2.4L, Magnesium Level 2.1, Total Bilirubin 0.6, Direct Bilirubin 0.2, Aspartate Amino Transf (AST/SGOT) 44H, Alanine Aminotransferase (ALT/SGPT) 29, Alkaline Phosphatase 397H, Total Protein 6.4, Albumin 1.7L Current Medications Medications (Trade) Dose Ordered Sig/Manav Route PRN Reason Start Time Stop Time Status Last Admin Dose Admin Acetaminophen (Tylenol) 650 mg Q4H PRN ORAL fever (temp>100.5F) 06/16/18 17:15 07/14/18 13:14 06/19/18 20:38 Albuterol/ Ipratropium (Albuterol/ Ipratropium) 3 ml Q4H PRN HHN Shortness of Breath 06/20/18 07:45 06/25/18 07:44 Cefepime HCl 1 gm/ Dextrose 55 ml @ 110 mls/hr DAILY IV 06/17/18 09:00 06/21/18 17:59 06/20/18 08:47 Dextrose 1,000 ml @ 20 mls/hr Q24H IV 06/17/18 16:00 07/14/18 15:59 06/20/18 15:56 Fentanyl Citrate (Sublimaze 100 mcg/2 mL) 25 mcg Q10M PRN IV Moderate Pain (Pain Scale 4-6) 06/21/18 09:15 06/21/18 17:00 Fluoxetine HCl (PROzac) 20 mg DAILY ORAL 06/17/18 09:00 07/17/18 08:59 06/20/18 08:48 Folic Acid (Folate) 2 mg DAILY ORAL 06/17/18 09:00 07/15/18 08:59 06/20/18 08:48 Heparin Sodium (Porcine) (Heparin 5000 units/ml) 5,000 units EVERY 12 HOURS SUBQ 06/16/18 21:00 07/14/18 20:59 06/20/18 08:48 Levetiracetam (Keppra) 500 mg Q12HR ORAL 06/16/18 21:00 07/14/18 20:59 06/20/18 20:36 Metoclopramide HCl (Reglan) 10 mg EVERY 6 HOURS NG 06/20/18 12:00 07/20/18 11:59 06/21/18 05:11 Metoprolol Tartrate (Lopressor) 25 mg Q12HR ORAL 06/16/18 21:00 07/16/18 20:59 06/20/18 20:36 Metronidazole (Flagyl) 500 mg Q8H ORAL 06/19/18 14:00 06/21/18 13:59 06/21/18 05:11 Nitroglycerin (Ntg) 0.4 mg Q5M PRN SL Prn Chest Pain 06/16/18 16:30 07/14/18 13:14 Ondansetron HCl (Zofran) 4 mg Q1H PRN IVP Nausea & Vomiting 06/21/18 09:15 06/21/18 17:00 Ondansetron HCl (Zofran) 4 mg Q6H PRN IVP Nausea & Vomiting 06/16/18 17:00 07/14/18 16:59 Pantoprazole (Protonix) 40 mg DAILY IVP 06/17/18 09:00 07/15/18 08:59 06/20/18 08:47 Polyethylene Glycol (Miralax) 17 gm DAILYPRN PRN ORAL Constipation 06/17/18 17:00 07/14/18 16:59 Temazepam (Restoril) 15 mg HSPRN PRN ORAL Insomnia 06/16/18 21:00 06/23/18 20:59 Malia Saba MD Jun 21, 2018 12:58
--- NOTE | 2018-06-21 13:15 | Infectious Diseases Prog Note ---
Assessment/Plan Assessment/Plan 78 yo male sent to the ED from his assisted after refusing med and food for a week per report. PNA - Possible aspiration vs CAP +ve blood cx : CoNS contaminant -06/16 BCx NTD 2D echo : no Veg Lung Nodules and liver mass; metastic Cancer- ?primary CT: Evidence of disseminated malignancy, with numerous bilateral lung masses, possible right-sided pleural masses, hilar lymphadenopathy, subcutaneous nodules, splenic masses and multiple liver masses - Likely CA given US - 06/18 SP Bx : P Fever, low grade, recurrent Leukocytosis, mild,recurrent -likely 2ry to malignancy Elevalted LFTs, improving -acute hep panel neg; likely 2ry to liver masses Dysphagia HTN COPD Epilepsy Depression Schizophrenia Dementia CVA [place] Anemia PLAN: Continue Cefepime # 03/27 (End Date 06/21/18) Continue Flagyl # / (End Date 06/21/18) - 06/15 - SP Vancomycin - Blood Cx likely contaminant Monitor repeat blood CX - f/u Liver Bx result -Bcx x2, cXR am Discussed with RN. Subjective Allergies: Coded Allergies: No Known Allergies (Unverified , 09/04/17) Subjective Tm 100 wbc 12 repeat Bcx NTD awaiting liver bx results Objective Vital Signs Last 24 Hour Vital Signs Date Time Temp Pulse Resp B/P (MAP) Pulse Ox O2 Delivery O2 Flow Rate FiO2 06/21/18 12:16 Nasal Cannula 2.0 28 06/21/18 12:16 97 Nasal Cannula 2.0 28 06/21/18 12:13 86 20 Nasal Cannula 2.0 28 06/21/18 12:00 97.3 90 18 109/66 (80) 95 97.3 06/21/18 11:12 207.3 68 22 98 06/21/18 10:40 98 91 26 109/60 100 Nasal Cannula 3 98.0 91 06/21/18 10:30 93 27 127/70 97 Nasal Cannula 3 93 06/21/18 10:25 94 26 116/73 99 Nasal Cannula 3 94 06/21/18 10:22 207.7 92 22 99 06/21/18 10:20 95 28 113/58 100 Nasal Cannula 3 95 06/21/18 10:13 98.9 93 20 106/63 99 Nasal Cannula 3 98.9 93 06/21/18 09:00 86 109/66 06/21/18 09:00 Nasal Cannula 2.0 06/21/18 08:00 97.6 93 20 105/64 (78) 93 97.6 06/21/18 05:03 99.3 96 123/66 (85) 99.3 06/21/18 04:37 100.0 87 22 97/65 (76) 97 100.0 06/21/18 01:20 81 116/68 (84) 06/21/18 00:00 99.9 85 22 98/66 (77) 97 99.9 06/20/18 22:13 Nasal Cannula 2.0 06/20/18 20:36 94 118/72 06/20/18 20:29 97.6 94 23 118/72 (87) 97 97.6 06/20/18 20:26 93 20 Nasal Cannula 2.0 28 06/20/18 20:26 97 Nasal Cannula 2.0 28 06/20/18 20:26 Nasal Cannula 2.0 28 06/20/18 16:00 97.0 89 22 121/64 (83) 95 97.0 Height (Feet): 5 Height (Inches): 5.00 Weight (Pounds): 135 Objective General Appearance: WD/WN, no acute distress HEENT: atraumatic Respiratory/Chest: chest wall non-tender, normal breath sounds Cardiovascular: normal peripheral pulses, normal rate Abdomen: soft, non tender Extremities: no cyanosis 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 Lymphatic: no neck adenopathy Musculoskeletal: normal muscle bulk Laboratory Tests Test 06/21/18 06:00 White Blood Count 12.4 K/UL (4.8-10.8) H Red Blood Count 3.06 M/UL (4.70-6.10) L Hemoglobin 8.9 G/DL (14.2-18.0) L Hematocrit 26.7 % (42.0-52.0) L Mean Corpuscular Volume 87 FL (80-99) Mean Corpuscular Hemoglobin 29.0 PG (27.0-31.0) Mean Corpuscular Hemoglobin Concent 33.3 G/DL (32.0-36.0) Red Cell Distribution Width 13.9 % (11.6-14.8) Platelet Count 278 K/UL (150-450) Mean Platelet Volume 8.4 FL (6.5-10.1) Neutrophils (%) (Auto) % (45.0-75.0) Lymphocytes (%) (Auto) % (20.0-45.0) Monocytes (%) (Auto) % (1.0-10.0) Eosinophils (%) (Auto) % (0.0-3.0) Basophils (%) (Auto) % (0.0-2.0) Differential Total Cells Counted 100 Neutrophils % (Manual) 88 % (45-75) H Lymphocytes % (Manual) 4 % (20-45) L Monocytes % (Manual) 8 % (1-10) Eosinophils % (Manual) 0 % (0-3) Basophils % (Manual) 0 % (0-2) Band Neutrophils 0 % (0-8) Platelet Estimate Adequate Platelet Morphology Normal Hypochromasia 1+ Sodium Level 142 MMOL/L (136-145) Potassium Level 3.8 MMOL/L (3.5-5.1) Chloride Level 110 MMOL/L (98-107) H Carbon Dioxide Level 21 MMOL/L (21-32) Anion Gap 11 mmol/L (5-15) Blood Urea Nitrogen 24 mg/dL (7-18) H Creatinine 1.1 MG/DL (0.55-1.30) Estimat Glomerular Filtration Rate mL/min (>60) Glucose Level 109 MG/DL (74-106) H Uric Acid 5.5 MG/DL (2.6-7.2) Calcium Level 7.6 MG/DL (8.5-10.1) L Phosphorus Level 2.4 MG/DL (2.5-4.9) L Magnesium Level 2.1 MG/DL (1.8-2.4) Total Bilirubin 0.6 MG/DL (0.2-1.0) Direct Bilirubin 0.2 MG/DL (0.0-0.3) Aspartate Amino Transf (AST/SGOT) 44 U/L (15-37) H Alanine Aminotransferase (ALT/SGPT) 29 U/L (12-78) Alkaline Phosphatase 397 U/L (46-116) H Total Protein 6.4 G/DL (6.4-8.2) Albumin 1.7 G/DL (3.4-5.0) L Current Medications Medications (Trade) Dose Ordered Sig/Manav Route PRN Reason Start Time Stop Time Status Last Admin Dose Admin Acetaminophen (Tylenol) 650 mg Q4H PRN ORAL fever (temp>100.5F) 06/16/18 17:15 07/14/18 13:14 06/19/18 20:38 Albuterol/ Ipratropium (Albuterol/ Ipratropium) 3 ml Q4H PRN HHN Shortness of Breath 06/20/18 07:45 06/25/18 07:44 Cefepime HCl 1 gm/ Dextrose 55 ml @ 110 mls/hr DAILY IV 06/17/18 09:00 06/21/18 17:59 06/21/18 12:51 Dextrose 1,000 ml @ 20 mls/hr Q24H IV 06/17/18 16:00 07/14/18 15:59 06/20/18 15:56 Fentanyl Citrate (Sublimaze 100 mcg/2 mL) 25 mcg Q10M PRN IV Moderate Pain (Pain Scale 4-6) 06/21/18 09:15 06/21/18 17:00 Fluoxetine HCl (PROzac) 20 mg DAILY ORAL 06/17/18 09:00 07/17/18 08:59 06/21/18 12:56 Folic Acid (Folate) 2 mg DAILY ORAL 06/17/18 09:00 07/15/18 08:59 06/21/18 12:56 Heparin Sodium (Porcine) (Heparin 5000 units/ml) 5,000 units EVERY 12 HOURS SUBQ 06/16/18 21:00 07/14/18 20:59 06/20/18 08:48 Levetiracetam (Keppra) 500 mg Q12HR ORAL 06/16/18 21:00 07/14/18 20:59 06/21/18 12:56 Metoclopramide HCl (Reglan) 10 mg EVERY 6 HOURS NG 06/20/18 12:00 07/20/18 11:59 06/21/18 12:57 Metoprolol Tartrate (Lopressor) 25 mg Q12HR ORAL 06/16/18 21:00 07/16/18 20:59 06/20/18 20:36 Metronidazole (Flagyl) 500 mg Q8H ORAL 06/19/18 14:00 06/21/18 13:59 06/21/18 05:11 Nitroglycerin (Ntg) 0.4 mg Q5M PRN SL Prn Chest Pain 06/16/18 16:30 07/14/18 13:14 Ondansetron HCl (Zofran) 4 mg Q1H PRN IVP Nausea & Vomiting 06/21/18 09:15 06/21/18 17:00 Ondansetron HCl (Zofran) 4 mg Q6H PRN IVP Nausea & Vomiting 06/16/18 17:00 07/14/18 16:59 Pantoprazole (Protonix) 40 mg DAILY IVP 06/17/18 09:00 07/15/18 08:59 06/21/18 12:55 Polyethylene Glycol (Miralax) 17 gm DAILYPRN PRN ORAL Constipation 06/17/18 17:00 07/14/18 16:59 Temazepam (Restoril) 15 mg HSPRN PRN ORAL Insomnia 06/16/18 21:00 06/23/18 20:59 Nasreen Girard M.D. Jun 21, 2018 13:15
--- NOTE | 2018-06-21 14:01 | General Progress Note ---
Assessment/Plan Problem List: (1) Encephalopathy due to metabolic factor or toxin SNOMED: 426718729 (2) Advanced dementia ICD Codes: F03.90 - Unspecified dementia without behavioral disturbance SNOMED: 66795759 Assessment/Plan the pt lacks capacity to make decisions prozac 20mg qam Subjective Date patient seen: Jun 21, 2018 Neurologic/Psychiatric: Reports: anxiety, depressed, emotional problems Allergies: Coded Allergies: No Known Allergies (Unverified , 09/04/17) Subjective the pt is calm in mittens and not agitated Objective Last 24 Hour Vital Signs Date Time Temp Pulse Resp B/P (MAP) Pulse Ox O2 Delivery O2 Flow Rate FiO2 06/21/18 12:16 Nasal Cannula 2.0 28 06/21/18 12:16 97 Nasal Cannula 2.0 28 06/21/18 12:13 86 20 Nasal Cannula 2.0 28 06/21/18 12:00 97.3 90 18 109/66 (80) 95 97.3 06/21/18 11:12 207.3 68 22 98 06/21/18 10:40 98 91 26 109/60 100 Nasal Cannula 3 98.0 91 06/21/18 10:30 93 27 127/70 97 Nasal Cannula 3 93 06/21/18 10:25 94 26 116/73 99 Nasal Cannula 3 94 06/21/18 10:22 207.7 92 22 99 06/21/18 10:20 95 28 113/58 100 Nasal Cannula 3 95 06/21/18 10:13 98.9 93 20 106/63 99 Nasal Cannula 3 98.9 93 06/21/18 09:00 86 109/66 06/21/18 09:00 Nasal Cannula 2.0 06/21/18 08:00 97.6 93 20 105/64 (78) 93 97.6 06/21/18 05:03 99.3 96 123/66 (85) 99.3 06/21/18 04:37 100.0 87 22 97/65 (76) 97 100.0 06/21/18 01:20 81 116/68 (84) 06/21/18 00:00 99.9 85 22 98/66 (77) 97 99.9 06/20/18 22:13 Nasal Cannula 2.0 06/20/18 20:36 94 118/72 9/30/18 20:29 97.6 94 23 118/72 (87) 97 97.6 06/20/18 20:26 93 20 Nasal Cannula 2.0 28 06/20/18 20:26 97 Nasal Cannula 2.0 28 06/20/18 20:26 Nasal Cannula 2.0 28 06/20/18 16:00 97.0 89 22 121/64 (83) 95 97.0 Intake and Output 06/20/18 06/21/18 19:00 07:00 Intake Total 460 ml 440 ml Output Total 125 ml Balance 460 ml 315 ml IV Total 20 ml 220 ml Tube Feeding 440 ml 220 ml Output Urine Total 125 ml # Voids 1 # Bowel Movements 1 Laboratory Tests 06/21/18 06:00: White Blood Count 12.4H, Red Blood Count 3.06L, Hemoglobin 8.9L, Hematocrit 26.7L, Mean Corpuscular Volume 87, Mean Corpuscular Hemoglobin 29.0, Mean Corpuscular Hemoglobin Concent 33.3, Red Cell Distribution Width 13.9, Platelet Count 278, Mean Platelet Volume 8.4, Neutrophils (%) (Auto) , Lymphocytes (%) ( Auto) , Monocytes (%) (Auto) , Eosinophils (%) (Auto) , Basophils (%) (Auto) , Differential Total Cells Counted 100, Neutrophils % (Manual) 88H, Lymphocytes % (Manual) 4L, Monocytes % (Manual) 8, Eosinophils % (Manual) 0, Basophils % ( Manual) 0, Band Neutrophils 0, Platelet Estimate Adequate, Platelet Morphology Normal, Hypochromasia 1+, Sodium Level 142, Potassium Level 3.8, Chloride Level 110H, Carbon Dioxide Level 21, Anion Gap 11, Blood Urea Nitrogen 24H, Creatinine 1.1, Estimat Glomerular Filtration Rate , Glucose Level 109H, Uric Acid 5.5, Calcium Level 7.6L, Phosphorus Level 2.4L, Magnesium Level 2.1, Total Bilirubin 0.6, Direct Bilirubin 0.2, Aspartate Amino Transf (AST/SGOT) 44H, Alanine Aminotransferase (ALT/SGPT) 29, Alkaline Phosphatase 397H, Total Protein 6.4, Albumin 1.7L Height (Feet): 5 Height (Inches): 5.00 Weight (Pounds): 135 Shey Gutierrez MD Jun 21, 2018 14:01
[2018-06-22] VITALS: BP 114/69
[2018-06-22] MEDS: Metoclopramide 10mg/10ml Liq NG SCH ×4 (01:08→18:16)
[2018-06-22 04:00] VITALS: BP 112/72
[2018-06-22 06:58] LABS: HEMATOCRIT 28.9 % (42.0-52.0); HEMOGLOBIN 9.2 G/DL (14.2-18.0); MEAN CORPUSCULAR VOLUME 88 FL (80-99); PLATELET COUNT 271 K/UL (150-450); RED BLOOD COUNT 3.28 M/UL (4.70-6.10); RED CELL DISTRIBUTION WIDTH 13.5 % (11.6-14.8); WHITE BLOOD COUNT 11.8 K/UL (4.8-10.8)
[2018-06-22 07:10] LABS: ANION GAP 7 mmol/L (5-15); BLOOD UREA NITROGEN 25 mg/dL (7-18); CARBON DIOXIDE 25 MMOL/L (21-32); CHLORIDE 111 MMOL/L (98-107); POTASSIUM 3.9 MMOL/L (3.5-5.1); SODIUM 143 MMOL/L (136-145)
--- NOTE | 2018-06-22 07:37 | General Progress Note ---
Assessment/Plan Assessment/Plan # Disseminated malignancy wide spread, with numerous bilateral lung masses, possible right-sided pleural masses, hilar lymphadenopathy, subcutaneous nodules , splenic masses and multiple liver masses on CT C/A/P has been reviewed --> Final report of biopsy is pending, results to be uploaded shortly by pathologist ([facility]) --> dw pcp and with patient plan in after results are obtained --> tumor markers ordered. CA 19.9 is 73 --> patient and son does not want heroic measures, is DNR --> peg if needed per family and others agree, though current condition is poor as is prognosis --> can discuss with family results of biopsy and poor prognosis as needed # Anemia of iron deficiency --> continue patient on Iv iton --> total of 4 doses of iv iron # Severe malnutrition --> consider appetite stimulant --> monitor weight improvement prn --> s/p peg on 06/21/2018 --> appreciate nutrition recs # Acute hypernatremia # Dehydration--> IVF prn # Pneumonia s/p abx # Generalized weakness # Failure to thrive DW Attending and RN Greatly appreciate consultation! Subjective Constitutional: Denies: no symptoms, chills, diaphoresis, fever, malaise, weakness, other HEENT: Denies: no symptoms, eye pain, blurred vision, tearing, double vision, ear pain, ear discharge, nose pain, nose congestion, throat pain, throat swelling, mouth pain, mouth swelling, other Cardiovascular: Denies: no symptoms, chest pain, edema, irregular heart rate, lightheadedness, palpitations, syncope, other Respiratory: Denies: no symptoms, cough, orthopnea, shortness of breath, SOB with excertion, SOB at rest, sputum, stridor, wheezing, other Gastrointestinal/Abdominal: Denies: no symptoms, abdomen distended, abdominal pain, black stools, tarry stools, blood in stool, constipated, diarrhea, difficulty swallowing, nausea, poor appetite, poor fluid intake, rectal bleeding , vomiting, other Genitourinary: Denies: no symptoms, burning, discharge, frequency, flank pain, hematuria, incontinence, pain, urgency, other Neurologic/Psychiatric: Denies: no symptoms, anxiety, depressed, emotional problems, headache, numbness, paresthesia, pre-existing deficit, seizure, tingling, tremors, weakness, other Endocrine: Denies: no symptoms, excessive sweating, flushing, intolerance to cold, intolerance to heat, increased hunger, increased thirst, increased urine, unexplained weight gain, unexplained weight loss, other Allergies: Coded Allergies: No Known Allergies (Unverified , 09/04/17) Subjective no events, biopsy showed malignancy, final report pathology report pending, remains DNR, cannot make own decisions Objective Last 24 Hour Vital Signs Date Time Temp Pulse Resp B/P (MAP) Pulse Ox O2 Delivery O2 Flow Rate FiO2 06/22/18 04:00 97.6 81 17 112/72 (85) 97 97.6 06/22/18 00:00 97.3 84 16 114/69 (84) 96 97.3 06/21/18 22:34 Nasal Cannula 2.0 06/21/18 21:29 90 110/68 06/21/18 20:00 97.9 87 15 123/76 (92) 94 97.9 06/21/18 19:02 96 Nasal Cannula 2.0 28 06/21/18 19:02 96 22 Nasal Cannula 2.0 28 06/21/18 19:02 Nasal Cannula 2.0 28 06/21/18 16:00 98.0 90 19 110/68 (82) 95 98.0 06/21/18 12:16 Nasal Cannula 2.0 28 06/21/18 12:16 97 Nasal Cannula 2.0 28 06/21/18 12:13 86 20 Nasal Cannula 2.0 28 06/21/18 12:00 97.3 90 18 109/66 (80) 95 97.3 06/21/18 11:12 207.3 68 22 98 06/21/18 10:40 98 91 26 109/60 100 Nasal Cannula 3 98.0 91 06/21/18 10:30 93 27 127/70 97 Nasal Cannula 3 93 06/21/18 10:25 94 26 116/73 99 Nasal Cannula 3 94 06/21/18 10:22 207.7 92 22 99 06/21/18 10:20 95 28 113/58 100 Nasal Cannula 3 95 06/21/18 10:13 98.9 93 20 106/63 99 Nasal Cannula 3 98.9 93 06/21/18 09:00 86 109/66 06/21/18 09:00 Nasal Cannula 2.0 06/21/18 08:00 97.6 93 20 105/64 (78) 93 97.6 Intake and Output 06/21/18 06/22/18 19:00 07:00 Intake Total 905 ml 940 ml Output Total 0 ml 800 ml Balance 905 ml 140 ml Free Water 80 ml 260 ml IV Total 645 ml 240 ml Tube Feeding 180 ml 440 ml Output Urine Total 800 ml Estimated Blood Loss 0 ml # Voids 6 # Bowel Movements 1 Laboratory Tests 06/22/18 06:00: White Blood Count 11.8H, Red Blood Count 3.28L, Hemoglobin 9.2L, Hematocrit 28.9L, Mean Corpuscular Volume 88, Mean Corpuscular Hemoglobin 28.1, Mean Corpuscular Hemoglobin Concent 31.9L, Red Cell Distribution Width 13.5, Platelet Count 271, Mean Platelet Volume 7.9, Neutrophils (%) (Auto) , Lymphocytes (%) (Auto) , Monocytes (%) (Auto) , Eosinophils (%) (Auto) , Basophils (%) (Auto) , Neutrophils % (Manual) [Pending], Lymphocytes % (Manual) [Pending], Platelet Estimate [Pending], Platelet Morphology [Pending], Sodium Level 143, Potassium Level 3.9, Chloride Level 111H, Carbon Dioxide Level 25, Anion Gap 7, Blood Urea Nitrogen 25H, Creatinine 1.0, Estimat Glomerular Filtration Rate , Glucose Level 135H, Calcium Level 8.0L, Total Bilirubin [ Pending], Direct Bilirubin [Pending], Aspartate Amino Transf (AST/SGOT) [Pending ], Alanine Aminotransferase (ALT/SGPT) [Pending], Alkaline Phosphatase [Pending] , Total Protein [Pending], Albumin [Pending], Hepatitis A Antibody Total [ Pending], Hepatitis B Surface Antibody, Quant [Pending], Hepatitis B Core Total Antibody [Pending] Height (Feet): 5 Height (Inches): 5.00 Weight (Pounds): 135 General Appearance: no apparent distress EENT: TMs normal Neck: normal alignment Cardiovascular: regular rhythm Respiratory/Chest: normal breath sounds Abdomen: non tender, other - ++peg Extremities: non-tender Jalen Webster MD Jun 22, 2018 07:36
[2018-06-22 08:11] LABS: ALANINE AMINOTRANSFERASE 28 U/L (12-78); ALBUMIN 1.6 G/DL (3.4-5.0); ALKALINE PHOSPHATASE 484 U/L (46-116); ASPARTATE AMINO TRANSFERASE 51 U/L (15-37); BILIRUBIN,DIRECT 0.2 MG/DL (0.0-0.3); BILIRUBIN,TOTAL 0.5 MG/DL (0.2-1.0)
[2018-06-22 08:13] VITALS: BP 101/63
[2018-06-22] MEDS: Metoprolol 25mg tab ORAL SCH ×3 (08:53→21:04)
[2018-06-22] MEDS: Heparin 5000 units/ml inj SUBQ SCH ×2 (08:54→21:05)
--- NOTE | 2018-06-22 10:17 | Diagnostic Imaging Report ---
Indication: Cough Technique: One view of the chest Comparison: And 08/01/2018 Findings: Again demonstrated are multiple nodular opacities throughout both lungs, concentrated in the mid and lower lungs. There is suggestion of increased parenchymal opacity in the right perihilar region, could represent an area of atelectasis or developing infiltrate. The pleural spaces remain clear. Heart size is normal. There is tortuous and calcified Impression: Possible developing patchy infiltrate in the right mid to lower lung. Other stable findings as described
--- NOTE | 2018-06-22 11:54 | Nephrology Progress Note ---
Assessment/Plan Problem List: (1) Dehydration (2) Acute hypernatremia (3) Renal insufficiency (4) Severe malnutrition (5) Metastatic cancer Assessment Renal Failure- Dehydration, Hypernatremia Malnutrition / Hypoalbuminemia Pneumonia / Aspiration / Multi lung nodules Seizure disorder Cerebrovascular accident (CVA) Advanced dementia Plan K and Phos replaced- D5W Antibiotics monitor lytes and renal parameters pulm support PO Folate DNR ? DC planning Subjective ROS Limited/Unobtainable: No Objective Objective Last 24 Hour Vital Signs Date Time Temp Pulse Resp B/P (MAP) Pulse Ox O2 Delivery O2 Flow Rate FiO2 06/22/18 09:00 Nasal Cannula 2.0 06/22/18 09:00 72 101/63 06/22/18 08:32 95 Nasal Cannula 2.0 28 06/22/18 08:32 Nasal Cannula 2.0 28 06/22/18 08:32 74 20 Nasal Cannula 2.0 28 06/22/18 08:13 97.9 72 20 101/63 (76) 99 97.9 06/22/18 04:00 97.6 81 17 112/72 (85) 97 97.6 06/22/18 00:00 97.3 84 16 114/69 (84) 96 97.3 06/21/18 22:34 Nasal Cannula 2.0 06/21/18 21:29 90 110/68 06/21/18 20:00 97.9 87 15 123/76 (92) 94 97.9 06/21/18 19:02 96 Nasal Cannula 2.0 28 06/21/18 19:02 96 22 Nasal Cannula 2.0 28 06/21/18 19:02 Nasal Cannula 2.0 28 06/21/18 16:00 98.0 90 19 110/68 (82) 95 98.0 06/21/18 12:16 Nasal Cannula 2.0 28 06/21/18 12:16 97 Nasal Cannula 2.0 28 06/21/18 12:13 86 20 Nasal Cannula 2.0 28 06/21/18 12:00 97.3 90 18 109/66 (80) 95 97.3 Intake and Output 06/21/18 06/22/18 19:00 07:00 Intake Total 905 ml 970 ml Output Total 0 ml 800 ml Balance 905 ml 170 ml Free Water 80 ml 260 ml IV Total 645 ml 240 ml Tube Feeding 180 ml 470 ml Output Urine Total 800 ml Estimated Blood Loss 0 ml # Voids 6 # Bowel Movements 1 Laboratory Tests 06/22/18 06:00: White Blood Count 11.8H, Red Blood Count 3.28L, Hemoglobin 9.2L, Hematocrit 28.9L, Mean Corpuscular Volume 88, Mean Corpuscular Hemoglobin 28.1, Mean Corpuscular Hemoglobin Concent 31.9L, Red Cell Distribution Width 13.5, Platelet Count 271, Mean Platelet Volume 7.9, Neutrophils (%) (Auto) , Lymphocytes (%) (Auto) , Monocytes (%) (Auto) , Eosinophils (%) (Auto) , Basophils (%) (Auto) , Differential Total Cells Counted 100, Neutrophils % ( Manual) 86H, Lymphocytes % (Manual) 9L, Monocytes % (Manual) 4, Eosinophils % ( Manual) 1, Basophils % (Manual) 0, Band Neutrophils 0, Platelet Estimate Adequate, Platelet Morphology Normal, Hypochromasia 1+, Sodium Level 143, Potassium Level 3.9, Chloride Level 111H, Carbon Dioxide Level 25, Anion Gap 7, Blood Urea Nitrogen 25H, Creatinine 1.0, Estimat Glomerular Filtration Rate , Glucose Level 135H, Calcium Level 8.0L, Total Bilirubin 0.5, Direct Bilirubin 0.2, Aspartate Amino Transf (AST/SGOT) 51H, Alanine Aminotransferase (ALT/SGPT) 28, Alkaline Phosphatase 484H, Total Protein 6.4, Albumin 1.6L, Hepatitis A Antibody Total [Pending], Hepatitis B Surface Antibody, Quant [Pending], Hepatitis B Core Total Antibody [Pending] Height (Feet): 5 Height (Inches): 5.00 Weight (Pounds): 135 General Appearance: no apparent distress Neck: limited range of motion Cardiovascular: normal rate Respiratory/Chest: decreased breath sounds Abdomen: soft, distended Objective no change Anthony Stockton MD Jun 22, 2018 11:54
--- NOTE | 2018-06-22 12:12 | Infectious Diseases Prog Note ---
Assessment/Plan Assessment/Plan 78 yo male sent to the ED from his residential after refusing med and food for a week per report. PNA - Possible aspiration vs CAP, s/p Rx -06/22 CXR: Possible developing patchy infiltrate in the right mid to lower lung. Other stable findings as described +ve blood cx : CoNS contaminant -06/16 BCx NTD 2D echo : no Veg Lung Nodules and liver mass; metastatic Cancer- ?primary CT: Evidence of disseminated malignancy, with numerous bilateral lung masses, possible right-sided pleural masses, hilar lymphadenopathy, subcutaneous nodules, splenic masses and multiple liver masses - Likely CA given US - 06/18 SP Bx : P Fever, low grade, recurrent Leukocytosis, mild,recurrent- improving -likely 2ry to malignancy Elevalted LFTs, improving -acute hep panel neg; likely 2ry to liver masses Dysphagia HTN COPD Epilepsy Depression Schizophrenia Dementia CVA SD Anemia PLAN: Continue to monitor off abx - 06/21 SP Cefepime and Flagyl #7 - 06/15 - SP Vancomycin - Blood Cx likely contaminant - f/u Liver Bx result -f/u Bcx x2 Discussed with RN. Subjective Allergies: Coded Allergies: No Known Allergies (Unverified , 09/04/17) Subjective afebrile >24hrs leukocytosis improving Bcx neg Objective Vital Signs Last 24 Hour Vital Signs Date Time Temp Pulse Resp B/P (MAP) Pulse Ox O2 Delivery O2 Flow Rate FiO2 06/22/18 09:00 Nasal Cannula 2.0 06/22/18 09:00 72 101/63 06/22/18 08:32 95 Nasal Cannula 2.0 28 06/22/18 08:32 Nasal Cannula 2.0 28 06/22/18 08:32 74 20 Nasal Cannula 2.0 28 06/22/18 08:13 97.9 72 20 101/63 (76) 99 97.9 06/22/18 04:00 97.6 81 17 112/72 (85) 97 97.6 06/22/18 00:00 97.3 84 16 114/69 (84) 96 97.3 06/21/18 22:34 Nasal Cannula 2.0 06/21/18 21:29 90 110/68 06/21/18 20:00 97.9 87 15 123/76 (92) 94 97.9 06/21/18 19:02 96 Nasal Cannula 2.0 28 06/21/18 19:02 96 22 Nasal Cannula 2.0 28 06/21/18 19:02 Nasal Cannula 2.0 28 06/21/18 16:00 98.0 90 19 110/68 (82) 95 98.0 06/21/18 12:16 Nasal Cannula 2.0 28 06/21/18 12:16 97 Nasal Cannula 2.0 28 06/21/18 12:13 86 20 Nasal Cannula 2.0 28 Height (Feet): 5 Height (Inches): 5.00 Weight (Pounds): 135 Objective General Appearance: WD/WN, no acute distress HEENT: atraumatic Respiratory/Chest: chest wall non-tender, normal breath sounds Cardiovascular: normal peripheral pulses, normal rate Abdomen: soft, non tender Extremities: no cyanosis 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 Lymphatic: no neck adenopathy Musculoskeletal: normal muscle bulk Laboratory Tests Test 06/22/18 06:00 White Blood Count 11.8 K/UL (4.8-10.8) H Red Blood Count 3.28 M/UL (4.70-6.10) L Hemoglobin 9.2 G/DL (14.2-18.0) L Hematocrit 28.9 % (42.0-52.0) L Mean Corpuscular Volume 88 FL (80-99) Mean Corpuscular Hemoglobin 28.1 PG (27.0-31.0) Mean Corpuscular Hemoglobin Concent 31.9 G/DL (32.0-36.0) L Red Cell Distribution Width 13.5 % (11.6-14.8) Platelet Count 271 K/UL (150-450) Mean Platelet Volume 7.9 FL (6.5-10.1) Neutrophils (%) (Auto) % (45.0-75.0) Lymphocytes (%) (Auto) % (20.0-45.0) Monocytes (%) (Auto) % (1.0-10.0) Eosinophils (%) (Auto) % (0.0-3.0) Basophils (%) (Auto) % (0.0-2.0) Differential Total Cells Counted 100 Neutrophils % (Manual) 86 % (45-75) H Lymphocytes % (Manual) 9 % (20-45) L Monocytes % (Manual) 4 % (1-10) Eosinophils % (Manual) 1 % (0-3) Basophils % (Manual) 0 % (0-2) Band Neutrophils 0 % (0-8) Platelet Estimate Adequate Platelet Morphology Normal Hypochromasia 1+ Sodium Level 143 MMOL/L (136-145) Potassium Level 3.9 MMOL/L (3.5-5.1) Chloride Level 111 MMOL/L (98-107) H Carbon Dioxide Level 25 MMOL/L (21-32) Anion Gap 7 mmol/L (5-15) Blood Urea Nitrogen 25 mg/dL (7-18) H Creatinine 1.0 MG/DL (0.55-1.30) Estimat Glomerular Filtration Rate mL/min (>60) Glucose Level 135 MG/DL (74-106) H Calcium Level 8.0 MG/DL (8.5-10.1) L Total Bilirubin 0.5 MG/DL (0.2-1.0) Direct Bilirubin 0.2 MG/DL (0.0-0.3) Aspartate Amino Transf (AST/SGOT) 51 U/L (15-37) H Alanine Aminotransferase (ALT/SGPT) 28 U/L (12-78) Alkaline Phosphatase 484 U/L (46-116) H Total Protein 6.4 G/DL (6.4-8.2) Albumin 1.6 G/DL (3.4-5.0) L Hepatitis A Antibody Total Pending Hepatitis B Surface Antibody, Quant Pending Hepatitis B Core Total Antibody Pending Current Medications Medications (Trade) Dose Ordered Sig/Manav Route PRN Reason Start Time Stop Time Status Last Admin Dose Admin Acetaminophen (Tylenol) 650 mg Q4H PRN ORAL fever (temp>100.5F) 06/16/18 17:15 07/14/18 13:14 06/19/18 20:38 Albuterol/ Ipratropium (Albuterol/ Ipratropium) 3 ml Q4H PRN HHN Shortness of Breath 06/20/18 07:45 06/25/18 07:44 Dextrose 1,000 ml @ 20 mls/hr Q24H IV 06/17/18 16:00 07/14/18 15:59 06/20/18 15:56 Fluoxetine HCl (PROzac) 20 mg DAILY ORAL 06/17/18 09:00 07/17/18 08:59 06/22/18 08:52 Folic Acid (Folate) 2 mg DAILY ORAL 06/17/18 09:00 07/15/18 08:59 06/22/18 08:53 Heparin Sodium (Porcine) (Heparin 5000 units/ml) 5,000 units EVERY 12 HOURS SUBQ 06/16/18 21:00 07/14/18 20:59 06/22/18 08:54 Lansoprazole (Prevacid) 30 mg DAILY GT 06/22/18 09:00 07/22/18 08:59 06/22/18 08:52 Levetiracetam (Keppra) 500 mg Q12HR ORAL 06/16/18 21:00 07/14/18 20:59 06/22/18 08:53 Metoclopramide HCl (Reglan) 10 mg EVERY 6 HOURS NG 06/20/18 12:00 07/20/18 11:59 06/22/18 11:33 Metoprolol Tartrate (Lopressor) 25 mg Q12HR ORAL 06/16/18 21:00 07/16/18 20:59 06/21/18 21:29 Nitroglycerin (Ntg) 0.4 mg Q5M PRN SL Prn Chest Pain 06/16/18 16:30 07/14/18 13:14 Ondansetron HCl (Zofran) 4 mg Q6H PRN IVP Nausea & Vomiting 06/16/18 17:00 07/14/18 16:59 Polyethylene Glycol (Miralax) 17 gm DAILYPRN PRN ORAL Constipation 06/17/18 17:00 07/14/18 16:59 Temazepam (Restoril) 15 mg HSPRN PRN ORAL Insomnia 06/16/18 21:00 06/23/18 20:59 Nasreen Girard M.D. Jun 22, 2018 12:12
[2018-06-22 12:33] VITALS: BP 112/64
[2018-06-22] MEDS ORDERED: FOLIC ACID1 MG ORAL (13:38)
[2018-06-22] MEDS ORDERED: FLUOXETINE HCL20 MG ORAL (13:38)
[2018-06-22] MEDS ORDERED: HEPARIN SO5000 UNIT2 SUBQ (13:39)
--- NOTE | 2018-06-22 13:39 | GI Progress Note ---
Assessment/Plan Problems: (1) Cerebrovascular accident (CVA) ICD Codes: I63.9 - Cerebral infarction, unspecified SNOMED: 944063964 (2) Advanced dementia ICD Codes: F03.90 - Unspecified dementia without behavioral disturbance SNOMED: 81893066 (3) Seizure disorder ICD Codes: G40.909 - Epilepsy, unspecified, not intractable, without status epilepticus SNOMED: 245472363 (4) Severe malnutrition ICD Codes: E43 - Unspecified severe protein-calorie malnutrition SNOMED: 60751683 (5) Dehydration ICD Codes: E86.0 - Dehydration SNOMED: 01612977 (6) Failure to thrive SNOMED: 15506580 (7) Generalized weakness ICD Codes: R53.1 - Weakness SNOMED: 02550825 Status: stable, unchanged Status Narrative Discussed with Dr. Pineda. Assessment/Plan OB stool positive iron deficient folate deficiency abdominal US reviewed >> multiple hepatic and splenic nodules, fu oncology hep panel negative s/p PEG GTFs per RD to goal electrolyte correction monitor H&H, prn transfusions bowel regime ppi trend LFTs fu labs dc planning The patient was seen and examined at bedside and all new and available data was reviewed in the patients chart. I agree with the above findings, impression and plan. (Patient seen earlier today. Signature stamp does not reflect patient encounter time.). - Vin Pineda MD Subjective Subjective limited Objective Last 24 Hour Vital Signs Date Time Temp Pulse Resp B/P (MAP) Pulse Ox O2 Delivery O2 Flow Rate FiO2 06/22/18 12:33 98.1 86 22 112/64 (80) 97 98.1 06/22/18 09:00 Nasal Cannula 2.0 06/22/18 09:00 72 101/63 06/22/18 08:32 95 Nasal Cannula 2.0 28 06/22/18 08:32 Nasal Cannula 2.0 28 06/22/18 08:32 74 20 Nasal Cannula 2.0 28 06/22/18 08:13 97.9 72 20 101/63 (76) 99 97.9 06/22/18 04:00 97.6 81 17 112/72 (85) 97 97.6 06/22/18 00:00 97.3 84 16 114/69 (84) 96 97.3 06/21/18 22:34 Nasal Cannula 2.0 06/21/18 21:29 90 110/68 06/21/18 20:00 97.9 87 15 123/76 (92) 94 97.9 06/21/18 19:02 96 Nasal Cannula 2.0 28 06/21/18 19:02 96 22 Nasal Cannula 2.0 28 06/21/18 19:02 Nasal Cannula 2.0 28 06/21/18 16:00 98.0 90 19 110/68 (82) 95 98.0 Intake and Output 06/21/18 06/22/18 19:00 07:00 Intake Total 905 ml 970 ml Output Total 0 ml 800 ml Balance 905 ml 170 ml Free Water 80 ml 260 ml IV Total 645 ml 240 ml Tube Feeding 180 ml 470 ml Output Urine Total 800 ml Estimated Blood Loss 0 ml # Voids 6 # Bowel Movements 1 Laboratory Tests Test 06/22/18 06:00 White Blood Count 11.8 K/UL (4.8-10.8) H Red Blood Count 3.28 M/UL (4.70-6.10) L Hemoglobin 9.2 G/DL (14.2-18.0) L Hematocrit 28.9 % (42.0-52.0) L Mean Corpuscular Volume 88 FL (80-99) Mean Corpuscular Hemoglobin 28.1 PG (27.0-31.0) Mean Corpuscular Hemoglobin Concent 31.9 G/DL (32.0-36.0) L Red Cell Distribution Width 13.5 % (11.6-14.8) Platelet Count 271 K/UL (150-450) Mean Platelet Volume 7.9 FL (6.5-10.1) Neutrophils (%) (Auto) % (45.0-75.0) Lymphocytes (%) (Auto) % (20.0-45.0) Monocytes (%) (Auto) % (1.0-10.0) Eosinophils (%) (Auto) % (0.0-3.0) Basophils (%) (Auto) % (0.0-2.0) Differential Total Cells Counted 100 Neutrophils % (Manual) 86 % (45-75) H Lymphocytes % (Manual) 9 % (20-45) L Monocytes % (Manual) 4 % (1-10) Eosinophils % (Manual) 1 % (0-3) Basophils % (Manual) 0 % (0-2) Band Neutrophils 0 % (0-8) Platelet Estimate Adequate Platelet Morphology Normal Hypochromasia 1+ Sodium Level 143 MMOL/L (136-145) Potassium Level 3.9 MMOL/L (3.5-5.1) Chloride Level 111 MMOL/L (98-107) H Carbon Dioxide Level 25 MMOL/L (21-32) Anion Gap 7 mmol/L (5-15) Blood Urea Nitrogen 25 mg/dL (7-18) H Creatinine 1.0 MG/DL (0.55-1.30) Estimat Glomerular Filtration Rate mL/min (>60) Glucose Level 135 MG/DL (74-106) H Calcium Level 8.0 MG/DL (8.5-10.1) L Total Bilirubin 0.5 MG/DL (0.2-1.0) Direct Bilirubin 0.2 MG/DL (0.0-0.3) Aspartate Amino Transf (AST/SGOT) 51 U/L (15-37) H Alanine Aminotransferase (ALT/SGPT) 28 U/L (12-78) Alkaline Phosphatase 484 U/L (46-116) H Total Protein 6.4 G/DL (6.4-8.2) Albumin 1.6 G/DL (3.4-5.0) L Hepatitis A Antibody Total Pending Hepatitis B Surface Antibody, Quant Pending Hepatitis B Core Total Antibody Pending Height (Feet): 5 Height (Inches): 5.00 Weight (Pounds): 135 General Appearance: alert, thin Cardiovascular: normal rate Respiratory/Chest: no respiratory distress Abdominal Exam: GT site - c/d/i Abhijit Wiley NP Jun 22, 2018 13:39
[2018-06-22] MEDS ORDERED: LANSOPRAZOLE30 M2 PO (13:40)
[2018-06-22] MEDS ORDERED: METOCLOPRA10 MG/10 M ORAL (13:41)
[2018-06-22] MEDS ORDERED: METOPROLOL TART25 MG ORAL (13:42)
[2018-06-22] MEDS ORDERED: TEMAZEPAM15 MG ORAL (13:42)
--- NOTE | 2018-06-22 13:55 | General Progress Note ---
Assessment/Plan Problem List: (1) Dehydration ICD Codes: E86.0 - Dehydration SNOMED: 16976004 (2) Pneumonia ICD Codes: J18.9 - Pneumonia, unspecified organism SNOMED: 360661636 (3) Generalized weakness ICD Codes: R53.1 - Weakness SNOMED: 27681686 (4) Failure to thrive SNOMED: 81580106 (5) Renal insufficiency ICD Codes: N28.9 - Disorder of kidney and ureter, unspecified SNOMED: 291705024, 101793786 (6) ATN (acute tubular necrosis) ICD Codes: N17.0 - Acute kidney failure with tubular necrosis SNOMED: 84416955 Status: unchanged Assessment/Plan o2 pulm tx abx ot pt diet cbc bmp am heme eval dc to [facility] Subjective Constitutional: Reports: weakness Allergies: Coded Allergies: No Known Allergies (Unverified , 09/04/17) All Systems: reviewed and negative except above Subjective o2nc Objective Last 24 Hour Vital Signs Date Time Temp Pulse Resp B/P (MAP) Pulse Ox O2 Delivery O2 Flow Rate FiO2 06/22/18 12:33 98.1 86 22 112/64 (80) 97 98.1 06/22/18 09:00 Nasal Cannula 2.0 06/22/18 09:00 72 101/63 06/22/18 08:32 95 Nasal Cannula 2.0 28 06/22/18 08:32 Nasal Cannula 2.0 28 06/22/18 08:32 74 20 Nasal Cannula 2.0 28 06/22/18 08:13 97.9 72 20 101/63 (76) 99 97.9 06/22/18 04:00 97.6 81 17 112/72 (85) 97 97.6 06/22/18 00:00 97.3 84 16 114/69 (84) 96 97.3 06/21/18 22:34 Nasal Cannula 2.0 06/21/18 21:29 90 110/68 06/21/18 20:00 97.9 87 15 123/76 (92) 94 97.9 06/21/18 19:02 96 Nasal Cannula 2.0 28 06/21/18 19:02 96 22 Nasal Cannula 2.0 28 06/21/18 19:02 Nasal Cannula 2.0 28 06/21/18 16:00 98.0 90 19 110/68 (82) 95 98.0 Intake and Output 06/21/18 06/22/18 19:00 07:00 Intake Total 905 ml 970 ml Output Total 0 ml 800 ml Balance 905 ml 170 ml Free Water 80 ml 260 ml IV Total 645 ml 240 ml Tube Feeding 180 ml 470 ml Output Urine Total 800 ml Estimated Blood Loss 0 ml # Voids 6 # Bowel Movements 1 Laboratory Tests 06/22/18 06:00: White Blood Count 11.8H, Red Blood Count 3.28L, Hemoglobin 9.2L, Hematocrit 28.9L, Mean Corpuscular Volume 88, Mean Corpuscular Hemoglobin 28.1, Mean Corpuscular Hemoglobin Concent 31.9L, Red Cell Distribution Width 13.5, Platelet Count 271, Mean Platelet Volume 7.9, Neutrophils (%) (Auto) , Lymphocytes (%) (Auto) , Monocytes (%) (Auto) , Eosinophils (%) (Auto) , Basophils (%) (Auto) , Differential Total Cells Counted 100, Neutrophils % ( Manual) 86H, Lymphocytes % (Manual) 9L, Monocytes % (Manual) 4, Eosinophils % ( Manual) 1, Basophils % (Manual) 0, Band Neutrophils 0, Platelet Estimate Adequate, Platelet Morphology Normal, Hypochromasia 1+, Sodium Level 143, Potassium Level 3.9, Chloride Level 111H, Carbon Dioxide Level 25, Anion Gap 7, Blood Urea Nitrogen 25H, Creatinine 1.0, Estimat Glomerular Filtration Rate , Glucose Level 135H, Calcium Level 8.0L, Total Bilirubin 0.5, Direct Bilirubin 0.2, Aspartate Amino Transf (AST/SGOT) 51H, Alanine Aminotransferase (ALT/SGPT) 28, Alkaline Phosphatase 484H, Total Protein 6.4, Albumin 1.6L, Hepatitis A Antibody Total [Pending], Hepatitis B Surface Antibody, Quant [Pending], Hepatitis B Core Total Antibody [Pending] Height (Feet): 5 Height (Inches): 5.00 Weight (Pounds): 135 General Appearance: lethargic EENT: normal ENT inspection Neck: normal alignment Cardiovascular: normal peripheral pulses, normal rate, regular rhythm Respiratory/Chest: chest wall non-tender, lungs clear, normal breath sounds Abdomen: normal bowel sounds, non tender, soft Extremities: normal inspection Edema: no edema noted Arm (L), no edema noted Arm (R), no edema noted Leg (L), no edema noted Leg (R), no edema noted Pedal (L), no edema noted Pedal (R), no edema noted Generalized Neurologic: motor weakness Skin: normal pigmentation, warm/dry Jacques Heaton DO Jun 22, 2018 13:55
--- NOTE | 2018-06-22 14:11 | General Progress Note ---
Assessment/Plan Problem List: (1) Encephalopathy due to metabolic factor or toxin SNOMED: 356579162 (2) Advanced dementia ICD Codes: F03.90 - Unspecified dementia without behavioral disturbance SNOMED: 10945218 Status: stable, progressing Assessment/Plan the pt lacks capacity to make decisions prozac 20mg qam Subjective Date patient seen: Jun 22, 2018 Neurologic/Psychiatric: Reports: anxiety, depressed, emotional problems Allergies: Coded Allergies: No Known Allergies (Unverified , 09/04/17) Subjective the pt is calm in mittens and not agitated Objective Last 24 Hour Vital Signs Date Time Temp Pulse Resp B/P (MAP) Pulse Ox O2 Delivery O2 Flow Rate FiO2 06/22/18 12:33 98.1 86 22 112/64 (80) 97 98.1 06/22/18 09:00 Nasal Cannula 2.0 06/22/18 09:00 72 101/63 06/22/18 08:32 95 Nasal Cannula 2.0 28 06/22/18 08:32 Nasal Cannula 2.0 28 06/22/18 08:32 74 20 Nasal Cannula 2.0 28 06/22/18 08:13 97.9 72 20 101/63 (76) 99 97.9 06/22/18 04:00 97.6 81 17 112/72 (85) 97 97.6 06/22/18 00:00 97.3 84 16 114/69 (84) 96 97.3 06/21/18 22:34 Nasal Cannula 2.0 06/21/18 21:29 90 110/68 06/21/18 20:00 97.9 87 15 123/76 (92) 94 97.9 06/21/18 19:02 96 Nasal Cannula 2.0 28 06/21/18 19:02 96 22 Nasal Cannula 2.0 28 06/21/18 19:02 Nasal Cannula 2.0 28 06/21/18 16:00 98.0 90 19 110/68 (82) 95 98.0 Intake and Output 06/21/18 06/22/18 19:00 07:00 Intake Total 905 ml 970 ml Output Total 0 ml 800 ml Balance 905 ml 170 ml Free Water 80 ml 260 ml IV Total 645 ml 240 ml Tube Feeding 180 ml 470 ml Output Urine Total 800 ml Estimated Blood Loss 0 ml # Voids 6 # Bowel Movements 1 Laboratory Tests 06/22/18 06:00: White Blood Count 11.8H, Red Blood Count 3.28L, Hemoglobin 9.2L, Hematocrit 28.9L, Mean Corpuscular Volume 88, Mean Corpuscular Hemoglobin 28.1, Mean Corpuscular Hemoglobin Concent 31.9L, Red Cell Distribution Width 13.5, Platelet Count 271, Mean Platelet Volume 7.9, Neutrophils (%) (Auto) , Lymphocytes (%) (Auto) , Monocytes (%) (Auto) , Eosinophils (%) (Auto) , Basophils (%) (Auto) , Differential Total Cells Counted 100, Neutrophils % ( Manual) 86H, Lymphocytes % (Manual) 9L, Monocytes % (Manual) 4, Eosinophils % ( Manual) 1, Basophils % (Manual) 0, Band Neutrophils 0, Platelet Estimate Adequate, Platelet Morphology Normal, Hypochromasia 1+, Sodium Level 143, Potassium Level 3.9, Chloride Level 111H, Carbon Dioxide Level 25, Anion Gap 7, Blood Urea Nitrogen 25H, Creatinine 1.0, Estimat Glomerular Filtration Rate , Glucose Level 135H, Calcium Level 8.0L, Total Bilirubin 0.5, Direct Bilirubin 0.2, Aspartate Amino Transf (AST/SGOT) 51H, Alanine Aminotransferase (ALT/SGPT) 28, Alkaline Phosphatase 484H, Total Protein 6.4, Albumin 1.6L, Hepatitis A Antibody Total [Pending], Hepatitis B Surface Antibody, Quant [Pending], Hepatitis B Core Total Antibody [Pending] Height (Feet): 5 Height (Inches): 5.00 Weight (Pounds): 135 General Appearance: no apparent distress, alert, confused Shey Gutierrez MD Jun 22, 2018 14:11
--- NOTE | 2018-06-22 14:22 | Pulmonology Progress Note ---
Assessment/Plan Problems: (1) Metastatic cancer (2) Aspiration pneumonia (3) ATN (acute tubular necrosis) (4) Lung nodule, multiple (5) Seizure disorder (6) Severe malnutrition (7) Cerebrovascular accident (CVA) (8) Advanced dementia Assessment/Plan PEG was placed this morning all noted, renal function improving dvt prophylaxis pr is DNR as requested by pts son pt has metastatic cancer Subjective ROS Limited/Unobtainable: No Constitutional: Reports: no symptoms HEENT: Repors: no symptoms Respiratory: Reports: no symptoms Allergies: Coded Allergies: No Known Allergies (Unverified , 09/04/17) Objective Last 24 Hour Vital Signs Date Time Temp Pulse Resp B/P (MAP) Pulse Ox O2 Delivery O2 Flow Rate FiO2 06/22/18 12:33 98.1 86 22 112/64 (80) 97 98.1 06/22/18 09:00 Nasal Cannula 2.0 06/22/18 09:00 72 101/63 06/22/18 08:32 95 Nasal Cannula 2.0 28 06/22/18 08:32 Nasal Cannula 2.0 28 06/22/18 08:32 74 20 Nasal Cannula 2.0 28 06/22/18 08:13 97.9 72 20 101/63 (76) 99 97.9 06/22/18 04:00 97.6 81 17 112/72 (85) 97 97.6 06/22/18 00:00 97.3 84 16 114/69 (84) 96 97.3 06/21/18 22:34 Nasal Cannula 2.0 06/21/18 21:29 90 110/68 06/21/18 20:00 97.9 87 15 123/76 (92) 94 97.9 06/21/18 19:02 96 Nasal Cannula 2.0 28 06/21/18 19:02 96 22 Nasal Cannula 2.0 28 06/21/18 19:02 Nasal Cannula 2.0 28 06/21/18 16:00 98.0 90 19 110/68 (82) 95 98.0 Intake and Output 06/21/18 06/22/18 19:00 07:00 Intake Total 905 ml 970 ml Output Total 0 ml 800 ml Balance 905 ml 170 ml Free Water 80 ml 260 ml IV Total 645 ml 240 ml Tube Feeding 180 ml 470 ml Output Urine Total 800 ml Estimated Blood Loss 0 ml # Voids 6 # Bowel Movements 1 General Appearance: WD/WN HEENT: normocephalic Respiratory/Chest: chest wall non-tender, lungs clear Cardiovascular: normal peripheral pulses, normal rate Abdomen: normal bowel sounds, soft, non tender Extremities: no clubbing Laboratory Tests 06/22/18 06:00: White Blood Count 11.8H, Red Blood Count 3.28L, Hemoglobin 9.2L, Hematocrit 28.9L, Mean Corpuscular Volume 88, Mean Corpuscular Hemoglobin 28.1, Mean Corpuscular Hemoglobin Concent 31.9L, Red Cell Distribution Width 13.5, Platelet Count 271, Mean Platelet Volume 7.9, Neutrophils (%) (Auto) , Lymphocytes (%) (Auto) , Monocytes (%) (Auto) , Eosinophils (%) (Auto) , Basophils (%) (Auto) , Differential Total Cells Counted 100, Neutrophils % ( Manual) 86H, Lymphocytes % (Manual) 9L, Monocytes % (Manual) 4, Eosinophils % ( Manual) 1, Basophils % (Manual) 0, Band Neutrophils 0, Platelet Estimate Adequate, Platelet Morphology Normal, Hypochromasia 1+, Sodium Level 143, Potassium Level 3.9, Chloride Level 111H, Carbon Dioxide Level 25, Anion Gap 7, Blood Urea Nitrogen 25H, Creatinine 1.0, Estimat Glomerular Filtration Rate , Glucose Level 135H, Calcium Level 8.0L, Total Bilirubin 0.5, Direct Bilirubin 0.2, Aspartate Amino Transf (AST/SGOT) 51H, Alanine Aminotransferase (ALT/SGPT) 28, Alkaline Phosphatase 484H, Total Protein 6.4, Albumin 1.6L, Hepatitis A Antibody Total [Pending], Hepatitis B Surface Antibody, Quant [Pending], Hepatitis B Core Total Antibody [Pending] Current Medications Medications (Trade) Dose Ordered Sig/Manav Route PRN Reason Start Time Stop Time Status Last Admin Dose Admin Acetaminophen (Tylenol) 650 mg Q4H PRN ORAL fever (temp>100.5F) 06/16/18 17:15 07/14/18 13:14 06/19/18 20:38 Albuterol/ Ipratropium (Albuterol/ Ipratropium) 3 ml Q4H PRN HHN Shortness of Breath 06/20/18 07:45 06/25/18 07:44 Dextrose 1,000 ml @ 20 mls/hr Q24H IV 06/17/18 16:00 07/14/18 15:59 06/20/18 15:56 Heparin Sodium (Porcine) (Heparin 5000 units/ml) 5,000 units EVERY 12 HOURS SUBQ 06/16/18 21:00 07/14/18 20:59 06/22/18 08:54 Levetiracetam (Keppra) 500 mg Q12HR ORAL 06/16/18 21:00 07/14/18 20:59 06/22/18 08:53 Metoclopramide HCl (Reglan) 10 mg EVERY 6 HOURS NG 06/20/18 12:00 07/20/18 11:59 06/22/18 11:33 Metoprolol Tartrate (Lopressor) 25 mg Q12HR ORAL 06/16/18 21:00 07/16/18 20:59 06/21/18 21:29 Malia Saba MD Jun 22, 2018 14:22
--- NOTE | 2018-06-22 15:34 | General Surgery Progress Note ---
General Surgery-Progress Note Subjective Additional Comments no acute events. leukocytosis improving. tolerating feeds. Objective Last 24 Hour Vital Signs Date Time Temp Pulse Resp B/P (MAP) Pulse Ox O2 Delivery O2 Flow Rate FiO2 06/22/18 12:33 98.1 86 22 112/64 (80) 97 98.1 06/22/18 09:00 Nasal Cannula 2.0 06/22/18 09:00 72 101/63 06/22/18 08:32 95 Nasal Cannula 2.0 28 06/22/18 08:32 Nasal Cannula 2.0 28 06/22/18 08:32 74 20 Nasal Cannula 2.0 28 06/22/18 08:13 97.9 72 20 101/63 (76) 99 97.9 06/22/18 04:00 97.6 81 17 112/72 (85) 97 97.6 06/22/18 00:00 97.3 84 16 114/69 (84) 96 97.3 06/21/18 22:34 Nasal Cannula 2.0 06/21/18 21:29 90 110/68 06/21/18 20:00 97.9 87 15 123/76 (92) 94 97.9 06/21/18 19:02 96 Nasal Cannula 2.0 28 06/21/18 19:02 96 22 Nasal Cannula 2.0 28 06/21/18 19:02 Nasal Cannula 2.0 28 06/21/18 16:00 98.0 90 19 110/68 (82) 95 98.0 I&O Intake and Output 06/21/18 06/22/18 19:00 07:00 Intake Total 905 ml 970 ml Output Total 0 ml 800 ml Balance 905 ml 170 ml Free Water 80 ml 260 ml IV Total 645 ml 240 ml Tube Feeding 180 ml 470 ml Output Urine Total 800 ml Estimated Blood Loss 0 ml # Voids 6 # Bowel Movements 1 Dressing: dry Wound: clean, dry Drains: other Cardiovascular: RSR Respiratory: clear Abdomen: soft, flat, non-tender, present bowel sounds Extremities: other Laboratory Tests Test 06/22/18 06:00 White Blood Count 11.8 K/UL (4.8-10.8) H Red Blood Count 3.28 M/UL (4.70-6.10) L Hemoglobin 9.2 G/DL (14.2-18.0) L Hematocrit 28.9 % (42.0-52.0) L Mean Corpuscular Volume 88 FL (80-99) Mean Corpuscular Hemoglobin 28.1 PG (27.0-31.0) Mean Corpuscular Hemoglobin Concent 31.9 G/DL (32.0-36.0) L Red Cell Distribution Width 13.5 % (11.6-14.8) Platelet Count 271 K/UL (150-450) Mean Platelet Volume 7.9 FL (6.5-10.1) Neutrophils (%) (Auto) % (45.0-75.0) Lymphocytes (%) (Auto) % (20.0-45.0) Monocytes (%) (Auto) % (1.0-10.0) Eosinophils (%) (Auto) % (0.0-3.0) Basophils (%) (Auto) % (0.0-2.0) Differential Total Cells Counted 100 Neutrophils % (Manual) 86 % (45-75) H Lymphocytes % (Manual) 9 % (20-45) L Monocytes % (Manual) 4 % (1-10) Eosinophils % (Manual) 1 % (0-3) Basophils % (Manual) 0 % (0-2) Band Neutrophils 0 % (0-8) Platelet Estimate Adequate Platelet Morphology Normal Hypochromasia 1+ Sodium Level 143 MMOL/L (136-145) Potassium Level 3.9 MMOL/L (3.5-5.1) Chloride Level 111 MMOL/L (98-107) H Carbon Dioxide Level 25 MMOL/L (21-32) Anion Gap 7 mmol/L (5-15) Blood Urea Nitrogen 25 mg/dL (7-18) H Creatinine 1.0 MG/DL (0.55-1.30) Estimat Glomerular Filtration Rate mL/min (>60) Glucose Level 135 MG/DL (74-106) H Calcium Level 8.0 MG/DL (8.5-10.1) L Total Bilirubin 0.5 MG/DL (0.2-1.0) Direct Bilirubin 0.2 MG/DL (0.0-0.3) Aspartate Amino Transf (AST/SGOT) 51 U/L (15-37) H Alanine Aminotransferase (ALT/SGPT) 28 U/L (12-78) Alkaline Phosphatase 484 U/L (46-116) H Total Protein 6.4 G/DL (6.4-8.2) Albumin 1.6 G/DL (3.4-5.0) L Hepatitis A Antibody Total Pending Hepatitis B Surface Antibody, Quant Pending Hepatitis B Core Total Antibody Pending Plan Problems: (1) Lung nodule, multiple Assessment & Plan: abnormal lft's, leukocytosis. GI procedures on hold because of cardiac clearance Hepatitis panel pending US Abdomen: Multiple hepatic and splenic masses, as described. 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 However, in view of the splenic involvement, the possibility that this represents multiple abscesses should also be considered Fluid structure in the gallbladder fossa probably but not definitively represents a nondistended gallbladder. This possibly contains gallstones. Soft tissue echogenicity area within the apparent lumen could represent tumefactive sludge, polyp, or, given the above findings, neoplasm Multiple lung nodules. etiology unknown. CT C/A/P reviewed. Metastatic disease everywhere. small right chest wall anterior lateral nodule noted. s/p PEG and tolerating diet labs improving Pending pathology report from liver biopsy thank you. will follow with recs. Rudolph Solis Jun 22, 2018 15:34
[2018-06-22 15:44] VITALS: BP 116/68
[2018-06-22 20:00] VITALS: BP 119/68
--- NOTE | 2018-06-22 23:51 | Cardiology Progress Note ---
Assessment/Plan Assessment/Plan 1. Non-sustained ventricular tachycardia, Mg at 2.1, increase metoprolol. 2. Sinus tachycardia, resolved. 3. CVA, recommend ASA and statins. 4. s/ PEG, no chris-op cardiac events. Subjective Subjective No cardiac events. s/p PEG, POD #1 DNR status. Objective Last 24 Hour Vital Signs Date Time Temp Pulse Resp B/P (MAP) Pulse Ox O2 Delivery O2 Flow Rate FiO2 06/22/18 21:04 84 119/68 06/22/18 21:00 Nasal Cannula 2.0 06/22/18 20:00 97.2 84 17 119/68 (85) 96 97.2 06/22/18 15:44 98.4 75 20 116/68 (84) 97 98.4 06/22/18 12:33 98.1 86 22 112/64 (80) 97 98.1 06/22/18 09:00 Nasal Cannula 2.0 06/22/18 09:00 72 101/63 06/22/18 08:32 95 Nasal Cannula 2.0 28 06/22/18 08:32 Nasal Cannula 2.0 28 06/22/18 08:32 74 20 Nasal Cannula 2.0 28 06/22/18 08:13 97.9 72 20 101/63 (76) 99 97.9 06/22/18 04:00 97.6 81 17 112/72 (85) 97 97.6 06/22/18 00:00 97.3 84 16 114/69 (84) 96 97.3 Respiratory/Chest: crackles/rales Intake and Output 06/21/18 06/22/18 19:00 07:00 Intake Total 905 ml 1025 ml Output Total 0 ml 800 ml Balance 905 ml 225 ml Free Water 80 ml 260 ml IV Total 645 ml 240 ml Tube Feeding 180 ml 525 ml Output Urine Total 800 ml Estimated Blood Loss 0 ml # Voids 6 # Bowel Movements 1 2D Echo: LVEF 65%, Grade I LVDD, RVSP 35 mmHg Laboratory Tests Test 06/22/18 06:00 White Blood Count 11.8 K/UL (4.8-10.8) H Red Blood Count 3.28 M/UL (4.70-6.10) L Hemoglobin 9.2 G/DL (14.2-18.0) L Hematocrit 28.9 % (42.0-52.0) L Mean Corpuscular Volume 88 FL (80-99) Mean Corpuscular Hemoglobin 28.1 PG (27.0-31.0) Mean Corpuscular Hemoglobin Concent 31.9 G/DL (32.0-36.0) L Red Cell Distribution Width 13.5 % (11.6-14.8) Platelet Count 271 K/UL (150-450) Mean Platelet Volume 7.9 FL (6.5-10.1) Neutrophils (%) (Auto) % (45.0-75.0) Lymphocytes (%) (Auto) % (20.0-45.0) Monocytes (%) (Auto) % (1.0-10.0) Eosinophils (%) (Auto) % (0.0-3.0) Basophils (%) (Auto) % (0.0-2.0) Differential Total Cells Counted 100 Neutrophils % (Manual) 86 % (45-75) H Lymphocytes % (Manual) 9 % (20-45) L Monocytes % (Manual) 4 % (1-10) Eosinophils % (Manual) 1 % (0-3) Basophils % (Manual) 0 % (0-2) Band Neutrophils 0 % (0-8) Platelet Estimate Adequate Platelet Morphology Normal Hypochromasia 1+ Sodium Level 143 MMOL/L (136-145) Potassium Level 3.9 MMOL/L (3.5-5.1) Chloride Level 111 MMOL/L (98-107) H Carbon Dioxide Level 25 MMOL/L (21-32) Anion Gap 7 mmol/L (5-15) Blood Urea Nitrogen 25 mg/dL (7-18) H Creatinine 1.0 MG/DL (0.55-1.30) Estimat Glomerular Filtration Rate mL/min (>60) Glucose Level 135 MG/DL (74-106) H Calcium Level 8.0 MG/DL (8.5-10.1) L Total Bilirubin 0.5 MG/DL (0.2-1.0) Direct Bilirubin 0.2 MG/DL (0.0-0.3) Aspartate Amino Transf (AST/SGOT) 51 U/L (15-37) H Alanine Aminotransferase (ALT/SGPT) 28 U/L (12-78) Alkaline Phosphatase 484 U/L (46-116) H Total Protein 6.4 G/DL (6.4-8.2) Albumin 1.6 G/DL (3.4-5.0) L Hepatitis A Antibody Total Pending Hepatitis B Surface Antibody, Quant Pending Hepatitis B Core Total Antibody Pending Objective General Appearance: Cachetic, Chronically Ill, non-verbal. HEENT: Atraumatic, normocephalic, PERRLA, EOMI, dry mucus membranes Neck: No JVD, no carotid bruit. Lungs: Clear Cardiovascular : regular rate and rhythm, normal S1S2, no murmurs, gallops or rubs. Gastrointestinal: normal inspection, normal bowel sounds, non tender, soft, no guarding, no hernia, + PEG in place Musculoskeletal: no edema, clubbing or cyanosis. Michael Powell MD Jun 22, 2018 23:51
[2018-06-23] VITALS: BP 119/65
[2018-06-23] MEDS: Metoclopramide 10mg/10ml Liq NG SCH ×3 (00:13→12:50)
[2018-06-23 04:00] VITALS: BP 109/69
[2018-06-23 07:44] LABS: BASOPHILS % (AUTO) 0.2 % (0.0-2.0); EOSINOPHILS % (AUTO) 0.7 % (0.0-3.0); HEMATOCRIT 27.2 % (42.0-52.0); HEMOGLOBIN 8.7 G/DL (14.2-18.0); LYMPHOCYTES % (AUTO) 11.3 % (20.0-45.0); MEAN CORPUSCULAR VOLUME 87 FL (80-99); MONOCYTES % (AUTO) 6.9 % (1.0-10.0); PLATELET COUNT 289 K/UL (150-450); RED BLOOD COUNT 3.13 M/UL (4.70-6.10); RED CELL DISTRIBUTION WIDTH 13.2 % (11.6-14.8); WHITE BLOOD COUNT 12.9 K/UL (4.8-10.8)
[2018-06-23 08:00] VITALS: BP 108/69
[2018-06-23 08:20] LABS: ANION GAP 9 mmol/L (5-15); BLOOD UREA NITROGEN 20 mg/dL (7-18); CALCIUM 7.5 MG/DL (8.5-10.1); CARBON DIOXIDE 25 MMOL/L (21-32); CHLORIDE 109 MMOL/L (98-107); CREATININE 0.9 MG/DL (0.55-1.30); POTASSIUM 3.8 MMOL/L (3.5-5.1); SODIUM 142 MMOL/L (136-145)
--- NOTE | 2018-06-23 09:40 | Nephrology Progress Note ---
Assessment/Plan Problem List: (1) Dehydration (2) Acute hypernatremia (3) Renal insufficiency (4) Severe malnutrition (5) Metastatic cancer Assessment Renal Failure- Dehydration, Hypernatremia Malnutrition / Hypoalbuminemia Pneumonia / Aspiration / Multi lung nodules Seizure disorder Cerebrovascular accident (CVA) Advanced dementia Plan Hospice planned. DNR ? DC planning Subjective ROS Limited/Unobtainable: No Constitutional: Reports: malaise, weakness Objective Objective Last 24 Hour Vital Signs Date Time Temp Pulse Resp B/P (MAP) Pulse Ox O2 Delivery O2 Flow Rate FiO2 06/23/18 07:00 96 Nasal Cannula 2.0 28 06/23/18 07:00 Nasal Cannula 2.0 28 06/23/18 07:00 84 21 Nasal Cannula 2.0 28 06/23/18 04:00 97.9 77 19 109/69 (82) 96 97.9 06/23/18 01:48 Nasal Cannula 2.0 28 06/23/18 01:48 96 Nasal Cannula 2.0 28 06/23/18 01:46 80 20 Nasal Cannula 2.0 28 06/23/18 00:00 97.5 79 17 119/65 (83) 97 97.5 06/22/18 21:04 84 119/68 06/22/18 21:00 Nasal Cannula 2.0 06/22/18 20:00 97.2 84 17 119/68 (85) 96 97.2 06/22/18 15:44 98.4 75 20 116/68 (84) 97 98.4 06/22/18 12:33 98.1 86 22 112/64 (80) 97 98.1 Intake and Output 06/22/18 06/23/18 19:00 07:00 Intake Total 860 ml 1105 ml Balance 860 ml 1105 ml Free Water 180 ml 260 ml IV Total 20 ml 240 ml Tube Feeding 660 ml 605 ml # Voids 2 # Bowel Movements 2 Laboratory Tests 06/23/18 06:10: White Blood Count 12.9H, Red Blood Count 3.13L, Hemoglobin 8.7L, Hematocrit 27.2L, Mean Corpuscular Volume 87, Mean Corpuscular Hemoglobin 27.8, Mean Corpuscular Hemoglobin Concent 32.0, Red Cell Distribution Width 13.2, Platelet Count 289, Mean Platelet Volume 7.0, Neutrophils (%) (Auto) 81.0H, Lymphocytes ( %) (Auto) 11.3L, Monocytes (%) (Auto) 6.9, Eosinophils (%) (Auto) 0.7, Basophils (%) (Auto) 0.2, Sodium Level 142, Potassium Level 3.8, Chloride Level 109H, Carbon Dioxide Level 25, Anion Gap 9, Blood Urea Nitrogen 20H, Creatinine 0.9, Estimat Glomerular Filtration Rate , Glucose Level 110H, Calcium Level 7.5L Height (Feet): 5 Height (Inches): 5.00 Weight (Pounds): 135 General Appearance: no apparent distress Cardiovascular: normal rate Respiratory/Chest: decreased breath sounds Abdomen: soft Objective no change Anthony Stockton MD Jun 23, 2018 09:40
[2018-06-23] MEDS: Metoprolol 25mg tab ORAL SCH (09:45)
[2018-06-23] MEDS: Heparin 5000 units/ml inj SUBQ SCH (09:45)
--- NOTE | 2018-06-23 11:12 | General Progress Note ---
Assessment/Plan Assessment/Plan # Metastatic melanoma, have discussed the case with pathologist on 06/23/18, he has disseminated malignancy wide spread, with numerous bilateral lung masses, possible right-sided pleural masses, hilar lymphadenopathy, subcutaneous nodules , splenic masses and multiple liver masses on CT C/A/P has been reviewed --> tumor markers ordered. CA 19.9 is 73 --> patient and son does not want heroic measures, is DNR --> prognosis without treatment if <6months --> agree with hospice planning and d/c planning # Anemia of iron deficiency --> continue patient on Iv iron --> total of 4 doses of iv iron # Severe malnutrition --> consider appetite stimulant --> monitor weight improvement prn --> s/p peg on 06/21/2018 --> appreciate nutrition recs # Acute hypernatremia # Dehydration--> IVF prn # Pneumonia s/p abx # Generalized weakness # Failure to thrive # Hospice and Dc planning DW Attending and RN Greatly appreciate consultation! Subjective ROS Limited/Unobtainable: Yes Allergies: Coded Allergies: No Known Allergies (Unverified , 09/04/17) Subjective no events, biopsy showed metastatic melanoma, DNR, hospice and d/c planning Objective Last 24 Hour Vital Signs Date Time Temp Pulse Resp B/P (MAP) Pulse Ox O2 Delivery O2 Flow Rate FiO2 06/23/18 09:45 84 109/69 06/23/18 09:00 Nasal Cannula 2.0 06/23/18 08:00 97.8 70 19 108/69 (82) 96 97.8 06/23/18 07:00 96 Nasal Cannula 2.0 28 06/23/18 07:00 Nasal Cannula 2.0 28 06/23/18 07:00 84 21 Nasal Cannula 2.0 28 06/23/18 04:00 97.9 77 19 109/69 (82) 96 97.9 06/23/18 01:48 Nasal Cannula 2.0 28 06/23/18 01:48 96 Nasal Cannula 2.0 28 06/23/18 01:46 80 20 Nasal Cannula 2.0 28 06/23/18 00:00 97.5 79 17 119/65 (83) 97 97.5 06/22/18 21:04 84 119/68 06/22/18 21:00 Nasal Cannula 2.0 06/22/18 20:00 97.2 84 17 119/68 (85) 96 97.2 06/22/18 15:44 98.4 75 20 116/68 (84) 97 98.4 06/22/18 12:33 98.1 86 22 112/64 (80) 97 98.1 Intake and Output 06/22/18 06/23/18 19:00 07:00 Intake Total 860 ml 1105 ml Balance 860 ml 1105 ml Free Water 180 ml 260 ml IV Total 20 ml 240 ml Tube Feeding 660 ml 605 ml # Voids 2 # Bowel Movements 2 Laboratory Tests 06/23/18 06:10: White Blood Count 12.9H, Red Blood Count 3.13L, Hemoglobin 8.7L, Hematocrit 27.2L, Mean Corpuscular Volume 87, Mean Corpuscular Hemoglobin 27.8, Mean Corpuscular Hemoglobin Concent 32.0, Red Cell Distribution Width 13.2, Platelet Count 289, Mean Platelet Volume 7.0, Neutrophils (%) (Auto) 81.0H, Lymphocytes ( %) (Auto) 11.3L, Monocytes (%) (Auto) 6.9, Eosinophils (%) (Auto) 0.7, Basophils (%) (Auto) 0.2, Sodium Level 142, Potassium Level 3.8, Chloride Level 109H, Carbon Dioxide Level 25, Anion Gap 9, Blood Urea Nitrogen 20H, Creatinine 0.9, Estimat Glomerular Filtration Rate , Glucose Level 110H, Calcium Level 7.5L Height (Feet): 5 Height (Inches): 5.00 Weight (Pounds): 130 General Appearance: alert EENT: normal ENT inspection, other - NG++ Neck: normal inspection Cardiovascular: regular rhythm Respiratory/Chest: lungs clear Extremities: non-tender Edema: mild edema Neurologic: alert Skin: warm/dry Jalen Webster MD Jun 23, 2018 11:12
[2018-06-23 12:00] VITALS: BP 114/69
--- NOTE | 2018-06-23 13:17 | General Progress Note ---
Assessment/Plan Problem List: (1) Dehydration ICD Codes: E86.0 - Dehydration SNOMED: 16632844 (2) Pneumonia ICD Codes: J18.9 - Pneumonia, unspecified organism SNOMED: 108791446 (3) Generalized weakness ICD Codes: R53.1 - Weakness SNOMED: 27772725 (4) Failure to thrive SNOMED: 87136717 (5) Renal insufficiency ICD Codes: N28.9 - Disorder of kidney and ureter, unspecified SNOMED: 518724077, 582449761 (6) ATN (acute tubular necrosis) ICD Codes: N17.0 - Acute kidney failure with tubular necrosis SNOMED: 97951224 Status: unchanged Assessment/Plan o2 pulm tx abx ot pt diet dc w hospice per family request Subjective Constitutional: Reports: weakness Allergies: Coded Allergies: No Known Allergies (Unverified , 09/04/17) All Systems: reviewed and negative except above Subjective o2nc lethargic Objective Last 24 Hour Vital Signs Date Time Temp Pulse Resp B/P (MAP) Pulse Ox O2 Delivery O2 Flow Rate FiO2 06/23/18 12:00 98.2 92 19 114/69 (84) 96 98.2 06/23/18 09:45 84 109/69 06/23/18 09:00 Nasal Cannula 2.0 06/23/18 08:00 97.8 70 19 108/69 (82) 96 97.8 06/23/18 07:00 96 Nasal Cannula 2.0 28 06/23/18 07:00 Nasal Cannula 2.0 28 06/23/18 07:00 84 21 Nasal Cannula 2.0 28 06/23/18 04:00 97.9 77 19 109/69 (82) 96 97.9 06/23/18 01:48 Nasal Cannula 2.0 28 06/23/18 01:48 96 Nasal Cannula 2.0 28 06/23/18 01:46 80 20 Nasal Cannula 2.0 28 06/23/18 00:00 97.5 79 17 119/65 (83) 97 97.5 06/22/18 21:04 84 119/68 06/22/18 21:00 Nasal Cannula 2.0 06/22/18 20:00 97.2 84 17 119/68 (85) 96 97.2 06/22/18 15:44 98.4 75 20 116/68 (84) 97 98.4 Intake and Output 06/22/18 06/23/18 19:00 07:00 Intake Total 860 ml 1105 ml Balance 860 ml 1105 ml Free Water 180 ml 260 ml IV Total 20 ml 240 ml Tube Feeding 660 ml 605 ml # Voids 2 # Bowel Movements 2 Laboratory Tests 06/23/18 06:10: White Blood Count 12.9H, Red Blood Count 3.13L, Hemoglobin 8.7L, Hematocrit 27.2L, Mean Corpuscular Volume 87, Mean Corpuscular Hemoglobin 27.8, Mean Corpuscular Hemoglobin Concent 32.0, Red Cell Distribution Width 13.2, Platelet Count 289, Mean Platelet Volume 7.0, Neutrophils (%) (Auto) 81.0H, Lymphocytes ( %) (Auto) 11.3L, Monocytes (%) (Auto) 6.9, Eosinophils (%) (Auto) 0.7, Basophils (%) (Auto) 0.2, Sodium Level 142, Potassium Level 3.8, Chloride Level 109H, Carbon Dioxide Level 25, Anion Gap 9, Blood Urea Nitrogen 20H, Creatinine 0.9, Estimat Glomerular Filtration Rate , Glucose Level 110H, Calcium Level 7.5L Height (Feet): 5 Height (Inches): 5.00 Weight (Pounds): 130 General Appearance: lethargic EENT: normal ENT inspection Neck: normal alignment Cardiovascular: normal peripheral pulses, normal rate, regular rhythm Respiratory/Chest: chest wall non-tender, lungs clear, normal breath sounds Abdomen: normal bowel sounds, non tender, soft Extremities: normal inspection Edema: no edema noted Arm (L), no edema noted Arm (R), no edema noted Leg (L), no edema noted Leg (R), no edema noted Pedal (L), no edema noted Pedal (R), no edema noted Generalized Neurologic: motor weakness Skin: normal pigmentation, warm/dry Jacques Heaton DO Jun 23, 2018 13:17
--- NOTE | 2018-06-23 13:35 | GI Progress Note ---
Assessment/Plan Problems: (1) Cerebrovascular accident (CVA) ICD Codes: I63.9 - Cerebral infarction, unspecified SNOMED: 922690255 (2) Advanced dementia ICD Codes: F03.90 - Unspecified dementia without behavioral disturbance SNOMED: 54333919 (3) Seizure disorder ICD Codes: G40.909 - Epilepsy, unspecified, not intractable, without status epilepticus SNOMED: 221376005 (4) Severe malnutrition ICD Codes: E43 - Unspecified severe protein-calorie malnutrition SNOMED: 79790996 (5) Dehydration ICD Codes: E86.0 - Dehydration SNOMED: 97129725 (6) Failure to thrive SNOMED: 53661989 (7) Generalized weakness ICD Codes: R53.1 - Weakness SNOMED: 03507622 Status: unchanged Status Narrative Discussed with Dr. Pineda. Assessment/Plan metastasis >> now on hospice care supportive care GTFs per RD to goal bowel regime ppi dc planning The patient was seen and examined at bedside and all new and available data was reviewed in the patients chart. I agree with the above findings, impression and plan. (Patient seen earlier today. Signature stamp does not reflect patient encounter time.). - Vin Pineda MD Subjective Subjective limited Objective Last 24 Hour Vital Signs Date Time Temp Pulse Resp B/P (MAP) Pulse Ox O2 Delivery O2 Flow Rate FiO2 06/23/18 12:00 98.2 92 19 114/69 (84) 96 98.2 06/23/18 09:45 84 109/69 06/23/18 09:00 Nasal Cannula 2.0 06/23/18 08:00 97.8 70 19 108/69 (82) 96 97.8 06/23/18 07:00 96 Nasal Cannula 2.0 28 06/23/18 07:00 Nasal Cannula 2.0 28 06/23/18 07:00 84 21 Nasal Cannula 2.0 28 06/23/18 04:00 97.9 77 19 109/69 (82) 96 97.9 06/23/18 01:48 Nasal Cannula 2.0 28 06/23/18 01:48 96 Nasal Cannula 2.0 28 06/23/18 01:46 80 20 Nasal Cannula 2.0 28 06/23/18 00:00 97.5 79 17 119/65 (83) 97 97.5 06/22/18 21:04 84 119/68 06/22/18 21:00 Nasal Cannula 2.0 06/22/18 20:00 97.2 84 17 119/68 (85) 96 97.2 06/22/18 15:44 98.4 75 20 116/68 (84) 97 98.4 Intake and Output 06/22/18 06/23/18 19:00 07:00 Intake Total 860 ml 1105 ml Balance 860 ml 1105 ml Free Water 180 ml 260 ml IV Total 20 ml 240 ml Tube Feeding 660 ml 605 ml # Voids 2 # Bowel Movements 2 Laboratory Tests Test 06/23/18 06:10 White Blood Count 12.9 K/UL (4.8-10.8) H Red Blood Count 3.13 M/UL (4.70-6.10) L Hemoglobin 8.7 G/DL (14.2-18.0) L Hematocrit 27.2 % (42.0-52.0) L Mean Corpuscular Volume 87 FL (80-99) Mean Corpuscular Hemoglobin 27.8 PG (27.0-31.0) Mean Corpuscular Hemoglobin Concent 32.0 G/DL (32.0-36.0) Red Cell Distribution Width 13.2 % (11.6-14.8) Platelet Count 289 K/UL (150-450) Mean Platelet Volume 7.0 FL (6.5-10.1) Neutrophils (%) (Auto) 81.0 % (45.0-75.0) H Lymphocytes (%) (Auto) 11.3 % (20.0-45.0) L Monocytes (%) (Auto) 6.9 % (1.0-10.0) Eosinophils (%) (Auto) 0.7 % (0.0-3.0) Basophils (%) (Auto) 0.2 % (0.0-2.0) Sodium Level 142 MMOL/L (136-145) Potassium Level 3.8 MMOL/L (3.5-5.1) Chloride Level 109 MMOL/L (98-107) H Carbon Dioxide Level 25 MMOL/L (21-32) Anion Gap 9 mmol/L (5-15) Blood Urea Nitrogen 20 mg/dL (7-18) H Creatinine 0.9 MG/DL (0.55-1.30) Estimat Glomerular Filtration Rate mL/min (>60) Glucose Level 110 MG/DL (74-106) H Calcium Level 7.5 MG/DL (8.5-10.1) L Height (Feet): 5 Height (Inches): 5.00 Weight (Pounds): 130 General Appearance: no apparent distress, alert, thin Cardiovascular: normal rate Respiratory/Chest: normal breath sounds Abdominal Exam: GT site - c/d/i Abhijit Wiley NP Jun 23, 2018 13:35
--- NOTE | 2018-06-23 13:39 | Cardiology Report ---
APPROVED REPORT EKG Measurement Heart [id number] 126P [id number] Normal sinus rhythm Incomplete right bundle branch block Left anterior fascicular block Abnormal ECG
--- NOTE | 2018-06-23 14:18 | General Progress Note ---
Assessment/Plan Problem List: (1) Encephalopathy due to metabolic factor or toxin SNOMED: 938255520 (2) Advanced dementia ICD Codes: F03.90 - Unspecified dementia without behavioral disturbance SNOMED: 70876841 Assessment/Plan the pt lacks capacity to make decisions prozac 20mg qam Subjective Date patient seen: Jun 23, 2018 Neurologic/Psychiatric: Reports: anxiety, depressed, emotional problems Allergies: Coded Allergies: No Known Allergies (Unverified , 09/04/17) Subjective the pt is calm in mittens and not agitated Objective Last 24 Hour Vital Signs Date Time Temp Pulse Resp B/P (MAP) Pulse Ox O2 Delivery O2 Flow Rate FiO2 06/23/18 12:00 98.2 92 19 114/69 (84) 96 98.2 06/23/18 09:45 84 109/69 06/23/18 09:00 Nasal Cannula 2.0 06/23/18 08:00 97.8 70 19 108/69 (82) 96 97.8 06/23/18 07:00 96 Nasal Cannula 2.0 28 06/23/18 07:00 Nasal Cannula 2.0 28 06/23/18 07:00 84 21 Nasal Cannula 2.0 28 06/23/18 04:00 97.9 77 19 109/69 (82) 96 97.9 06/23/18 01:48 Nasal Cannula 2.0 28 06/23/18 01:48 96 Nasal Cannula 2.0 28 06/23/18 01:46 80 20 Nasal Cannula 2.0 28 06/23/18 00:00 97.5 79 17 119/65 (83) 97 97.5 06/22/18 21:04 84 119/68 06/22/18 21:00 Nasal Cannula 2.0 06/22/18 20:00 97.2 84 17 119/68 (85) 96 97.2 06/22/18 15:44 98.4 75 20 116/68 (84) 97 98.4 Intake and Output 06/22/18 06/23/18 19:00 07:00 Intake Total 860 ml 1105 ml Balance 860 ml 1105 ml Free Water 180 ml 260 ml IV Total 20 ml 240 ml Tube Feeding 660 ml 605 ml # Voids 2 # Bowel Movements 2 Laboratory Tests 06/23/18 06:10: White Blood Count 12.9H, Red Blood Count 3.13L, Hemoglobin 8.7L, Hematocrit 27.2L, Mean Corpuscular Volume 87, Mean Corpuscular Hemoglobin 27.8, Mean Corpuscular Hemoglobin Concent 32.0, Red Cell Distribution Width 13.2, Platelet Count 289, Mean Platelet Volume 7.0, Neutrophils (%) (Auto) 81.0H, Lymphocytes ( %) (Auto) 11.3L, Monocytes (%) (Auto) 6.9, Eosinophils (%) (Auto) 0.7, Basophils (%) (Auto) 0.2, Sodium Level 142, Potassium Level 3.8, Chloride Level 109H, Carbon Dioxide Level 25, Anion Gap 9, Blood Urea Nitrogen 20H, Creatinine 0.9, Estimat Glomerular Filtration Rate , Glucose Level 110H, Calcium Level 7.5L Height (Feet): 5 Height (Inches): 5.00 Weight (Pounds): 130 Shey Gutierrez MD Jun 23, 2018 14:18
--- NOTE | 2018-06-23 14:22 | General Surgery Progress Note ---
General Surgery-Progress Note Subjective Additional Comments no acute events. comfortable. tolerating feeds. Objective Last 24 Hour Vital Signs Date Time Temp Pulse Resp B/P (MAP) Pulse Ox O2 Delivery O2 Flow Rate FiO2 06/23/18 12:00 98.2 92 19 114/69 (84) 96 98.2 06/23/18 09:45 84 109/69 06/23/18 09:00 Nasal Cannula 2.0 06/23/18 08:00 97.8 70 19 108/69 (82) 96 97.8 06/23/18 07:00 96 Nasal Cannula 2.0 28 06/23/18 07:00 Nasal Cannula 2.0 28 06/23/18 07:00 84 21 Nasal Cannula 2.0 28 06/23/18 04:00 97.9 77 19 109/69 (82) 96 97.9 06/23/18 01:48 Nasal Cannula 2.0 28 06/23/18 01:48 96 Nasal Cannula 2.0 28 06/23/18 01:46 80 20 Nasal Cannula 2.0 28 06/23/18 00:00 97.5 79 17 119/65 (83) 97 97.5 06/22/18 21:04 84 119/68 06/22/18 21:00 Nasal Cannula 2.0 06/22/18 20:00 97.2 84 17 119/68 (85) 96 97.2 06/22/18 15:44 98.4 75 20 116/68 (84) 97 98.4 I&O Intake and Output 06/22/18 06/23/18 19:00 07:00 Intake Total 860 ml 1105 ml Balance 860 ml 1105 ml Free Water 180 ml 260 ml IV Total 20 ml 240 ml Tube Feeding 660 ml 605 ml # Voids 2 # Bowel Movements 2 Dressing: other Wound: other Drains: other Cardiovascular: RSR Respiratory: clear Abdomen: soft, flat, present bowel sounds Extremities: no cyanosis, other Laboratory Tests Test 06/23/18 06:10 White Blood Count 12.9 K/UL (4.8-10.8) H Red Blood Count 3.13 M/UL (4.70-6.10) L Hemoglobin 8.7 G/DL (14.2-18.0) L Hematocrit 27.2 % (42.0-52.0) L Mean Corpuscular Volume 87 FL (80-99) Mean Corpuscular Hemoglobin 27.8 PG (27.0-31.0) Mean Corpuscular Hemoglobin Concent 32.0 G/DL (32.0-36.0) Red Cell Distribution Width 13.2 % (11.6-14.8) Platelet Count 289 K/UL (150-450) Mean Platelet Volume 7.0 FL (6.5-10.1) Neutrophils (%) (Auto) 81.0 % (45.0-75.0) H Lymphocytes (%) (Auto) 11.3 % (20.0-45.0) L Monocytes (%) (Auto) 6.9 % (1.0-10.0) Eosinophils (%) (Auto) 0.7 % (0.0-3.0) Basophils (%) (Auto) 0.2 % (0.0-2.0) Sodium Level 142 MMOL/L (136-145) Potassium Level 3.8 MMOL/L (3.5-5.1) Chloride Level 109 MMOL/L (98-107) H Carbon Dioxide Level 25 MMOL/L (21-32) Anion Gap 9 mmol/L (5-15) Blood Urea Nitrogen 20 mg/dL (7-18) H Creatinine 0.9 MG/DL (0.55-1.30) Estimat Glomerular Filtration Rate mL/min (>60) Glucose Level 110 MG/DL (74-106) H Calcium Level 7.5 MG/DL (8.5-10.1) L Plan Problems: (1) Lung nodule, multiple Assessment & Plan: abnormal lft's, leukocytosis. GI procedures on hold because of cardiac clearance Hepatitis panel pending US Abdomen: Multiple hepatic and splenic masses, as described. 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 However, in view of the splenic involvement, the possibility that this represents multiple abscesses should also be considered Fluid structure in the gallbladder fossa probably but not definitively represents a nondistended gallbladder. This possibly contains gallstones. Soft tissue echogenicity area within the apparent lumen could represent tumefactive sludge, polyp, or, given the above findings, neoplasm Multiple lung nodules. etiology unknown. CT C/A/P reviewed. Metastatic disease everywhere. small right chest wall anterior lateral nodule noted. s/p PEG and tolerating diet labs improving Pending pathology report from liver biopsy discharge planning thank you. will follow with recs. Rudolph Solis Jun 23, 2018 14:22
--- NOTE | 2018-06-23 14:25 | Pulmonology Progress Note ---
Assessment/Plan Problems: (1) Metastatic cancer (2) Aspiration pneumonia (3) ATN (acute tubular necrosis) (4) Lung nodule, multiple (5) Seizure disorder (6) Severe malnutrition (7) Cerebrovascular accident (CVA) (8) Advanced dementia Assessment/Plan looks comfortable all noted, renal function improving dvt prophylaxis pr is DNR as requested by pts son pt has metastatic cancer discharge planning to go back to care home Pt's son wishes comfort and hospice care, which is going to be very difficult considering that he has Medicare days and half-way will resist any hospice care as long as patient has Medicare days left. Subjective ROS Limited/Unobtainable: Yes Constitutional: Reports: no symptoms HEENT: Repors: no symptoms Allergies: Coded Allergies: No Known Allergies (Unverified , 09/04/17) Objective Last 24 Hour Vital Signs Date Time Temp Pulse Resp B/P (MAP) Pulse Ox O2 Delivery O2 Flow Rate FiO2 06/23/18 12:00 98.2 92 19 114/69 (84) 96 98.2 06/23/18 09:45 84 109/69 06/23/18 09:00 Nasal Cannula 2.0 06/23/18 08:00 97.8 70 19 108/69 (82) 96 97.8 06/23/18 07:00 96 Nasal Cannula 2.0 28 06/23/18 07:00 Nasal Cannula 2.0 28 06/23/18 07:00 84 21 Nasal Cannula 2.0 28 06/23/18 04:00 97.9 77 19 109/69 (82) 96 97.9 06/23/18 01:48 Nasal Cannula 2.0 28 06/23/18 01:48 96 Nasal Cannula 2.0 28 06/23/18 01:46 80 20 Nasal Cannula 2.0 28 06/23/18 00:00 97.5 79 17 119/65 (83) 97 97.5 06/22/18 21:04 84 119/68 06/22/18 21:00 Nasal Cannula 2.0 06/22/18 20:00 97.2 84 17 119/68 (85) 96 97.2 06/22/18 15:44 98.4 75 20 116/68 (84) 97 98.4 Intake and Output 06/22/18 06/23/18 19:00 07:00 Intake Total 860 ml 1105 ml Balance 860 ml 1105 ml Free Water 180 ml 260 ml IV Total 20 ml 240 ml Tube Feeding 660 ml 605 ml # Voids 2 # Bowel Movements 2 General Appearance: WD/WN HEENT: normocephalic, atraumatic Respiratory/Chest: chest wall non-tender, lungs clear Cardiovascular: normal peripheral pulses, normal rate Abdomen: normal bowel sounds, soft, non tender Genitourinary: normal external genitalia Extremities: no cyanosis Skin: no rash Microbiology Date/Time Source Procedure Growth Status 06/21/18 13:50 Blood Blood Culture - Preliminary NO GROWTH AFTER 24 HOURS Resulted 06/21/18 13:40 Blood Blood Culture - Preliminary NO GROWTH AFTER 24 HOURS Resulted Laboratory Tests 06/23/18 06:10: White Blood Count 12.9H, Red Blood Count 3.13L, Hemoglobin 8.7L, Hematocrit 27.2L, Mean Corpuscular Volume 87, Mean Corpuscular Hemoglobin 27.8, Mean Corpuscular Hemoglobin Concent 32.0, Red Cell Distribution Width 13.2, Platelet Count 289, Mean Platelet Volume 7.0, Neutrophils (%) (Auto) 81.0H, Lymphocytes ( %) (Auto) 11.3L, Monocytes (%) (Auto) 6.9, Eosinophils (%) (Auto) 0.7, Basophils (%) (Auto) 0.2, Sodium Level 142, Potassium Level 3.8, Chloride Level 109H, Carbon Dioxide Level 25, Anion Gap 9, Blood Urea Nitrogen 20H, Creatinine 0.9, Estimat Glomerular Filtration Rate , Glucose Level 110H, Calcium Level 7.5L Current Medications Medications (Trade) Dose Ordered Sig/Manav Route PRN Reason Start Time Stop Time Status Last Admin Dose Admin Acetaminophen (Tylenol) 650 mg Q4H PRN ORAL fever (temp>100.5F) 06/16/18 17:15 07/14/18 13:14 06/19/18 20:38 Albuterol/ Ipratropium (Albuterol/ Ipratropium) 3 ml Q4H PRN HHN Shortness of Breath 06/20/18 07:45 06/25/18 07:44 Dextrose 1,000 ml @ 20 mls/hr Q24H IV 06/17/18 16:00 07/14/18 15:59 06/22/18 16:07 Heparin Sodium (Porcine) (Heparin 5000 units/ml) 5,000 units EVERY 12 HOURS SUBQ 06/16/18 21:00 07/14/18 20:59 06/23/18 09:45 Levetiracetam (Keppra) 500 mg Q12HR ORAL 06/16/18 21:00 07/14/18 20:59 06/23/18 09:44 Metoclopramide HCl (Reglan) 10 mg EVERY 6 HOURS NG 06/20/18 12:00 07/20/18 11:59 06/23/18 12:50 Metoprolol Tartrate (Lopressor) 50 mg Q12HR PEG 06/23/18 21:00 07/23/18 20:59 Malia Saba MD Jun 23, 2018 14:25
--- NOTE | 2018-06-23 15:15 | Diagnostic Imaging Report ---
Indication: Multiple liver masses demonstrated on prior CT scan Technique: Informed consent obtained prior to commencement of the procedure from the patient's son. Prior imaging studies reviewed. Procedural timeout performed. Ultrasound used to localize optimal puncture site. The skin was sterilely prepped and draped. Local anesthesia with 1% lidocaine, both superficial and deep. Taking care to traverse normal liver, a large posterior left lobe nodule was selected as target. A 17-gauge guide needle was advanced to the periphery of the target nodule. Total 4 needle passes then made using coaxial inserted 18-gauge biopsy gun. Specimens placed in formalin, submitted to pathology. The patient tolerated the procedure well, without immediate complication. Comparison: Reference made to CT scan dated 06/16/2018 Findings: Intraprocedural images document needle placement within the target nodule Impression: Targeted left lobe liver biopsy for suspected metastatic disease, as described Per discussion with pathologist, the diagnosis is melanoma. This is concordant with the imaging findings
[2018-06-23 16:00] VITALS: BP 115/69
--- NOTE | 2018-06-23 16:22 | Infectious Diseases Prog Note ---
Assessment/Plan Assessment/Plan 78 yo male sent to the ED from his detention after refusing med and food for a week per report. PNA - Possible aspiration vs CAP, s/p Rx -06/22 CXR: Possible developing patchy infiltrate in the right mid to lower lung. Other stable findings as described +ve blood cx : CoNS contaminant -06/16 BCx NTD 2D echo : no Veg Lung Nodules and liver mass; metastatic Cancer- -path consistent with metastatic melanoma- CT: Evidence of disseminated malignancy, with numerous bilateral lung masses, possible right-sided pleural masses, hilar lymphadenopathy, subcutaneous nodules, splenic masses and multiple liver masses - Likely CA given US - 06/18 SP Bx : P Fever, low grade, recurrent Leukocytosis, mild,recurrent- improving -likely 2ry to malignancy Elevalted LFTs, improving -acute hep panel neg; likely 2ry to liver masses Dysphagia HTN COPD Epilepsy Depression Schizophrenia Dementia CVA CT Anemia PLAN: Patient placed on comfort care measures only - 06/21 SP Cefepime and Flagyl #7 - 06/15 - SP Vancomycin - Blood Cx likely contaminant ID WILL SIGN OFF NOW. PLEASE CALL BACK IF NEEDED. Subjective Allergies: Coded Allergies: No Known Allergies (Unverified , 09/04/17) Subjective path found to be metastatic melanoma patient has been placed on comfort measures only Objective Vital Signs Last 24 Hour Vital Signs Date Time Temp Pulse Resp B/P (MAP) Pulse Ox O2 Delivery O2 Flow Rate FiO2 06/23/18 12:00 98.2 92 19 114/69 (84) 96 98.2 06/23/18 09:45 84 109/69 06/23/18 09:00 Nasal Cannula 2.0 06/23/18 08:00 97.8 70 19 108/69 (82) 96 97.8 06/23/18 07:00 96 Nasal Cannula 2.0 28 06/23/18 07:00 Nasal Cannula 2.0 28 06/23/18 07:00 84 21 Nasal Cannula 2.0 28 06/23/18 04:00 97.9 77 19 109/69 (82) 96 97.9 06/23/18 01:48 Nasal Cannula 2.0 28 06/23/18 01:48 96 Nasal Cannula 2.0 28 06/23/18 01:46 80 20 Nasal Cannula 2.0 28 06/23/18 00:00 97.5 79 17 119/65 (83) 97 97.5 06/22/18 21:04 84 119/68 06/22/18 21:00 Nasal Cannula 2.0 06/22/18 20:00 97.2 84 17 119/68 (85) 96 97.2 Height (Feet): 5 Height (Inches): 5.00 Weight (Pounds): 130 Objective General Appearance: WD/WN, no acute distress HEENT: atraumatic Respiratory/Chest: chest wall non-tender, normal breath sounds Cardiovascular: normal peripheral pulses, normal rate Abdomen: soft, non tender Extremities: no cyanosis Neurologic/Psychiatric: manager retention II-XII grossly normal Lymphatic: no neck adenopathy Musculoskeletal: normal muscle bulk Microbiology Date/Time Source Procedure Growth Status 06/21/18 13:50 Blood Blood Culture - Preliminary NO GROWTH AFTER 24 HOURS Resulted 06/21/18 13:40 Blood Blood Culture - Preliminary NO GROWTH AFTER 24 HOURS Resulted Laboratory Tests Test 06/23/18 06:10 White Blood Count 12.9 K/UL (4.8-10.8) H Red Blood Count 3.13 M/UL (4.70-6.10) L Hemoglobin 8.7 G/DL (14.2-18.0) L Hematocrit 27.2 % (42.0-52.0) L Mean Corpuscular Volume 87 FL (80-99) Mean Corpuscular Hemoglobin 27.8 PG (27.0-31.0) Mean Corpuscular Hemoglobin Concent 32.0 G/DL (32.0-36.0) Red Cell Distribution Width 13.2 % (11.6-14.8) Platelet Count 289 K/UL (150-450) Mean Platelet Volume 7.0 FL (6.5-10.1) Neutrophils (%) (Auto) 81.0 % (45.0-75.0) H Lymphocytes (%) (Auto) 11.3 % (20.0-45.0) L Monocytes (%) (Auto) 6.9 % (1.0-10.0) Eosinophils (%) (Auto) 0.7 % (0.0-3.0) Basophils (%) (Auto) 0.2 % (0.0-2.0) Sodium Level 142 MMOL/L (136-145) Potassium Level 3.8 MMOL/L (3.5-5.1) Chloride Level 109 MMOL/L (98-107) H Carbon Dioxide Level 25 MMOL/L (21-32) Anion Gap 9 mmol/L (5-15) Blood Urea Nitrogen 20 mg/dL (7-18) H Creatinine 0.9 MG/DL (0.55-1.30) Estimat Glomerular Filtration Rate mL/min (>60) Glucose Level 110 MG/DL (74-106) H Calcium Level 7.5 MG/DL (8.5-10.1) L Current Medications Medications (Trade) Dose Ordered Sig/Manav Route PRN Reason Start Time Stop Time Status Last Admin Dose Admin Acetaminophen (Tylenol) 650 mg Q4H PRN ORAL fever (temp>100.5F) 06/16/18 17:15 07/14/18 13:14 06/19/18 20:38 Albuterol/ Ipratropium (Albuterol/ Ipratropium) 3 ml Q4H PRN HHN Shortness of Breath 06/20/18 07:45 06/25/18 07:44 Dextrose 1,000 ml @ 20 mls/hr Q24H IV 06/17/18 16:00 07/14/18 15:59 06/23/18 16:01 Heparin Sodium (Porcine) (Heparin 5000 units/ml) 5,000 units EVERY 12 HOURS SUBQ 06/16/18 21:00 07/14/18 20:59 06/23/18 09:45 Levetiracetam (Keppra) 500 mg Q12HR ORAL 06/16/18 21:00 07/14/18 20:59 06/23/18 09:44 Metoclopramide HCl (Reglan) 10 mg EVERY 6 HOURS NG 06/20/18 12:00 07/20/18 11:59 06/23/18 12:50 Metoprolol Tartrate (Lopressor) 50 mg Q12HR PEG 06/23/18 21:00 07/23/18 20:59 Nasreen Girard M.D. Jun 23, 2018 16:22
--- NOTE | 2018-06-23 17:18 | General Surgery Progress Note ---
General Surgery-Progress Note Subjective Additional Comments no acute events. tolerating tube feeds. Objective Last 24 Hour Vital Signs Date Time Temp Pulse Resp B/P (MAP) Pulse Ox O2 Delivery O2 Flow Rate FiO2 06/23/18 16:00 98.8 89 19 115/69 (84) 96 98.8 06/23/18 12:00 98.2 92 19 114/69 (84) 96 98.2 06/23/18 09:45 84 109/69 06/23/18 09:00 Nasal Cannula 2.0 06/23/18 08:00 97.8 70 19 108/69 (82) 96 97.8 06/23/18 07:00 96 Nasal Cannula 2.0 28 06/23/18 07:00 Nasal Cannula 2.0 28 06/23/18 07:00 84 21 Nasal Cannula 2.0 28 06/23/18 04:00 97.9 77 19 109/69 (82) 96 97.9 06/23/18 01:48 Nasal Cannula 2.0 28 06/23/18 01:48 96 Nasal Cannula 2.0 28 06/23/18 01:46 80 20 Nasal Cannula 2.0 28 06/23/18 00:00 97.5 79 17 119/65 (83) 97 97.5 06/22/18 21:04 84 119/68 06/22/18 21:00 Nasal Cannula 2.0 06/22/18 20:00 97.2 84 17 119/68 (85) 96 97.2 I&O Intake and Output 06/22/18 06/23/18 19:00 07:00 Intake Total 860 ml 1105 ml Balance 860 ml 1105 ml Free Water 180 ml 260 ml IV Total 20 ml 240 ml Tube Feeding 660 ml 605 ml # Voids 2 # Bowel Movements 2 Dressing: other Wound: clean, dry, other Drains: other Cardiovascular: RSR Respiratory: clear, decreased breath sounds Abdomen: soft, non-tender, present bowel sounds Extremities: other Laboratory Tests Test 06/23/18 06:10 White Blood Count 12.9 K/UL (4.8-10.8) H Red Blood Count 3.13 M/UL (4.70-6.10) L Hemoglobin 8.7 G/DL (14.2-18.0) L Hematocrit 27.2 % (42.0-52.0) L Mean Corpuscular Volume 87 FL (80-99) Mean Corpuscular Hemoglobin 27.8 PG (27.0-31.0) Mean Corpuscular Hemoglobin Concent 32.0 G/DL (32.0-36.0) Red Cell Distribution Width 13.2 % (11.6-14.8) Platelet Count 289 K/UL (150-450) Mean Platelet Volume 7.0 FL (6.5-10.1) Neutrophils (%) (Auto) 81.0 % (45.0-75.0) H Lymphocytes (%) (Auto) 11.3 % (20.0-45.0) L Monocytes (%) (Auto) 6.9 % (1.0-10.0) Eosinophils (%) (Auto) 0.7 % (0.0-3.0) Basophils (%) (Auto) 0.2 % (0.0-2.0) Sodium Level 142 MMOL/L (136-145) Potassium Level 3.8 MMOL/L (3.5-5.1) Chloride Level 109 MMOL/L (98-107) H Carbon Dioxide Level 25 MMOL/L (21-32) Anion Gap 9 mmol/L (5-15) Blood Urea Nitrogen 20 mg/dL (7-18) H Creatinine 0.9 MG/DL (0.55-1.30) Estimat Glomerular Filtration Rate mL/min (>60) Glucose Level 110 MG/DL (74-106) H Calcium Level 7.5 MG/DL (8.5-10.1) L Plan Problems: (1) Lung nodule, multiple Assessment & Plan: abnormal lft's, leukocytosis. GI procedures on hold because of cardiac clearance Hepatitis panel pending US Abdomen: Multiple hepatic and splenic masses, as described. 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 However, in view of the splenic involvement, the possibility that this represents multiple abscesses should also be considered Fluid structure in the gallbladder fossa probably but not definitively represents a nondistended gallbladder. This possibly contains gallstones. Soft tissue echogenicity area within the apparent lumen could represent tumefactive sludge, polyp, or, given the above findings, neoplasm Multiple lung nodules. etiology unknown. CT C/A/P reviewed. Metastatic disease everywhere. small right chest wall anterior lateral nodule noted. s/p PEG and tolerating diet labs improving Pending pathology report from liver biopsy discharge planning thank you. will follow with recs. Rudolph Solis Jun 23, 2018 17:18
[2018-06-23] MEDS ORDERED: Metoprolol Tartrate 50mg tab PEG SCH (21:00)
--- NOTE | 2018-06-24 | Cardiology Progress Note ---
Assessment/Plan Assessment/Plan LATE ENTRY NOTE Date of Service: Jun 23, 2018 Time the patient seen: 08:35am 1. Non-sustained ventricular tachycardia, Mg and K optimized, continue metoprolol. 2. Sinus tachycardia, resolved. 3. CVA, recommend ASA and statins. 4. s/ PEG, post-op day #2, no chris-op cardiac events. 5. DNR status. Subjective Subjective No cardiac events. s/p PEG, POD #1 Objective Last 24 Hour Vital Signs Date Time Temp Pulse Resp B/P (MAP) Pulse Ox O2 Delivery O2 Flow Rate FiO2 06/23/18 16:00 98.8 89 19 115/69 (84) 96 98.8 06/23/18 12:00 98.2 92 19 114/69 (84) 96 98.2 06/23/18 09:45 84 109/69 06/23/18 09:00 Nasal Cannula 2.0 06/23/18 08:00 97.8 70 19 108/69 (82) 96 97.8 06/23/18 07:00 96 Nasal Cannula 2.0 28 06/23/18 07:00 Nasal Cannula 2.0 28 06/23/18 07:00 84 21 Nasal Cannula 2.0 28 06/23/18 04:00 97.9 77 19 109/69 (82) 96 97.9 06/23/18 01:48 Nasal Cannula 2.0 28 06/23/18 01:48 96 Nasal Cannula 2.0 28 06/23/18 01:46 80 20 Nasal Cannula 2.0 28 06/23/18 00:00 97.5 79 17 119/65 (83) 97 97.5 Intake and Output 06/22/18 06/23/18 19:00 07:00 Intake Total 860 ml 1160 ml Balance 860 ml 1160 ml Free Water 180 ml 260 ml IV Total 20 ml 240 ml Tube Feeding 660 ml 660 ml # Voids 2 # Bowel Movements 2 2D Echo: LVEF 65%, Grade I LVDD, RVSP 35 mmHg Laboratory Tests Test 06/23/18 06:10 White Blood Count 12.9 K/UL (4.8-10.8) H Red Blood Count 3.13 M/UL (4.70-6.10) L Hemoglobin 8.7 G/DL (14.2-18.0) L Hematocrit 27.2 % (42.0-52.0) L Mean Corpuscular Volume 87 FL (80-99) Mean Corpuscular Hemoglobin 27.8 PG (27.0-31.0) Mean Corpuscular Hemoglobin Concent 32.0 G/DL (32.0-36.0) Red Cell Distribution Width 13.2 % (11.6-14.8) Platelet Count 289 K/UL (150-450) Mean Platelet Volume 7.0 FL (6.5-10.1) Neutrophils (%) (Auto) 81.0 % (45.0-75.0) H Lymphocytes (%) (Auto) 11.3 % (20.0-45.0) L Monocytes (%) (Auto) 6.9 % (1.0-10.0) Eosinophils (%) (Auto) 0.7 % (0.0-3.0) Basophils (%) (Auto) 0.2 % (0.0-2.0) Sodium Level 142 MMOL/L (136-145) Potassium Level 3.8 MMOL/L (3.5-5.1) Chloride Level 109 MMOL/L (98-107) H Carbon Dioxide Level 25 MMOL/L (21-32) Anion Gap 9 mmol/L (5-15) Blood Urea Nitrogen 20 mg/dL (7-18) H Creatinine 0.9 MG/DL (0.55-1.30) Estimat Glomerular Filtration Rate mL/min (>60) Glucose Level 110 MG/DL (74-106) H Calcium Level 7.5 MG/DL (8.5-10.1) L Microbiology Date/Time Source Procedure Growth Status 06/21/18 13:50 Blood Blood Culture - Preliminary NO GROWTH AFTER 24 HOURS Resulted 06/21/18 13:40 Blood Blood Culture - Preliminary NO GROWTH AFTER 24 HOURS Resulted Objective General Appearance: Cachetic, Chronically Ill, non-verbal. HEENT: Atraumatic, normocephalic, PERRLA, EOMI, dry mucus membranes Neck: No JVD, no carotid bruit. Lungs: Clear Cardiovascular : regular rate and rhythm, normal S1S2, no murmurs, gallops or rubs. Gastrointestinal: normal inspection, normal bowel sounds, non tender, soft, no guarding, no hernia, + PEG in place Musculoskeletal: no edema, clubbing or cyanosis. Michael Powell MD Jun 24, 2018 00:00
--- NOTE | 2018-06-24 00:03 | Cardiology Progress Note ---
Assessment/Plan Assessment/Plan LATE NOTE ENTRY Date of Service: 06/23/18 Time the patient seen: 08:35 am 1. Non-sustained ventricular tachycardia, Mg and K optimized,continue metoprolol. 2. Sinus tachycardia, resolved. 3. CVA, recommend ASA and statins. 4. s/ PEG, no chris-op cardiac events. 5. DNR status. Subjective Subjective No cardiac events. s/p PEG, POD #2 Objective Last 24 Hour Vital Signs Date Time Temp Pulse Resp B/P (MAP) Pulse Ox O2 Delivery O2 Flow Rate FiO2 06/23/18 16:00 98.8 89 19 115/69 (84) 96 98.8 06/23/18 12:00 98.2 92 19 114/69 (84) 96 98.2 06/23/18 09:45 84 109/69 06/23/18 09:00 Nasal Cannula 2.0 06/23/18 08:00 97.8 70 19 108/69 (82) 96 97.8 06/23/18 07:00 96 Nasal Cannula 2.0 28 06/23/18 07:00 Nasal Cannula 2.0 28 06/23/18 07:00 84 21 Nasal Cannula 2.0 28 06/23/18 04:00 97.9 77 19 109/69 (82) 96 97.9 06/23/18 01:48 Nasal Cannula 2.0 28 06/23/18 01:48 96 Nasal Cannula 2.0 28 06/23/18 01:46 80 20 Nasal Cannula 2.0 28 Intake and Output 06/23/18 06/24/18 19:00 07:00 Intake Total 750 ml Balance 750 ml Free Water 200 ml Tube Feeding 550 ml # Bowel Movements 1 2D Echo: LVEF 65%, Grade I LVDD, RVSP 35 mmHg Laboratory Tests Test 06/23/18 06:10 White Blood Count 12.9 K/UL (4.8-10.8) H Red Blood Count 3.13 M/UL (4.70-6.10) L Hemoglobin 8.7 G/DL (14.2-18.0) L Hematocrit 27.2 % (42.0-52.0) L Mean Corpuscular Volume 87 FL (80-99) Mean Corpuscular Hemoglobin 27.8 PG (27.0-31.0) Mean Corpuscular Hemoglobin Concent 32.0 G/DL (32.0-36.0) Red Cell Distribution Width 13.2 % (11.6-14.8) Platelet Count 289 K/UL (150-450) Mean Platelet Volume 7.0 FL (6.5-10.1) Neutrophils (%) (Auto) 81.0 % (45.0-75.0) H Lymphocytes (%) (Auto) 11.3 % (20.0-45.0) L Monocytes (%) (Auto) 6.9 % (1.0-10.0) Eosinophils (%) (Auto) 0.7 % (0.0-3.0) Basophils (%) (Auto) 0.2 % (0.0-2.0) Sodium Level 142 MMOL/L (136-145) Potassium Level 3.8 MMOL/L (3.5-5.1) Chloride Level 109 MMOL/L (98-107) H Carbon Dioxide Level 25 MMOL/L (21-32) Anion Gap 9 mmol/L (5-15) Blood Urea Nitrogen 20 mg/dL (7-18) H Creatinine 0.9 MG/DL (0.55-1.30) Estimat Glomerular Filtration Rate mL/min (>60) Glucose Level 110 MG/DL (74-106) H Calcium Level 7.5 MG/DL (8.5-10.1) L Microbiology Date/Time Source Procedure Growth Status 06/21/18 13:50 Blood Blood Culture - Preliminary NO GROWTH AFTER 24 HOURS Resulted 06/21/18 13:40 Blood Blood Culture - Preliminary NO GROWTH AFTER 24 HOURS Resulted Objective General Appearance: Cachetic, Chronically Ill, non-verbal. HEENT: Atraumatic, normocephalic, PERRLA, EOMI, dry mucus membranes Neck: No JVD, no carotid bruit. Lungs: Clear Cardiovascular : regular rate and rhythm, normal S1S2, no murmurs, gallops or rubs. Gastrointestinal: normal inspection, normal bowel sounds, non tender, soft, no guarding, no hernia, + PEG in place Musculoskeletal: no edema, clubbing or cyanosis. Michael Powell MD Jun 24, 2018 00:03
--- NOTE | 2018-06-24 14:11 | Discharge Summary ---
Discharge Summary Discharge Summary _ DATE OF ADMISSION: 06/14/2018 DATE OF DISCHARGE: 06/23/2018 CONSULTANTS: Dr. Anthony Powell [facility] HOSPITAL COURSE: Patient is a 78-year-old male, from [facility], presented to ED due to productive cough and difficulty tolerating oral fluids. He was recently noted to have increased difficulty breathing. He was not taking his medications for past several days, he was refusing food as well. He developed productive cough. He has medical history significant for anemia, old CVA, hypertension, COPD and CHF. On evaluation at ED, blood work did not show any leukocytoses. Lactic acid was elevated to 3.8. Sodium was elevated to 163. Chloride 127. Creatinine was elevated to 1.7, BUN 46. Troponin was 0.196. Chest x-ray showed right lower lobe infiltrate. There was no evident effusion, but there were multiple bilateral nodular densities seen. He was admitted for evaluation of hypernatremia, pneumonia, dehydration and failure to thrive. He was seen by GI specialist. Patient was kept nothing by mouth with IV fluids. Speech therapy evaluation was done. He was started on IV antibiotics cefepime and Flagyl. Patient had blood culture growing Staphylococcus aureus, most probably contaminant. He was given vancomycin. Echocardiogram did not show any evidence of vegetations. Vancomycin was eventually discontinued. Repeat blood culture did not isolate any growth. Dr. Malia Saba was consulted. CT of the chest, abdomen and pelvis showed evidence of disseminated malignancy, with numerous bilateral lung mass, possible right-sided pleural mass, hilar lymphadenopathy, subcutaneous nodule, splenic mass and multiple liver masses. There was finding of small bowel to small bowel intussusception however did not appear to be in any obstruction or strangulation. There was incidental findings of hepatic/. Hepatic calcifications, multiple left renal hilar calcification, left upper renal disease and right renal perihilar calcification. Patient had elevated LFTs. Patient had disseminated malignancy which was widespread. Tumor marker CA 199 was elevated. Psychiatric evaluation was done. Patient was assessed to lack the capacity to make medical decisions. He was given Prozac 20 mg daily. He had an episode of nonsustained ventricular tachycardia. He was given potassium and phosphorus replacement. He was given metoprolol. Advised to keep magnesium level greater than 2.5. Sinus tachycardia eventually resolved. He was cleared by cardiology. He continued to have a low appetite. He had anemia and was deficient on iron and folate. Speech evaluation done showed dysphagia and recommended nonoral feedings. On 06/21/2018 he underwent upper endoscopy with PEG placement. Ultrasound-guided biopsy of the liver was performed. Pathology result showed metastatic melanoma. Prognosis poor. CODE STATUS was changed to DO NOT RESUSCITATE per family request. Family requested for comfort and hospice care. He was eventually discharged back to group home. FINAL DIAGNOSES: Metastatic CA Aspiration pneumonia Severe protein calorie malnutrition Encephalopathy due to metabolic factors or toxin Old CVA Advanced dementia Nonsustained ventricular tachycardia Lung nodule and liver mass secondary to metastatic melanoma Dysphagia requiring PEG tube insertion Hypertension Depression Schizophrenia Anemia Dehydration Weakness Acute hypernatremia Renal insufficiency/acute kidney injury Hypoalbuminemia Hospice/comfort care DISPOSITION: Patient was discharged to [facility] with hospice. DISCHARGE MEDICATIONS: Refer to Discharge Medication List. I have been assigned to dictate discharge summary on this account, and I was not involved in the patient's management. Lucretia White NP Jun 24, 2018 14:11
--- NOTE | 2018-06-25 16:19 | Diagnostic Imaging Report ---
Indications: Dysphagia Technique: Patient ingested multiple substances under the supervision of speech pathology. Video fluoroscopic recording performed. Total fluoroscopy time 157.2 seconds. Total dose area product [id number] mGycm2. Total number of saved cine fluoroscopic images, 7 Comparison: none Findings: There is frequent penetration and likely trace aspiration of thin liquid barium. There is penetration of honey and nectar thick liquid barium no aspiration. Impression: Positive for penetration and trace aspiration of thin liquid barium, penetration of honey and nectar thick liquid barium. Please refer to speech pathology report for more detailed analysis
== END 2018-06-23 18:16 | DRG 177 ==
LOC: EDBD 12:53 → EMR 13:17 → 2E 13:33 → EDBEDREQ 14:19 → 4E 06-16 15:28
PROC: 0FB23ZX Excision of Left Lobe Liver, Percutaneous Approach, Diagnostic (ICD-10-PCS; principal; 2018-06-18)
PROC: 0DH63UZ Insertion of Feeding Device into Stomach, Percutaneous Approach (ICD-10-PCS; 2018-06-21 09:56)
DX: J69.0 Pneumonitis due to inhalation of food and vomit (principal); E43 Unspecified severe protein-calorie malnutrition; N17.0 Acute kidney failure with tubular necrosis; G93.41 Metabolic encephalopathy; C78.00 Secondary malignant neoplasm of unspecified lung; C78.7 Secondary malignant neoplasm of liver and intrahepatic bile duct; C78.89 Secondary malignant neoplasm of other digestive organs; E87.0 Hyperosmolality and hypernatremia; I47.1 Supraventricular tachycardia; Z68.21 Body mass index [BMI] 21.0-21.9, adult; C43.9 Malignant melanoma of skin, unspecified; R62.7 Adult failure to thrive; I10 Essential (primary) hypertension; E86.0 Dehydration; G40.909 Epilepsy, unspecified, not intractable, without status epilepticus; Z86.73 Personal history of transient ischemic attack (TIA), and cerebral infarction without residual deficits; F03.90 Unspecified dementia, unspecified severity, without behavioral disturbance, psychotic disturbance, mood disturbance, and anxiety; F32.9 Major depressive disorder, single episode, unspecified; F20.9 Schizophrenia, unspecified; I25.2 Old myocardial infarction; R13.10 Dysphagia, unspecified; D52.9 Folate deficiency anemia, unspecified; R50.9 Fever, unspecified; Z66 Do not resuscitate; J44.9 Chronic obstructive pulmonary disease, unspecified; Z51.5 Encounter for palliative care; K29.40 Chronic atrophic gastritis without bleeding
CPT/HCPCS: 36415; 36600; 71045; 71260; 74018; 74177; 74230; 76700; 76942; 80048; 80053; 80061; 80069; 80076; 80299; 81003; 82105; 82270; 82378; 82550; 82553; 82607; 82728; 82746; 82803; 82977; 83036; 83540; 83550; 83605; 83735; 83880; 84100; 84439; 84443; 84484; 84550; 85007; 85025; 85044; 85610; 85730; 86140; 86300; 86703; 86704; 86705; 86706; 86708; 86709; 86710; 86803; 87040; 87081; 87181; 87340; 93005; 93306; 94003; 94150; 94640; 94664; 94760; 96361; 96365; 99285; J2250; J7620

== ENCOUNTER 2018-07-25 03:39 | Emergency (ER) | payer MEDICARE, MEDICAID ==
[~2018-07-25] VITALS: Ht 175.3 cm; Wt 59.0 kg
[2018-07-25 03:39] VITALS: BP 95/72
[~2018-07-25 03:39] MED LIST changes: +ACETAMINOPHEN325 M1 ORAL; +COLACE100 MG ORAL; +FLUOXETINE HCL20 MG ORAL; +FOLIC ACID1 MG ORAL; +HEPARIN SO5000 UNIT2 SUBQ; +LANSOPRAZOLE30 M2 PO; +METOCLOPRA10 MG/10 M ORAL; +METOPROLOL TART25 MG ORAL; +MILK OF MA400 MG/51 ORAL; +PROZAC10 MG ORAL; +TEMAZEPAM15 MG ORAL; +TYLENOL EXTRA500 MG ORAL
--- NOTE | 2018-07-25 04:22 | Emergency Room Report ---
History of Present Illness General Chief Complaint: Dyspnea/Respdistress Source: Medical Record Present Illness HPI This patient was referred for increased lethargy, sob. SNF could not find the POLST. The patient is nonverbal. Old record shows metastatic disease multiple locations, hospice, DNR and Dr. Heaton had d/w family poor prognosis. Allergies: Coded Allergies: No Known Allergies (Unverified , 09/04/17) Nursing Documentation-PMH Past Medical History: No History, Except For Hx Hypertension: Yes Hx COPD: Yes Hx Cancer: No Hx Neurological Problems: Yes Hx Cerebrovascular Accident: Yes Review of Systems Constitutional: Reports: see HPI All Other Systems: limited Physical Exam Vital Signs Date Time Temp Pulse Resp B/P (MAP) Pulse Ox O2 Delivery O2 Flow Rate FiO2 07/25/18 03:31 130 26 79/44 86 Non-Rebreather Sp02 EP Interpretation: abnormal General Appearance: mild distress Head: normocephalic, atraumatic Eyes: bilateral eye PERRL ENT: dry mucus membranes Neck: limited range of motion Respiratory: normal inspection, chest non-tender, no retraction, other - mild resp distress/rr 20 Cardiovascular #1: regular rate, rhythm, no edema Gastrointestinal: non tender, other - PEG Rectal: heme negative stool Musculoskeletal: other - no edema Neurologic: other - nonverbal, minimally responsive Skin: no rash Medical Decision Making Diagnostic Impression: Primary Impression: Encephalopathy due to metabolic factor or toxin Additional Impression: Metastatic cancer ER Course No treatment being initiated here; will transfer back to SNF. Rhythm Strip Diag. Results Rhythm Strip Time: 04:24 EP Interpretation: yes Rate: 100 Rhythm: NSR Last Vital Signs Date Time Temp Pulse Resp B/P (MAP) Pulse Ox O2 Delivery O2 Flow Rate FiO2 07/25/18 03:31 130 26 79/44 86 Non-Rebreather Disposition: HOME, SELF-CARE Condition: Serious Patient Instructions: Shortness of Breath Porter Mesa M.D. Jul 25, 2018 04:22
[2018-07-25 04:57] VITALS: BP 0/0
== END 2018-07-25 05:15 | disposition home or self-care (01) ==
LOC: EDBD 03:39 → EMR 05:13
DX: G92 Toxic encephalopathy (principal); C80.1 Malignant (primary) neoplasm, unspecified; C79.9 Secondary malignant neoplasm of unspecified site; R53.83 Other fatigue; I10 Essential (primary) hypertension; Z86.73 Personal history of transient ischemic attack (TIA), and cerebral infarction without residual deficits
CPT/HCPCS: 99283